=== PATIENT | female | born 1940 | race African-American/Black ===

== ENCOUNTER → 2017-04-04 | Emergency (ER) | payer OTHER ==
[~2017-04-04] MED LIST: AMPICILLIN NA/SULBACTAM NA 1.5 GM in SODIUM CHLORIDE 100 ML IVPB ONE; SODIUM CHLORIDE 0.9% 500 ML INFUS.BAG IV ONE; morphine CARPU-JECT 2 MG/1 ML DISP.SYRIN IVPUSH ONE; morphine CARPU-JECT 2 MG/1 ML DISP.SYRIN ONE
[2017-04-04 19:09] VITALS: BP 111/64; PULSE 68; TEMP 98.5; BMI 32.8
--- NOTE | 2017-04-04 19:51 | PDOC ---
History of Present Illness - General Chief Complaint: Pain Stated Complaint: FEVER, SIDE PAIN, PAIN WITH BREATHING Time Seen by Provider: 04/04/17 19:24 - History of Present Illness Initial Comments: 04/04/17 19:46 Patient is a 76 year old female with a history of HLD, DM, COPD who presents with chest pain and lower abdominal pain. Patient reports pinpoint left sided chest pain beginning two days ago that is worse with movement from some positions. She then developed lower left abdominal pain earlier today prompting her visit to the ED. She reports that she doesn't know what makes the pain in her abdomen worse, but states that it is intermittent. She has a history of a hysterectomy at 30, but no other abdominal surgeries. She gets regular colonoscopies with no abnormalities noted. She had a recent broncitis treated with augmentin over the past 10 days and has a continued dry cough. She reports some subjective fevers at home, but denies any chills, SOB, recent long travel, blood in her stools, changes with urination, or abnormal vaginal discharge or bleeding. Past History - Past Medical History Allergies/Adverse Reactions: Allergies Allergy/AdvReac Type Severity Reaction Status Date / Time No Known Allergies Allergy Verified 04/04/17 19:06 Home Medications: Ambulatory Orders Aspirin [ASA -] 81 mg PO DAILY 09/13/16 Azithromycin [Zithromax -] 250 mg PO DAILY 09/13/16 Ca/D3/Mag#11/Zinc/It Administrator/[place]/Bor [Caltrate 600+D Plus Tablet] 1 each PO DAILY Memantine HCl [Namenda -] 10 mg PO BID 09/13/16 Metformin HCl [Glucophage -] 500 mg PO BID 09/13/16 Ondansetron HCl [Zofran] 4 mg PO Q6H 09/13/16 Rosuvastatin [Crestor -] 10 mg PO DAILY 09/13/16 Amoxicillin/Potassium Clav [Augmentin 875-125 Tablet] 1 each PO BID #14 tablet 04/05/17 Diabetes: Yes - Immunization History Immunization Up to Date: Yes - Psycho/Social/Smoking Cessation Hx Anxiety: No Suicidal Ideation: No Smoking History: Never smoked Information on smoking cessation initiated: No Hx Alcohol Use: No Drug/Substance Use Hx: No Substance Use Type: None Review of Systems - Review of Systems Constitutional: Yes: Fever. No: Chills, Unintentional Wgt. Loss HEENTM: No: Recent change in vision, Nose Congestion, Throat Pain Respiratory: Yes: Cough. No: Shortness of Breath, Productive cough Cardiac (ROS): Yes: Chest Pain. No: Lightheadedness, Palpitations, Chest Tightness ABD/GI: No: Blood Streaked Bowels, Constipated, Diarrhea, Nausea, Rectal Bleeding, Vomiting : No: Burning, Dysuria, Frequency, Hematuria Neurological: No: Headache, Numbness, Tingling, Weakness *Physical Exam - Vital Signs Last Vital Signs Temp Pulse Resp BP Pulse Ox 98.5 F 68 19 111/64 97 04/04/17 19:07 04/04/17 19:07 04/04/17 19:07 04/04/17 19:07 04/04/17 19:07 - Physical Exam Comments: 04/04/17 20:33 General Appearance: Nourished. No Apparent Distress HEENT: No Pharyngeal Erythema, Tonsillar Exudate, Tonsillar Erythema Neck: No Lymphadenopathy Respiratory/Chest: Lungs Clear, Normal Breath Sounds. No Crackles, Rales, Rhonchi, Wheezing Cardiovascular: Regular Rhythm, Regular Rate. negative: Murmur, Gallop/S3, Gallop/S4 Gastrointestinal/Abdominal: Normal Bowel Sounds, Soft, Lower right quadrant and suprapubic tenderness to palpation. No Guarding, Rebound Rectal Exam: normal exam Extremity: Normal Capillary Refill. negative: Pedal Edema, Swelling Integumentary: Normal Color, Dry, Warm Neurologic: Fully Oriented, Alert, Normal Mood/Affect, Normal Response ED Treatment Course - LABORATORY CBC & Chemistry Diagram: 04/04/17 20:13 04/04/17 20:13 Medical Decision Making - Medical Decision Making 04/04/17 22:15 Patient is a 76 year old female who presents with lower abdominal pain and chest pain. Given the patient's physical exam, her chest pain is reproducible on palpation and is pinpoint tender suggesting that the cause of her pain is musculaskeletal in nature. However it is reasonable to rule out ACS and pneumonia given her history and risk factors. We will obtain a cbc, cmp, troponin and chest xray to evaluate. Given the patient's abdominal physical exam, we will obtain a abdominal CT with oral contrast to evaluate as well as a stool occult blood. We will also get a UA to evaluate for UTI. 04/05/17 18:53 Patient's labs only notable for an elevated WBC. Abdominal CT read by learning operations specialist radiologist demonstrates sigmoid diverticulitis. We discussed the results with the patient and feel comfortable discharging home with a week of augmentin and follow up with her primary care provider. Patient is agreeable to the plan. *DC/Admit/Observation/Transfer Diagnosis at time of Disposition: Diverticulitis Qualifiers: Diverticulitis site: large intestine Diverticulitis bleeding: without bleeding Diverticulitis complication: without perforation or abscess Qualified Code(s): K57.32 - Diverticulitis of large intestine without perforation or abscess without bleeding - Discharge Dispostion Disposition: HOME Condition at time of disposition: Improved - Prescriptions Prescriptions: Amoxicillin/Potassium Clav [Augmentin 875-125 Tablet] 1 each PO BID #14 tablet - Patient Instructions Printed Discharge Instructions: DI for Diverticulitis Additional Instructions: Please return to the ER if you experience concerning or worsening symptoms. Please call to schedule a follow up appointment with your primary care provider to discuss your ER visit. - Attestations Physician Attestion: 04/05/17 05:48 I, Dr. Meek Blount, attest that this document has been prepared under my direction and personally reviewed by me in its entirety. I further attest, that it accurately reflects all work, treatment, procedures and medical decision -making performed by me.
[2017-04-04 20:20] LABS: STOOL FOR OCCULT BLOOD NEGATIVE (NEGATIVE)
[2017-04-04 20:22] LABS: BASOPHIL 0.2 % (0-2.0); EOSINOPHIL 1.2 % (0-4.5); MCH 29.3 pg (25.7-33.7); MCHC 32.7 g/dl (32.0-36.0); MEAN CELL VOLUME 89.6 fl (80-96); MEAN PLT VOLUME 7.6 fl (7.5-11.1); NEUTROPHILS 72.9 % (42.8-82.8); PLATELET COUNT 263 K/MM3 (134-434); RDW 14.2 % (11.6-15.6); WHITE BLOOD COUNT 12.5 K/mm3 (4.0-10.0)
[2017-04-04 20:49] LABS: URINE APPEARANCE CLEAR; URINE BILIRUBIN NEGATIVE (NEGATIVE); URINE BLOOD NEGATIVE (NEGATIVE); URINE COLOR LTYELLOW; URINE GLUCOSE (UA) NEGATIVE (NEGATIVE); URINE KETONE NEGATIVE (NEGATIVE); URINE NITRITE NEGATIVE (NEGATIVE); URINE PROTEIN NEGATIVE (NEGATIVE); URINE UROBILINOGEN NEGATIVE mg/dL (0.2-1.0)
[2017-04-04 20:51] LABS: INR 0.97 (0.82-1.09); PROTHROMBIN TIME (PATIENT) 10.7 SEC (9.98-11.88)
[2017-04-04 21:03] LABS: URINE LEUK ESTERASE 1+ (NEGATIVE)
[2017-04-04 21:07] LABS: URINE MUCUS RARE; URINE RBC 10 /hpf (0-3); URINE WBC 5 /hpf (3-5)
[2017-04-04 21:22] LABS: ALBUMIN 3.3 g/dl (3.4-5.0); ANION GAP 6 (8-16); BILIRUBIN,TOTAL 0.2 mg/dL (0.2-1.0); CALCIUM 8.6 mg/dL (8.5-10.1); CO2 30 mmol/L (21-32); GLUCOSE,RANDOM 115 mg/dL (74-106); SGOT/AST 16 U/L (15-37); SGPT/ALT 18 U/L (12-78); TOT PROT 7.1 g/dl (6.4-8.2)
[2017-04-04 21:25] LABS: ALK PHOS 70 U/L (45-117); TROPONIN I < 0.02 ng/ml (0.00-0.05)
--- NOTE | 2017-04-04 23:30 | PDOC ---
Attending Attestation - Resident Resident Name: Meek Blount - HPI HPI: 04/04/17 23:27 Pt comes with feling feverish at home. 2 days of lower abdominal pain, although she told her daughter of the pain only today because she didn't want to worry her daughter. She also had a sticking sensation of the chest that was fleeting; states that that has been on and off for 2 days. Afebrile in the ER. - Physicial Exam PE: 04/04/17 23:29 Lower abd pain; left side >> right. No flank pain; Pt has no urinary complaints. Neurologically intact. Heart and lungs normal. Pt is warm to the touch, but afebrile on vitals. - Medical Decision Making 04/04/17 23:[address] scan of her abd and pelvis to r/o diverticulitis. 04/05/17 06:24 Pt has diverticulitis; she will be treated with Unasyn dose in the ER and she will be discharged home with 7 days augmentin BID.
--- NOTE | 2017-04-07 09:40 | EKG ---
Test Reason : Blood Pressure : / mmHG Vent. Rate : 067 BPM Atrial Rate : 067 BPM P-R Int : 120 ms QRS Dur : 082 ms QT Int : 450 ms P-R-T Axes : 049 039 060 degrees QTc Int : 475 ms NORMAL SINUS RHYTHM WITH SINUS ARRHYTHMIA NORMAL ECG WHEN COMPARED WITH ECG OF 13-SEP-2016 21:58, PREMATURE SUPRAVENTRICULAR COMPLEXES ARE NO LONGER PRESENT Confirmed by JINA CARMEN, MANUEL ([id number]) on 04/07/2017 9:40:12 AM Referred By: Confirmed By:MANUEL MURO MD
== END | disposition home or self-care (01) ==
LOC: JER 18:54
PROC: 3E03329 Introduction of Other Anti-infective into Peripheral Vein, Percutaneous Approach (ICD-10-PCS; principal; 2017-04-04)
PROC: 3E033NZ Introduction of Analgesics, Hypnotics, Sedatives into Peripheral Vein, Percutaneous Approach (ICD-10-PCS; 2017-04-04)
DX: K57.32 Diverticulitis of large intestine without perforation or abscess without bleeding (principal); E11.9 Type 2 diabetes mellitus without complications; Z79.4 Long term (current) use of insulin; E78.00 Pure hypercholesterolemia, unspecified; J44.9 Chronic obstructive pulmonary disease, unspecified
CPT/HCPCS: 36415; 71020-TC; 74020-TC; 74176-TC; 80053; 81003; 81015; 82272; 82550; 82553; 84484; 85025; 85610; 93005; 93010; 96365; 96375; 99281-25

== ENCOUNTER 2018-02-20 17:06 | Observation (INO) | payer OTHER ==
--- NOTE | 2018-02-20 17:11 | PDOC ---
Rapid Medical Evaluation Chief Complaint: Chest Pain Time Seen by Provider: 02/20/18 17:08 Medical Evaluation: Allergies Allergy/AdvReac Type Severity Reaction Status Date / Time No Known Allergies Allergy Verified 02/20/18 17:06 02/20/18 17:09 I have performed a brief in-person evaluation of this patient. The patient presents with a chief complaint of: CP this afternoon. H/o HLD, DM, COPD, still smokes Pertinent physical exam findings:stable w/ unremarkable exam I have ordered the following:ekg/cxr/labs The patient will proceed to the ED for further evaluation. Discharge Disposition - Diagnosis Chest pain Qualifiers: Chest pain type: unspecified Qualified Code(s): R07.9 - Chest pain, unspecified - Referrals - Patient Instructions - Post Discharge Activity
[2018-02-20 17:12] VITALS: BMI 31.8
--- NOTE | 2018-02-20 17:24 | PDOC ---
History of Present Illness - General Chief Complaint: Chest Pain Stated Complaint: CHEST PAIN Time Seen by Provider: 02/20/18 17:08 - History of Present Illness Initial Comments: 02/20/18 17:24 Ms. Parker is a 77 yo female w/ pmh of COPD, HLD, DM who presents for evaluation of one day history of dyspnea on exertion with left sided chest pain. Patient had recent episode of bronchitis in January and was recently cleared ( friday), however reports she has had intermittent low grade chest pain that became more severe today. She further reports she has had dizziness for the last day as well. The patient denies headache. Denies fever, chills, nausea, vomit, diarrhea and constipation. Denies dysuria, frequency, urgency and hematuria. Allergies: NKDA Past History - Past Medical History Allergies/Adverse Reactions: Allergies Allergy/AdvReac Type Severity Reaction Status Date / Time No Known Allergies Allergy Verified 02/20/18 17:06 Home Medications: Ambulatory Orders Aspirin [ASA -] 81 mg PO DAILY 09/13/16 Azithromycin [Zithromax -] 250 mg PO DAILY 09/13/16 Henry/D3/Mag11/Zinc/Funeral Attendant/[place]/Bor [Caltrate 600+D Plus Tablet] 1 each PO DAILY Memantine HCl [Namenda -] 10 mg PO BID 09/13/16 Ondansetron HCl [Zofran] 4 mg PO Q6H 09/13/16 Rosuvastatin [Crestor -] 10 mg PO DAILY 09/13/16 metFORMIN HCL [Glucophage -] 500 mg PO BID 09/13/16 Amoxicillin/Potassium Clav [Augmentin 875-125 Tablet] 1 each PO BID #14 tablet 04/05/17 COPD: Yes Diabetes: Yes GI Disorders: Yes (diverticulitis) Hypercholesterolemia: Yes Other medical history: bronchitis - Immunization History Immunization Up to Date: Yes - Suicide/Smoking/Psychosocial Hx Smoking History: Never smoked Number of Cigarettes Smoked Daily: 20 Information on smoking cessation initiated: No Hx Alcohol Use: No Drug/Substance Use Hx: No Substance Use Type: None Review of Systems - Review of Systems Comments:: 02/20/18 17:24 GENERAL/CONSTITUTIONAL: No fever or chills. No weakness. HEAD, EYES, EARS, NOSE AND THROAT: No change in vision. No ear pain or discharge. No sore throat. CARDIOVASCULAR: +Left sided chest pain for 1 day with associated dyspnea on exertion. RESPIRATORY: No cough, wheezing, or hemoptysis. GASTROINTESTINAL: No nausea, vomiting, diarrhea or constipation. GENITOURINARY: No dysuria, frequency, or change in urination. MUSCULOSKELETAL: No joint or muscle swelling or pain. No neck or back pain. SKIN: No rash NEUROLOGIC: +Intermittent dizziness for 1 day. No headache, vertigo, loss of consciousness, or change in strength/sensation. ENDOCRINE: No increased thirst. No abnormal weight change HEMATOLOGIC/LYMPHATIC: No anemia, easy bleeding, or history of blood clots. ALLERGIC/IMMUNOLOGIC: No hives or skin allergy. *Physical Exam - Vital Signs Last Vital Signs Temp Pulse Resp BP Pulse Ox 98.1 F 80 18 143/70 98 02/20/18 17:07 02/20/18 17:07 02/20/18 17:07 02/20/18 17:07 02/20/18 17:07 - Physical Exam Comments: 02/20/18 17:24 GENERAL: Awake, alert, and fully oriented, in no acute distress HEAD: No signs of trauma, normocephalic, atraumatic EYES: PERRLA, EOMI, sclera anicteric, conjunctiva clear ENT: Auricles normal inspection, hearing grossly normal, nares patent, oropharynx clear without exudates. Moist mucosa NECK: Normal ROM, supple, no lymphadenopathy, JVD, or masses LUNGS: No distress, speaks full sentences, clear to auscultation bilaterally HEART: Regular rate and rhythm, normal S1 and S2, no murmurs, rubs or gallops, peripheral pulses normal and equal bilaterally. ABDOMEN: Soft, nontender, normoactive bowel sounds. No guarding, no rebound. No masses EXTREMITIES: Normal inspection, Normal range of motion, no edema. No clubbing or cyanosis. NEUROLOGICAL: Cranial nerves II through XII grossly intact. Normal speech, normal gait, no focal sensorimotor deficits SKIN: Warm, Dry, normal turgor, no rashes or lesions noted. Heart Score/ECG Review - History History: Moderately suspicious - Electrocardiogram EKG: Normal - Age Age: >/= 65 - Risk Factors Risk Factors Heart Score: Yes Hx Hypercholesterolemia, Yes Hx Diabetes, Yes Smoking History Based on the list above the patient has:: >/=3 risk factors or Hx atherosclerotic disease - Troponin Troponin: </= normal limit - Score Heart Score - Total: 5 ED Treatment Course - LABORATORY CBC & Chemistry Diagram: 02/20/18 17:25 02/20/18 17:25 Medical Decision Making - Medical Decision Making 02/20/18 18:42 Ms. Parker is a 77 yo female w/ pmh as described who presents for evaluation of chest pain. Cardiac workup started. EKG unconcerning, CXR negative for acute process. Labs as below grossly unconcerning. Patient noted to have HEART score of 5. Inpatient team contacted for obs-tele admission for further evaluation. Laboratory Results - last 24 hr 02/20/18 02/20/18 02/20/18 17:25 17:25 18:00 WBC 11.8 H RBC 4.28 Hgb 12.9 Hct 38.7 MCV 90.4 MCH 30.1 MCHC 33.3 RDW 13.8 Plt Count 299 MPV 8.2 Absolute Neuts (auto) 8.2 Neutrophils % 68.9 Lymphocytes % 24.1 D Monocytes % 5.6 Eosinophils % 0.8 Basophils % 0.6 Nucleated RBC % 0 D-Dimer 466 Sodium 137 Potassium 4.6 Chloride 103 Carbon Dioxide 26 Anion Gap 8 BUN 10 Creatinine 1.2 H Creat Clearance w eGFR 43.80 Random Glucose 167 H Calcium 9.6 Total Bilirubin 0.4 D AST 19 ALT 27 Alkaline Phosphatase 64 Creatine Kinase 206 H Creatine Kinase Index 0.3 CK-MB (CK-2) 0.82 Troponin I < 0.02 Total Protein 7.5 Albumin 3.7 *DC/Admit/Observation/Transfer Diagnosis at time of Disposition: Chest pain Qualifiers: Chest pain type: unspecified Qualified Code(s): R07.9 - Chest pain, unspecified - Discharge Dispostion Decision to Admit order: Yes - Referrals - Patient Instructions - Post Discharge Activity
[2018-02-20 17:45] LABS: BASO % 0.6 % (0-2.0); EOS % 0.8 % (0-4.5); HEMATOCRIT 38.7 % (32.4-45.2); HEMOGLOBIN 12.9 GM/dL (10.7-15.3); LYMPH % 24.1 % (8-40); MCH 30.1 pg (25.7-33.7); MCHC 33.3 g/dl (32.0-36.0); MEAN CELL VOLUME 90.4 fl (80-96); MEAN PLT VOLUME 8.2 fl (7.5-11.1); MONO % 5.6 % (3.8-10.2); NEUT % 68.9 % (42.8-82.8); PLATELET COUNT 299 K/MM3 (134-434); RBC 4.28 M/mm3 (3.60-5.2); RDW 13.8 % (11.6-15.6); WHITE BLOOD COUNT 11.8 K/mm3 (4.0-10.0)
[2018-02-20 18:05] LABS: ALBUMIN 3.7 g/dl (3.4-5.0); ANION GAP 8 (8-16); BILIRUBIN,TOTAL 0.4 mg/dL (0.2-1.0); BLOOD UREA NITROGEN 10 mg/dL (7-18); CALCIUM 9.6 mg/dL (8.5-10.1); CHLORIDE 103 mmol/L (98-107); CO2 26 mmol/L (21-32); CREATININE 1.2 mg/dL (0.55-1.02); GLUCOSE,RANDOM 167 mg/dL (74-106); POTASSIUM 4.6 mmol/L (3.5-5.1); SGOT/AST 19 U/L (15-37); SGPT/ALT 27 U/L (12-78); SODIUM 137 mmol/L (136-145); TOT PROT 7.5 g/dl (6.4-8.2)
[2018-02-20 18:07] LABS: ALK PHOS 64 U/L (45-117)
[2018-02-20] MEDS ORDERED: ASPIRIN 81 MG CHEWABLE TABLETS PO ONE (18:08)
[2018-02-20] MEDS ORDERED: ASPIRIN 81 MG CHEWABLE TABLETS ONE (18:24)
[2018-02-20 18:48] LABS: URINE APPEARANCE CLEAR; URINE BILIRUBIN NEGATIVE (<2.0 mg/dL); URINE BLOOD NEGATIVE (NEGATIVE); URINE COLOR YELLOW; URINE GLUCOSE (UA) NEGATIVE (NEGATIVE); URINE KETONE NEGATIVE (NEGATIVE); URINE LEUK ESTERASE TRACE (NEGATIVE); URINE NITRITE NEGATIVE (NEGATIVE); URINE PROTEIN NEGATIVE (NEGATIVE); URINE UROBILINOGEN NEGATIVE mg/dL (0.2-1.0)
[2018-02-20 18:53] LABS: EPI CELLS RARE /HPF (FEW)
--- NOTE | 2018-02-20 18:53 | PDOC ---
Attending Attestation - Resident Resident Name: Saturnino Campos - ED Attending Attestation I have performed the following: I have examined & evaluated the patient, The case was reviewed & discussed with the resident, I agree w/resident's findings & plan, Exceptions are as noted - HPI HPI: 02/20/18 18:43 "The patient is a 77 year old female with past medical history of HLD, DM, COPD , pneumonia, bronchitis, diverticulitis presents to the emergency department with chest pain and dyspnea on exertion. The patient report a history of mild chest pain for the past several days that became worse today. The patient reports the chest pain is localized to the left anterior chest wall. The patient also reports concomitant dizziness accompanied with dyspnea on exertion. The patient reports a recent dx of bronchitis (in January). Denies fever, chills, cough or headache. Denies nausea or vomiting. Denies diarrhea or constipation. Denies dysuria, hematuria, frequency or urgency to urinate. Denies numbness, tingling or loss of sensations. Denies vertigo. Allergies: NKDA Social history: Patient reports daily use of cigarettes. Denies the use of alcohol or recreational drugs. Surgical history: hysterectomy (age 30). PCP: Antonietta Serrano Block Paver: Dr. Marlow " - Physicial Exam PE: 02/20/18 18:53 "GENERAL: Awake, alert, and fully oriented, in no acute distress. HEAD: No signs of trauma EYES: PERRLA, EOMI, sclera anicteric, conjunctiva clear ENT: Auricles normal inspection, hearing grossly normal, nares patent, oropharynx clear without exudates. Moist mucosa NECK: Nontender, no stepoffs, Normal ROM, supple, no lymphadenopathy, JVD, or masses LUNGS: Breath sounds equal, clear to auscultation bilaterally. No wheezes, and no crackles HEART: Regular rate and rhythm, normal S1 and S2, no murmurs, rubs or gallops ABDOMEN: Soft, nontender, normoactive bowel sounds. No guarding, no rebound. No masses EXTREMITIES: Normal range of motion, no edema. No clubbing or cyanosis. No cords, erythema, or tenderness NEUROLOGICAL: Cranial nerves II through XII intact. 5/5 strength and sensation in all extremities, Normal speech, normal gait, normal cerebellar function SKIN: Warm, Dry, normal turgor, no rashes or lesions noted. " - Medical Decision Making 02/20/18 18:53 77 F with chest pain and CAMP. Concerning for ACS vs CHF, though clinically no signs of volume overload. Also consider PE, though no signs of DVT. - Labs, trop, Ddimer, BNP - CXR - Admit tele
--- NOTE | 2018-02-20 20:51 | PN ---
Teaching Attending Note Name of Resident: Nathaniel Shin ATTENDING PHYSICIAN STATEMENT I saw and evaluated the patient. I reviewed the resident's note and discussed the case with the resident. I agree with the resident's findings and plan as documented. SUBJECTIVE: Patient is a 77 year old woman with past medical history of HLD, DM, COPD, pneumonia, bronchitis, diverticulitis presents to the emergency department with chest pain and dyspnea on exertion. The patient report a history of mild chest pain for the past several days that became worse today. The patient reports the chest pain is localized to the left anterior chest wall. The patient also reports concomitant dizziness accompanied with dyspnea on exertion. OBJECTIVE: Alert. In no acute distress Vital Signs Period Temp Pulse Resp BP Sys/Solis Pulse Ox Last 24 Hr 98.1 F 69-80 18-20 143-164/69-70 98-100 HEENT: No Jaundice, eye redness or discharge, PERRLA, EOMI. Normocephalic, atraumatic. External ears are normal and hearing is grossly intact. No nasal discharge. Neck: Supple, nontender. No palpable adenopathy or thyromegaly. No JVD Chest: Good effort. Clear to auscultation and percussion. Heart: Regular. No S3, rub or murmur Abdomen: Not distended, soft, nontender and no HSM. No rebound or guarding. Normoactive bowel sounds. Ext: Peripheral pulses intact. No leg edema. Skin: Warm and dry. No petechiae, rash or ecchymosis. Neuro: Alert. Oriented x3. CN 2-12 grossly intact. Sensation grossly intact in all four extremities and DTR are symmetric. Current Medications Generic Name Dose Route Start Last Admin Trade Name Freq PRN Reason Stop Dose Admin Amlodipine Besylate 5 mg 02/21/18 10:00 Norvasc - PO DAILY MÓNICA Aspirin 81 mg 02/21/18 10:00 Asa - PO DAILY MÓNICA Atorvastatin Calcium 80 mg 02/20/18 22:00 02/20/18 21:06 Lipitor - PO Not Given HS MÓNICA Lisinopril 10 mg 02/20/18 22:00 Prinivil PO BID MÓNICA Metformin HCl 500 mg 02/20/18 22:00 02/20/18 21:06 Glucophage - PO 500 mg HS MÓNICA Administration Metformin HCl 1,000 mg 02/21/18 07:00 Glucophage - PO DAILY@0700 [facility] Home Medications Medication Instructions Recorded Aspirin [ASA -] 81 mg PO DAILY 09/13/16 Henry/D3/Mag11/Zinc/Sand Screener Operator/[place]/Bor 1 each PO HS 09/13/16 [Caltrate 600+D Plus Tablet] Memantine HCl [Namenda -] 10 mg PO BID 09/13/16 Rosuvastatin [Crestor -] 10 mg PO DAILY 09/13/16 metFORMIN HCL [Glucophage -] 500 mg PO HS 09/13/16 Metformin HCl [Glucophage] 1,000 mg PO DAILY 02/20/18 Abnormal Lab Results 02/20/18 02/20/18 17:25 17:25 WBC 11.8 H Creatinine 1.2 H Random Glucose 167 H Creatine Kinase 206 H ASSESSMENT AND PLAN: 1. Atypical Chest pain - Thus far no evidence of acute NE. Will admit as an observation case to telemetry to rule out ACS with serial EKG and troponin. ECHO and cardiology consult in AM. Mild leukocytosis raises the possibility of an infection such as viral pericarditis or myocarditis. Check Lyme antibody. Will give Asprin, lipitor and then tylenol PRN. 2. DM - Contnue current regimen with sliding scale insulin coverage. Daughter reminded to ensure Eye care and Foot care. 3. Hpertension - Needs improved control. Will add lisinopril 10 mg po bid and amlodipine 5 mg po qd and stress low salt diet. 4. DVT prophylaxis - Heparin 5000u sq tid 5. Advance directives - Full code
[2018-02-20] MEDS: metFORMIN HCL 500 MG TABLET (FP) PO SCH (21:06)
[2018-02-20] MEDS ORDERED: LISINOPRIL 5 MG TABLET (FP) ONE (21:07)
[2018-02-20] MEDS: LISINOPRIL 10 MG TABLET (FP) PO SCH (21:42)
--- NOTE | 2018-02-20 21:47 | HP ---
CHIEF COMPLAINT: chest pain since 1 day PCP: dr gill HISTORY OF PRESENT ILLNESS: 77 y/o f with pmh of hld,, dm smoking came to hospital with a complaint of Left side chest pain since one day. Patient states that [place] and after that she has pin in her left side of chest, sharp, constant, non radiating, increase with cough and deep breath, not relieved with any thing. Never had this kind of pain before ( daughter reported she had chest pain 1 year ago and work up was done by Dr marlow which was normal). Denies sob, palpitations, lightheadidness, nausea, vomiting, diaphoresis. Denies recent travel, trauma to chest, cough, fever and chills. Denies orthopnea, swelling in legs. lives by her self on second floor, walks without cane her daughter lives on 5th floor ER course was notable for: (1)cbc, cmp, trop (2)ekg (3)aspirin Recent Travel: no PAST MEDICAL HISTORY: DM, HLD, dementia, copd PAST SURGICAL HISTORY: cs Social History: Smoking: smoke 23 cig eevery day since she was 19 year old Alcohol: no Drugs: no Family History: no family h/o heart ds Allergies No Known Allergies Allergy (Verified 02/20/18 17:06) HOME MEDICATIONS: Home Medications Medication Instructions Recorded Aspirin [ASA -] 81 mg PO DAILY 09/13/16 Henry/D3/Mag11/Zinc/Supervisor Train Operations/[place]/Bor 1 each PO HS 09/13/16 [Caltrate 600+D Plus Tablet] Memantine HCl [Namenda -] 10 mg PO BID 09/13/16 Rosuvastatin [Crestor -] 10 mg PO DAILY 09/13/16 metFORMIN HCL [Glucophage -] 500 mg PO HS 09/13/16 Metformin HCl [Glucophage] 1,000 mg PO DAILY 02/20/18 REVIEW OF SYSTEMS CONSTITUTIONAL: Absent: fever, chills, diaphoresis, generalized weakness, malaise, loss of appetite, weight change HEENT: Absent: rhinorrhea, nasal congestion, throat pain, throat swelling, difficulty swallowing, mouth swelling, ear pain, eye pain, visual changes CARDIOVASCULAR: Absent: syncope, palpitations, irregular heart rate, lightheadedness, peripheral edema RESPIRATORY: Absent: cough, shortness of breath, dyspnea with exertion, orthopnea, wheezing, stridor, hemoptysis GASTROINTESTINAL: Absent: abdominal pain, abdominal distension, nausea, vomiting, diarrhea, constipation, melena, hematochezia GENITOURINARY: Absent: dysuria, frequency, urgency, hesitancy, hematuria, flank pain, genital pain MUSCULOSKELETAL: Absent: myalgia, arthralgia, joint swelling, back pain, neck pain SKIN: Absent: rash, itching, pallor HEMATOLOGIC/IMMUNOLOGIC: Absent: easy bleeding, easy bruising, ENDOCRINE: Absent: unexplained weight gain, unexplained weight loss, NEUROLOGIC: Absent: headache, focal weakness or paresthesias, dizziness, unsteady gait, seizure, mental status changes, PSYCHIATRIC: Absent: anxiety, depression, suicidal or homicidal ideation, hallucinations. PHYSICAL EXAMINATION Vital Signs - 24 hr 02/20/18 02/20/18 02/20/18 17:07 18:37 21:43 Temperature 98.1 F 98.1 F Pulse Rate 80 Pulse Rate [ 69 65 Apical] Respiratory 18 20 18 Rate Blood Pressure 143/70 Blood Pressure 164/69 104/54 [Left Arm] O2 Sat by Pulse 98 100 100 Oximetry (%) GENERAL: Awake, alert, and fully oriented, in no acute distress. HEAD: Normal with no signs of trauma. EARS, NOSE, THROAT: Moist mucous membranes. NECK: Normal range of motion, supple without lymphadenopathy, JVD, or masses. LUNGS: Breath sounds equal, clear to auscultation bilaterally. No wheezes, and no crackles. No accessory muscle use. HEART: Regular rate and rhythm, normal S1 and S2 without murmur, rub or gallop. ABDOMEN: Soft, nontender, not distended, normoactive bowel sounds, no guarding, no rebound, no masses. MUSCULOSKELETAL: Normal range of motion at all joints. No bony deformities or tenderness. UPPER EXTREMITIES: 2+ pulses, warm, well-perfused. No cyanosis. No clubbing. LOWER EXTREMITIES: 2+ pulses, warm, well-perfused. No calf tenderness. No peripheral edema. NEUROLOGICAL: Cranial nerves II-XII intact. Normal speech PSYCHIATRIC: Cooperative. Good eye contact. SKIN: Warm, dry, Laboratory Results - last 24 hr 02/20/18 02/20/18 02/20/18 17:25 17:25 18:00 WBC 11.8 H RBC 4.28 Hgb 12.9 Hct 38.7 MCV 90.4 MCH 30.1 MCHC 33.3 RDW 13.8 Plt Count 299 MPV 8.2 Absolute Neuts (auto) 8.2 Neutrophils % 68.9 Lymphocytes % 24.1 D Monocytes % 5.6 Eosinophils % 0.8 Basophils % 0.6 Nucleated RBC % 0 D-Dimer 466 Sodium 137 Potassium 4.6 Chloride 103 Carbon Dioxide 26 Anion Gap 8 BUN 10 Creatinine 1.2 H Creat Clearance w eGFR 43.80 Random Glucose 167 H Calcium 9.6 Magnesium Total Bilirubin 0.4 D AST 19 ALT 27 Alkaline Phosphatase 64 Creatine Kinase 206 H Creatine Kinase Index 0.3 CK-MB (CK-2) 0.82 Troponin I < 0.02 Total Protein 7.5 Albumin 3.7 Urine Color Urine Appearance Urine pH Ur Specific [place] Urine Protein Urine Glucose (UA) Urine Ketones Urine Blood Urine Nitrite Urine Bilirubin Urine Urobilinogen Ur Leukocyte Esterase Urine WBC (Auto) Urine RBC (Auto) Ur Epithelial Cells 02/20/18 02/20/18 18:30 20:30 WBC RBC Hgb Hct MCV MCH MCHC RDW Plt Count MPV Absolute Neuts (auto) Neutrophils % Lymphocytes % Monocytes % Eosinophils % Basophils % Nucleated RBC % D-Dimer Sodium Potassium Chloride Carbon Dioxide Anion Gap BUN Creatinine Creat Clearance w eGFR Random Glucose Calcium Magnesium 2.1 Total Bilirubin AST ALT Alkaline Phosphatase Creatine Kinase Creatine Kinase Index CK-MB (CK-2) Troponin I Total Protein Albumin Urine Color Yellow Urine Appearance Clear Urine pH 6.0 D Ur Specific [place] 1.013 Urine Protein Negative Urine Glucose (UA) Negative Urine Ketones Negative Urine Blood Negative Urine Nitrite Negative Urine Bilirubin Negative Urine Urobilinogen Negative Ur Leukocyte Esterase Trace Urine WBC (Auto) 3 Urine RBC (Auto) 1 Ur Epithelial Cells Rare ASSESSMENT/PLAN: 77 y/o f with pmh of hld,, dm smoking came to hospital with a complaint of Left side chest pain since one day. atypical chest pain r/o acs repeat trop i, initial negative repeat ekg in am, initial no st changes. ECHO morning vitals. cardiac monitoring cardiology consult. Dr Marlow start on atorvastatin 80 aspirin 81 daily. control BP HLD as above lipid profile HTN patient reports she was never on medication. will start her on amlodipine and lisinopril. low salt diet. counselled for diet and exercise to lose lexus DM hba1c diabetic diet. continue home meds. metformin 1000 in am and 500 in night. bgm monitoring Dementia continue namenda follows dr chua COPD stable not on meds follows Dr Hayes Fluid; orally allowed electrolyte: normal nutrition: low salt and diabetic diet. dispo: tele obs Visit type - Emergency Visit Emergency Visit: Yes ED Registration Date: 02/20/18 Care time: The patient presented to the Emergency Department on the above date and was hospitalized for further evaluation of their emergent condition. - New Patient This patient is new to me today: Yes Date on this admission: 02/21/18 - Critical Care Critical Care patient: No
[2018-02-20] MEDS ORDERED: ATORVASTATIN CA 80 MG TABLET (FP) PO SCH (22:00)
[2018-02-20] MEDS ORDERED: metFORMIN HCL 500 MG TABLET (FP) PO SCH (22:00)
[2018-02-20] MEDS: MEMANTINE HCL 10 MG TABLET (FP) PO SCH (22:05)
[2018-02-21] MEDS: metFORMIN HCL 500 MG TABLET (FP) PO SCH ×2 (06:44→22:24)
[2018-02-21 08:04] LABS: CHOLESTEROL 128 mg/dL (50-200); TRIGLYCERIDES 280 mg/dL (35-160)
[2018-02-21 08:06] LABS: HDL CHOLESTEROL 38 mg/dL (40-60)
--- NOTE | 2018-02-21 09:37 | PN ---
Physical Exam: SUBJECTIVE: Patient seen and examined Patient is chest pain free at this time. No fever or chills, no shortness of breath OBJECTIVE: Vital Signs Temperature 98.1 F 02/21/18 06:00 Pulse Rate 52 L 02/21/18 06:00 Respiratory Rate 18 02/21/18 06:00 Blood Pressure 132/52 02/21/18 06:00 O2 Sat by Pulse Oximetry (%) 97 02/20/18 23:00 GENERAL: The patient is awake, alert, and fully oriented, in no acute distress. HEAD: Normal with no signs of trauma. EYES: PERRL, extraocular movements intact, sclera anicteric, conjunctiva clear. No ptosis. ENT: Ears normal, nares patent, oropharynx clear without exudates, moist mucous membranes. NECK: Trachea midline, full range of motion, supple. LUNGS: Breath sounds equal, clear to auscultation bilaterally, no wheezes, no crackles, no accessory muscle use. HEART: Regular rate and rhythm, S1, S2 without murmur, rub or gallop. ABDOMEN: Soft, nontender, nondistended, normoactive bowel sounds, no guarding, no rebound, no hepatosplenomegaly, no masses. EXTREMITIES: 2+ pulses, warm, well-perfused, no edema. NEUROLOGICAL: Cranial nerves II through XII grossly intact. Normal speech, gait not observed. PSYCH: Normal mood, normal affect. SKIN: Warm, dry, normal turgor, no rashes or lesions noted CBCD WBC 11.8 K/mm3 (4.0-10.0) H 02/20/18 17:25 RBC 4.28 M/mm3 (3.60-5.2) 02/20/18 17:25 Hgb 12.9 GM/dL (10.7-15.3) 02/20/18 17:25 Hct 38.7 % (32.4-45.2) 02/20/18 17:25 MCV 90.4 fl (80-96) 02/20/18 17:25 MCHC 33.3 g/dl (32.0-36.0) 02/20/18 17:25 RDW 13.8 % (11.6-15.6) 02/20/18 17:25 Plt Count 299 K/MM3 (134-434) 02/20/18 17:25 MPV 8.2 fl (7.5-11.1) 02/20/18 17:25 CMP Sodium 137 mmol/L (136-145) 02/20/18 17:25 Potassium 4.6 mmol/L (3.5-5.1) 02/20/18 17:25 Chloride 103 mmol/L (98-107) 02/20/18 17:25 Carbon Dioxide 26 mmol/L (21-32) 02/20/18 17:25 Anion Gap 8 (8-16) 02/20/18 17:25 BUN 10 mg/dL (7-18) 02/20/18 17:25 Creatinine 1.2 mg/dL (0.55-1.02) H 02/20/18 17:25 Creat Clearance w eGFR 43.80 (>60) 02/20/18 17:25 Random Glucose 167 mg/dL (74-106) H 02/20/18 17:25 Calcium 9.6 mg/dL (8.5-10.1) 02/20/18 17:25 Total Bilirubin 0.4 mg/dL (0.2-1.0) D 02/20/18 17:25 AST 19 U/L (15-37) 02/20/18 17:25 ALT 27 U/L (12-78) 02/20/18 17:25 Alkaline Phosphatase 64 U/L (45-117) 02/20/18 17:25 Total Protein 7.5 g/dl (6.4-8.2) 02/20/18 17:25 Albumin 3.7 g/dl (3.4-5.0) 02/20/18 17:25 CARDIAC ENZYMES Creatine Kinase 154 IU/L (26-192) 02/21/18 05:30 Troponin I < 0.02 ng/ml (0.00-0.05) 02/21/18 05:30 Active Medications Generic Name Dose Route Start Last Admin Trade Name Freq PRN Reason Stop Dose Admin Amlodipine Besylate 5 mg 02/21/18 10:00 Norvasc - PO DAILY [facility] Aspirin 81 mg 02/21/18 10:00 Asa - PO DAILY [facility] Atorvastatin Calcium 80 mg 02/20/18 22:00 02/20/18 21:06 Lipitor - PO Not Given HS [facility] Lisinopril 10 mg 02/20/18 22:00 02/20/18 21:42 Prinivil PO Not Given BID MÓNICA Memantine 10 mg 02/20/18 22:00 02/20/18 22:05 Namenda - PO 10 mg BID MÓNICA Administration Metformin HCl 500 mg 02/20/18 22:00 02/20/18 21:06 Glucophage - PO 500 mg HS MÓNICA Administration Metformin HCl 1,000 mg 02/21/18 07:00 02/21/18 06:44 Glucophage - PO 1,000 mg DAILY@0700 MÓNICA Administration Home Medications Medication Instructions Recorded Aspirin [ASA -] 81 mg PO DAILY 09/13/16 Henry/D3/Mag11/Zinc/Cell Changer/[place]/Bor 1 each PO HS 09/13/16 [Caltrate 600+D Plus Tablet] Memantine HCl [Namenda -] 10 mg PO BID 09/13/16 Rosuvastatin [Crestor -] 10 mg PO DAILY 09/13/16 metFORMIN HCL [Glucophage -] 500 mg PO HS 09/13/16 Metformin HCl [Glucophage] 1,000 mg PO DAILY 02/20/18 Laboratory Tests 02/21/18 02/21/18 05:30 05:30 Hemoglobin A1c % 8.3 H Triglycerides 280 H Cholesterol 128 Total LDL Cholesterol 64 HDL Cholesterol 38 L ASSESSMENT/PLAN: 77 y/o f with pmh of hld,, dm smoking came to hospital with a complaint of Left side chest pain since one day. # atypical chest pain r/o acs, 1st troponin is negative , follow troponin level , EKG, ECHO , cardio consult switch crestor to Lipitor since is non formulary atrovastin 40, aspirin 81 daily. # HLD continue with Lipitor ,lipid profile as above #HTN As per family member patient was never given amlodipine and her BP is WNL, will discontinue the meds. # DM, check hgba1c is 8.3 and she runs in 027=343's at home , diabetic diet. continue home meds, metformin 1000 in am and 500 in night. BGMs ordered #Dementia continue namenda, follows dr chua # COPD stable , not on meds, follows Dr Hayes nutrition: low salt and diabetic diet. dispo: tele obs Visit type - Emergency Visit Emergency Visit: Yes ED Registration Date: 02/20/18 Care time: The patient presented to the Emergency Department on the above date and was hospitalized for further evaluation of their emergent condition. - New Patient This patient is new to me today: Yes Date on this admission: 02/22/18 - Critical Care Critical Care patient: No - Discharge Referral Referred to [facility] No
[2018-02-21] MEDS ORDERED: ATORVASTATIN CA 80 MG TABLET (FP) PO SCH (09:57)
[2018-02-21] MEDS: ASPIRIN 81 MG CHEWABLE TABLETS PO SCH (09:57)
[2018-02-21] MEDS ORDERED: amLODIPine BESYLATE 5 MG TABLET (FP) PO SCH (10:00)
[2018-02-21] MEDS ORDERED: metFORMIN HCL 500 MG TABLET (FP) PO SCH (10:00)
[2018-02-21] MEDS: LISINOPRIL 10 MG TABLET (FP) PO SCH (10:05)
[2018-02-21] MEDS: MEMANTINE HCL 10 MG TABLET (FP) PO SCH ×2 (10:48→22:24)
[2018-02-21] MEDS ORDERED: amLODIPine BESYLATE 2.5 MG TABLET (FP) PO SCH (11:03)
--- NOTE | 2018-02-21 14:38 | EKG ---
Test Reason : Blood Pressure : / mmHG Vent. Rate : 080 BPM Atrial Rate : 080 BPM P-R Int : 114 ms QRS Dur : 082 ms QT Int : 404 ms P-R-T Axes : 047 032 044 degrees QTc Int : 465 ms SINUS RHYTHM WITH PREMATURE SUPRAVENTRICULAR COMPLEXES POSSIBLE LEFT ATRIAL ENLARGEMENT BORDERLINE ECG WHEN COMPARED WITH ECG OF 04-APR-2017 19:15, PREMATURE SUPRAVENTRICULAR COMPLEXES ARE NOW PRESENT Confirmed by MD Abhishek, Meek ([id number]) on 02/21/2018 2:38:03 PM Referred By: Confirmed By:Meek Weiss MD
--- NOTE | 2018-02-21 19:12 | CON.CARD ---
Consult Consult Specialty:: Cardiology Referred by:: Hospitalist Medicine Reason for Consultation:: Sharp chest pain - History of Present Illness Chief Complaint: Sharp chest pain History of Present Illness: Patient is a 77 year old woman with past medical history of HLD, DM, COPD, pneumonia, bronchitis, diverticulitis presented to the emergency department with sharp chest pain left anterior chest wall reproducible in nature, she denies exertional component and denies dyspnea on exertion, near or true syncope , palpitations, orthopnea, PND or LE edema. - History Source History Provided By: Patient Limitations to Obtaining History: No Limitations - Past Medical History Cardio/Vascular: Yes: HTN, Hyperlipdemia Endocrine: Yes: Diabetes Mellitus - Alcohol/Substance Use Hx Alcohol Use: No - Smoking History Smoking history: Never smoked Aproximately how many cigarettes per day: 20 Home Medications - Allergies Allergies/Adverse Reactions: Allergies Allergy/AdvReac Type Severity Reaction Status Date / Time No Known Allergies Allergy Verified 02/20/18 17:06 - Home Medications Home Medications: Ambulatory Orders Aspirin [ASA -] 81 mg PO DAILY 09/13/16 Henry/D3/Mag11/Zinc/Food Processing Plant Manager/[place]/Bor [Caltrate 600+D Plus Tablet] 1 each PO HS Memantine HCl [Namenda -] 10 mg PO BID 09/13/16 Rosuvastatin [Crestor -] 10 mg PO DAILY 09/13/16 metFORMIN HCL [Glucophage -] 500 mg PO HS 09/13/16 Metformin HCl [Glucophage] 1,000 mg PO DAILY 02/20/18 Review of Systems - Review of Systems Cardiovascular: reports: Chest Pain Vital Signs: Vital Signs Temperature 98.4 F 02/21/18 14:24 Pulse Rate 61 02/21/18 14:24 Respiratory Rate 18 02/21/18 14:24 Blood Pressure 114/41 02/21/18 14:24 O2 Sat by Pulse Oximetry (%) 97 02/21/18 13:00 Constitutional: Yes: No Distress, Calm Neck: Yes: Supple Respiratory: Yes: Regular, CTA Bilaterally Gastrointestinal: Yes: Normal Bowel Sounds, Soft Cardiovascular: Yes: Regular Rate and Rhythm JVD: No Carotid Bruit: No Heart Sounds: Yes: S1, S2 Edema: No - Other Data Labs, Other Data: CBC, BMP 02/20/18 17:25 02/20/18 17:25 Troponin, BNP 02/20/18 02/21/18 23:30 05:30 Troponin I < 0.02 < 0.02 Troponin, BNP 02/20/18 02/21/18 23:30 05:30 Troponin I < 0.02 < 0.02 SR PAC Imaging - Results Chest X-ray: Report Reviewed (NAD) Problem List - Problems (1) Atypical chest pain Code(s): R07.89 - OTHER CHEST PAIN (2) Hypertension Code(s): I10 - ESSENTIAL (PRIMARY) HYPERTENSION Qualifiers: Hypertension type: essential hypertension Qualified Code(s): I10 - Essential (primary) hypertension (3) Hyperlipidemia associated with type 2 diabetes mellitus Code(s): E11.69 - TYPE 2 DIABETES MELLITUS WITH OTHER SPECIFIED COMPLICATION; E78.5 - HYPERLIPIDEMIA, UNSPECIFIED (4) Type 2 diabetes mellitus Code(s): E11.9 - TYPE 2 DIABETES MELLITUS WITHOUT COMPLICATIONS Qualifiers: Diabetes mellitus custodial insulin use: without custodial use Assessment/Plan 1. Atypical Chest pain with reproducibility c/w costochondritis 2. Type 2 DM not at goal control 3. HTN/HCVD 4. Hyperlipidemia 5. COPD stable P:1. Ruled out for OR, check TSH, analgesia as needed 2. Continue ASA 81 qd, Lipitor 40 qd, lisinopril 10 qd for renovascular protection 3. May d/c from CV-standpoint with f/u in office for additional evaluation 4. Thank you for consultative opportunity
[2018-02-21] MEDS ORDERED: METHYL SALICYLATE/MENTHOL OINT 30 GM TUBE TP SCH (22:00)
[2018-02-21] MEDS ORDERED: PT OWN MED DRAWER 7, Y5N ONE (22:06)
[2018-02-22] MEDS: metFORMIN HCL 500 MG TABLET (FP) PO SCH (06:29)
[2018-02-22] MEDS: ASPIRIN 81 MG CHEWABLE TABLETS PO SCH (10:28)
[2018-02-22] MEDS: MEMANTINE HCL 10 MG TABLET (FP) PO SCH (10:28)
[2018-02-22 11:10] VITALS: BP 117/60; PULSE 56; TEMP 97.6
--- NOTE | 2018-02-22 12:10 | PN ---
Progress Note, Physician History of Present Illness: Patient is a 77 year old woman with past medical history of HLD, DM, COPD, pneumonia, bronchitis, diverticulitis presented to the emergency department with sharp chest pain left anterior chest wall reproducible in nature, she denies exertional component and denies dyspnea on exertion, near or true syncope , palpitations, orthopnea, PND or LE edema. - Objective Vital Signs: Vital Signs Temperature 97.6 F 02/22/18 10:00 Pulse Rate 56 L 02/22/18 10:00 Respiratory Rate 20 02/22/18 10:00 Blood Pressure 117/60 02/22/18 10:00 O2 Sat by Pulse Oximetry (%) 100 02/22/18 09:00 Labs: CBC, BMP 02/20/18 17:25 02/20/18 17:25 Problem List - Problems (1) Atypical chest pain Code(s): R07.89 - OTHER CHEST PAIN (2) Hypertension Code(s): I10 - ESSENTIAL (PRIMARY) HYPERTENSION Qualifiers: Hypertension type: essential hypertension Qualified Code(s): I10 - Essential (primary) hypertension (3) Hyperlipidemia associated with type 2 diabetes mellitus Code(s): E11.69 - TYPE 2 DIABETES MELLITUS WITH OTHER SPECIFIED COMPLICATION; E78.5 - HYPERLIPIDEMIA, UNSPECIFIED (4) Type 2 diabetes mellitus Code(s): E11.9 - TYPE 2 DIABETES MELLITUS WITHOUT COMPLICATIONS Qualifiers: Diabetes mellitus assisted insulin use: without assisted use Assessment/Plan 1. Atypical Chest pain with reproducibility c/w costochondritis 2. Type 2 DM not at goal control 3. HTN/HCVD 4. Hyperlipidemia 5. COPD stable P:1. Ruled out for ND, check TSH, analgesia as needed 2. Continue ASA 81 qd, Lipitor 40 qd, lisinopril 10 qd for renovascular protection 3. May d/c from CV-standpoint with f/u in office for additional evaluation 4. Thank you for consultative opportunity
--- NOTE | 2018-02-22 12:11 | DS ---
Physical Exam: ADDENDUM: Received notice about undeliverable script re: lisinopril to [facility]. Attempted to call in the order, however pharmacy did not answer. Will attempt again today and if no response will call early tomorrow morning. Medication is non-emergent and can wait until tomorrow if need be SUBJECTIVE: Patient seen and examined OBJECTIVE: Vital Signs Period Temp Pulse Resp BP Sys/[place] Pulse Ox Last 24 Hr 97.6 F-98.4 F 54-68 18-20 108-122/41-60 97-100 PHYSICAL EXAM GENERAL: The patient is awake, alert, and fully oriented, in no acute distress. HEAD: Normal with no signs of trauma. EYES: PERRL, extraocular movements intact, sclera anicteric, conjunctiva clear. ENT: Ears normal, nares patent, oropharynx clear without exudates, moist mucous membranes. NECK: Trachea midline, full range of motion, supple. LUNGS: Breath sounds equal, clear to auscultation bilaterally, no wheezes, no crackles, no accessory muscle use. HEART: Regular rate and rhythm, S1, S2 without murmur, rub or gallop. ABDOMEN: Soft, nontender, nondistended, normoactive bowel sounds, no guarding, no rebound, no hepatosplenomegaly, no masses. EXTREMITIES: 2+ pulses, warm, well-perfused, no edema. NEUROLOGICAL: Cranial nerves II through XII grossly intact. Normal speech, gait not observed. PSYCH: Normal mood, normal affect. SKIN: Warm, dry, normal turgor, no rashes or lesions noted. LABS Laboratory Results - last 24 hr 02/21/18 02/21/18 02/21/18 12:37 16:53 22:22 POC Glucometer 146 137 121 TSH 02/22/18 02/22/18 06:00 06:20 POC Glucometer 151 TSH 2.00 HOSPITAL COURSE: Date of Admission:02/20/18 Date of Discharge: 02/22/18 <Kieran Llamas - Last Filed: 02/22/18 12:48> Physical Exam: 77 y/o f with pmh of hld,, dm smoking came to hospital with a complaint of Left side chest pain since one day. # atypical chest pain , acs was ruled out , troponins were negative , cardio consult , switched crestor to Lipitor since is non formulary atrovastin 40, aspirin 81 daily. # HLD continue with Lipitor ,lipid profile as above #HTN As per family member patient was never given amlodipine and her BP is WNL, will discontinue the BP meds. # DM, check hgba1c is 8.3 and she runs in 533=130's at home , diabetic diet. continue home meds, metformin 1000 in am and 500 in night. BGMs ordered #Dementia continue namenda, follows dr chua # COPD stable , not on meds, follows Dr Hayes nutrition: low salt and diabetic diet. will discontinue all the BP meds since patient has normal BP and refusing BP meds. <Marialuisa Gomez - Last Filed: 02/23/18 16:25> Discharge Summary Reason For Visit: CHEST PAIN - Home Medications Comprehensive Discharge Medication List: Ambulatory Orders Aspirin [ASA -] 81 mg PO DAILY 09/13/16 Henry/D3/Mag11/Zinc/Wheel Worker/[place] [Caltrate 600+D Plus Tablet] 1 each PO HS Memantine HCl [Namenda -] 10 mg PO BID 09/13/16 Rosuvastatin [Crestor -] 10 mg PO DAILY 09/13/16 metFORMIN HCL [Glucophage -] 500 mg PO HS 09/13/16 Metformin HCl [Glucophage] 1,000 mg PO DAILY 02/20/18 Lisinopril [Prinivil] 10 mg PO BID #30 tablet 02/22/18 <Kieran Llamas - Last Filed: 02/22/18 12:48> - Home Medications Comprehensive Discharge Medication List: Ambulatory Orders Aspirin [ASA -] 81 mg PO DAILY 09/13/16 Henry/D3/Mag11/Zinc/Wheel Worker/[place]/Bor [Caltrate 600+D Plus Tablet] 1 each PO HS Memantine HCl [Namenda -] 10 mg PO BID 09/13/16 Rosuvastatin [Crestor -] 10 mg PO DAILY 09/13/16 metFORMIN HCL [Glucophage -] 500 mg PO HS 09/13/16 Metformin HCl [Glucophage] 1,000 mg PO DAILY 02/20/18 Lisinopril [Prinivil] 10 mg PO BID #30 tablet 02/22/18 <JasonMarialuisa - Last Filed: 02/23/18 16:25> Condition: Stable - Instructions Diet, Activity, Other Instructions: You were seen here for your chest pain most likely caused by inflammation of the muscles in-between your ribs. You were evaluated by cardiology and they did not think this was heart related. MEDICATION: You will be given Lisinopril 10mg to take ONCE DAILY to protect your kidneys as well --This medication have been sent to your pharmacy Please take your medications as you have been at home including your baby aspirin, metformin doses, and your Crestor FOLLOW-UP Please follow-up with your primary care physician, Dr. Luo --You A1C was 8.3% and you should be evaluated by your primary physician as this might cause a changed in your diabetes medications --You will also need a repeat "Basic Metabolic Panel" to check your potassium with this new medication Please follow-up with Dr. Martinez or Dr. Marlow for your chest pain. They may want to do an echocardiogram at some point. Referrals: Antonietta Luo MD [Provisional Medical Staff] - Colten Martinez MD [Staff Physician] - Disposition: HOME
== END 2018-02-22 11:53 | disposition home or self-care (01) ==
LOC: JER 17:06 → JERBED 19:05 → J4W 22:54
PROVIDERS: ADMIT Internal Medicine; ATTEND Internal Medicine
DX: R07.89 Other chest pain (principal); E11.69 Type 2 diabetes mellitus with other specified complication; E78.5 Hyperlipidemia, unspecified; J44.9 Chronic obstructive pulmonary disease, unspecified; F03.90 Unspecified dementia, unspecified severity, without behavioral disturbance, psychotic disturbance, mood disturbance, and anxiety; Z79.82 Long term (current) use of aspirin; Z79.84 Long term (current) use of oral hypoglycemic drugs; I10 Essential (primary) hypertension
CPT/HCPCS: 36415; 71045-TC-FY; 80053; 80061; 81003; 81015; 82550; 82553; 82962; 83036; 83721; 83735; 84443; 84484; 85025; 85379; 87086; 93005; 93010; 99283-25; G0378

== ENCOUNTER 2018-03-15 17:27 | Observation (INO) | payer OTHER ==
[2018-03-15 17:46] VITALS: BMI 32.0
--- NOTE | 2018-03-15 18:06 | PDOC ---
History of Present Illness - General Chief Complaint: SIRS, Suspected/Possible Stated Complaint: WEAKNESS Time Seen by Provider: 03/15/18 17:51 - History of Present Illness Initial Comments: 03/15/18 18:05 The patient is a 77 year old female with past medical history of HLD, DM, COPD, pneumonia, bronchitis, diverticulitis presents to the emergency department with fever, multiple episodes of vomiting and LUQ and LLQ abdominal pain since yesterday as well as lethargy as per daughter. Claims to have taken double the dose of medication yesterday. (once morning and once more at night) Sugar this morning was 150. Denies diarrhea or bilious vomiting, denies dysuria. Past History - Past Medical History Allergies/Adverse Reactions: Allergies Allergy/AdvReac Type Severity Reaction Status Date / Time No Known Allergies Allergy Verified 02/20/18 17:06 Home Medications: Ambulatory Orders Aspirin [ASA -] 81 mg PO DAILY 09/13/16 Henry/D3/Mag11/Zinc/Pasting Machine Offbearer/[place]/Bor [Caltrate 600+D Plus Tablet] 1 each PO HS Memantine HCl [Namenda -] 10 mg PO BID 09/13/16 Rosuvastatin [Crestor -] 10 mg PO DAILY 09/13/16 metFORMIN HCL [Glucophage -] 500 mg PO HS 09/13/16 Metformin HCl [Glucophage] 1,000 mg PO DAILY 02/20/18 COPD: Yes DVT: No Diabetes: Yes GI Disorders: Yes (diverticulitis) Hypercholesterolemia: Yes - Immunization History Immunization Up to Date: Yes - Suicide/Smoking/Psychosocial Hx Smoking History: Never smoked Number of Cigarettes Smoked Daily: 20 Information on smoking cessation initiated: No Hx Alcohol Use: No Drug/Substance Use Hx: No Substance Use Type: None, Alcohol Review of Systems - Review of Systems Able to Perform ROS?: Yes Is the patient limited Kyrgyz proficient: No Constitutional: Yes: Diaphoresis, Fever HEENTM: No: Symptoms Reported Respiratory: No: Symptoms reported Cardiac (ROS): No: Symptoms Reported ABD/GI: Yes: See HPI : No: Symptoms Reported Musculoskeletal: No: Symptoms Reported Integumentary: No: Symptoms Reported Neurological: No: Symptoms reported *Physical Exam - Vital Signs Last Vital Signs Temp Pulse Resp BP Pulse Ox 101.9 F H 88 20 103/54 98 03/15/18 17:43 03/15/18 17:43 03/15/18 17:43 03/15/18 17:43 03/15/18 17:43 - Physical Exam Comments: 03/15/18 19:3 03/15/18 19:36 General Appearance: Yes: Nourished, Mild Distress HEENT: positive: EOMI, SERGIO, Normal ENT Inspection Respiratory/Chest: positive: Lungs Clear, Normal Breath Sounds Cardiovascular: positive: Regular Rhythm, Regular Rate, S1, S2 Gastrointestinal/Abdominal: positive: Tender (left quadrants) Musculoskeletal: positive: Normal Inspection. negative: CVA Tenderness Integumentary: positive: Diaphoresis Neurologic: positive: Other (somnolent) ED Treatment Course - LABORATORY CBC & Chemistry Diagram: 03/15/18 18:27 03/15/18 18:27 Medical Decision Making - Medical Decision Making 03/15/18 19:[address] abdomen with iv contrast pending 03/15/18 21:59 Imaging modified *DC/Admit/Observation/Transfer Diagnosis at time of Disposition: Colitis, Fever, Diarrhea, Abdominal pain - Discharge Dispostion Condition at time of disposition: Guarded Decision to Admit order: Yes - Referrals Referrals: Antonietta Luo MD [Primary Care Provider] - - Patient Instructions - Post Discharge Activity
[2018-03-15] MEDS ORDERED: SODIUM CHLORIDE 1,000 ML IV STA (18:12)
--- NOTE | 2018-03-15 18:31 | PDOC ---
Attending Attestation - Resident Resident Name: AddisonFran - ED Attending Attestation I have performed the following: I have examined & evaluated the patient, The case was reviewed & discussed with the resident, I agree w/resident's findings & plan, Exceptions are as noted - HPI HPI: 03/15/18 18:29 77y F hx of hld, dm, copd, diverticultis presents with feeling malaise since yesterday, today was associated with fever, vomiting and lower abdominal pain. pt denies any cough, dysuria, frequency, diarrhea. pt denies any cp, headache, dizziness. on exam: general: somonlent but easily arousable to verbal stimulus pulm: cta b/l cardiac: rrr, no m/r/g abd: mild left lower abd tenderness ext: no edema ddx - uti, diverticulitis sepsis orderset ct abdomen to r/o divertulibiis ua ro uti - Physicial Exam PE: 03/17/18 09:04 see above - Medical Decision Making pt signed ou tto evening team to reassess and dispo the patient
[2018-03-15 18:44] LABS: BASO % 0.3 % (0-2.0); EOS % 0.5 % (0-4.5); HEMATOCRIT 36.6 % (32.4-45.2); HEMOGLOBIN 12.1 GM/dL (10.7-15.3); LYMPH % 3.5 % (8-40); MCH 30.2 pg (25.7-33.7); MCHC 33.1 g/dl (32.0-36.0); MEAN CELL VOLUME 91.3 fl (80-96); MONO % 2.4 % (3.8-10.2); NEUT % 93.3 % (42.8-82.8); PLATELET COUNT 276 K/MM3 (134-434); RBC 4.01 M/mm3 (3.60-5.2); RDW 14.2 % (11.6-15.6); WHITE BLOOD COUNT 10.4 K/mm3 (4.0-10.0)
[2018-03-15 18:46] LABS: VENOUS PC02 40.1 mmHg (38-52); VENOUS PH 7.4 (7.32-7.42); VENOUS PO2 34.8 mmHg (28-48)
[2018-03-15 18:54] LABS: INR 0.97 (0.82-1.09)
[2018-03-15 18:57] LABS: ACTIVATED PTT 26.3 SECONDS (25.2-36.5)
[2018-03-15] MEDS ORDERED: ACETAMINOPHEN 1000 MG/100 ML VIAL (NON FORMULARY) IVPB ONE (18:59)
[2018-03-15] MEDS ORDERED: ACETAMINOPHEN INJECTION 100 ML IVPB ONE (19:04)
[2018-03-15 19:05] LABS: ALBUMIN 3.4 g/dl (3.4-5.0); ANION GAP 7 (8-16); BILIRUBIN,TOTAL 0.7 mg/dL (0.2-1.0); BLOOD UREA NITROGEN 9 mg/dL (7-18); CALCIUM 8.9 mg/dL (8.5-10.1); CHLORIDE 104 mmol/L (98-107); CO2 27 mmol/L (21-32); CREATININE 1.1 mg/dL (0.55-1.02); GLUCOSE,RANDOM 121 mg/dL (74-106); POTASSIUM 4.5 mmol/L (3.5-5.1); SGOT/AST 21 U/L (15-37); SGPT/ALT 20 U/L (12-78); SODIUM 138 mmol/L (136-145)
[2018-03-15 19:06] LABS: ALK PHOS 61 U/L (45-117)
[2018-03-15 19:49] LABS: ANISOCYTOSIS 1+; MACROCYTOSIS 1+
[2018-03-15 19:50] LABS: PLATELET ESTIMATE ADEQUATE
--- NOTE | 2018-03-15 20:04 | PDOC ---
*Physical Exam - Vital Signs Last Vital Signs Temp Pulse Resp BP Pulse Ox 101.9 F H 88 20 103/54 98 03/15/18 17:43 03/15/18 17:43 03/15/18 17:43 03/15/18 17:43 03/15/18 17:43 <Cathleen Nick - Last Filed: 03/15/18 20:15> - Vital Signs Last Vital Signs Temp Pulse Resp BP Pulse Ox 101.9 F H 88 20 103/54 98 03/15/18 17:43 03/15/18 17:43 03/15/18 17:43 03/15/18 17:43 03/15/18 17:43 <Matilda Mcmahon - Last Filed: 03/15/18 23:29> Heart Score/ECG Review - Age Age: >/= 65 - ECG Impressions Comment:: 03/15/18 20:05 EKG reviewed and interpreted by Dr. Mcmahon at 1949 on 03/15/2018. Normal sinus rhythm with a vent. Rate of 81 bpm. ID interval of 112 ms. QRS duration of 84 ms. QT/QTc of 404/469 ms. and P-R-T axes of (55)(48)(56). <Cathleen Nick - Last Filed: 03/15/18 20:15> ED Treatment Course - LABORATORY CBC & Chemistry Diagram: 03/15/18 18:27 03/15/18 18:27 - ADDITIONAL ORDERS Additional order review: Laboratory Results 03/15/18 03/15/18 03/15/18 18:27 18:27 18:27 PT with INR INR PTT (Actin FS) VBG pH 7.40 POC VBG pCO2 40.1 POC VBG pO2 34.8 Mixed VBG HCO3 24.6 Sodium 138 Potassium 4.5 Chloride 104 Carbon Dioxide 27 Anion Gap 7 L BUN 9 Creatinine 1.1 H Creat Clearance w eGFR 48.42 Random Glucose 121 H Lactic Acid 1.6 Calcium 8.9 Total Bilirubin 0.7 AST 21 ALT 20 Alkaline Phosphatase 61 Total Protein 7.0 Albumin 3.4 03/15/18 18:27 PT with INR 11.00 INR 0.97 PTT (Actin FS) 26.3 VBG pH POC VBG pCO2 POC VBG pO2 Mixed VBG HCO3 Sodium Potassium Chloride Carbon Dioxide Anion Gap BUN Creatinine Creat Clearance w eGFR Random Glucose Lactic Acid Calcium Total Bilirubin AST ALT Alkaline Phosphatase Total Protein Albumin 03/15/18 18:27 RBC 4.01 MCV 91.3 MCHC 33.1 RDW 14.2 MPV 8.0 Neutrophils % 93.3 H D Lymphocytes % 3.5 L D Monocytes % 2.4 L Eosinophils % 0.5 Basophils % 0.3 - Medications Given in the ED: ED Medications Discontinued Medications Generic Name Dose Route Start Last Admin Trade Name Timothy PRN Reason Stop Dose Admin Acetaminophen 1,000 mg 03/15/18 18:59 03/15/18 19:07 Ofirmev Injection - IVPB 03/15/18 19:00 1,000 mg ONCE ONE Administration Sodium Chloride 1,000 mls @ 1,000 mls/hr 03/15/18 18:12 03/15/18 18:45 Normal Saline - IV 03/15/18 19:11 1,000 mls/hr ASDIR STA Administration <Cathleen Nick - Last Filed: 03/15/18 20:15> - LABORATORY CBC & Chemistry Diagram: 03/15/18 18:27 03/15/18 18:27 - ADDITIONAL ORDERS Additional order review: Laboratory Results 03/15/18 03/15/18 03/15/18 18:27 18:27 18:27 PT with INR INR PTT (Actin FS) VBG pH 7.40 POC VBG pCO2 40.1 POC VBG pO2 34.8 Mixed VBG HCO3 24.6 Sodium 138 Potassium 4.5 Chloride 104 Carbon Dioxide 27 Anion Gap 7 L BUN 9 Creatinine 1.1 H Creat Clearance w eGFR 48.42 Random Glucose 121 H Lactic Acid 1.6 Calcium 8.9 Total Bilirubin 0.7 AST 21 ALT 20 Alkaline Phosphatase 61 Total Protein 7.0 Albumin 3.4 03/15/18 18:27 PT with INR 11.00 INR 0.97 PTT (Actin FS) 26.3 VBG pH POC VBG pCO2 POC VBG pO2 Mixed VBG HCO3 Sodium Potassium Chloride Carbon Dioxide Anion Gap BUN Creatinine Creat Clearance w eGFR Random Glucose Lactic Acid Calcium Total Bilirubin AST ALT Alkaline Phosphatase Total Protein Albumin 03/15/18 18:27 RBC 4.01 MCV 91.3 MCHC 33.1 RDW 14.2 MPV 8.0 Neutrophils % 93.3 H D Lymphocytes % 3.5 L D Monocytes % 2.4 L Eosinophils % 0.5 Basophils % 0.3 - Medications Given in the ED: ED Medications Discontinued Medications Generic Name Dose Route Start Last Admin Trade Name Timothy PRN Reason Stop Dose Admin Acetaminophen 1,000 mg 03/15/18 18:59 03/15/18 19:07 Ofirmev Injection - IVPB 03/15/18 19:00 1,000 mg ONCE ONE Administration Sodium Chloride 1,000 mls @ 1,000 mls/hr 03/15/18 18:12 03/15/18 18:45 Normal Saline - IV 03/15/18 19:11 1,000 mls/hr ASDIR STA Administration <Matilda Mcmahon - Last Filed: 03/15/18 23:29> Medical Decision Making - Medical Decision Making 03/15/18 23:25 Pt comes with diarrhea and fever. She now has intractable vomiting in addition to diarrhea, as well as a fever that is not remitting. Pt has had colitis and diverticulitis in the past. Yesterday she was in in NH, and the family ate out. Pt may have been food poisoned, as her son in law has similar symptoms. Pt will be admitted, as she has intractable vomiting and she is unable to keep food down. <Matilda Mcmahon - Last Filed: 03/15/18 23:29> *DC/Admit/Observation/Transfer <Cathleen Nick - Last Filed: 03/15/18 20:15> <Matilda Mcmahon - Last Filed: 03/15/18 23:29> Diagnosis at time of Disposition: Colitis, Fever, Diarrhea, Abdominal pain - Discharge Dispostion Condition at time of disposition: Guarded - Referrals Referrals: Antonietta Luo MD [Primary Care Provider] - - Patient Instructions - Post Discharge Activity
[2018-03-15 20:52] LABS: PH,URINE 7.5 (5.0-8.0); URINE APPEARANCE CLEAR; URINE BILIRUBIN NEGATIVE (<2.0 mg/dL); URINE COLOR YELLOW; URINE GLUCOSE (UA) NEGATIVE (NEGATIVE); URINE KETONE NEGATIVE (NEGATIVE); URINE NITRITE NEGATIVE (NEGATIVE); URINE PROTEIN NEGATIVE (NEGATIVE); URINE UROBILINOGEN 0.2 mg/dL (0.2-1.0)
[2018-03-15 20:53] LABS: URINE LEUK ESTERASE NEGATIVE (NEGATIVE)
[2018-03-15] MEDS ORDERED: IBUPROFEN 600 MG TABLET (FP) PO ONE ×2 (21:53→22:33)
[2018-03-16] MEDS ORDERED: ACETAMINOPHEN 325 MG TABLET (FP) PO PRN (02:05)
[2018-03-16] MEDS ORDERED: ONDANSETRON 4 MG/2 ML VIAL IVPUSH PRN (02:11)
[2018-03-16] MEDS: INSULIN SLIDING SCALE (NOVOLOG) 1 VIAL SQ SCH ×6 (02:54→21:53)
[2018-03-16] MEDS: SODIUM CHLORIDE 1,000 ML IV SCH ×2 (02:54→18:24)
--- NOTE | 2018-03-16 03:57 | HP ---
CHIEF COMPLAINT: fever and vomiting History obtained mostly from pt's daughter as pt was very lethargic during interview. PCP: HISTORY OF PRESENT ILLNESS: 77 y/o F w/ PMH of HLD, DM, COPD, bronchitis, and diverticulitis, p/w fever, vomiting, and LUQ/LLQ abd pain for 1 day. Per pt's daughter, pt was in her usual state of health until 2 days ago when they went to the [facility] to clean up their summer home, she reports there being a lot of dust and rodent feces and that her mom began to feel more tired than usual after cleaning up. Of note , daughter reports mom accidentally taking a double dose of her metformin, caltrate, and memantine that same night after they had finished eating at a local restaurant. Today, pt continued to feel unwell and had one episode of non bloody diarrhea along w/ fevers at home of 99.[address] to the ED pt had several episodes of emesis w/ fevers of 101F. Denies any hematemesis,blood in stool, dysuria, hematuria, CP, SOB. Daughter notes both her mom and are not feeling well w/ vomiting and fevers after having ate at the restaurant although they ate different foods ( had gyro and mom had meat and potatoes) ER course was notable for: (1)Tylenol, Motrin, Levofloxacin 500mg, metronidazole 500mg (2) (3) Recent Travel: [facility] PAST MEDICAL HISTORY: -2 wks ago in ED for CP but was determined to be non cardiac in nature. -Dr. Hurtado following for COPD. Pt was tx for bronchitis a month ago w/ abx -HLD,DM, COPD, Diverticulitis PAST SURGICAL HISTORY: -hysterectomy Social History: Smokin/4 pack for 30 yrs, then 15 yrs quit, now has been smoking for past 2 yrs Alcohol:denies Drugs: denies Family History: mom had esrd and [place] dad had colon cancer in his 70s Allergies No Known Allergies Allergy (Verified 03/15/18 23:17) HOME MEDICATIONS: Home Medications Medication Instructions Recorded Aspirin [ASA -] 81 mg PO DAILY 09/13/16 Henry/D3/Mag11/Zinc/Eligibility Technician/[place]/Bor 1 each PO HS 09/13/16 [Caltrate 600+D Plus Tablet] Memantine HCl [Namenda -] 10 mg PO BID 09/13/16 Rosuvastatin [Crestor -] 10 mg PO DAILY 09/13/16 metFORMIN HCL [Glucophage -] 500 mg PO HS 09/13/16 Metformin HCl [Glucophage] 1,000 mg PO DAILY 02/20/18 REVIEW OF SYSTEMS CONSTITUTIONAL: +fevers, malaise, loss of apetite Absent: chills, diaphoresis, generalized weakness, weight change HEENT: Absent: rhinorrhea, nasal congestion, throat pain, throat swelling, difficulty swallowing, mouth swelling, ear pain, eye pain, visual changes CARDIOVASCULAR: Absent: chest pain, syncope, palpitations, irregular heart rate, lightheadedness , peripheral edema RESPIRATORY: Absent: cough, shortness of breath, dyspnea with exertion, orthopnea, wheezing, stridor, hemoptysis GASTROINTESTINAL: + abdominal pain, n/v/d Absent:abdominal distension, constipation, melena, hematochezia GENITOURINARY: Absent: dysuria, frequency, urgency, hesitancy, hematuria, flank pain, genital pain MUSCULOSKELETAL: Absent: myalgia, arthralgia, joint swelling, back pain, neck pain SKIN: Absent: rash, itching, pallor HEMATOLOGIC/IMMUNOLOGIC: Absent: easy bleeding, easy bruising, lymphadenopathy, frequent infections ENDOCRINE: Absent: unexplained weight gain, unexplained weight loss, heat intolerance, cold intolerance NEUROLOGIC: Absent: headache, focal weakness or paresthesias, dizziness, unsteady gait, seizure, mental status changes, bladder or bowel incontinence PSYCHIATRIC: Absent: anxiety, depression, suicidal or homicidal ideation, hallucinations. PHYSICAL EXAMINATION Vital Signs - 24 hr 03/15/18 03/15/18 03/15/18 17:43 22:07 22:25 Temperature 101.9 F H 101.4 F H Pulse Rate 88 Pulse Rate [ 74 Right Brachial] Respiratory 20 16 Rate Blood Pressure 103/54 Blood Pressure 100/39 [Right Arm] O2 Sat by Pulse 98 95 98 Oximetry (%) 03/15/18 03/16/18 23:22 01:14 Temperature 99.9 F H Pulse Rate 74 Pulse Rate [ Right Brachial] Respiratory 20 Rate Blood Pressure 123/67 Blood Pressure [Right Arm] O2 Sat by Pulse 96 Oximetry (%) GENERAL: lying in bed asleep. responsive to stimuli. Oriented x3 HEAD: Normal with no signs of trauma. EYES: Pupils equal, round and reactive to light, extraocular movements intact, sclera anicteric, conjunctiva clear. No lid lag. EARS, NOSE, THROAT: dry mucous membranes. NECK: Normal range of motion, supple without lymphadenopathy, JVD, or masses. LUNGS: Breath sounds equal, clear to auscultation bilaterally. No wheezes, and no crackles. No accessory muscle use. HEART: Regular rate and rhythm, normal S1 and S2 without murmur, rub or gallop. ABDOMEN: Soft, nontender, not distended, normoactive bowel sounds, no guarding, no rebound, no masses. No hepatomegaly or splenomegaly. MUSCULOSKELETAL: Normal range of motion at all joints. No bony deformities or tenderness. No CVA tenderness. UPPER EXTREMITIES: 2+ pulses, warm, well-perfused. No cyanosis. No clubbing. No peripheral edema. LOWER EXTREMITIES: 2+ pulses, warm, well-perfused. No calf tenderness. No peripheral edema. NEUROLOGICAL: Cranial nerves II-XII intact. Normal speech. PSYCHIATRIC: Cooperative. Good eye contact. Appropriate mood and affect. SKIN: Warm, dry, normal turgor, no rashes or lesions noted, normal capillary refill. Laboratory Results - last 24 hr 03/15/18 03/15/18 03/15/18 18:27 18:27 18:27 WBC 10.4 H RBC 4.01 Hgb 12.1 Hct 36.6 MCV 91.3 MCH 30.2 MCHC 33.1 RDW 14.2 Plt Count 276 MPV 8.0 Absolute Neuts (auto) 9.7 Total Counted 100 Neutrophils % 93.3 H D Neutrophils % (Manual) 90.0 H Band Neutrophils % 2.0 Lymphocytes % 3.5 L D Lymphocytes % (Manual) 2.0 L Monocytes % 2.4 L Monocytes % (Manual) 5 Eosinophils % 0.5 Eosinophils % (Manual) 1.0 Basophils % 0.3 Nucleated RBC % 0 Hypochromia 1+ Platelet Estimate Adequate Platelet Comment few large platelets Anisocytosis 1+ Macrocytosis 1+ PT with INR 11.00 INR 0.97 PTT (Actin FS) 26.3 VBG pH 7.40 POC VBG pCO2 40.1 POC VBG pO2 34.8 Mixed VBG HCO3 24.6 Sodium Potassium Chloride Carbon Dioxide Anion Gap BUN Creatinine Creat Clearance w eGFR POC Glucometer Random Glucose Lactic Acid Calcium Total Bilirubin AST ALT Alkaline Phosphatase Troponin I Total Protein Albumin Urine Color Urine Appearance Urine pH Ur Specific Aneta Urine Protein Urine Glucose (UA) Urine Ketones Urine Blood Urine Nitrite Urine Bilirubin Urine Urobilinogen Ur Leukocyte Esterase 03/15/18 03/15/18 03/15/18 18:27 18:27 20:13 WBC RBC Hgb Hct MCV MCH MCHC RDW Plt Count MPV Absolute Neuts (auto) Total Counted Neutrophils % Neutrophils % (Manual) Band Neutrophils % Lymphocytes % Lymphocytes % (Manual) Monocytes % Monocytes % (Manual) Eosinophils % Eosinophils % (Manual) Basophils % Nucleated RBC % Hypochromia Platelet Estimate Platelet Comment Anisocytosis Macrocytosis PT with INR INR PTT (Actin FS) VBG pH POC VBG pCO2 POC VBG pO2 Mixed VBG HCO3 Sodium 138 Potassium 4.5 Chloride 104 Carbon Dioxide 27 Anion Gap 7 L BUN 9 Creatinine 1.1 H Creat Clearance w eGFR 48.42 POC Glucometer Random Glucose 121 H Lactic Acid 1.6 Calcium 8.9 Total Bilirubin 0.7 AST 21 ALT 20 Alkaline Phosphatase 61 Troponin I Total Protein 7.0 Albumin 3.4 Urine Color Yellow Urine Appearance Clear Urine pH 7.5 D Ur Specific Aneta 1.020 Urine Protein Negative Urine Glucose (UA) Negative Urine Ketones Negative Urine Blood Negative Urine Nitrite Negative Urine Bilirubin Negative Urine Urobilinogen 0.2 Ur Leukocyte Esterase Negative 03/15/18 03/15/18 03/16/18 22:10 22:45 02:52 WBC RBC Hgb Hct MCV MCH MCHC RDW Plt Count MPV Absolute Neuts (auto) Total Counted Neutrophils % Neutrophils % (Manual) Band Neutrophils % Lymphocytes % Lymphocytes % (Manual) Monocytes % Monocytes % (Manual) Eosinophils % Eosinophils % (Manual) Basophils % Nucleated RBC % Hypochromia Platelet Estimate Platelet Comment Anisocytosis Macrocytosis PT with INR INR PTT (Actin FS) VBG pH POC VBG pCO2 POC VBG pO2 Mixed VBG HCO3 Sodium Potassium Chloride Carbon Dioxide Anion Gap BUN Creatinine Creat Clearance w eGFR POC Glucometer 132 Random Glucose Lactic Acid 1.6 Calcium Total Bilirubin AST ALT Alkaline Phosphatase Troponin I < 0.02 Total Protein Albumin Urine Color Urine Appearance Urine pH Ur Specific Aneta Urine Protein Urine Glucose (UA) Urine Ketones Urine Blood Urine Nitrite Urine Bilirubin Urine Urobilinogen Ur Leukocyte Esterase UA- neg UCX- Pending Bcx- pending EKG - wnl, normal Sinus rhythm CXR - wnl A/P CT - b/l renal cortical scarring, underdistended colon, hysterectomy ASSESSMENT/PLAN: 77 y/o F w/ PMH of HLD, DM, COPD, bronchitis, and diverticulitis, p/w fever, vomiting, and LUQ/LLQ abd pain for 1 day. 1)Fever, vomiting, and abd pain likely 2/2 gastroenteritis vs extra dose of metformin - gastroenteritis c/w hx of possible food poisoning given both pt and son-in-law similar presenting hx -f/u bcx and ucx -IV NS 75cc/hr -tylenol 650mg PO q6h -Metronidazole 500mg -Levofloxacin 750mg -Zofran 4mg IVP q6h 2)DM -sliding scale -hold metformin 3)HCM -c/w ASA 81mg, crestor 10mg 4)Dispo -admit to [facility] Visit type - Emergency Visit Emergency Visit: Yes ED Registration Date: 03/15/18 Care time: The patient presented to the Emergency Department on the above date and was hospitalized for further evaluation of their emergent condition. - New Patient This patient is new to me today: Yes Date on this admission: 03/16/18 - Critical Care Critical Care patient: No Hospitalist Screening - Colonoscopy Questionnaire Colonoscopy Questionnaire: Colonoscopy Questionnaire - Patient: 50 - 75 years old and never had a screening colonoscopy: Unknown History of colon or rectal polyps, or CA: Unknown History of IBD, Crohn's disease or UC: Unknown History of abdominal radiation therapy as a child: Unknown - Relative: 1 with colon or rectal CA, or polyps at age 60 or younger: Unknown Colon or rectal CA diagnosed at age 45 or younger: Unknown Multiple relatives with colon or rectal CA: Unknown - Outcome: Screening Result: Negative Screen
[2018-03-16] MEDS: HEPARIN NA (PORCINE) 5,000 UNITS/ML 1ML VIAL SQ SCH ×3 (05:08→21:52)
--- NOTE | 2018-03-16 06:27 | PN ---
Teaching Attending Note Name of Resident: Isai Glass ATTENDING PHYSICIAN STATEMENT I saw and evaluated the patient. I reviewed the resident's note and discussed the case with the resident. I agree with the resident's findings and plan as documented. SUBJECTIVE: 77F with HLD DM2 COPD Diverticulitis presents with Fever 101.9, tachycardia, lower abdominal pain suggestive of recurrent diverticulitis. CTAP was not conclusive for this however it was done without contrast so unlikely to be diagnostic. start antibiotics levaquin flagyl, IV hydration, Zofran for nausea
[2018-03-16 07:17] LABS: BASO % 0.2 % (0-2.0); EOS % 0.7 % (0-4.5); HEMATOCRIT 33.8 % (32.4-45.2); HEMOGLOBIN 11.4 GM/dL (10.7-15.3); LYMPH % 10.2 % (8-40); MCH 30.8 pg (25.7-33.7); MCHC 33.8 g/dl (32.0-36.0); MEAN CELL VOLUME 91.1 fl (80-96); MONO % 5.3 % (3.8-10.2); NEUT % 83.6 % (42.8-82.8); PLATELET COUNT 229 K/MM3 (134-434); RBC 3.71 M/mm3 (3.60-5.2); RDW 13.9 % (11.6-15.6); WHITE BLOOD COUNT 6.7 K/mm3 (4.0-10.0)
[2018-03-16 07:33] LABS: CHLORIDE 108 mmol/L (98-107); POTASSIUM 4.1 mmol/L (3.5-5.1); SODIUM 141 mmol/L (136-145)
[2018-03-16 07:34] LABS: BLOOD UREA NITROGEN 11 mg/dL (7-18); GLUCOSE,RANDOM 109 mg/dL (74-106)
[2018-03-16 08:29] LABS: ANION GAP 9 (8-16); CALCIUM 8.5 mg/dL (8.5-10.1); CO2 24 mmol/L (21-32); PHOSPHOROUS 3.7 mg/dL (2.5-4.9)
[2018-03-16] MEDS: MEMANTINE HCL 10 MG TABLET (FP) PO SCH ×2 (09:36→21:52)
[2018-03-16] MEDS: ASPIRIN 81 MG CHEWABLE TABLETS PO SCH (09:36)
--- NOTE | 2018-03-16 10:38 | EKG ---
Test Reason : Blood Pressure : / mmHG Vent. Rate : 081 BPM Atrial Rate : 081 BPM P-R Int : 112 ms QRS Dur : 084 ms QT Int : 404 ms P-R-T Axes : 055 048 056 degrees QTc Int : 469 ms NORMAL SINUS RHYTHM NONSPECIFIC T WAVE ABNORMALITY ABNORMAL ECG WHEN COMPARED WITH ECG OF 20-FEB-2018 17:13, PREMATURE SUPRAVENTRICULAR COMPLEXES ARE NO LONGER PRESENT T WAVE VARIATION Confirmed by TRUPTI CARMEN, LUNA ([id number]) on 03/16/2018 10:37:44 AM Referred By: Confirmed By:LUNA LYLES MD
--- NOTE | 2018-03-16 15:08 | PN ---
Teaching Attending Note Name of Resident: Negrita Butt ATTENDING PHYSICIAN STATEMENT I saw and evaluated the patient. I reviewed the resident's note and discussed the case with the resident. I agree with the resident's findings and plan as documented. SUBJECTIVE:states symptoms have improved. no longer having abdominal pain and had a normal BM this AM. no longer soft or watery. denies Cp, SOB, fever, chills , N/V/C/D OBJECTIVE: Last Vital Signs Temp Pulse Resp BP Pulse Ox 99 F 72 20 130/65 96 03/16/18 10:00 03/16/18 10:00 03/16/18 11:00 03/16/18 10:00 03/16/18 11:00 General NAD CV S1 S2 RRR no murmur/rub/gallop Lungs CTA B/L no wheezing/rales/rhonchi Abdomen soft diffuse tenderness worse in suprapubic region. no rebound/ guarding. hypoactive BS ASSESSMENT AND PLAN: 77yo F wtih PMH HTN, DM, COPD and diverticulitis presented to the ER wtih abdominal pain and diarrhea and found ot have a fever 1. Abdominal pain- likely due to diarrhea which could be from food poisoning as other family members currently sick with similar symptoms. Tm 101.9 but has been afebrile with very mild leukocytosis which has resolved. prelim reading on CT scan only showing underdistended colon. UA negative. empirically started on levaquin and Flagyl. will advance to liquid diet and evaluate if she can tolerate. cont abx until official CT reading if no signs of infection will d/c. f/u cx 2. CATHERINE- due to dehydration. now resolved. d/c IVF once tolerating diet 3. DM- hold oral agents. iss and BGM 4. COPD- no signs of acute exacerbation. no inhalers at home> 5. dementia- on namenda 6. DVT ppx- hep sq
--- NOTE | 2018-03-16 21:25 | PN ---
Physical Exam: SUBJECTIVE: Patient seen and examined at bedside this morning. She mentions her sx's have improved since she arrived to the ED. Her abdominal pain has subsided. She had a bowel movement she says was normal for her in terms of volume, texture and consistency. Her previous bowel movements were runny and soft. Denies any more pain, fevers, chills, chest pain, SOB, nausea, vomiting. OBJECTIVE: Vital Signs Period Temp Pulse Resp BP Sys/Solis Pulse Ox Last 24 Hr 98.8 F-101.4 F 58-74 16-20 100-149/39-77 95-98 Vital Signs Temp 98.8 F 03/16/18 20:51 Pulse 58 L 03/16/18 20:51 Resp 20 03/16/18 20:51 BP 149/53 03/16/18 20:51 Pulse Ox 96 03/16/18 19:00 Intake & Output 03/15/18 03/16/18 03/16/18 23:59 11:59 23:59 Intake Total 250 1500 Balance 250 1500 Weight 79.379 kg Intake: IV 150 750 Normal Saline - 1,000 ml 150 750 @ 75 mls/hr IV ASDIR MÓNICA Rx#:[id number] IVPB 100 200 Oral 550 Other: Voiding Method Toilet Toilet Toilet # Unmeasured Voids Void 3 5 Bowel Movement No No Height 1.57 m Body Mass Index (BMI) 32.0 Weight Measurement Method Estimated by Staff GENERAL: The patient is awake, alert, and fully oriented, in no acute distress. EYES: PERRL, extraocular movements intact THROAT: Oropharynx clear without exudates, moist mucous membranes. LUNGS: Breath sounds equal, clear to auscultation bilaterally, no wheezes, no crackles, no rales HEART: Regular rate and rhythm, S1, S2 without murmur, rub or gallop. ABDOMEN: Soft, Obese, Tender to palpation in the Suprapubic region, + bowel sounds, no guarding, no rebound, No dullness to percussion, No shifting dullness Laboratory Results - last 24 hr 03/15/18 03/15/18 03/16/18 22:10 22:45 02:52 WBC RBC Hgb Hct MCV MCH MCHC RDW Plt Count MPV Absolute Neuts (auto) Neutrophils % Lymphocytes % Monocytes % Eosinophils % Basophils % Nucleated RBC % Sodium Potassium Chloride Carbon Dioxide Anion Gap BUN Creatinine Creat Clearance w eGFR POC Glucometer 132 Random Glucose Lactic Acid 1.6 Calcium Phosphorus Magnesium Troponin I < 0.02 03/16/18 03/16/18 03/16/18 05:31 06:10 06:10 WBC 6.7 RBC 3.71 Hgb 11.4 Hct 33.8 MCV 91.1 MCH 30.8 MCHC 33.8 RDW 13.9 Plt Count 229 MPV 8.0 Absolute Neuts (auto) 5.6 Neutrophils % 83.6 H Lymphocytes % 10.2 D Monocytes % 5.3 D Eosinophils % 0.7 Basophils % 0.2 Nucleated RBC % 0 Sodium 141 Potassium 4.1 Chloride 108 H Carbon Dioxide 24 Anion Gap 9 BUN 11 Creatinine 1.0 Creat Clearance w eGFR 54.05 POC Glucometer 128 Random Glucose 109 H Lactic Acid Calcium 8.5 Phosphorus 3.7 Magnesium 2.0 Troponin I 03/16/18 03/16/18 03/16/18 10:47 15:24 18:21 WBC RBC Hgb Hct MCV MCH MCHC RDW Plt Count MPV Absolute Neuts (auto) Neutrophils % Lymphocytes % Monocytes % Eosinophils % Basophils % Nucleated RBC % Sodium Potassium Chloride Carbon Dioxide Anion Gap BUN Creatinine Creat Clearance w eGFR POC Glucometer 147 113 168 Random Glucose Lactic Acid Calcium Phosphorus Magnesium Troponin I Active Medications Acetaminophen (Tylenol -) 650 mg PO Q4H PRN PRN Reason: FEVER Aspirin (Asa -) 81 mg PO DAILY [facility] Last Admin: 03/16/18 09:36 Dose: 81 mg Heparin Sodium (Porcine) (Heparin -) 5,000 unit SQ TID [facility] Last Admin: 03/16/18 15:17 Dose: 5,000 unit Sodium Chloride (Normal Saline -) 1,000 mls @ 75 mls/hr IV ASDIR [facility] Last Admin: 03/16/18 18:24 Dose: 75 mls/hr Insulin Aspart (Novolog Vial Sliding Scale -) 1 vial SQ Q4HPO [facility]; Protocol Last Admin: 03/16/18 18:21 Dose: 2 units Levofloxacin (Levaquin -) 500 mg PO DAILY@0600 [facility] Memantine (Namenda -) 10 mg PO BID [facility] Last Admin: 03/16/18 09:36 Dose: 10 mg Metronidazole (Flagyl -) 500 mg PO TID MÓNICA Ondansetron HCl (Zofran Injection) 4 mg IVPUSH Q6H PRN PRN Reason: NAUSEA Rosuvastatin Calcium (Crestor -) 10 mg PO HS MÓNICA ASSESSMENT/PLAN: 77 y/o F with a PMHx of Dementia, HTN, DM, COPD and Diverticulitis who presented to the ER with abdominal pain and diarrhea x1 Day was found to have a fever of 101.9F. 1. Abdominal pain - Unclear if this is a result of dining on a recent trip to the [employer] that resulted in diarrhea and possible food poisoning since her daughters is also experiencing similar sx's. - Daughter mentions patient has, on occasion, taken double doses of Metformin, Unlikely the cause of her Abdominal pain, will reevaluate if pain continues - Tmax on admission of 101.9, currently afebrile - Leukocytosis 10.4 on admission, has resolved - CT Scan prelim reading: Much of the colon is underdistended. No evidence for diverticulitis, appendicitis, small bowel obstruction, free fluid or free air. - UA negative. - Started on Levaquin 500 mg and Flagyl 500 mg in ED, Will reconsider after official CT Read - Will advance to liquid diet - Blood culture pending - Urine culture pending 2. CATHERINE - BUN 9, Cr 1.1 - Likely due to dehydration, resolved - Can discontinue IVF once she tolerates PO 3. DM - hold oral agents - Start Insulin Aspart SQ Q4HPO - Blood glucose monitoring 4. Dementia - Continue on home dose Namenda 10 mg PO BID MÓNICA 5. DVT ppx - hep sq Dispo: Possible D/C Tmre Visit type - Emergency Visit Emergency Visit: Yes ED Registration Date: 03/15/18 Care time: The patient presented to the Emergency Department on the above date and was hospitalized for further evaluation of their emergent condition. - New Patient This patient is new to me today: Yes Date on this admission: 03/16/18 - Critical Care Critical Care patient: No
[2018-03-16] MEDS: metroNIDAZOLE 250 MG TABLET PO SCH (21:52)
[2018-03-16] MEDS ORDERED: ROSUVASTATIN CA 10 MG TABLET (FP) PO SCH (22:00)
[2018-03-17] MEDS: SODIUM CHLORIDE 1,000 ML IV SCH (02:29)
[2018-03-17] MEDS: INSULIN SLIDING SCALE (NOVOLOG) 1 VIAL SQ SCH ×4 (02:29→15:48)
[2018-03-17] MEDS: HEPARIN NA (PORCINE) 5,000 UNITS/ML 1ML VIAL SQ SCH (05:42)
[2018-03-17] MEDS: metroNIDAZOLE 250 MG TABLET PO SCH (05:43)
[2018-03-17] MEDS ORDERED: INSULIN (NOVOLOG) ASPART 100 UNITS/ML 10ML VIAL ONE (10:05)
[2018-03-17] MEDS: ASPIRIN 81 MG CHEWABLE TABLETS PO SCH (10:06)
[2018-03-17] MEDS: MEMANTINE HCL 10 MG TABLET (FP) PO SCH (10:06)
[2018-03-17 10:19] LABS: BASO % 0.5 % (0-2.0); EOS % 1.3 % (0-4.5); HEMOGLOBIN 11.3 GM/dL (10.7-15.3); LYMPH % 28.3 % (8-40); MCH 30.5 pg (25.7-33.7); MCHC 33.3 g/dl (32.0-36.0); MEAN CELL VOLUME 91.4 fl (80-96); MEAN PLT VOLUME 7.8 fl (7.5-11.1); MONO % 7.8 % (3.8-10.2); NEUT % 62.1 % (42.8-82.8); PLATELET COUNT 202 K/MM3 (134-434); RBC 3.72 M/mm3 (3.60-5.2); RDW 13.9 % (11.6-15.6); WHITE BLOOD COUNT 4.6 K/mm3 (4.0-10.0)
[2018-03-17 12:10] LABS: ALBUMIN 3.1 g/dl (3.4-5.0); ALK PHOS 51 U/L (45-117); ANION GAP 12 (8-16); BILIRUBIN,TOTAL 0.2 mg/dL (0.2-1.0); BLOOD UREA NITROGEN 10 mg/dL (7-18); CALCIUM 8.2 mg/dL (8.5-10.1); CHLORIDE 109 mmol/L (98-107); CO2 21 mmol/L (21-32); CREATININE 1.1 mg/dL (0.55-1.02); GLUCOSE,RANDOM 178 mg/dL (74-106); SGOT/AST 25 U/L (15-37); SGPT/ALT 19 U/L (12-78); SODIUM 142 mmol/L (136-145); TOT PROT 6.6 g/dl (6.4-8.2)
--- NOTE | 2018-03-17 18:06 | DS ---
Physical Exam: SUBJECTIVE: Patient seen and examined while her daughter was in the room. Patient slept well over night and was tolerating her diet well. Denies fevers, chills, chest pain, SOB, Nausea, vomiting, abdominal pain. OBJECTIVE: Vital Signs Period Temp Pulse Resp BP Sys/Solis Pulse Ox Last 24 Hr 98.0 F-99.2 F 53-58 18-20 143-153/53-76 95-96 Vital Signs Temp 98.0 F 03/17/18 18:00 Pulse 50 L 03/17/18 18:00 Resp 20 03/17/18 18:00 BP 143/75 03/17/18 18:00 Pulse Ox 96 03/17/18 16:36 Intake & Output 03/16/18 03/17/18 03/17/18 23:59 11:59 23:59 Intake Total 1999 845 650 Balance 1999 845 650 Intake: IV 1050 600 Normal Saline - 1,000 ml 1050 600 @ 75 mls/hr IV ASDIR MÓNICA Rx#:[id number] IVPB 200 Oral 750 245 650 Other: Voiding Method Toilet Toilet Toilet # Unmeasured Voids Void 2 Bowel Movement No Yes # Bowel Movements 1 PHYSICAL EXAM GENERAL: The patient is awake, alert, and fully oriented, in no acute distress. THROAT: Oropharynx clear without exudates, moist mucous membranes. LUNGS: Breath sounds equal, clear to auscultation bilaterally HEART: Regular rate and rhythm, S1, S2 without murmur, rub or gallop. ABDOMEN: Soft, Obese, + bowel sounds, no guarding, no rebound, No dullness to percussion, No shifting dullness LABS Laboratory Results - last 24 hr 03/16/18 03/16/18 03/17/18 18:21 21:51 02:28 WBC RBC Hgb Hct MCV MCH MCHC RDW Plt Count MPV Absolute Neuts (auto) Neutrophils % Lymphocytes % Monocytes % Eosinophils % Basophils % Nucleated RBC % Sodium Potassium Chloride Carbon Dioxide Anion Gap BUN Creatinine Creat Clearance w eGFR POC Glucometer 168 93 103 Random Glucose Calcium Total Bilirubin AST ALT Alkaline Phosphatase Total Protein Albumin 03/17/18 03/17/18 03/17/18 05:47 09:58 09:58 WBC 4.6 RBC 3.72 Hgb 11.3 Hct 34.0 MCV 91.4 MCH 30.5 MCHC 33.3 RDW 13.9 Plt Count 202 MPV 7.8 Absolute Neuts (auto) 2.9 Neutrophils % 62.1 D Lymphocytes % 28.3 D Monocytes % 7.8 Eosinophils % 1.3 D Basophils % 0.5 Nucleated RBC % 0 Sodium 142 Potassium 4.0 Chloride 109 H Carbon Dioxide 21 Anion Gap 12 BUN 10 Creatinine 1.1 H Creat Clearance w eGFR 48.42 POC Glucometer 120 Random Glucose 178 H Calcium 8.2 L Total Bilirubin 0.2 AST 25 ALT 19 Alkaline Phosphatase 51 D Total Protein 6.6 Albumin 3.1 L 03/17/18 10:03 WBC RBC Hgb Hct MCV MCH MCHC RDW Plt Count MPV Absolute Neuts (auto) Neutrophils % Lymphocytes % Monocytes % Eosinophils % Basophils % Nucleated RBC % Sodium Potassium Chloride Carbon Dioxide Anion Gap BUN Creatinine Creat Clearance w eGFR POC Glucometer 181 Random Glucose Calcium Total Bilirubin AST ALT Alkaline Phosphatase Total Protein Albumin Ambulatory Orders Aspirin [ASA -] 81 mg PO DAILY 09/13/16 Herny/D3/Mag11/Zinc/Door Opener/Cortez/Bor [Caltrate 600+D Plus Tablet] 1 each PO HS Memantine HCl [Namenda -] 10 mg PO BID 09/13/16 Rosuvastatin [Crestor -] 10 mg PO DAILY 09/13/16 metFORMIN HCL [Glucophage -] 500 mg PO HS 09/13/16 Metformin HCl [Glucophage] 1,000 mg PO DAILY 02/20/18 HOSPITAL COURSE: Date of Admission:03/15/18 Date of Discharge: 03/17/18 Prehospital course as per Dr. Isai Glass 77 y/o F w/ PMH of HLD, DM, COPD, bronchitis, and diverticulitis, p/w fever, vomiting, and LUQ/LLQ abd pain for 1 day. Per pt's daughter, pt was in her usual state of health until 2 days ago when they went to the [facility] to clean up their summer home, she reports there being a lot of dust and rodent feces and that her mom began to feel more tired than usual after cleaning up. Of note , daughter reports mom accidentally taking a double dose of her metformin, caltrate, and memantine that same night after they had finished eating at a local restaurant. Today, pt continued to feel unwell and had one episode of non bloody diarrhea along w/ fevers at home of 99.[address] to the ED pt had several episodes of emesis w/ fevers of 101F. Denies any hematemesis,blood in stool, dysuria, hematuria, CP, SOB. Daughter notes both her mom and are not feeling well w/ vomiting and fevers after having ate at the restaurant although they ate different foods ( had gyro and mom had meat and potatoes) Hospital course Patient was admitted on 03/15 for Fever, diarrhea and abdominal pain likely secondary to gastroenteritis vs food poisoning. Patient had a negative UA and her CT abdomen showed an underdistended Colon and was started on Levaquin and Flagyl. She advanced to a liquid diet initially and eventually a diabetic diet. Her Abdominal pain resolved and her diarrhea subsided. She tolerated the diabetic diet and her antibiotics were stopped on 03/17. Her mild leukocytosis and CATHERINE on admission resolved. Patient was advised to continue all her home meds except for Metformin which was to resume on 03/18. Patient will need to follow up as an outpatient for colonoscopy. Minutes to complete discharge: 40 Discharge Summary Reason For Visit: COLITIS FEVER DIARRHEA Current Active Problems Abdominal pain (Acute) Colitis (Acute) Diarrhea (Acute) Fever (Acute) Condition: Good - Instructions Diet, Activity, Other Instructions: Continue your home medications Start your metformin tomorrow and you can monitor your blood sugars 2-3 times a day before meals and notify your doctor if < 75 or persistently > 200 noted Please return to the emergency room for any emergency symptoms such as fever, chills, belly pain or any new concerns. Follow up with your primary in one week for outpatient colonoscopy. Referrals: Antonietta Luo MD [Primary Care Provider] - Disposition: HOME - Home Medications Comprehensive Discharge Medication List: Ambulatory Orders Aspirin [ASA -] 81 mg PO DAILY 09/13/16 Henry/D3/Mag11/Zinc/Door Opener/Cortez/Bor [Caltrate 600+D Plus Tablet] 1 each PO HS Memantine HCl [Namenda -] 10 mg PO BID 09/13/16 Rosuvastatin [Crestor -] 10 mg PO DAILY 09/13/16 metFORMIN HCL [Glucophage -] 500 mg PO HS 09/13/16 Metformin HCl [Glucophage] 1,000 mg PO DAILY 02/20/18 This patient is new to me today: No Emergency Visit: No Critical Care patient: No - Discharge Referral Referred to [facility] No
[2018-03-17 18:27] VITALS: BP 143/75; PULSE 50; TEMP 98
--- NOTE | 2018-03-17 18:42 | PN ---
Teaching Attending Note Name of Resident: Negrita Butt ATTENDING PHYSICIAN STATEMENT I saw and evaluated the patient. I reviewed the resident's note and discussed the case with the resident. I agree with the resident's findings and plan as documented with exceptions below. SUBJECTIVE: Patient seen and examined, no nausea, vomiting, abdominal pain, fevers or chills. Tolerating diet well. OBJECTIVE: Vital Signs Period Temp Pulse Resp BP Sys/Solis Pulse Ox Last 24 Hr 98.0 F-99.2 F 50-58 18-20 143-153/53-76 95-96 Intake & Output 03/14/18 03/15/18 03/16/18 03/17/18 23:59 23:59 23:59 23:59 Intake Total 2250 1495 Balance 2250 1495 Weight 175 lb General: sitting in bed in no acute distress Abdomen:soft, obese, NT throughout, No voluntary or involuntary guarding or rigidity, positive bowel sounds Home Medications Medication Instructions Recorded Aspirin [ASA -] 81 mg PO DAILY 09/13/16 Henry/D3/Mag11/Zinc/Proced Tech/Cortez/Bor 1 each PO HS 09/13/16 [Caltrate 600+D Plus Tablet] Memantine HCl [Namenda -] 10 mg PO BID 09/13/16 Rosuvastatin [Crestor -] 10 mg PO DAILY 09/13/16 metFORMIN HCL [Glucophage -] 500 mg PO HS 09/13/16 Metformin HCl [Glucophage] 1,000 mg PO DAILY 02/20/18 Active Medications Acetaminophen (Tylenol -) 650 mg PO Q4H PRN PRN Reason: FEVER Aspirin (Asa -) 81 mg PO DAILY [facility] Last Admin: 03/17/18 10:06 Dose: 81 mg Heparin Sodium (Porcine) (Heparin -) 5,000 unit SQ TID [facility] Last Admin: 03/17/18 05:42 Dose: 5,000 unit Sodium Chloride (Normal Saline -) 1,000 mls @ 75 mls/hr IV ASDIR [facility] Last Admin: 03/17/18 02:29 Dose: Not Given Insulin Aspart (Novolog Vial Sliding Scale -) 1 vial SQ Q4HPO [facility]; Protocol Last Admin: 03/17/18 15:48 Dose: Not Given Memantine (Namenda -) 10 mg PO BID [facility] Last Admin: 03/17/18 10:06 Dose: 10 mg Ondansetron HCl (Zofran Injection) 4 mg IVPUSH Q6H PRN PRN Reason: NAUSEA Rosuvastatin Calcium (Crestor -) 10 mg PO HS MÓNICA Last Admin: 03/16/18 21:52 Dose: 10 mg Laboratory Results - last 24 hr 03/16/18 03/16/18 03/17/18 18:21 21:51 02:28 WBC RBC Hgb Hct MCV MCH MCHC RDW Plt Count MPV Absolute Neuts (auto) Neutrophils % Lymphocytes % Monocytes % Eosinophils % Basophils % Nucleated RBC % Sodium Potassium Chloride Carbon Dioxide Anion Gap BUN Creatinine Creat Clearance w eGFR POC Glucometer 168 93 103 Random Glucose Calcium Total Bilirubin AST ALT Alkaline Phosphatase Total Protein Albumin 03/17/18 03/17/18 03/17/18 05:47 09:58 09:58 WBC 4.6 RBC 3.72 Hgb 11.3 Hct 34.0 MCV 91.4 MCH 30.5 MCHC 33.3 RDW 13.9 Plt Count 202 MPV 7.8 Absolute Neuts (auto) 2.9 Neutrophils % 62.1 D Lymphocytes % 28.3 D Monocytes % 7.8 Eosinophils % 1.3 D Basophils % 0.5 Nucleated RBC % 0 Sodium 142 Potassium 4.0 Chloride 109 H Carbon Dioxide 21 Anion Gap 12 BUN 10 Creatinine 1.1 H Creat Clearance w eGFR 48.42 POC Glucometer 120 Random Glucose 178 H Calcium 8.2 L Total Bilirubin 0.2 AST 25 ALT 19 Alkaline Phosphatase 51 D Total Protein 6.6 Albumin 3.1 L 03/17/18 10:03 WBC RBC Hgb Hct MCV MCH MCHC RDW Plt Count MPV Absolute Neuts (auto) Neutrophils % Lymphocytes % Monocytes % Eosinophils % Basophils % Nucleated RBC % Sodium Potassium Chloride Carbon Dioxide Anion Gap BUN Creatinine Creat Clearance w eGFR POC Glucometer 181 Random Glucose Calcium Total Bilirubin AST ALT Alkaline Phosphatase Total Protein Albumin Microbiology 03/15/18 20:13 Urine - Urine - Catheterized Urine Culture - Final NO GROWTH OBTAINED 03/15/18 18:27 Blood - Peripheral Venous Blood Culture - Preliminary NO GROWTH OBTAINED AFTER 24 HOURS, INCUBATION TO CONTINUE FOR 4 DAYS. 03/15/18 18:27 Blood - Peripheral Venous Blood Culture - Preliminary NO GROWTH OBTAINED AFTER 24 HOURS, INCUBATION TO CONTINUE FOR [address] A/P results reviewed ASSESSMENT AND PLAN: 77yo F wtih PMH HTN, DM, COPD and diverticulitis presented to the ER wtih abdominal pain and diarrhea and found ot have a fever -ABdominal pain/fevers, likely food poisoning vs viral gastroenteritis given self limiting course and sick contacts -CATHERINE liekly from dehydration, resolved -DM -COPD -Dementia Plan: Symptoms resolved. Afebrile, tolerating diet well. CT A/p results reviewed. D/c antibiotics. Dc home with outpatient follow up and discuss routine colonoscopy REsume home meds, metformin tomorrow. Plan discussed with patient in detail, all questions answered.
== END 2018-03-17 18:42 | disposition home or self-care (01) ==
LOC: JER 17:27 → JERBED 22:25 → J5S 03-16 00:55
PROVIDERS: ADMIT Internal Medicine; ATTEND Hospitalist
PROC: 3E0337Z Introduction of Electrolytic and Water Balance Substance into Peripheral Vein, Percutaneous Approach (ICD-10-PCS; principal; 2018-03-15)
PROC: 3E03329 Introduction of Other Anti-infective into Peripheral Vein, Percutaneous Approach (ICD-10-PCS; 2018-03-15)
PROC: 3E03329 Introduction of Other Anti-infective into Peripheral Vein, Percutaneous Approach (ICD-10-PCS; 2018-03-15)
PROC: 3E013GC Introduction of Other Therapeutic Substance into Subcutaneous Tissue, Percutaneous Approach (ICD-10-PCS; 2018-03-15)
DX: K52.9 Noninfective gastroenteritis and colitis, unspecified (principal); E11.9 Type 2 diabetes mellitus without complications; Z79.84 Long term (current) use of oral hypoglycemic drugs; F03.90 Unspecified dementia, unspecified severity, without behavioral disturbance, psychotic disturbance, mood disturbance, and anxiety; J44.9 Chronic obstructive pulmonary disease, unspecified; Z79.82 Long term (current) use of aspirin; Z79.01 Long term (current) use of anticoagulants; Z87.19 Personal history of other diseases of the digestive system; F17.210 Nicotine dependence, cigarettes, uncomplicated
CPT/HCPCS: 36415; 71045-TC-FY; 74176-TC; 80048; 80053; 81003; 82803; 82962; 83605; 83735; 84100; 84484; 85025; 85610; 85730; 87040; 87086; 93005; 93010; 96361; 96365; 96367; 96372; 97116-GP; 97161-GP; 99283-25; G0378; J0131; J1644; J7030

== ENCOUNTER 2018-04-13 10:28 | Day surgery (SDC) | payer OTHER ==
[2018-04-13 12:12] VITALS: BMI 32.9
[2018-04-13] MEDS ORDERED: PROPOFOL 20 ML ONE ×2 (12:52)
[2018-04-13] MEDS ORDERED: LIDOCAINE HCL/PF 2% SDV 5ML VIAL ONE (12:52)
[2018-04-13 13:56] VITALS: TEMP 98.2
--- NOTE | 2018-04-13 13:57 | PROC ---
Endoscopy Procedure Endoscopy procedure completed. Please see scanned procedure report.
[2018-04-13 14:47] VITALS: BP 159/65; PULSE 56
--- NOTE | 2018-04-15 12:22 | PATH ---
Surgical Pathology Report Patient Name: SAGAR BIGGS [facility]. Rec. #: [id number] /Age/Gender: 1940 (Age: 78) / F Account: [id number] Location: U-ENDOSCOPY Taken: 04/13/2018 Received: 04/14/2018 Reported: 04/15/2018 Physicians: Frederick Whaley M.D. Specimen(s) Received A: BX 2ND PORTION DUODENUM B: BX ANTRUM AND BODY C: BX CECAL POLYP D: ASCENDING COLON E: BX DESCENDING COLON Clinical History Colitis Postoperative diagnosis: Gastritis, diverticulosis, cecal polyp Final Diagnosis A. DUODENUM, SECOND PORTION, BIOPSY: DUODENAL MUCOSA WITHOUT SIGNIFICANT PATHOLOGIC FINDINGS. B. STOMACH, ANTRUM AND BODY, BIOPSY: GASTRIC ANTRAL AND BODY MUCOSA WITH MILD CHRONIC GASTRITIS. IMMUNOHISTOCHEMICAL STAIN FOR H. PYLORI IS NEGATIVE. C. CECUM, POLYP, BIOPSY: TUBULAR ADENOMA. D. ASCENDING COLON, BIOPSY: COLONIC MUCOSA WITHOUT SIGNIFICANT PATHOLOGIC FINDINGS. E. DESCENDING COLON, BIOPSY: COLONIC MUCOSA WITHOUT SIGNIFICANT PATHOLOGIC FINDINGS. Electronically Signed Sandy Chairez M.D. Gross Description A. Received in formalin, labeled "second portion duodenum" are 2 tobar, irregular portions of soft tissue measuring 0.3 cm. in greatest dimension. The specimens are submitted in toto in one cassette. B. Received in formalin, labeled "antrum and body" are 4 tobar, irregular portions of soft tissue measuring 0.1 and 0.2 cm. in greatest dimension. The specimens are submitted in toto in one cassette. C. Received in formalin, labeled "cecal polyp" are 2 tobar, irregular portions of soft tissue measuring 0.2 and 0.3 cm. in greatest dimension. The specimens are submitted in toto in one cassette. D. Received in formalin, labeled "BX ascending colon" are 2 tobar, irregular portions of soft tissue measuring 0.1 and 0.3 cm. in greatest dimension. The specimens are submitted in toto in one cassette. E. Received in formalin, labeled "BX descending colon" is a tobar, irregular portion of soft tissue measuring 0.4 cm. in greatest dimension. The specimen is submitted in toto in one cassette. MLSZ/04/14/2018 sanml/04/14/2018
== END 2018-04-13 14:57 | disposition home or self-care (01) ==
LOC: JASU-ENDO 10:28
PROVIDERS: ATTEND Internal Medicine Gastroenterology
PROC: 0DB98ZX Excision of Duodenum, Via Natural or Artificial Opening Endoscopic, Diagnostic (ICD-10-PCS; 2018-04-13)
PROC: 0DB68ZX Excision of Stomach, Via Natural or Artificial Opening Endoscopic, Diagnostic (ICD-10-PCS; 2018-04-13)
PROC: 0DBH8ZX Excision of Cecum, Via Natural or Artificial Opening Endoscopic, Diagnostic (ICD-10-PCS; principal; 2018-04-13 11:30)
DX: K52.9 Noninfective gastroenteritis and colitis, unspecified (principal); D12.0 Benign neoplasm of cecum; K57.30 Diverticulosis of large intestine without perforation or abscess without bleeding; K64.8 Other hemorrhoids
CPT/HCPCS: 88305-TC; 88342-TC

== ENCOUNTER 2018-07-20 22:38 | Emergency (ER) | payer OTHER ==
[2018-07-20 22:47] VITALS: BMI 30.9
--- NOTE | 2018-07-20 23:12 | PDOC ---
History of Present Illness - General Chief Complaint: SIRS, Suspected/Possible Stated Complaint: SEPSIS Time Seen by Provider: 07/20/18 23:05 History Source: Patient - History of Present Illness Initial Comments: 07/20/18 23:14 The patient is a 78 year old female with a PMH of COPD (not on home O2), -- presents to our ED with a 6 day h/o cough that recently became productive over the last 2-3 days. Patient's daughter brought her to the ED tonight because when patient's daughter came home around 9:30 p.m. she noticed her mother was drowsy and felt cold to touch. Daughter took an oral temp and it was 93 degrees Farenheit. She repeated the temperaure two more times with similar readings. ROS is positive for intermittent chest pain that is sharp, intermittent, localized to the medial side of her R breast and improved by laying down. H/o evaluation by cardiology (Dr. Martinez) for this chest pain as well as evaluations in our ED which daughter states were negative for NH. Patient was evaluated in urgent care last week and was told she had a viral URI and discharged home with supportive care. Patient denies abdominal pain, nausea/vomiting, diarrhea/constipation, dysuria/ hematuria. NKDA Surgical: hysterectomy, elbow surgery Social: 2 cigarettes daily for 20+ years, denies other toxic habits PMD: Dr. Antonietta Luo Pulmonology: Dr. Pereira Cardiology: Dr. Martinez As per EMR, patient was last evaluated in our ED in 03/2018 for abdominal pain likely 2/2 to gastroenteritis 2/2 to food poisoning. Past History - Past Medical History Allergies/Adverse Reactions: Allergies Allergy/AdvReac Type Severity Reaction Status Date / Time No Known Allergies Allergy Verified 07/20/18 22:47 Home Medications: Ambulatory Orders Aspirin [ASA -] 81 mg PO DAILY 09/13/16 Henry/D3/Mag11/Zinc/Bowling Alley Mechanic/Cortez/Bor [Caltrate 600+D Plus Tablet] 1 each PO HS Memantine HCl [Namenda -] 10 mg PO BID 09/13/16 Rosuvastatin [Crestor -] 10 mg PO DAILY 09/13/16 metFORMIN HCL [Glucophage -] 500 mg PO HS 09/13/16 Metformin HCl [Glucophage] 1,000 mg PO DAILY 02/20/18 Centrum Silver Tablet 04/13/18 Ibandronate Sodium [Boniva] 3 mg IV MO 04/13/18 Thiamine Mononitrate [Vitamin B-1] 100 mg PO DAILY 04/13/18 Levofloxacin [Levaquin] 750 mg PO DAILY #7 tablet 07/21/18 COPD: Yes DVT: No Diabetes: Yes GI Disorders: Yes (diverticulitis HIATAL HERNIA) HTN: Yes Hypercholesterolemia: Yes - Immunization History Immunization Up to Date: Yes - Suicide/Smoking/Psychosocial Hx Smoking History: Current every day smoker Number of Cigarettes Smoked Daily: 20 Information on smoking cessation initiated: Yes 'Breaking Loose' booklet given: 07/20/18 Hx Alcohol Use: No Drug/Substance Use Hx: No Substance Use Type: None, Alcohol Review of Systems - Review of Systems Constitutional: No: Chills, Fever HEENTM: No: Blurred Vision, Double Vision Respiratory: Yes: Productive cough. No: Shortness of Breath, Wheezing, Hemoptysis Cardiac (ROS): No: Chest Pain, Lightheadedness, Palpitations, Syncope ABD/GI: No: Constipated, Diarrhea, Nausea, Vomiting *Physical Exam - Vital Signs Last Vital Signs Temp Pulse Resp BP Pulse Ox 99.0 F 76 18 124/59 L 98 07/20/18 22:44 07/20/18 22:44 07/20/18 22:44 07/20/18 22:44 07/20/18 22:44 - Physical Exam General Appearance: Yes: Nourished, Appropriately Dressed HEENT: positive: Normal Voice, Hearing Grossly Normal Neck: positive: Trachea midline, Supple Respiratory/Chest: positive: Lungs Clear, Normal Breath Sounds Cardiovascular: positive: S1, S2. negative: JVD Vascular Pulses: Dorsalis-Pedis (R): 2+, Doralis-Pedis (L): 2+ Gastrointestinal/Abdominal: positive: Normal Bowel Sounds, Soft. negative: Distended, Guarding, Tenderness, Hernia Extremity: positive: Normal Inspection Integumentary: positive: Normal Color, Dry Neurologic: positive: Fully Oriented, Alert Heart Score/ECG Review - ECG Impressions Comment:: 07/21/18 01:50 HR 60, normal intervals, LA enlargement, no SIXTO/STD/TWI. Non-ischemic ED Treatment Course - LABORATORY CBC & Chemistry Diagram: 07/21/18 01:19 07/21/18 01:19 Medical Decision Making - Medical Decision Making 07/20/18 23:37 78 year old female with productive cough and intermittent chest pain. H/o COPD and Viral URI for 1 week. VS unremarkable. Frontal diagnosis: COPD exacerbation, PNA, viral URI as well as r/o ACS. Will obtain rectal temp, BS, basic labs, Troponin, CXR, EKG. VS monitoring. Reassess. 07/21/18 00:46 Rectal Temp 98.6 Patient reassed @ bedside. Resting comfortably. 07/21/18 01:35 CBC: WBC 12.3 - likely reactive leukocytosis Hb 13 07/21/18 01:36 07/21/18 01:49 ECG non ischemic as documented in ECG section of EMR 07/21/18 02:11 Troponin (-) x1 BNP 99.6 07/21/18 02:20 UA pending 07/21/18 02:45 UA shows 2+ Leukocyte Esterase 07/21/18 02:59 7 WBC in UA As patient has h/o viral URI, will treat UTI with Levaquin. *DC/Admit/Observation/Transfer Diagnosis at time of Disposition: UTI (urinary tract infection) - Discharge Dispostion Disposition: HOME Condition at time of disposition: Good Decision to Admit order: No - Prescriptions Prescriptions: Levofloxacin [Levaquin] 750 mg PO DAILY #7 tablet - Referrals Referrals: Antonietta Luo MD [Primary Care Provider] - - Patient Instructions Printed Discharge Instructions: DI for Urinary Tract Infection (UTI) Additional Instructions: All of your labs and your chest x-ray showed no concerning findings. Your urine was positive for a urinary tract infection. We have sent an antibiotic to your pharmacy. Please take the entire prescribed course. Follow up with your primary care doctor in the next 3 days. Return to the Emergency Department for any new/worsening/concerning symptoms. - Post Discharge Activity
[2018-07-20] MEDS ORDERED: HEMOQUE TEST 1 EACH EACH ONE (23:47)
[2018-07-21] MEDS ORDERED: ACETAMINOPHEN 500 MG TABLET (FP) PO ONE (00:45)
--- NOTE | 2018-07-21 00:51 | PDOC ---
Attending Attestation - Resident Resident Name: Harika Gomez - ED Attending Attestation I have performed the following: I have examined & evaluated the patient, The case was reviewed & discussed with the resident, I agree w/resident's findings & plan, Exceptions are as noted - HPI HPI: 07/21/18 02:11 78 F with h/o COPD presents to ED with cough and low temperature. Pt's daughter states that pt has been coughing for about 6 days. She went to urgent care and was told it was likely a viral URI. The cough has persisted and today pt began to have greenish sputum. Daughter also notes that pt had a "low temperature" at home when she checked with an oral thermometer, which prompted her to come to the ER. Pt otherwise states she feels well. no CP/SOB. No N/V/D/abdominal pain. No dysuria. - Physicial Exam PE: 07/21/18 02:15 "GENERAL: Awake, alert, and fully oriented, in no acute distress. HEAD: No signs of trauma EYES: PERRLA, EOMI, sclera anicteric, conjunctiva clear ENT: Auricles normal inspection, hearing grossly normal, nares patent, oropharynx clear without exudates. Moist mucosa NECK: Nontender, no stepoffs, Normal ROM, supple, no lymphadenopathy, JVD, or masses LUNGS: Breath sounds equal, clear to auscultation bilaterally. No wheezes, and no crackles HEART: Regular rate and rhythm, normal S1 and S2, no murmurs, rubs or gallops ABDOMEN: Soft, nontender, normoactive bowel sounds. No guarding, no rebound. No masses EXTREMITIES: Normal range of motion, no edema. No clubbing or cyanosis. No cords, erythema, or tenderness NEUROLOGICAL: Cranial nerves II through XII intact. 5/5 strength and sensation in all extremities, Normal speech, normal gait, normal cerebellar function SKIN: Warm, Dry, normal turgor, no rashes or lesions noted. - Medical Decision Making 07/21/18 02:15 78 F with cough and low temperature measured at home. Pt with normal temperature in ED. Suspect low temp at home due to error with oral thermometer. Pt without any signs of sepsis in ED. No focal signs of infectious process. Cough likely 2/2 viral URI or post-viral bronchitis. No wheezing on lung exam to suggest COPD. - Labs - CXR, UA 07/21/18 02:59 UA consistent with UTI. CXR clear on my read Will tx with levaquin for UTI as well as potential coverage for pulmonary source given cough with green sputum Pt is well appearing, with normal vitals. Clinically stable for DC at this time. I discussed the physical exam findings, ancillary test results and final diagnoses with the patient. I answered all of the patient's questions. The patient was satisfied with the care received and felt comfortable with the discharge plan and treatment plan. The patient agrees to follow up with the primary care physician within 24-72 hours.
[2018-07-21 01:31] LABS: BASO % 0.2 % (0-2.0); EOS % 1.5 % (0-4.5); HEMATOCRIT 37.7 % (32.4-45.2); HEMOGLOBIN 13.2 GM/dL (10.7-15.3); LYMPH % 30.6 % (8-40); MCH 30.9 pg (25.7-33.7); MCHC 34.9 g/dl (32.0-36.0); MEAN CELL VOLUME 88.6 fl (80-96); MEAN PLT VOLUME 7.7 fl (7.5-11.1); MONO % 4.1 % (3.8-10.2); NEUT % 63.6 % (42.8-82.8); PLATELET COUNT 327 K/MM3 (134-434); RBC 4.25 M/mm3 (3.60-5.2); RDW 13.9 % (11.6-15.6); WHITE BLOOD COUNT 12.3 K/mm3 (4.0-10.0)
[2018-07-21 01:50] VITALS: TEMP 98.6
[2018-07-21 02:05] LABS: ALBUMIN 3.6 g/dl (3.4-5.0); ALK PHOS 77 U/L (45-117); ANION GAP 5 MMOL/L (8-16); BILIRUBIN,TOTAL 0.3 mg/dL (0.2-1); BLOOD UREA NITROGEN 8 mg/dL (7-18); CHLORIDE 106 mmol/L (98-107); CO2 28 mmol/L (21-32); CREATININE 1.2 mg/dL (0.55-1.3); GLUCOSE,RANDOM 171 mg/dL (74-106); MAGNESIUM 2.1 mg/dL (1.8-2.4); POTASSIUM 4.3 mmol/L (3.5-5.1); SGOT/AST 28 U/L (15-37); SGPT/ALT 26 U/L (13-61); SODIUM 139 mmol/L (136-145); TOT PROT 7.7 g/dl (6.4-8.2)
[2018-07-21 02:34] LABS: URINE APPEARANCE CLEAR; URINE BILIRUBIN NEGATIVE (<2.0 mg/dL); URINE COLOR STRAW; URINE GLUCOSE (UA) NEGATIVE (NEGATIVE); URINE KETONE NEGATIVE (NEGATIVE); URINE LEUK ESTERASE 2+ (NEGATIVE); URINE NITRITE NEGATIVE (NEGATIVE); URINE PROTEIN NEGATIVE (NEGATIVE); URINE UROBILINOGEN NEGATIVE mg/dL (0.2-1.0)
[2018-07-21 02:41] LABS: EPI CELLS RARE /HPF (FEW); URINE BACTERIA FEW /hpf (NONE SEEN)
[2018-07-21 03:40] VITALS: BP 127/78; PULSE 80
--- NOTE | 2018-07-21 15:59 | EKG ---
Test Reason : Blood Pressure : / mmHG Vent. Rate : 060 BPM Atrial Rate : 060 BPM P-R Int : 114 ms QRS Dur : 084 ms QT Int : 472 ms P-R-T Axes : 052 051 056 degrees QTc Int : 472 ms SINUS RHYTHM WITH PREMATURE SUPRAVENTRICULAR COMPLEXES POSSIBLE LEFT ATRIAL ENLARGEMENT BORDERLINE ECG WHEN COMPARED WITH ECG OF 15-MAR-2018 19:49, PREMATURE SUPRAVENTRICULAR COMPLEXES ARE NOW PRESENT NONSPECIFIC T WAVE ABNORMALITY NO LONGER EVIDENT IN LATERAL LEADS Confirmed by Gómez Godoy ([id number]) on 07/21/2018 3:58:47 PM Referred By: Confirmed By:Gómez Godoy
== END 2018-07-21 03:59 | disposition home or self-care (01) ==
LOC: JER 22:38
DX: N39.0 Urinary tract infection, site not specified (principal); I10 Essential (primary) hypertension; E78.00 Pure hypercholesterolemia, unspecified; E11.9 Type 2 diabetes mellitus without complications; J44.9 Chronic obstructive pulmonary disease, unspecified; F17.210 Nicotine dependence, cigarettes, uncomplicated
CPT/HCPCS: 36415; 71045-TC-FY; 80053; 81003; 81015; 82550; 82553; 83735; 83880; 84484; 85025; 87086; 93005; 93010; 99284-25

== ENCOUNTER 2018-08-02 19:47 | Observation (INO) | payer OTHER ==
--- NOTE | 2018-08-02 19:59 | PDOC ---
History of Present Illness - General Chief Complaint: Chest Pain Stated Complaint: CHEST PAIN Time Seen by Provider: 08/02/18 19:57 - History of Present Illness Initial Comments: 08/02/18 20:29 The patient is a 78 year old female with a history of HTN, HLD, DM who presents for evaluation of chest pain. The patient reports onset of intermittent sharp left sided chest pain this morning. She notes that she has not been feeling herself throughout the day prompting her presentation to the ED for further evaluation. She notes that the patient worsens with palpation of a specific area, but otherwise denies fevers, chills, SOB, nausea, vomiting, abdominal pain , or changes with urination or bowel movements. Past History - Past Medical History Allergies/Adverse Reactions: Allergies Allergy/AdvReac Type Severity Reaction Status Date / Time No Known Allergies Allergy Verified 08/02/18 22:12 Home Medications: Ambulatory Orders Aspirin [ASA -] 81 mg PO DAILY 09/13/16 Henry/D3/Mag11/Zinc/Ct Scan Tech/[place]/Bor [Caltrate 600+D Plus Tablet] 1 each PO HS Memantine HCl [Namenda -] 10 mg PO BID 09/13/16 Rosuvastatin [Crestor -] 10 mg PO DAILY 09/13/16 Metformin HCl [Glucophage] 1,000 mg PO DAILY 02/20/18 Centrum Silver Tablet 04/13/18 Ibandronate Sodium [Boniva] 3 mg IV MO 04/13/18 Thiamine Mononitrate [Vitamin B-1] 100 mg PO DAILY 04/13/18 COPD: Yes DVT: No Diabetes: Yes GI Disorders: Yes (diverticulitis HIATAL HERNIA) HTN: Yes Hypercholesterolemia: Yes - Immunization History Immunization Up to Date: Yes - Suicide/Smoking/Psychosocial Hx Smoking History: Current every day smoker Number of Cigarettes Smoked Daily: 20 'Breaking Loose' booklet given: 07/20/18 Hx Alcohol Use: No Drug/Substance Use Hx: No Substance Use Type: None, Alcohol Review of Systems - Review of Systems Comments:: 08/02/18 20:31 Constitutional: No fevers, chills, fatigue, malaise HEENT: No Rhinorrhea, nasal congestion, visual changes Cardiovascular: Chest pain. No syncope, palpitations, lightheadedness Respiratory: No Cough, SOB, Hemoptysis, Gastrointestinal: No Abdominal pain, Nausea, Vomiting, Constipation, Diarrhea, Melena Genitourinary: No Dysuria, Frequency, Urgency, Hesitancy, Hematuria, Flank pain Musculoskeletal: No Myalgia, arthralgia Skin: No rashes, itching, bruising, pallor Neurologic: No Headache, Dizziness, Numbness, Weakness, or Tingling Psychiatric: No Hallucinations. No SI or HI *Physical Exam - Physical Exam Comments: 08/02/18 20:31 General Appearance: Nourished. No Apparent Distress HEENT: No Pharyngeal Erythema, Tonsillar Exudate, Tonsillar Erythema Neck: No Cervical Lymphadenopathy Respiratory/Chest: Lungs Clear, Normal Breath Sounds. Reproducible tenderness to palpation on exam. No Crackles, Rales, Rhonchi, Wheezing Cardiovascular: Regular Rhythm, Regular Rate. No Murmur, Gallops, Rubs Gastrointestinal/Abdominal: Normal Bowel Sounds, Soft. No Guarding, Rebound, Tenderness Musculoskeletal: No CVA Tenderness Extremity: Normal Capillary Refill Integumentary: Normal Color, Dry, Warm Neurologic: Fully Oriented, Alert, Normal Mood/Affect, Normal Response, Heart Score/ECG Review - History History: Slightly suspicious - Electrocardiogram EKG: Non specific repolarization disturbance - Age Age: >/= 65 - Risk Factors Risk Factors Heart Score: Yes Hx Hypercholesterolemia, Yes Hx Hypertension, Yes Hx Diabetes Based on the list above the patient has:: >/=3 risk factors or Hx atherosclerotic disease - Troponin Troponin: </= normal limit - Score Heart Score - Total: 5 #1 ECG reviewed & interpreted by me at: 22:01 General ECG Interpretation: Sinus Rhythm, Normal Rate, Normal Intervals, No acute ischemic changes ED Treatment Course - LABORATORY CBC & Chemistry Diagram: 08/02/18 20:54 08/02/18 20:54 Medical Decision Making - Medical Decision Making 08/02/18 20:32 The patient is a 78 year old female with a history of HTN, HLD, DM who presents for evaluation of chest pain. Differential includes but is not limited to: ACS , Arrhythmia, Musculoskeletal, Infectious, Metabolic Derangement. Given the patient's history and physical exam, we will obtain a cbc, cmp, troponin, ekg, chest plain film to evaluate further. We will continue to monitor and reassess while here in the ED. 08/02/18 23:56 CBC, cmp, troponin are unremarkable. Chest plain film is unremarkable. Given the patient's cardiac risk factors, we believe she requires observation admission for further monitoring. We discussed the case with the admitting team who accepted the patient for admission. *DC/Admit/Observation/Transfer Diagnosis at time of Disposition: Chest pain Qualifiers: Chest pain type: unspecified Qualified Code(s): R07.9 - Chest pain, unspecified - Discharge Dispostion Condition at time of disposition: Stable Decision to Admit order: Yes - Referrals Referrals: Antonietta Luo MD [Primary Care Provider] - - Patient Instructions - Post Discharge Activity
[2018-08-02 20:01] VITALS: BMI 31.3
[2018-08-02 21:18] LABS: BASO % 0.6 % (0-2.0); HEMATOCRIT 39.4 % (32.4-45.2); HEMOGLOBIN 13.3 GM/dL (10.7-15.3); MCH 30.1 pg (25.7-33.7); MCHC 33.7 g/dl (32.0-36.0); MEAN CELL VOLUME 89.5 fl (80-96); MEAN PLT VOLUME 7.9 fl (7.5-11.1); MONO % 6.7 % (3.8-10.2); NEUT % 56.7 % (42.8-82.8); PLATELET COUNT 296 K/MM3 (134-434); RDW 14.1 % (11.6-15.6); WHITE BLOOD COUNT 6.5 K/mm3 (4.0-10.0)
[2018-08-02 21:49] LABS: ALBUMIN 3.6 g/dl (3.4-5.0); ALK PHOS 71 U/L (45-117); ANION GAP 9 MMOL/L (8-16); BILIRUBIN,TOTAL 0.4 mg/dL (0.2-1); BLOOD UREA NITROGEN 12 mg/dL (7-18); CALCIUM 8.9 mg/dL (8.5-10.1); CHLORIDE 100 mmol/L (98-107); CO2 26 mmol/L (21-32); CREATININE 1.2 mg/dL (0.55-1.3); GLUCOSE,RANDOM 295 mg/dL (74-106); N-TERMINAL BNP 35.6 pg/ml (5-450); POTASSIUM 4.1 mmol/L (3.5-5.1); SGOT/AST 17 U/L (15-37); SGPT/ALT 21 U/L (13-61); SODIUM 135 mmol/L (136-145); TOT PROT 7.5 g/dl (6.4-8.2)
--- NOTE | 2018-08-02 22:33 | PDOC ---
Attending Attestation - [facility] HPI: 08/02/18 22:53 The patient is a 78 year old female, with a significant PMH of HLD, DM, COPD, pneumonia, bronchitis, and diverticulitis, who presents to the emergency department complaining of chest pain that began this morning. The patient states the intermittent and non radiating pain is located to the left anterior chest wall. She reports she was not feeling well and felt very fatigue throughout the day. She had similar episode in February and followed up with Dr. 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 The patient denies shortness of breath, headache and dizziness. Denies fever, chills, nausea, vomit, diarrhea and constipation. Denies dysuria, frequency, urgency and hematuria. Allergies: NKDA Past surgical history: None reported Social history: Current everyday smoker. Smokes 20 cigarettes a day. Denies alcohol or recreational drug use. PCP: None reported Documentation prepared by Angelina Padilla, acting as medical billing manager for Poonam Mak MD. - Physicial Exam PE: 08/02/18 22:54 GENERAL: Well developed, well nourished. Awake and alert but poor historian. No acute distress. HEENT: Normocephalic, atraumatic. PERRLA, EOMI. No conjunctival pallor. Sclera are non- icteric. Moist mucous membranes. Oropharynx is clear. NECK: Supple. Full ROM. No JVD. Carotid pulses 2+ and symmetric, without bruits. No thyromegaly. No lymphadenopathy. CARDIOVASCULAR: Regular rate and rhythm. No murmurs, rubs, or gallops. Distal pulses are 2+ and symmetric. PULMONARY: No evidence of respiratory distress. Lungs clear to auscultation bilaterally. No wheezing, rales or rhonchi. ABDOMINAL: Soft. Non-tender. Non-distended. No rebound or guarding. No organomegaly. Normoactive bowel sounds. MUSCULOSKELETAL Normal range of motion at all joints. No bony deformities or tenderness. No CVA tenderness. EXTREMITIES: No cyanosis. No clubbing. No edema. No calf tenderness. SKIN: Warm and dry. Normal capillary refill. No rashes. No jaundice. NEUROLOGICAL: Alert, awake, appropriate. Cranial nerves 2-12 intact. PSYCHIATRIC: Cooperative. Good eye contact. Appropriate mood and affect. Documentation prepared by Angelina Padilla, acting as medical billing manager for Poonam Mak MD. <Angelina Padilla - Last Filed: 08/02/18 22:53> - Resident Resident Name: Meek Blount - ED Attending Attestation I have performed the following: I have examined & evaluated the patient, The case was reviewed & discussed with the resident, I agree w/resident's findings & plan, Exceptions are as noted - Medical Decision Making ekg NSR @ 68 bpm trop negative 08/02/18 22:52 pt will admitted to obs telemetry 08/02/18 23:09 <Poonam Mak - Last Filed: 08/02/18 23:10>
--- NOTE | 2018-08-03 00:50 | PN ---
Teaching Attending Note Name of Resident: Zohra Dasilva ATTENDING PHYSICIAN STATEMENT I saw and evaluated the patient. I reviewed the resident's note and discussed the case with the resident. I agree with the resident's findings and plan as documented. SUBJECTIVE: Seen and examined; presenting with atypical chest thorpe from outside. She is a 78 y/o AAF with a PMH significant for HTN, HLD, Obesity, DM2, COPD, current smoker. She has multiple risks for CAD and would be high risk by history. No prior caths, no recent stress tests. Was here for the same sx in February and saw Dr. Martinez who believed the pain was noncardiac. She presents today with reproducible chest pain with coughing; not made better with anything. She had a URI earlier this month and had an incomplete course of levaquin that she self DC'd (seen here and by PCP). The cough never went away, and the pain associated with it became so severe that she chose to come to ER. No syncope, desatting, etc. She is active. Wells score is zero. Admit to medicine and monitor on tele to r/o ACS. 10 sys ROS done and negative aside from HPI PMH and PSH reviewed Socially denies EtOH and drugs, current tobacco abuse with no plans to quit FH asked and noncontributory OBJECTIVE: VS, labs, imaging reviewed NAD, AAO, resting in bed RRR s1/2 no mgr; reproducible pain to palpation in upper chest on left and b/l lowed lateral chest. NT ND +BS No LE edema, palpable pedal pulse b/l Lungs CTAB with sym exp CN2-12 wnl, no fnd Normal mood, euthymic affect, appropriate behavior Labs show negative CE'sx1 in the ER; CBC unremarkable. LFTs wnl, BMP unremarkable aside from glucose of 295 BNP wnl. EKG: Unchanged; no ST-T changes suggestive of acute ischemia, etc. NSR. Imaging: CXR unremarkable ASSESSMENT AND PLAN: Mrs. Parker is a 78 y/o female presenting with atypical chest pain; negative cardiac workup so far. Similar to 03/02 in terms of presentation which was noncardiac. 1) Atypical Chest Pain in Adult -Likely musculoskeletal but is high risk; seen for similar sx in February of this year by CV and felt to be noncardiac. Negative workup so far. Monitor tele and trend trops. ASA for primary prevention. PRN APAP for muscle pain. Control cough. Will check echo to r/o wma's. Consult CV if needed. No s/s pericarditis 2) URI (resolving) -No SOB, no desatting. Lingering cough, incomplete course of levaquin. No sputum. Doesn't rule in for COPD exacerbation. -Can do PRN guaifenisin and PRN albuterol for reactive airways 3) DM2 -Hold PO meds; do SSI. A1c 8-range from February 4) HLD -Continue crestor; just had lipids done as outpatient per pt. with no changes made to meds. 5) HTN -150s; monitor and start GDMT if needed 6) COPD -PRN tx; FU with PCP and OP PFTs. 7) Current Smoker -Counseled; precontemplative. 8) H/o diverticulitis -Nonacute Full Code
--- NOTE | 2018-08-03 01:02 | HP ---
CHIEF COMPLAINT: chest pain PCP: Dr. Luo HISTORY OF PRESENT ILLNESS: Patient is a 78 year old female with history of DM, HLD, COPD, diverticulosis, diverticulitis, presents with complaint of chest pain. States this pain began this past Friday (07/29/2018) while she was lying in bed. Describes pain as sharp, localized to left sided chest, non radiating. Denies inciting factor. States the pain was initially pleuritic, however no longer exacerbated by deep breaths. She has attempted palliation by applying rubbing alcohol to her chest, which has been palliative. She endorses that she had recent URI diagnosis at urgent care center which was accompanied by increased coughing. States that she still has cough, and that exacerbates the chest pain. Further, endorses prior history of similar complaint 02/[address] [facility], and diagnosed with costochondritis. Currently states chest pain has improved since initial presentation. Denies fevers, chills, shortness of breath, palpitations, abdominal pain, nausea, vomiting, diarrhea. ER course was notable for: (1) Troponin 0.02 (2) EKG shows sinus rhythm with premature atrial complexes at 68 beats per minute (3) Recent Travel: denies PAST MEDICAL HISTORY: DM, HLD, COPD, diverticulosis, diverticulitis PAST SURGICAL HISTORY: Hysterectomy 45 years ago, right elbow repair approx. 27 years ago. Social History: Smoking: endorses one pack per day, on and off since 19 years old. Quit in 1998 - 2012, starting again since her became sick. Alcohol: denies Drugs: denies Family History: Father: [place], HTN, CKD at 87 y/o Mother: DM, colon CA, approx. 70 y/o Allergies No Known Allergies Allergy (Verified 08/02/18 22:12) HOME MEDICATIONS: Home Medications Medication Instructions Recorded Aspirin [ASA -] 81 mg PO DAILY 09/13/16 Henry/D3/Mag11/Zinc/Assistant News Director/[place]/Bor 1 each PO HS 09/13/16 [Caltrate 600+D Plus Tablet] Memantine HCl [Namenda -] 10 mg PO BID 09/13/16 Rosuvastatin [Crestor -] 10 mg PO DAILY 09/13/16 Metformin HCl [Glucophage] 1,000 mg PO DAILY 02/20/18 Centrum Silver Tablet 04/13/18 Ibandronate Sodium [Boniva] 3 mg IV MO 04/13/18 Thiamine Mononitrate [Vitamin B-1] 100 mg PO DAILY 04/13/18 REVIEW OF SYSTEMS CONSTITUTIONAL: Absent: fever, chills, diaphoresis, generalized weakness, malaise, loss of appetite, weight change HEENT: Absent: rhinorrhea, nasal congestion, throat pain, throat swelling, difficulty swallowing, mouth swelling, ear pain, eye pain, visual changes CARDIOVASCULAR: Admits: chest pain. Absent: syncope, palpitations, irregular heart rate, lightheadedness, peripheral edema RESPIRATORY: Absent: cough, shortness of breath, dyspnea with exertion, orthopnea, wheezing, stridor, hemoptysis GASTROINTESTINAL: Absent: abdominal pain, abdominal distension, nausea, vomiting, diarrhea, constipation, melena, hematochezia GENITOURINARY: Absent: dysuria, frequency, urgency, hesitancy, hematuria, flank pain, genital pain MUSCULOSKELETAL: Absent: myalgia, arthralgia, joint swelling, back pain, neck pain SKIN: Absent: rash, itching, pallor HEMATOLOGIC/IMMUNOLOGIC: Absent: easy bleeding, easy bruising, lymphadenopathy, frequent infections ENDOCRINE: Absent: unexplained weight gain, unexplained weight loss, heat intolerance, cold intolerance NEUROLOGIC: Absent: headache, focal weakness or paresthesias, dizziness, unsteady gait, seizure, mental status changes, bladder or bowel incontinence PSYCHIATRIC: Absent: anxiety, depression, suicidal or homicidal ideation, hallucinations. PHYSICAL EXAMINATION Vital Signs - 24 hr 08/02/18 08/02/18 19:48 21:00 Temperature 97.8 F 98.6 F Pulse Rate 62 Pulse Rate [ 70 Left] Respiratory 16 20 Rate Blood Pressure 129/60 Blood Pressure 151/63 [Right] O2 Sat by Pulse 98 100 Oximetry (%) GENERAL: Awake, alert, and fully oriented, in no acute distress. HEAD: Normal with no signs of trauma. EYES: Pupils equal, round and reactive to light, extraocular movements intact, sclera anicteric, conjunctiva clear. No lid lag. EARS, NOSE, THROAT: Ears normal, nares patent, oropharynx clear without exudates. Moist mucous membranes. NECK: Normal range of motion, supple without lymphadenopathy, JVD, or masses. LUNGS: Breath sounds equal, clear to auscultation bilaterally. No wheezes, and no crackles. No accessory muscle use. HEART: Regular rate and rhythm, normal S1 and S2 without murmur, rub or gallop. CHEST: Pain reproducible upon palpation at left upper chest. ABDOMEN: Obese. Soft, nontender, not distended. Normoactive bowel sounds X4 quadrants. No guarding, no rebound tenderness. No hepatomegaly or splenomegaly. MUSCULOSKELETAL: Normal range of motion at all joints. No bony deformities or tenderness. No CVA tenderness. UPPER EXTREMITIES: 2+ radial pulses b/l, warm, well-perfused. LOWER EXTREMITIES: 2+ dorsalis pedis pulses b/l, warm, well-perfused. No calf tenderness. No peripheral edema. NEUROLOGICAL: Cranial nerves II-XII intact. Normal speech. PSYCHIATRIC: Cooperative. Good eye contact. Appropriate mood and affect. SKIN: Warm, dry. Laboratory Results - last 24 hr 08/02/18 08/02/18 20:54 20:54 WBC 6.5 RBC 4.40 Hgb 13.3 Hct 39.4 MCV 89.5 MCH 30.1 MCHC 33.7 RDW 14.1 Plt Count 296 MPV 7.9 Absolute Neuts (auto) 3.7 Neutrophils % 56.7 Lymphocytes % 35.0 Monocytes % 6.7 Eosinophils % 1.0 Basophils % 0.6 Nucleated RBC % 0 Sodium 135 L Potassium 4.1 Chloride 100 Carbon Dioxide 26 Anion Gap 9 BUN 12 Creatinine 1.2 Creat Clearance w eGFR 43.68 Random Glucose 295 H Calcium 8.9 Total Bilirubin 0.4 AST 17 ALT 21 Alkaline Phosphatase 71 Creatine Kinase 170 Creatine Kinase Index 0.8 CK-MB (CK-2) 1.4 Troponin I < 0.02 B-Natriuretic Peptide 35.6 Total Protein 7.5 Albumin 3.6 ASSESSMENT/PLAN: Patient is a 78 year old female with history of DM, HLD, COPD, diverticulosis, diverticulitis, presents with complaint of chest pain. Chest pain, atypical -Reproducible upon palpation, likely secondary to costochondritis. This may be due to increased coughing from URI. -First troponin 0.02, Ck-MB 1.4. Will follow. -EKG shows sinus rhythm with premature atrial complexes at 68 beats per minute -Continue Aspirin 81mg PO daily -F/U cardiac echo -F/U rapid Influenza swab -Cardiac consult (Dr. Martinez) -Cardiac monitoring DM -ISS ACHS -BGM ACHS -HbA1c (02/2018) 8.3 HLD -Continue Crestor 10mg PO daily Nicotine dependence -Discussed benefits of smoking cessation with patient. Counselled, however she does not want to quit at this time. Endorses she is "cutting down". FEN -No IV fluids -Follow CMP -Diabetic/ sodium controlled diet Prophylaxis -Lovenox 40mg subq daily Disposition -Telemetery observation. Visit type - Emergency Visit Emergency Visit: Yes ED Registration Date: 08/02/18 Care time: The patient presented to the Emergency Department on the above date and was hospitalized for further evaluation of their emergent condition. - New Patient This patient is new to me today: Yes Date on this admission: 08/03/18 - Critical Care Critical Care patient: No
[2018-08-03] MEDS ORDERED: INSULIN (NOVOLOG) ASPART 100 UNITS/ML 10ML VIAL ONE ×3 (06:52→12:17)
[2018-08-03] MEDS: INSULIN SLIDING SCALE (NOVOLOG) 1 VIAL SQ SCH ×4 (07:02→21:06)
[2018-08-03] MEDS: ASPIRIN 81 MG CHEWABLE TABLETS PO SCH (10:48)
[2018-08-03] MEDS: ENOXAPARIN NA (PORCINE) 40 MG/0.4 ML DISP.SYRIN SQ SCH (10:48)
[2018-08-03] MEDS: MEMANTINE HCL 10 MG TABLET (FP) PO SCH ×2 (10:48→21:06)
[2018-08-03] MEDS: THIAMINE HCL 100 MG TABLET (FP) PO SCH (10:48)
--- NOTE | 2018-08-03 12:20 | PN ---
Physical Exam: SUBJECTIVE: Patient seen and examined at bedside. Continues to have chest pain with cough. Denies MATTHEWS, SOB, abdominal pain, nausea or vomiting. OBJECTIVE: Vital Signs Period Temp Pulse Resp BP Sys/Solis Pulse Ox Last 24 Hr 97.8 F-98.6 F 50-70 16-20 104-151/53-75 97-100 GENERAL: awake and alert, NAD LUNGS: CTAB, no wheezing or rales.accessory muscle use. HEART: RRR, S1, S2 without murmur, rub or gallop. ABDOMEN: Soft, nontender, nondistended, normoactive bowel sounds, no guarding, no rebound, no hepatosplenomegaly, no masses. EXTREMITIES: 2+ pulses, warm, well-perfused, no edema. NEUROLOGICAL: Cranial nerves II through XII grossly intact. Normal speech, gait not observed. PSYCH: Normal mood, normal affect. SKIN: Warm, dry, normal turgor, no rashes or lesions noted Laboratory Results - last 24 hr 08/02/18 08/02/18 08/03/18 20:54 20:54 00:41 WBC 6.5 RBC 4.40 Hgb 13.3 Hct 39.4 MCV 89.5 MCH 30.1 MCHC 33.7 RDW 14.1 Plt Count 296 MPV 7.9 Absolute Neuts (auto) 3.7 Neutrophils % 56.7 Lymphocytes % 35.0 Monocytes % 6.7 Eosinophils % 1.0 Basophils % 0.6 Nucleated RBC % 0 Sodium 135 L Potassium 4.1 Chloride 100 Carbon Dioxide 26 Anion Gap 9 BUN 12 Creatinine 1.2 Creat Clearance w eGFR 43.68 POC Glucometer [phone] Random Glucose 295 H Calcium 8.9 Total Bilirubin 0.4 AST 17 ALT 21 Alkaline Phosphatase 71 Creatine Kinase 170 Creatine Kinase Index 0.8 CK-MB (CK-2) 1.4 Troponin I < 0.02 B-Natriuretic Peptide 35.6 Total Protein 7.5 Albumin 3.6 Influenza A (Rapid) Influenza B (Rapid) 08/03/18 08/03/18 08/03/18 03:30 06:19 Unknown WBC RBC Hgb Hct MCV MCH MCHC RDW Plt Count MPV Absolute Neuts (auto) Neutrophils % Lymphocytes % Monocytes % Eosinophils % Basophils % Nucleated RBC % Sodium Potassium Chloride Carbon Dioxide Anion Gap BUN Creatinine Creat Clearance w eGFR POC Glucometer [phone] Random Glucose Calcium Total Bilirubin AST ALT Alkaline Phosphatase Creatine Kinase Creatine Kinase Index CK-MB (CK-2) Troponin I < 0.02 B-Natriuretic Peptide Total Protein Albumin Influenza A (Rapid) Negative Influenza B (Rapid) Negative Active Medications Generic Name Dose Route Start Last Admin Trade Name Timothy PRN Reason Stop Dose Admin Aspirin 81 mg 08/03/18 10:00 08/03/18 10:48 Asa - PO 81 mg DAILY MÓNICA Administration Enoxaparin Sodium 40 mg 08/03/18 10:00 08/03/18 10:48 Lovenox - SQ 40 mg DAILY MÓNICA Administration Insulin Aspart 1 vial 08/03/18 07:00 08/03/18 12:14 Novolog Vial Sliding Scale - SQ 4 units ACHS MÓNICA Administration Protocol Memantine 10 mg 08/03/18 10:00 08/03/18 10:48 Namenda - PO 10 mg BID MÓNICA Administration Non-Formulary Medication 1 each 08/03/18 22:00 Henry/D3/Mag11/Zinc/Instrument And Control Service Person/[place]rez/Bor [Caltrate 600+D Plus Tablet] PO HS MÓNICA Rosuvastatin Calcium 10 mg 08/03/18 22:00 Crestor - PO HS MÓNICA Thiamine HCl 100 mg 08/03/18 10:00 08/03/18 10:48 Vitamin B1 - PO 100 mg DAILY MÓNICA Administration ASSESSMENT/PLAN: Problem List - Problems (1) Atypical chest pain Assessment/Plan: Most likely MS in nature * place on observation to telemetry * trops negative x3 * Echo pending * cardiology consult * ASA * repeat EKG in AM Code(s): R07.89 - OTHER CHEST PAIN (2) Type 2 diabetes mellitus Assessment/Plan: * ADA diet * BGM ACHS * ISS ACHS (3) Failure to thrive Assessment/Plan: This may be just progression of Dementia * R/O metabolic causes * TSH and B12 * UA pending. * repeat BMP in AM (4) Cough Assessment/Plan: subacute cough * No current YVETTE or ARB use * possible GERD * Speech and swallow eval for possible silent aspiration given h/o dementia (5) Dementia Assessment/Plan: continue home regimen * Memantine (Namenda -) 10 mg PO BID * Thiamine HCl (Vitamin B1 -) 100 mg PO DAILY Visit type - Emergency Visit Emergency Visit: Yes ED Registration Date: 08/02/18 Care time: The patient presented to the Emergency Department on the above date and was hospitalized for further evaluation of their emergent condition. - New Patient This patient is new to me today: Yes Date on this admission: 08/03/18 - Critical Care Critical Care patient: No
--- NOTE | 2018-08-03 13:10 | PN ---
Progress Note, Physician Chief Complaint: Ms Parker complains of chest pain with coughing. Daughter complains that Ms Parker is having uncontrolled cough, fatigue, and weakness that is not improving. - Current Medication List Current Medications: Active Medications Aspirin (Asa -) 81 mg PO DAILY [facility] Last Admin: 08/03/18 10:48 Dose: 81 mg Enoxaparin Sodium (Lovenox -) 40 mg SQ DAILY [facility] Last Admin: 08/03/18 10:48 Dose: 40 mg Insulin Aspart (Novolog Vial Sliding Scale -) 1 vial SQ ACHS [facility]; Protocol Last Admin: 08/03/18 12:14 Dose: 4 units Memantine (Namenda -) 10 mg PO BID [facility] Last Admin: 08/03/18 10:48 Dose: 10 mg Non-Formulary Medication (Henry/D3/Mag11/Zinc/Precinct Commanding Officer/[place]/Bor [Caltrate 600+D Plus Tablet]) 1 each PO HS [facility] Rosuvastatin Calcium (Crestor -) 10 mg PO HS [facility] Thiamine HCl (Vitamin B1 -) 100 mg PO DAILY [facility] Last Admin: 08/03/18 10:48 Dose: 100 mg - Objective Vital Signs: Vital Signs Temperature 37.0 C 08/03/18 09:41 Pulse Rate 70 08/03/18 09:41 Respiratory Rate 16 08/03/18 09:41 Blood Pressure 104/53 L 08/03/18 09:41 O2 Sat by Pulse Oximetry (%) 99 08/03/18 09:41 Constitutional: Yes: Well Nourished, No Distress, Calm Cardiovascular: Yes: Regular Rate and Rhythm. No: Gallop, Murmur, Rub Respiratory: Yes: Regular, CTA Bilaterally. No: Rales, Rhonchi, Wheezes Gastrointestinal: Yes: Normal Bowel Sounds, Soft. No: Distention, Tenderness Extremities: Yes: WNL Edema: No Labs: CBC, BMP 08/02/18 20:54 08/02/18 20:54 Problem List - Problems (1) Atypical chest pain Assessment/Plan: -cardiac enzymes x3 negative -echo normal -atypical chest pain Code(s): R07.89 - OTHER CHEST PAIN (2) Cough Assessment/Plan: -subacute cough -possible reflux -not on ACEI/ARB -no wheezing, lung exam clear, but possible bronchitis -with dementia, request speech therapy to evaluate for silent aspiration Code(s): R05 - COUGH (3) Failure to thrive Assessment/Plan: -daughter describes FTT symptoms -will check TFTs -check urinalysis -may be progression of dementia Code(s): HHZ8628 - (4) Dementia Assessment/Plan: -continue home regimen Code(s): F03.90 - UNSPECIFIED DEMENTIA WITHOUT BEHAVIORAL DISTURBANCE (5) Hyperlipidemia associated with type 2 diabetes mellitus Assessment/Plan: -continue crestor Code(s): E11.69 - TYPE 2 DIABETES MELLITUS WITH OTHER SPECIFIED COMPLICATION; E78.5 - HYPERLIPIDEMIA, UNSPECIFIED (6) Hypertension Assessment/Plan: -controlled -continue current management Code(s): I10 - ESSENTIAL (PRIMARY) HYPERTENSION Qualifiers: Hypertension type: essential hypertension Qualified Code(s): I10 - Essential (primary) hypertension (7) Type 2 diabetes mellitus Assessment/Plan: -diabetic diet and SSI while here Code(s): E11.9 - TYPE 2 DIABETES MELLITUS WITHOUT COMPLICATIONS Qualifiers: Diabetes mellitus shelter insulin use: without shelter use Assessment/Plan Discharge plan for tomorrow if work up negative Case d/w Dr Reaves PGY-3 and plan formulated
--- NOTE | 2018-08-03 17:28 | ECHO ---
Name: SAGAR BIGGS Exam:Adult Echocardiogram Study Date: 08/03/2018 10:57 AM Age: 78 yrs Reason For Study: Chest pain Height: 63 in Weight: 177 lb BSA: 1.8 m2 MMode/2D Measurements & Calculations IVSd: 0.85 cm Ao root diam: 2.9 cm LVIDd: 5.3 cm LA dimension: 4.2 cm LVIDs: 3.7 cm ACS: 1.7 cm LVPWd: 0.78 cm IVSs: 1.0 cm LVPWs: 1.2 cm EDV(Teich): 136.1 ml ESV(Teich): 56.6 ml Doppler Measurements & Calculations MV E max juan jose: 58.2 cm/sec Ao V2 max: 128.0 cm/sec MV A max juan jose: 74.8 cm/sec Ao max P.6 mmHg MV E/A: 0.78 Ao V2 mean: 89.8 cm/sec Ao mean P.6 mmHg Ao V2 VTI: 28.5 cm MR max juan jose: 540.5 cm/sec TR max juan jose: 227.7 cm/sec MR max P.1 mmHg TR max P.9 mmHg PI end-d juan jose: 90.9 cm/sec Med Peak E' Juan Jose: 4.4 cm/sec Med E/e': 13.3 Lat Peak E' Juan Jose: 6.9 cm/sec Lat E/e': 8.4 Procedure A complete two-dimensional transthoracic echocardiogram was performed (2D, M-mode, Doppler and color flow Doppler). Left Ventricle The left ventricle is normal in size. Left ventricular systolic function is normal. Ejection Fraction = 60- 65%. E/A reversal and TDI reveals mildly impaired relaxation with elevated filling pressure (E/E' 15) . No regional wall motion abnormalities noted. Right Ventricle The right ventricle is normal size. The right ventricular systolic function is normal. Atria The left atrium is mildly dilated. Right atrial size is normal. Mitral Valve There is mild mitral valve thickening. There is mild mitral annular calcification. There is moderate mitral regurgitation. Tricuspid Valve The tricuspid valve is normal in structure and function. There is moderate tricuspid regurgitation. P ulmonary artery systolic pressure is at least 28 mmHg assuming RA pressure is 3 mmHg. Aortic Valve There is mild aortic sclerosis.;. No aortic regurgitation is present. Pulmonic Valve The pulmonic valve is not well visualized. Trace pulmonic valvular regurgitation. Great Vessels The aortic root is normal size. Pericardium/Pleura There is no pericardial effusion. Interpretation Summary The left ventricle is normal in size. Left ventricular systolic function is normal. No regional wall motion abnormalities noted. Ejection Fraction = 60-65%. E/A reversal and TDI reveals mildly impaired relaxation with elevated filling pressure (E/E' 15) The right ventricular systolic function is normal. The left atrium is mildly dilated. Right atrial size is normal. There is mild mitral valve thickening. There is mild mitral annular calcification. There is moderate mitral regurgitation. There is moderate tricuspid regurgitation. Pulmonary artery systolic pressure is at least 28 mmHg assuming RA pressure is 3 mmHg There is mild aortic sclerosis.; Trace pulmonic valvular regurgitation. There is no pericardial effusion. Previous study is not available for comparison Kai Marlow MD 08/03/2018 05:27 PM
--- NOTE | 2018-08-03 18:29 | EKG ---
Test Reason : Blood Pressure : / mmHG Vent. Rate : 068 BPM Atrial Rate : 068 BPM P-R Int : 114 ms QRS Dur : 084 ms QT Int : 432 ms P-R-T Axes : 059 046 053 degrees QTc Int : 459 ms SINUS RHYTHM WITH PREMATURE ATRIAL COMPLEXES NONSPECIFIC T WAVE ABNORMALITY ABNORMAL ECG WHEN COMPARED WITH ECG OF 21-JUL-2018 00:22, NO SIGNIFICANT CHANGE WAS FOUND Confirmed by LUNA LYLES MD ([id number]) on 08/03/2018 6:28:41 PM Referred By: Confirmed By:LUNA LYLES MD
[2018-08-03] MEDS ORDERED: ROSUVASTATIN CA 10 MG TABLET (FP) PO SCH (22:00)
[2018-08-03] MEDS ORDERED: PATIENT'S OWN MEDICATION (NON-FORMULARY) (Cal/D3/Mag11/Zinc/Cop/Mang/Bor [Caltrate 600+D P PO SCH (22:00)
[2018-08-04 02:01] LABS: URINE APPEARANCE SLCLOUDY; URINE BILIRUBIN NEGATIVE (<2.0 mg/dL); URINE COLOR LTYELLOW; URINE GLUCOSE (UA) NEGATIVE (NEGATIVE); URINE KETONE NEGATIVE (NEGATIVE); URINE LEUK ESTERASE 1+ (NEGATIVE); URINE NITRITE NEGATIVE (NEGATIVE); URINE PROTEIN NEGATIVE (NEGATIVE); URINE UROBILINOGEN NEGATIVE mg/dL (0.2-1.0)
[2018-08-04 02:11] LABS: URINE HYALINE CAST 1 /lpf
[2018-08-04] MEDS: INSULIN SLIDING SCALE (NOVOLOG) 1 VIAL SQ SCH ×2 (06:09→11:54)
[2018-08-04 06:36] LABS: HEMATOCRIT 37.3 % (32.4-45.2); HEMOGLOBIN 12.1 GM/dL (10.7-15.3); MCH 29.1 pg (25.7-33.7); MCHC 32.3 g/dl (32.0-36.0); MEAN CELL VOLUME 90.1 fl (80-96); MEAN PLT VOLUME 7.8 fl (7.5-11.1); PLATELET COUNT 259 K/MM3 (134-434); RBC 4.14 M/mm3 (3.60-5.2); RDW 13.8 % (11.6-15.6); WHITE BLOOD COUNT 7.6 K/mm3 (4.0-10.0)
[2018-08-04 07:23] LABS: ALBUMIN 3.3 g/dl (3.4-5.0); ALK PHOS 61 U/L (45-117); ANION GAP 11 MMOL/L (8-16); BILIRUBIN,TOTAL 0.5 mg/dL (0.2-1); BLOOD UREA NITROGEN 14 mg/dL (7-18); CALCIUM 8.4 mg/dL (8.5-10.1); CHLORIDE 106 mmol/L (98-107); CO2 24 mmol/L (21-32); CREATININE 1.1 mg/dL (0.55-1.3); GLUCOSE,RANDOM 199 mg/dL (74-106); MAGNESIUM 2.4 mg/dL (1.8-2.4); PHOSPHOROUS 3.8 mg/dL (2.5-4.9); SGOT/AST 16 U/L (15-37); SGPT/ALT 20 U/L (13-61); SODIUM 140 mmol/L (136-145); TOT PROT 6.7 g/dl (6.4-8.2)
[2018-08-04] MEDS: ENOXAPARIN NA (PORCINE) 40 MG/0.4 ML DISP.SYRIN SQ SCH (09:43)
[2018-08-04] MEDS: ASPIRIN 81 MG CHEWABLE TABLETS PO SCH (09:44)
[2018-08-04] MEDS: MEMANTINE HCL 10 MG TABLET (FP) PO SCH (09:44)
[2018-08-04] MEDS: THIAMINE HCL 100 MG TABLET (FP) PO SCH (09:44)
--- NOTE | 2018-08-04 10:50 | CONSULT ---
Admitting History and Physical - Primary Care Physician PCP: Irving Hopkins - Admission History of Present Illness: Patient is a 78 year old female with history of DM, HLD, COPD, diverticulosis, diverticulitis, presents with complaint of chest pain. Selected Entries 08/03/18 08/03/18 08/03/18 00:30 06:41 09:41 Temperature 98.5 F 98.6 F 98.6 F 08/03/18 08/03/18 08/04/18 17:53 20:00 02:00 Temperature 99.0 F 99.1 F 97.8 F 08/04/18 08/04/18 05:53 09:00 Temperature 97.4 F L 98 F Laboratory Tests 08/04/18 06:00 WBC 7.6 This is my first consult with this pt. History Source: Patient, Family Member Limitations to Obtaining History: No Limitations, Clinical Condition - Past Medical History Cardiovascular: Yes: HTN, Hyperlipdemia Endocrine: Yes: Diabetes Mellitus - Smoking History Smoking history: Current every day smoker Have you smoked in the past 12 months: Yes Aproximately how many cigarettes per day: 20 - Alcohol/Substance Use Hx Alcohol Use: No History - Admission Reason For Visit: CHEST PAIN - Diagnostics X-ray: Report Reviewed CT Scan: Report Reviewed - General Mental Status: Alert and Oriented, Awake and Alert, Able to Follow Commands, Forgetful Attention: Intact Ability to Follow Directions: Excellent Head/Neck Control: WFL - Hearing Hearing: Normal Hearing Aide: No With Patient: No Speech Evaluation - Communication Primary Language: TAJIK Communication: Yes: Within Normal Limits Oral Expression Ability: Yes: No Impairment - Speech Production Able to Make Needs Known: Yes: WNL Intelligibility: Yes: WNL - Speech Characteristics Voice Loudness: Normal Voice Pitch: Yes: Normal Voice Phonatory-based Quality: Yes: Normal Speech Pattern: Normal Speech Clarity: < 100% Nasal Resonance: Normal Articulation: Yes: Precise - Language/Auditory Comprehension Follows: Yes: 1 Stage Simple Commands Observation: Able to respond to yes/no queries: Yes, Yes/No Confusion: No, Comprehends Conversational Speech: Yes - Language/Verbal Expression Able to Respond to Simple Queries: Yes: WNL Able to Communicate Wants and Needs: Yes: WNL Functional Communication Status: Yes: WNL - Swallow Evaluation/Bedside Assessment Current Nutritional Intake: Regular Oral Secretions: Yes: WFL Dentition: Yes: Edentulous (dentures at home) Facial Symmetry at Rest: Symmetrical Facial Symmetry on Retraction: Symmetrical Facial Movement: Controlled Sensation: Normal Against Resistance Opening: Normal Against Resistance Closing: Normal Pucker Lips: Normal Smile: Normal Lingual Movement: Normal, Symmetric Lingual Speed of Movement: Normal Lingual Movement Strgth Against Opposition: Normal Lingual Movement Characteristics: Normal Velopharyngeal Movement: Normal Laryngeal Elevation: WFL Laryngeal Movement: Able to Palpate Rate of Intake: WFL Bolus Size: WFL Chewing: WFL Oral Prep Time: WFL A-P Transit: WFL Pocketing: None Timing of Swallow: WFL Coughing/Throat Clear: No Change in Voice: No Recommendations - Speech Evaluation, Impression/Plan Impression: Pt with cough, without overt symptoms of aspiration. Uon review of swallowing behaviors, pt has caffiene daily (coffee, soda), carbonation,some spicy foods, frequenctly eats mints, smokes, and reported to have a h/o a Hiatal Hernia. She does not recline after eating or have citrus foods/drinks. r /o Laryngopharyngeal reflux/GERD. - Dysphagia Impressions/Plan Swallowing Skills: [facility] Dysphagia Impressions: No Impairment *Silent aspiration: cannot be R/O at bedside Dysphagia Treatment Plan: Other (Consider trial of PPI, if not medically contraindicated. Consider ENT/GI to r/o visual signs of reflux.) Recommendations: Other (Pt educated on GERD precautions and handout given.Reduce /eliminate caffiene, carbonation,spicy foods, mints, smoking.)
--- NOTE | 2018-08-04 12:05 | PN ---
Physical Exam: SUBJECTIVE: Patient seen and examined at bedside. No overnight events. No new complaints. Denies CP,MATTHEWS,SOB, palpitations, abdominal pain, nausea or vomiting. OBJECTIVE: Vital Signs Period Temp Pulse Resp BP Sys/Solis Pulse Ox Last 24 Hr 97.4 F-99.1 F 54-74 16-20 116-142/52-66 96-100 GENERAL:AAOx3,NAD ENT: moist mucous membranes. LUNGS: Breath sounds equal, clear to auscultation bilaterally, no wheezes, no crackles HEART: Regular rate and rhythm, S1, S2 without murmur, rub or gallop. ABDOMEN: Soft, nontender, nondistended, normoactive bowel sounds, no guarding, no rebound, no hepatosplenomegaly, no masses. EXTREMITIES: 2+ pulses, warm, well-perfused, no edema. NEUROLOGICAL: Cranial nerves II through XII grossly intact. Normal speech, gait not observed. PSYCH: Normal mood, normal affect. SKIN: Warm, dry, normal turgor, no rashes or lesions noted Laboratory Results - last 24 hr 08/03/18 08/03/18 08/03/18 12:12 16:10 17:45 WBC RBC Hgb Hct MCV MCH MCHC RDW Plt Count MPV Sodium Potassium Chloride Carbon Dioxide Anion Gap BUN Creatinine Creat Clearance w eGFR POC Glucometer [phone] Random Glucose Calcium Phosphorus Magnesium Total Bilirubin AST ALT Alkaline Phosphatase Troponin I < 0.02 Total Protein Albumin Vitamin B12 TSH Free T4 Urine Color Urine Appearance Urine pH Ur Specific Sachse Urine Protein Urine Glucose (UA) Urine Ketones Urine Blood Urine Nitrite Urine Bilirubin Urine Urobilinogen Ur Leukocyte Esterase Urine WBC (Auto) Urine RBC (Auto) Hyaline Casts 08/03/18 08/04/18 08/04/18 20:44 01:00 05:32 WBC RBC Hgb Hct MCV MCH MCHC RDW Plt Count MPV Sodium Potassium Chloride Carbon Dioxide Anion Gap BUN Creatinine Creat Clearance w eGFR POC Glucometer 190 208 Random Glucose Calcium Phosphorus Magnesium Total Bilirubin AST ALT Alkaline Phosphatase Troponin I Total Protein Albumin Vitamin B12 TSH Free T4 Urine Color Ltyellow Urine Appearance Slcloudy Urine pH 7.0 D Ur Specific Sachse 1.010 Urine Protein Negative Urine Glucose (UA) Negative Urine Ketones Negative Urine Blood Negative Urine Nitrite Negative Urine Bilirubin Negative Urine Urobilinogen Negative Ur Leukocyte Esterase 1+ H Urine WBC (Auto) 1 Urine RBC (Auto) None Hyaline Casts 1 08/04/18 08/04/18 08/04/18 06:00 06:00 06:00 WBC 7.6 RBC 4.14 Hgb 12.1 Hct 37.3 MCV 90.1 MCH 29.1 MCHC 32.3 RDW 13.8 Plt Count 259 MPV 7.8 Sodium 140 Potassium 4.0 Chloride 106 Carbon Dioxide 24 Anion Gap 11 BUN 14 Creatinine 1.1 Creat Clearance w eGFR 48.29 POC Glucometer Random Glucose 199 H Calcium 8.4 L Phosphorus 3.8 Magnesium 2.4 Total Bilirubin 0.5 AST 16 ALT 20 Alkaline Phosphatase 61 Troponin I Total Protein 6.7 Albumin 3.3 L Vitamin B12 385 TSH 1.69 Free T4 0.89 Urine Color Urine Appearance Urine pH Ur Specific [place] Urine Protein Urine Glucose (UA) Urine Ketones Urine Blood Urine Nitrite Urine Bilirubin Urine Urobilinogen Ur Leukocyte Esterase Urine WBC (Auto) Urine RBC (Auto) Hyaline Casts 08/04/18 11:19 WBC RBC Hgb Hct MCV MCH MCHC RDW Plt Count MPV Sodium Potassium Chloride Carbon Dioxide Anion Gap BUN Creatinine Creat Clearance w eGFR POC Glucometer 211 Random Glucose Calcium Phosphorus Magnesium Total Bilirubin AST ALT Alkaline Phosphatase Troponin I Total Protein Albumin Vitamin B12 TSH Free T4 Urine Color Urine Appearance Urine pH Ur Specific [place] Urine Protein Urine Glucose (UA) Urine Ketones Urine Blood Urine Nitrite Urine Bilirubin Urine Urobilinogen Ur Leukocyte Esterase Urine WBC (Auto) Urine RBC (Auto) Hyaline Casts Active Medications Generic Name Dose Route Start Last Admin Trade Name Timothy PRN Reason Stop Dose Admin Aspirin 81 mg 08/03/18 10:00 08/04/18 09:44 Asa - PO 81 mg DAILY MÓNICA Administration Enoxaparin Sodium 40 mg 08/03/18 10:00 08/04/18 09:43 Lovenox - SQ 40 mg DAILY MÓNICA Administration Insulin Aspart 1 vial 08/03/18 07:00 08/04/18 11:54 Novolog Vial Sliding Scale - SQ 4 units ACHS MÓNICA Administration Protocol Memantine 10 mg 08/03/18 10:00 08/04/18 09:44 Namenda - PO 10 mg BID MÓNICA Administration Non-Formulary Medication 1 each 08/03/18 22:00 Henry/D3/Mag11/Zinc/Full Stack Web Developer/[place]/Bor [Caltrate 600+D Plus Tablet] PO HS MÓNICA Rosuvastatin Calcium 10 mg 08/03/18 22:00 08/03/18 21:06 Crestor - PO 10 mg HS MÓNICA Administration Thiamine HCl 100 mg 08/03/18 10:00 08/04/18 09:44 Vitamin B1 - PO 100 mg DAILY MÓNICA Administration ASSESSMENT/PLAN: Problem List - Problems (1) Atypical chest pain Assessment/Plan: Most likely MS in nature * place on observation to telemetry * trops negative x3 * Echo pending * cardiology consult * ASA * repeat EKG in AM Code(s): R07.89 - OTHER CHEST PAIN (2) Type 2 diabetes mellitus Assessment/Plan: * ADA diet * BGM ACHS * ISS ACHS (3) Failure to thrive Assessment/Plan: This may be just progression of Dementia * R/O metabolic causes * TSH and B12 * UA pending. * repeat BMP in AM (4) Cough Assessment/Plan: subacute cough * No current YVETTE or ARB use * possible GERD * Speech and swallow eval for possible silent aspiration given h/o dementia (5) Dementia Assessment/Plan: continue home regimen * Memantine (Namenda -) 10 mg PO BID * Thiamine HCl (Vitamin B1 -) 100 mg PO DAILY Visit type - Emergency Visit Emergency Visit: Yes ED Registration Date: 08/02/18 Care time: The patient presented to the Emergency Department on the above date and was hospitalized for further evaluation of their emergent condition. - New Patient This patient is new to me today: No - Critical Care Critical Care patient: No
--- NOTE | 2018-08-04 12:05 | PN ---
Progress Note (short form) - Note Progress Note: Chief Complaint: Events noted, notes reviewed, reports persistent chest wall discomfort/tenderness, denies any dyspnea History of Present Illness: Seen and examined on telemetry. Full consult dictated CT scan of the chest dated 01/2018 revealed coronary artery calcification - Current Medication List Current Medications Aspirin (Asa -) 81 mg PO DAILY [facility] Last Admin: 08/04/18 09:44 Dose: 81 mg Enoxaparin Sodium (Lovenox -) 40 mg SQ DAILY [facility] Last Admin: 08/04/18 09:43 Dose: 40 mg Insulin Aspart (Novolog Vial Sliding Scale -) 1 vial SQ [facility]; Protocol Last Admin: 08/04/18 11:54 Dose: 4 units Memantine (Namenda -) 10 mg PO BID [facility] Last Admin: 08/04/18 09:44 Dose: 10 mg Non-Formulary Medication (Henry/D3/Mag11/Zinc/Software Quality Manager/[place]/Bor [Caltrate 600+D Plus Tablet]) 1 each PO [facility] Rosuvastatin Calcium (Crestor -) 10 mg PO [facility] Last Admin: 08/03/18 21:06 Dose: 10 mg Thiamine HCl (Vitamin B1 -) 100 mg PO DAILY [facility] Last Admin: 08/04/18 09:44 Dose: 100 mg Review of Systems - Review of Systems Constitutional: denies: Chills or Fever Cardiovascular: as noted above Gastrointestinal: denies: Nausea, Vomiting, Diarrhea, Constipation or Abdominal Pain Genitourinary: No symptoms reported Neurological: No symptoms reported Vital Signs: Last Vital Signs Temp Pulse Resp BP Pulse Ox 98 F 58 L 18 123/62 96 08/04/18 09:00 08/04/18 09:00 08/04/18 09:00 08/04/18 09:00 08/03/18 21:55 Intake & Output 08/01/18 08/02/18 08/03/18 08/04/18 23:59 23:59 23:59 23:59 Intake Total 100 250 Balance 100 250 Weight 177 lb 177 lb Constitutional: No Distress, Calm Neck: Supple Negative JVD Respiratory: Diminished Breath Sounds Bilaterally Cardiovascular: S1 S2 Regular rate and Rhythm Gastrointestinal: Soft Benign Normal Bowel Sounds Ext: No Edema Labs: CBC, BMP 08/04/18 06:00 08/04/18 06:00 Troponin, BNP 08/03/18 16:10 Troponin I < 0.02 Hepatic Panel Total Bilirubin 0.5 mg/dL (0.2-1) 08/04/18 06:00 AST 16 U/L (15-37) 08/04/18 06:00 ALT 20 U/L (13-61) 08/04/18 06:00 Alkaline Phosphatase 61 U/L (45-117) 08/04/18 06:00 Albumin 3.3 g/dl (3.4-5.0) L 08/04/18 06:00 Assessment/Plan ASSESSMENT: 1. Chest pain syndrome, clinical presentation consistent with costochondritis 2. CAD with evidence of coronary artery calcification with no clinical angina pectoris 3. Diastolic LV dysfunction with clinical class 0 NYHA classification LV failure 4. HTN/HCVD 5. DM 6. Hyperlipidemia 7. Organic brain syndrome/dementia 8. COPD 9. CKD PLAN: 1. [place] with NSAID's as needed with caution 2. Continue ASA 3. Continue Lipitor 4. Recommend the addition of ACEI or ARBS unless contraindicated 5. Recommend the addition of B-Blockers unless contraindicated 6. Counselled smoking cessation and abstinence 7. Recommend outpatient MPI study, discussed in detail with the patient and her daughter who was at [facility] Iona Khan M.D.
--- NOTE | 2018-08-04 13:31 | CONS ---
DATE OF CONSULTATION: 08/04/2018 REQUESTING PHYSICIAN: Hospitalist service. CHIEF COMPLAINT: Chest discomfort, cardiovascular evaluation. 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 The patient had a similar presentation in February 2018. The patient denied any exacerbation with physical exertion. The patient denied any associated symptomatology, i.e. diaphoresis. The patient reports dyspnea with minimal physical exertion, which has been attributed to the above-noted chronic obstructive pulmonary disease. The patient recently was treated for an upper respiratory infection/bronchitis. The patient denies any orthopnea, paroxysmal or nocturnal dyspnea, or peripheral edema. The patient denies any palpitations, dizziness, lightheadedness, or syncope. 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 SOCIAL HISTORY: Smoker. FAMILY HISTORY: Positive coronary artery disease. ALLERGIES: None reported. MEDICAL THERAPY: Currently includes aspirin 81 mg once a day, Lovenox 40 mg once a day, insulin coverage, Namenda 10 mg twice a day, Crestor 10 mg once a day, vitamin B 12 takes 100 mg once a day. REVIEW OF SYSTEMS: Head and Neck: Denies headache, photophobia, blurring of vision. Respiratory: No cough or sputum production. Cardiovascular: As noted above. Gastrointestinal: Denies nausea, vomiting, diarrhea, abdominal discomfort. Genitourinary: No symptoms reported. PHYSICAL EXAMINATION: Vital Signs: Blood pressure 123/62 mmHg, pulse rate 58 beats per minute. Head and Neck: Pupils equal and reactive to light and accommodation. Extraocular muscles are intact. Anicteric sclerae. Negative JVD. No bruits appreciated. Chest: Diminished breath sounds at the bases bilaterally. Cardiovascular: S1, S2 regular. No murmurs appreciated. Abdomen: Soft, benign. Normoactive bowel sounds. Extremities: Negative edema. Has +1 distal pulses. No calf tenderness. Chest x-ray report was noted. CBC revealed white cell count 7.6, hemoglobin 12.1, platelet count 251. Basic metabolic profile revealed a sodium 140, potassium 4, BUN 14, creatinine 1.1, creatinine clearance 48.29, glucose 199. CPK and troponin values were noted. EKG revealed sinus rhythm with premature supraventricular contractions and nonspecific T-wave abnormality. ASSESSMENT: 1. Chest pain syndrome. Clinical presentation is consistent with costochondritis. 2. Coronary artery disease with evidence of coronary artery calcification with no clinical angina pectoris. 3. Diastolic left ventricular dysfunction with clinical class 0 Price Heart Association classification left ventricular failure. 4. Hypertensive cardiovascular disease. 5. Diabetes mellitus. 6. Hypercholesterolemia. 7. Chronic organic brain syndrome. 8. Chronic obstructive pulmonary disease. 9. Chronic kidney disease. RECOMMENDATION: 1. Try nonsteroidal anti-inflammatory as needed with caution. 2. Continuation of aspirin therapy. 3. Continuation of Lipitor therapy. 4. Recommend the addition of YVETTE inhibitor angiotensin receptor blockers unless contraindicated. 5. Recommend the addition of beta-blockers unless contraindicated. 6. The patient was strongly counseled smoking cessation abstinence. 7. Additional evaluation to be performed on an outpatient basis including myocardial perfusion imaging study. Thank you for the kind referral. GRACE DUNLAP M.D. [id number]
[2018-08-04 14:01] VITALS: BP 110/53; PULSE 62; TEMP 98.7
--- NOTE | 2018-08-05 16:26 | DS ---
Physical Exam: SUBJECTIVE: Patient seen and examined at bedside. No overnight events. No new complaints. Denies CP,MATTHEWS,SOB, palpitations, abdominal pain, nausea or vomiting. OBJECTIVE: Vital Signs Period Temp Pulse Resp BP Sys/Solis Pulse Ox Last 24 Hr 97.4 F-99.1 F 54-74 16-20 116-142/52-66 96-100 GENERAL:AAOx3,NAD ENT: moist mucous membranes. LUNGS: Breath sounds equal, clear to auscultation bilaterally, no wheezes, no crackles HEART: Regular rate and rhythm, S1, S2 without murmur, rub or gallop. ABDOMEN: Soft, nontender, nondistended, normoactive bowel sounds, no guarding, no rebound, no hepatosplenomegaly, no masses. EXTREMITIES: 2+ pulses, warm, well-perfused, no edema. NEUROLOGICAL: Cranial nerves II through XII grossly intact. Normal speech, gait not observed. PSYCH: Normal mood, normal affect. SKIN: Warm, dry, normal turgor, no rashes or lesions noted LABS Laboratory Results - last 24 hr 08/03/18 08/03/18 08/03/18 12:12 16:10 17:45 WBC RBC Hgb Hct MCV MCH MCHC RDW Plt Count MPV Sodium Potassium Chloride Carbon Dioxide Anion Gap BUN Creatinine Creat Clearance w eGFR POC Glucometer [phone] Random Glucose Calcium Phosphorus Magnesium Total Bilirubin AST ALT Alkaline Phosphatase Troponin I < 0.02 Total Protein Albumin Vitamin B12 TSH Free T4 Urine Color Urine Appearance Urine pH Ur Specific Evart Urine Protein Urine Glucose (UA) Urine Ketones Urine Blood Urine Nitrite Urine Bilirubin Urine Urobilinogen Ur Leukocyte Esterase Urine WBC (Auto) Urine RBC (Auto) Hyaline Casts 08/03/18 08/04/18 08/04/18 20:44 01:00 05:32 WBC RBC Hgb Hct MCV MCH MCHC RDW Plt Count MPV Sodium Potassium Chloride Carbon Dioxide Anion Gap BUN Creatinine Creat Clearance w eGFR POC Glucometer 190 208 Random Glucose Calcium Phosphorus Magnesium Total Bilirubin AST ALT Alkaline Phosphatase Troponin I Total Protein Albumin Vitamin B12 TSH Free T4 Urine Color Ltyellow Urine Appearance Slcloudy Urine pH 7.0 D Ur Specific Evart 1.010 Urine Protein Negative Urine Glucose (UA) Negative Urine Ketones Negative Urine Blood Negative Urine Nitrite Negative Urine Bilirubin Negative Urine Urobilinogen Negative Ur Leukocyte Esterase 1+ H Urine WBC (Auto) 1 Urine RBC (Auto) None Hyaline Casts 1 08/04/18 08/04/18 08/04/18 06:00 06:00 06:00 WBC 7.6 RBC 4.14 Hgb 12.1 Hct 37.3 MCV 90.1 MCH 29.1 MCHC 32.3 RDW 13.8 Plt Count 259 MPV 7.8 Sodium 140 Potassium 4.0 Chloride 106 Carbon Dioxide 24 Anion Gap 11 BUN 14 Creatinine 1.1 Creat Clearance w eGFR 48.29 POC Glucometer Random Glucose 199 H Calcium 8.4 L Phosphorus 3.8 Magnesium 2.4 Total Bilirubin 0.5 AST 16 ALT 20 Alkaline Phosphatase 61 Troponin I Total Protein 6.7 Albumin 3.3 L Vitamin B12 385 TSH 1.69 Free T4 0.89 Urine Color Urine Appearance Urine pH Ur Specific Evart Urine Protein Urine Glucose (UA) Urine Ketones Urine Blood Urine Nitrite Urine Bilirubin Urine Urobilinogen Ur Leukocyte Esterase Urine WBC (Auto) Urine RBC (Auto) Hyaline Casts 08/04/18 11:19 WBC RBC Hgb Hct MCV MCH MCHC RDW Plt Count MPV Sodium Potassium Chloride Carbon Dioxide Anion Gap BUN Creatinine Creat Clearance w eGFR POC Glucometer 211 Random Glucose Calcium Phosphorus Magnesium Total Bilirubin AST ALT Alkaline Phosphatase Troponin I Total Protein Albumin Vitamin B12 TSH Free T4 Urine Color Urine Appearance Urine pH Ur Specific Evart Urine Protein Urine Glucose (UA) Urine Ketones Urine Blood Urine Nitrite Urine Bilirubin Urine Urobilinogen Ur Leukocyte Esterase Urine WBC (Auto) Urine RBC (Auto) Hyaline Casts HOSPITAL COURSE: 78 year old female with history of DM, HLD, COPD, diverticulosis, diverticulitis , presents with complaint of chest pain placed on observation to telemetry for atypical chest pain. Pain was reproducible on palpation. Serial troponin I were negative x3. Echo was normal. Initial and repeat EKG WNL. Evaluated by cardiology not suspected cardiac nature of chest pain. She presented with subacute cough most likely from GERD. Speech evaluation for suspected silent aspiration and will start a trial of PPI. She was managed for her diabetes with ADA diet and insulin sliding scale. She can resume home meds as previously prescribed. Dementia meds were continued. Patient is stable for discharge home with short term follow up with with PCP. Date of Admission:08/02/18 Date of Discharge: 08/05/18 Minutes to complete discharge: 41 Discharge Summary Reason For Visit: CHEST PAIN Condition: Good - Instructions Diet, Activity, Other Instructions: resume previous diet and activity Referrals: Antonietta Luo MD [Primary Care Provider] - Disposition: HOME - Home Medications Comprehensive Discharge Medication List: Ambulatory Orders Aspirin [ASA -] 81 mg PO DAILY 09/13/16 Henry/D3/Mag11/Zinc/Parent Partner/Cortez/Bor [Caltrate 600+D Plus Tablet] 1 each PO HS Memantine HCl [Namenda -] 10 mg PO BID 09/13/16 Rosuvastatin [Crestor -] 10 mg PO DAILY 09/13/16 Metformin HCl [Glucophage] 1,000 mg PO DAILY 02/20/18 Ibandronate Sodium [Boniva] 3 mg IV MO 04/13/18 Thiamine Mononitrate [Vitamin B-1] 100 mg PO DAILY 04/13/18 Pantoprazole Sodium [Protonix -] 20 mg PO DAILY #30 tablet.ec 08/04/18 Problem List - Problems (1) Atypical chest pain Code(s): R07.89 - OTHER CHEST PAIN (2) Type 2 diabetes mellitus (3) Failure to thrive (4) Cough (5) Dementia This patient is new to me today: No Emergency Visit: Yes ED Registration Date: 08/02/18 Care time: The patient presented to the Emergency Department on the above date and was hospitalized for further evaluation of their emergent condition. Critical Care patient: No - Discharge Referral Referred to [facility] Med P.C.: No
== END 2018-08-04 15:55 | disposition home or self-care (01) ==
LOC: JER 19:47 → JERBED 23:55 → J4S 08-03 17:28
PROVIDERS: ADMIT Internal Medicine; ATTEND Internal Medicine
PROC: 3E013VG Introduction of Insulin into Subcutaneous Tissue, Percutaneous Approach (ICD-10-PCS; principal; 2018-08-02)
PROC: 3E013GC Introduction of Other Therapeutic Substance into Subcutaneous Tissue, Percutaneous Approach (ICD-10-PCS; 2018-08-02)
DX: R07.89 Other chest pain (principal); E11.22 Type 2 diabetes mellitus with diabetic chronic kidney disease; I12.9 Hypertensive chronic kidney disease with stage 1 through stage 4 chronic kidney disease, or unspecified chronic kidney disease; N18.9 Chronic kidney disease, unspecified; Z79.84 Long term (current) use of oral hypoglycemic drugs; I25.10 Atherosclerotic heart disease of native coronary artery without angina pectoris; I51.9 Heart disease, unspecified; I11.9 Hypertensive heart disease without heart failure; E78.5 Hyperlipidemia, unspecified; J44.9 Chronic obstructive pulmonary disease, unspecified; F17.210 Nicotine dependence, cigarettes, uncomplicated; F09 Unspecified mental disorder due to known physiological condition; J06.9 Acute upper respiratory infection, unspecified; R62.7 Adult failure to thrive; F03.90 Unspecified dementia, unspecified severity, without behavioral disturbance, psychotic disturbance, mood disturbance, and anxiety
CPT/HCPCS: 36415; 71045-TC-FY; 80053; 81003; 81015; 82550; 82553; 82607; 82962; 83735; 83880; 84100; 84439; 84443; 84484; 85025; 85027; 87804; 93005; 93010; 93306-TC; 96372; 99285-25; G0378

== ENCOUNTER 2018-10-01 11:23 | Emergency (ER) | payer OTHER ==
[2018-10-01] MEDS ORDERED: SODIUM CHLORIDE 1,000 ML IV SCH (11:30)
--- NOTE | 2018-10-01 11:33 | PDOC ---
History of Present Illness - General Chief Complaint: Blood Sugar Problem Stated Complaint: ELEVATED BLOOD SUGAR History Source: Patient, Family Exam Limitations: No Limitations - History of Present Illness Initial Comments: 10/01/18 11:34 78 year old female with a history of HTN, HLD, COPD, DM who presents with elevated blood sugar and feeling nauseous onset this morning. Patient woke up this morning and began feeling nauseous called daughter to house who checked blood sugar and found to be 437, gave metformin medication, called PCP who told her to bring the patient to the ED. Past History - Past Medical History Allergies/Adverse Reactions: Allergies Allergy/AdvReac Type Severity Reaction Status Date / Time No Known Allergies Allergy Verified 10/02/18 09:55 Home Medications: Ambulatory Orders Aspirin [ASA -] 81 mg PO DAILY 09/13/16 Henry/D3/Mag11/Zinc/Warble Saw Operator/C[place]/Bor [Caltrate 600+D Plus Tablet] 1 each PO BID Memantine HCl [Namenda -] 10 mg PO BID 09/13/16 Rosuvastatin [Crestor -] 10 mg PO DAILY 09/13/16 Metformin HCl [Glucophage] 1,000 mg PO DAILY 02/20/18 Ibandronate Sodium [Boniva] 3 mg IV MO 04/13/18 Thiamine Mononitrate [Vitamin B-1] 100 mg PO DAILY 04/13/18 Pantoprazole Sodium [Protonix -] 20 mg PO DAILY #30 tablet.ec 08/04/18 Ondansetron [Zofran Odt -] 4 mg SL BID #14 od.tablet 10/01/18 Multivit-Min/FA/Lycopen/Lutein [Centrum Silver Tablet] 1 each PO DAILY 10/02/18 COPD: Yes DVT: No Diabetes: Yes GI Disorders: Yes (diverticulitis HIATAL HERNIA) HTN: Yes Hypercholesterolemia: Yes - Surgical History Orthopedic Surgery: Yes (rt elbow repair 27 years ago) - Immunization History Immunization Up to Date: Yes - Suicide/Smoking/Psychosocial Hx Smoking History: Current every day smoker Have you smoked in the past 12 months: Yes Number of Cigarettes Smoked Daily: 20 'Breaking Loose' booklet given: 08/03/18 Hx Alcohol Use: No Drug/Substance Use Hx: No Substance Use Type: None, Alcohol Hx Substance Use Treatment: No Review of Systems - Review of Systems Able to Perform ROS?: Yes Is the patient limited Eritrean proficient: No Constitutional: No: Chills, Diaphoresis HEENTM: No: Blurred Vision, Recent change in vision, Double Vision, Tinnitus Respiratory: No: Cough, Orthopnea, Shortness of Breath Cardiac (ROS): No: Chest Pain, Lightheadedness, Palpitations, Syncope ABD/GI: Yes: Nausea. No: Constipated, Diarrhea, Vomiting : No: Burning, Dysuria, Flank Pain Musculoskeletal: No: Back Pain, Muscle Pain Neurological: No: Headache, Numbness, Seizure *Physical Exam - Physical Exam Comments: GENERAL: Awake, alert, and fully oriented, in no acute distress HEAD: No signs of trauma, normocephalic, atraumatic EYES: PERRLA, EOMI, sclera anicteric, conjunctiva clear ENT: oropharynx clear without exudates. Moist mucosa NECK: Normal ROM, supple LUNGS: No distress, speaks full sentences, clear to auscultation bilaterally HEART: Regular rate and rhythm, normal S1 and S2, no murmurs, rubs or gallops, peripheral pulses normal and equal bilaterally. ABDOMEN: Soft, nontender, normoactive bowel sounds. No guarding, no rebound. No masses EXTREMITIES : Normal inspection, Normal range of motion, no edema. No clubbing or cyanosis. NEUROLOGICAL: Cranial nerves II through XII grossly intact. Normal speech, no focal sensorimotor deficits SKIN: Warm, Dry, normal turgor, no rashes or lesions noted ED Treatment Course - LABORATORY CBC & Chemistry Diagram: 10/01/18 12:15 10/01/18 14:49 Medical Decision Making - Medical Decision Making 10/01/18 12:57 78 year old female with a history of HTN, HLD, COPD, DM who presents with elevated blood sugar and feeling nauseous onset this morning. Patient woke up this morning and began feeling nauseous called daughter to house who checked blood sugar and found to be 437, gave metformin medication, called PCP who told her to bring the patient to the ED. ED Course: CXR: without significant findings. 10/01/18 14:17 labwork unremarkable. will check bs, if < 300 will discharge home 10/01/18 15:53 repeat bs 298 patient stable for discharge Given follow up instructions and strict return precautions. Patient expressed understanding and agree to plan. *DC/Admit/Observation/Transfer Diagnosis at time of Disposition: Hyperglycemia - Discharge Dispostion Disposition: HOME Condition at time of disposition: Stable Decision to Admit order: No - Prescriptions Prescriptions: Ondansetron [Zofran Odt -] 4 mg SL BID #14 od.tablet - Referrals - Patient Instructions Printed Discharge Instructions: DI for Hyperglycemia -- Adult Additional Instructions: You were seen in the ED for complaints of high blood sugar and some nausea. In the ED you were evaluated with labwork and imaging. Your results did not show significant findings aside from an elevated blood sugar. There does not appear to be an acute need for immediate hospitalization. You are advised to follow up with your Primary Care Physician within 1 week. You were given a prescription for Zofran, anti-nausea medication to be used as needed. It is important that you maintain appropriate blood sugar control, as this can lead to supervisor clam bed complications. Return to the ED immediately if you experience worsening nausea, vomiting, chest pain, shortness of breath, fever, uncontrollable blood sugar > 300 or changes in mentation or confusion. - Post Discharge Activity Forms/Work/School Notes: Back to Work
[2018-10-01 11:45] VITALS: BMI 31.5
[2018-10-01] MEDS ORDERED: HEMOQUE TEST 1 EACH EACH ONE (11:50)
--- NOTE | 2018-10-01 12:03 | PDOC ---
Attending Attestation - Resident Resident Name: Lo Chapman - ED Attending Attestation I have performed the following: I have examined & evaluated the patient, The case was reviewed & discussed with the resident, I agree w/resident's findings & plan, Exceptions are as noted - HPI HPI: 10/01/18 12:01 78y F hx of htn, hl, dm, presents for evaluation of hyperglyccemia. Pt has been feeling mildly nauseus the past few days, had outpatient bloodw ork showing her HG A1C was 11, today, she was feeling naseus and had her BGM checked and noted it to be elevated at 437. Family gave he rsome metformin, and she called her PMD who directed her to the ED. Pt nots she vomited yesterday but not today. she has had intermittent epigastric abd pain the past few weeks, but has been eating well (including candy and hambergers yesterday per family member). pt denies any fever, chills, cough, cp, sob, beck[place], dysuria, hematuria, diarrhea. had a BM today that was nromal. - Physicial Exam PE: 10/01/18 13:40 GENERAL: The patient is awake, alert, and fully oriented, Nontoxic - in no acute distress. HEAD: Normocephalic, atraumatic. EYES: extraocular movements intact, sclera anicteric, conjunctiva clear. ENT: Normal voice, Moist mucous membranes. NECK: Normal range of motion, supple LUNGS: Breath sounds equal, clear to auscultation bilaterally. No wheezes, no rhonchi, no rales. HEART: Regular rate and rhythm, normal S1 and S2 without murmur, rub or gallop. ABDOMEN: Soft, mild epigastric tenderness, normoactive bowel sounds. No guarding, no rebound. No CVA tenderness EXTREMITIES: Normal range of motion, NEUROLOGICAL: No facial assymetry, Normal speech, PSYCH: Normal mood, normal affect. SKIN: Warm, Dry, normal turgor, - Medical Decision Making 10/01/18 13:40 will ck labs to r/o dka, metabolic derangement ua to r/o occult uti fluids for hydration zofran for nausea, pepcid/maalox for possible gastritis 10/01/18 15:40 no signs of dka bgm inproved with hydration abd pain / nausea resovled will dc to fu wit pMD retur nprecautiosn were discussed I discussed the physical exam findings, ancillary test results and final diagnoses with the patient. I answered all of the patient's questions. The patient was satisfied with the care received and felt comfortable with the discharge plan and treatment plan. The patient will call their primary care physician within 24 hours to arrange follow-up and will return to the Emergency Department with any new, persistent or worsening symptoms. Heart Score/ECG Review - ECG Impressions Comment:: 10/01/18 15:39 Twelve-lead EKG was performed and reviewed by me. There is normal sinus rhythm Rate of 49 The axis is normal. The intervals are normal. There is normal R wave progression There are no ST or T wave abnormalities. Impression: Sinus bradycardia
[2018-10-01 13:00] LABS: BASO % 0.4 % (0-2.0); EOS % 0.9 % (0-4.5); HEMATOCRIT 39.9 % (32.4-45.2); LYMPH % 28.3 % (8-40); MCH 29.8 pg (25.7-33.7); MCHC 32.6 g/dl (32.0-36.0); MEAN CELL VOLUME 91.3 fl (80-96); MEAN PLT VOLUME 8.2 fl (7.5-11.1); MONO % 4.4 % (3.8-10.2); PLATELET COUNT 336 K/MM3 (134-434); RBC 4.37 M/mm3 (3.60-5.2); RDW 12.7 % (11.6-15.6); WHITE BLOOD COUNT 7.4 K/mm3 (4.0-10.8)
[2018-10-01 13:12] LABS: ALBUMIN 3.6 g/dl (3.5-5.0); ALK PHOS 77 U/L (32-92); ANION GAP 6 MMOL/L (8-16); BILIRUBIN,TOTAL 0.5 mg/dl (0.2-1.0); BLOOD UREA NITROGEN 13 mg/dl (7-18); CALCIUM 9.2 mg/dl (8.4-10.2); CHLORIDE 98 mmol/L (98-107); CO2 27 mmol/L (22-28); CREATININE 1.1 mg/dl (0.6-1.3); SGOT/AST 22 U/L (10-42); SGPT/ALT 18 U/L (10-40); SODIUM 131 mmol/L (136-145); TOT PROT 7.2 g/dl (6.4-8.3)
[2018-10-01 13:17] LABS: PH,URINE 5.5 (4.5-8); URINE APPEARANCE Clear; URINE BILIRUBIN Negative (NEGATIVE); URINE COLOR Amber; URINE GLUCOSE (UA) 3+ (NEGATIVE); URINE KETONE Negative (NEGATIVE); URINE LEUK ESTERASE Negative (NEGATIVE); URINE NITRITE Negative (NEGATIVE); URINE PROTEIN Trace (NEGATIVE); URINE UROBILINOGEN 0.2 (0.2-1.0)
[2018-10-01 13:25] LABS: GLUCOSE,RANDOM 415 mg/dl (74-106)
[2018-10-01] MEDS ORDERED: MAG HYDROX/AL HYDROX/SIMETH -MYLANTA- ORAL SUSPENSION PO ONE (13:29)
[2018-10-01] MEDS ORDERED: FAMOTIDINE 20 MG/50 ML IVPB 20 MG in PREMIX 50 IVPB ONE (13:29)
[2018-10-01] MEDS ORDERED: MAG HYDROX/AL HYDROX/SIMETH 30 ML UNIT-DOSE CUP ONE (13:45)
[2018-10-01] MEDS ORDERED: FAMOTIDINE 20 MG/50 ML IVPB 20 MG/50 ML MG IVPB ONE (13:45)
[2018-10-01] MEDS ORDERED: ACETAMINOPHEN 500 MG TABLET (FP) PO ONE (13:46)
[2018-10-01] MEDS ORDERED: ACETAMINOPHEN 500 MG TABLET (FP) ONE (13:49)
[2018-10-01 13:56] LABS: VENOUS PC02 49.1 mmHg (38-52); VENOUS PH 7.38 (7.32-7.42); VENOUS PO2 28.8 mmHg (28-48)
[2018-10-01 15:35] LABS: ALBUMIN 3.2 g/dl (3.5-5.0); ALK PHOS 74 U/L (32-92); ANION GAP 4 MMOL/L (8-16); BILIRUBIN,TOTAL 0.4 mg/dl (0.2-1.0); BLOOD UREA NITROGEN 12 mg/dl (7-18); CALCIUM 8.7 mg/dl (8.4-10.2); CHLORIDE 104 mmol/L (98-107); CO2 24 mmol/L (22-28); CREATININE 0.9 mg/dl (0.6-1.3); GLUCOSE,RANDOM 298 mg/dl (74-106); POTASSIUM 4.3 mmol/L (3.5-5.1); SGOT/AST 20 U/L (10-42); SGPT/ALT 16 U/L (10-40); SODIUM 132 mmol/L (136-145); TOT PROT 6.4 g/dl (6.4-8.3)
[2018-10-01 15:53] VITALS: BP 151/69; PULSE 53; TEMP 97.9
--- NOTE | 2018-10-02 11:36 | EKG ---
Test Reason : Blood Pressure : / mmHG Vent. Rate : 049 BPM Atrial Rate : 049 BPM P-R Int : 116 ms QRS Dur : 094 ms QT Int : 490 ms P-R-T Axes : 054 043 062 degrees QTc Int : 442 ms SINUS BRADYCARDIA OTHERWISE NORMAL ECG WHEN COMPARED WITH ECG OF 02-AUG-2018 19:58, PREMATURE ATRIAL COMPLEXES ARE NO LONGER PRESENT Confirmed by GERMANIA CARMEN, KVNG ([id number]) on 10/02/2018 11:36:26 AM Referred By: MITCHELL CHAMBERS Confirmed By:KVNG SOLO MD
== END 2018-10-01 15:59 | disposition home or self-care (01) ==
LOC: FER 11:23
PROC: 3E033GC Introduction of Other Therapeutic Substance into Peripheral Vein, Percutaneous Approach (ICD-10-PCS; principal; 2018-10-01)
PROC: 3E0337Z Introduction of Electrolytic and Water Balance Substance into Peripheral Vein, Percutaneous Approach (ICD-10-PCS; 2018-10-01)
DX: E11.65 Type 2 diabetes mellitus with hyperglycemia (principal); J44.9 Chronic obstructive pulmonary disease, unspecified; I10 Essential (primary) hypertension; E78.00 Pure hypercholesterolemia, unspecified; F17.210 Nicotine dependence, cigarettes, uncomplicated
CPT/HCPCS: 36415; 71045-TC-FY; 80053; 81003; 82009; 82803; 85025; 93005; 99283-25; J7030

== ENCOUNTER 2018-10-02 09:53 | Emergency (ER) | payer OTHER ==
[2018-10-02] MEDS ORDERED: HEMOQUE TEST 1 EACH EACH ONE ×3 (10:07→13:25)
[2018-10-02] MEDS ORDERED: SODIUM CHLORIDE 1,000 ML IV ONE (10:12)
--- NOTE | 2018-10-02 10:34 | PDOC ---
History of Present Illness - General Chief Complaint: Blood Sugar Problem Stated Complaint: elevated blood sugar Time Seen by Provider: 10/02/18 09:58 History Source: Patient Exam Limitations: No Limitations - History of Present Illness Initial Comments: 10/02/18 10:35 78y F hx of htn, hl, dm, presents with elevated BGM. The patient was seen in the ED yesterday by myself, and was feeling well yesterday. This morning she checked her BGM and it was out of range so pt presented to the ER. Pt ndorses mild nausea and vomited and epiastric pain that is a common occurance for her cw her gastritis.. denies any abd pain, cp, sob, dysura, urinary frequency, diarrhea, melean, bpr, fever/chills, cough. pmd: Dr. matute Past History - Past Medical History Allergies/Adverse Reactions: Allergies Allergy/AdvReac Type Severity Reaction Status Date / Time No Known Allergies Allergy Verified 10/02/18 09:55 Home Medications: Ambulatory Orders Aspirin [ASA -] 81 mg PO DAILY 09/13/16 Henry/D3/Mag11/Zinc/Chiropractic Neurologist/[place]/Bor [Caltrate 600+D Plus Tablet] 1 each PO BID Memantine HCl [Namenda -] 10 mg PO BID 09/13/16 Rosuvastatin [Crestor -] 10 mg PO DAILY 09/13/16 Metformin HCl [Glucophage] 1,000 mg PO DAILY 02/20/18 Ibandronate Sodium [Boniva] 3 mg IV MO 04/13/18 Thiamine Mononitrate [Vitamin B-1] 100 mg PO DAILY 04/13/18 Pantoprazole Sodium [Protonix -] 20 mg PO DAILY #30 tablet.ec 08/04/18 Ondansetron [Zofran Odt -] 4 mg SL BID #14 od.tablet 10/01/18 Multivit-Min/FA/Lycopen/Lutein [Centrum Silver Tablet] 1 each PO DAILY 10/02/18 COPD: Yes DVT: No Diabetes: Yes GI Disorders: Yes (diverticulitis HIATAL HERNIA) HTN: Yes Hypercholesterolemia: Yes - Surgical History Orthopedic Surgery: Yes (rt elbow repair 27 years ago) - Immunization History Immunization Up to Date: Yes - Suicide/Smoking/Psychosocial Hx Smoking History: Current every day smoker Have you smoked in the past 12 months: Yes Number of Cigarettes Smoked Daily: 20 'Breaking Loose' booklet given: 08/03/18 Hx Alcohol Use: No Drug/Substance Use Hx: No Substance Use Type: None, Alcohol Hx Substance Use Treatment: No Review of Systems - Review of Systems Able to Perform ROS?: Yes Comments:: 10/02/18 10:40 Constitutional - no reported Fever, Chills, HEENT: no reported vision changes, sore throat Respiratory: no reported cough, sob, hemoptysis Cardiac: no reported chest pain, palpitations, light headedness, leg swelling Abd/GI: +abd pain, nausea, vomiting, no reported blood per rectum, melena, diarrhea : no reported dysuria, frequency, discharge Musculskelatal - no reported back pain, joint swelling skin - no reported bruising, erythema, rash neurological: no reported headache, numbness, focal weakness, tingling, ataxia, hematologic: no reported easy bruising, easy bleeding *Physical Exam - Physical Exam Comments: 10/02/18 10:44 GENERAL: The patient is awake, alert, and fully oriented, Nontoxic - in no acute distress. HEAD: Normocephalic, atraumatic. EYES: extraocular movements intact, sclera anicteric, conjunctiva clear. ENT: Normal voice, Moist mucous membranes. NECK: Normal range of motion, supple LUNGS: Breath sounds equal, clear to auscultation bilaterally. No wheezes, no rhonchi, no rales. HEART: Regular rate and rhythm, normal S1 and S2 without murmur, rub or gallop. ABDOMEN: Soft, mild epigastric tenderness, normoactive bowel sounds. No guarding, no rebound. No CVA tenderness EXTREMITIES: Normal range of motion, trace edema, no calf tenderness, neg homans NEUROLOGICAL: No facial assymetry, Normal speech, PSYCH: Normal mood, normal affect. SKIN: Warm, Dry, normal turgor, ED Treatment Course - LABORATORY CBC & Chemistry Diagram: 10/02/18 10:30 10/02/18 10:30 Medical Decision Making - Medical Decision Making 10/02/18 10:45 will ck labs to r/o dka, metabolic derangement BGM unreadable here ua to r/o occult uti fluids for hydration zofran for nausea, pepcid/maalox for symptmoatic relief will roma matute regarding changing DM reigment (currently on 1000mg daily , had gone down from 1000mg in AM and 500mg PM a few months ago) 10/02/18 12:16 pts labs reviewed neg acetones hyponatremic but suspect due to her hyperglycemia dw dr. Matute - recommend restarting pt on 1000mg in AM and 500mg in PM 10/02/18 13:30 gbm improved to 310 will dc with pmd and endo fu will have pt control her diet better, no soda and apple turnovers and minimal carbs I discussed the physical exam findings, ancillary test results and final diagnoses with the patient. I answered all of the patient's questions. The patient was satisfied with the care received and felt comfortable with the discharge plan and treatment plan. The patient will call their primary care physician within 24 hours to arrange follow-up and will return to the Emergency Department with any new, persistent or worsening symptoms. *DC/Admit/Observation/Transfer Diagnosis at time of Disposition: Hyperglycemia Type 2 diabetes mellitus Qualifiers: Diabetes mellitus fci insulin use: without fci use Diabetes mellitus complication status: without complication Qualified Code(s): E11.9 - Type 2 diabetes mellitus without complications - Discharge Dispostion Disposition: HOME Condition at time of disposition: Improved Decision to Admit order: No - Referrals Referrals: Antonietta Matute MD [Provisional Medical Staff] - Juanjose Lee MD [Staff Physician] - Cassidy Breen MD [Staff Physician] - - Patient Instructions Printed Discharge Instructions: DI for Hyperglycemia -- Adult, Smoking Cessation Additional Instructions: Do not drink soda and try to limit your intake of carbohydrate rich foods (rice , potatoes, bread, pasta). Increase your metformin to 1000mg in the morning and 500mg in the evenings. Follow up with Dr. Matute and an clamp jig assembler (Dr. Burnette or Dr. Magaña) . Return with any concerns. Print Language: URDU - Post Discharge Activity
[2018-10-02 10:35] VITALS: BMI 29.7
[2018-10-02] MEDS ORDERED: MAG HYDROX/AL HYDROX/SIMETH -MYLANTA- ORAL SUSPENSION PO ONE (10:35)
[2018-10-02] MEDS ORDERED: ONDANSETRON 4 MG/2 ML VIAL IVPB ONE (10:35)
[2018-10-02] MEDS ORDERED: FAMOTIDINE 20 MG/50 ML IVPB 20 MG in PREMIX 50 IVPB ONE (10:35)
[2018-10-02 10:36] LABS: BASO % 0.4 % (0-2.0); EOS % 0.9 % (0-4.5); HEMATOCRIT 38.2 % (32.4-45.2); HEMOGLOBIN 12.7 GM/dl (10.7-15.3); LYMPH % 28.9 % (8-40); MCH 30.3 pg (25.7-33.7); MCHC 33.2 g/dl (32.0-36.0); MEAN CELL VOLUME 91.2 fl (80-96); MEAN PLT VOLUME 8.2 fl (7.5-11.1); MONO % 4.6 % (3.8-10.2); NEUT % 65.2 % (42.8-82.8); PLATELET COUNT 331 K/MM3 (134-434); RBC 4.19 M/mm3 (3.60-5.2); RDW 12.6 % (11.6-15.6)
[2018-10-02] MEDS ORDERED: FAMOTIDINE 20 MG/50 ML IVPB 20 MG/50 ML MG IVPB ONE (10:36)
[2018-10-02] MEDS ORDERED: ONDANSETRON 4 MG/2 ML VIAL ONE (10:37)
[2018-10-02] MEDS ORDERED: MAG HYDROX/AL HYDROX/SIMETH 30 ML UNIT-DOSE CUP ONE (10:37)
[2018-10-02 10:51] LABS: ALBUMIN 3.6 g/dl (3.5-5.0); ALK PHOS 85 U/L (32-92); ANION GAP 7 MMOL/L (8-16); BILIRUBIN,TOTAL 0.2 mg/dl (0.2-1.0); BLOOD UREA NITROGEN 10 mg/dl (7-18); CALCIUM 8.9 mg/dl (8.4-10.2); CHLORIDE 97 mmol/L (98-107); CO2 24 mmol/L (22-28); CREATININE 1.1 mg/dl (0.6-1.3); POTASSIUM 3.8 mmol/L (3.5-5.1); SGOT/AST 22 U/L (10-42); SGPT/ALT 18 U/L (10-40); SODIUM 128 mmol/L (136-145); TOT PROT 6.9 g/dl (6.4-8.3)
[2018-10-02 11:02] LABS: GLUCOSE,RANDOM 464 mg/dl (74-106)
[2018-10-02 11:16] LABS: ACETONE SERUM NEGATIVE (NEGATIVE)
[2018-10-02 11:23] LABS: VENOUS PC02 41.2 mmHg (38-52); VENOUS PH 7.39 (7.32-7.42); VENOUS PO2 55.1 mmHg (28-48)
[2018-10-02] MEDS ORDERED: INSULIN REGULAR HUMAN 100 UNITS/ML *VIAL SQ ONE (12:23)
[2018-10-02] MEDS ORDERED: INSULIN REGULAR HUMAN 100 UNITS/ML *VIAL ONE (12:28)
[2018-10-02 14:00] VITALS: BP 148/83; PULSE 69; TEMP 98.4
== END 2018-10-02 14:00 | disposition home or self-care (01) ==
LOC: FER 09:53
PROC: 3E033GC Introduction of Other Therapeutic Substance into Peripheral Vein, Percutaneous Approach (ICD-10-PCS; principal; 2018-10-02)
PROC: 3E013VG Introduction of Insulin into Subcutaneous Tissue, Percutaneous Approach (ICD-10-PCS; 2018-10-02)
PROC: 3E0337Z Introduction of Electrolytic and Water Balance Substance into Peripheral Vein, Percutaneous Approach (ICD-10-PCS; 2018-10-02)
DX: E11.65 Type 2 diabetes mellitus with hyperglycemia (principal); F17.210 Nicotine dependence, cigarettes, uncomplicated; E78.00 Pure hypercholesterolemia, unspecified
CPT/HCPCS: 36415; 80053; 82009; 82550; 82553; 82803; 82962; 84484; 85025; 96361; 96365; 96372; 96375; 99284-25; J7030

== ENCOUNTER 2018-10-13 11:29 | Observation (INO) | payer OTHER ==
--- NOTE | 2018-10-13 12:02 | PDOC ---
Attending Attestation - HPI HPI: 10/13/18 14:39 The patient is a 78 year old female with a significant past medical history of NIDDM (last A1c 11), HTN, HLD, diverticulosis/itis, memory impairment, chronic unexplained chest pain, chronic cough, and heavy tobacco who presents to the ED for complaint of left sided chest pain starting at about 1 am this morning which has since resolved. The daughter at bedside reports the patient has had a cough for a couple of months and an x-ray which showed inflammation of the lungs but no pneumonia. The patient reports being more short of breath with exertion but denies SOB at rest. She denies headache, dizziness, palpitations. She denies dysuria or hematuria. Documentation prepared by Rubia Wilkins, acting as medical office rep for Lulú Celeste MD <Rubia Wilkins - Last Filed: 10/13/18 14:39> - Resident Resident Name: BrianLeslye - ED Attending Attestation I have performed the following: I have examined & evaluated the patient, The case was reviewed & discussed with the resident, I agree w/resident's findings & plan, Exceptions are as noted - Physicial Exam PE: GENERAL: Awake, alert, and fully oriented, in no acute distress HEAD: No signs of trauma EYES: PERRLA, EOMI, sclera anicteric, conjunctiva clear ENT: Auricles normal inspection, hearing grossly normal, nares patent, oropharynx clear without exudates. Moist mucosa NECK: Normal ROM, supple, no lymphadenopathy, JVD, or masses LUNGS: Breath sounds equal, clear to auscultation bilaterally. No wheezes, and no crackles HEART: Bradycardic, regular rhythm, normal S1 and S2, no murmurs, rubs or gallops ABDOMEN: Soft, nontender, normoactive bowel sounds. No guarding, no rebound. No masses EXTREMITIES: Normal range of motion, no edema. No clubbing or cyanosis. No cords, erythema, or tenderness NEUROLOGICAL: Cranial nerves II through XII grossly intact. Normal speech. Motor and sensation intact SKIN: Warm, Dry, normal turgor, no rashes or lesions noted. - Medical Decision Making Pt presents with cp. Multiple recent ED visits for elevated blood glucose, both due to decrease dosage of metformin as well as increased sugar intake. Last A1C ~11, now metformin reinstated at nighttime. She has multiple cardiac risk factors. Last stress test "a long time ago". Will obtain cardiac workup, admit vs obs. <Lulú Celeste - Last Filed: 10/13/18 15:23>
--- NOTE | 2018-10-13 12:06 | PDOC ---
History of Present Illness - General Chief Complaint: Chest Pain Stated Complaint: CHEST PAIN Time Seen by Provider: 10/13/18 11:55 History Source: Patient Exam Limitations: No Limitations - History of Present Illness Initial Comments: 10/13/18 12:12 78YOF with h/o NIDDM (last A1c 11), HTN, HLD, diverticulosis/itis, memory impairment, chronic unexplained chest pain, chronic cough, and heavy tobacco use including currently who p/w left sided sharp, "terrible" chest pain last night at about 1 am which has since resolved. The daughter explains that she has had a cough for the past few months and had an x-ray for this which showed inflammation of the lungs but no pneumonia, per the daughter's recollection. She has additionally had more CAMP than normal, but no SOB at rest. She smoked 12 cigarettes between 9 pm last night and this morning. The patient denies in change in this pain from her many prior episodes, for which she has been seen and worked up in the ED. Past History - Past Medical History Allergies/Adverse Reactions: Allergies Allergy/AdvReac Type Severity Reaction Status Date / Time No Known Allergies Allergy Verified 10/02/18 09:55 Home Medications: Ambulatory Orders Aspirin [ASA -] 81 mg PO DAILY 09/13/16 Henry/D3/Mag11/Zinc/Patient Financial Representative/[place]/Bor [Caltrate 600+D Plus Tablet] 1 each PO BID Memantine HCl [Namenda -] 10 mg PO BID 09/13/16 Rosuvastatin [Crestor -] 10 mg PO DAILY 09/13/16 Metformin HCl [Glucophage] 1,000 mg PO DAILY 02/20/18 Ibandronate Sodium [Boniva] 3 mg IV MO 04/13/18 Thiamine Mononitrate [Vitamin B-1] 100 mg PO DAILY 04/13/18 Pantoprazole Sodium [Protonix -] 20 mg PO DAILY #30 tablet.ec 08/04/18 Ondansetron [Zofran Odt -] 4 mg SL BID #14 od.tablet 10/01/18 Multivit-Min/FA/Lycopen/Lutein [Centrum Silver Tablet] 1 each PO DAILY 10/02/18 metFORMIN HCL [Metformin HCl] 500 mg PO HS 10/13/18 COPD: Yes DVT: No Diabetes: Yes GI Disorders: Yes (diverticulitis HIATAL HERNIA) HTN: Yes Hypercholesterolemia: Yes - Surgical History Orthopedic Surgery: Yes (rt elbow repair 27 years ago) - Immunization History Immunization Up to Date: Yes - Suicide/Smoking/Psychosocial Hx Smoking History: Current every day smoker Have you smoked in the past 12 months: Yes Number of Cigarettes Smoked Daily: 12 Information on smoking cessation initiated: No 'Breaking Loose' booklet given: 08/03/18 Hx Alcohol Use: No Drug/Substance Use Hx: No Substance Use Type: None, Alcohol Hx Substance Use Treatment: No Review of Systems - Review of Systems Able to Perform ROS?: Yes Comments:: 10/13/18 12:27 GEN: no fever, chills, malaise, generalized weakness, or weight change HEENT: no ear pain, sore throat, vision change, or eye pain CV: chest pain, no palpitations, lightheadedness, syncope, or edema RESP: cough, CAMP, no wheezing GI: no abdominal pain, nausea, vomiting, diarrhea, constipation, or white/black/ bloody stool : no dysuria, hematuria, incontinence, retention, bleeding, or discharge MSK: no neck/back pain, muscle weakness/pain, or joint swelling/pain NEURO: no headache, seizure, vertigo, numbness, tingling, or focal weakness PSYCH: no substance use, no behavior change SKIN: no jaundice, no rash ROS otherwise negative except as noted in HPI *Physical Exam - Vital Signs Last Vital Signs Temp Pulse Resp BP Pulse Ox 98.3 F 50 L 15 118/55 L 96 10/13/18 11:42 10/13/18 14:41 10/13/18 14:41 10/13/18 14:41 10/13/18 14:41 - Physical Exam Comments: 10/13/18 12:29 GENERAL: well-appearing pleasantly forgetful elderly female, A/Ox4, no distress , answers questions appropriately but is vague with details HEENT: PERRLA, EOMI, moist mucous membranes NECK/BACK: no midline ttp, no spinal stepoff or deformity, no hematoma, full ROM , neck supple CHEST WALL: no rash, no tenderness to compression of chest wall, no costal stepoff/deformity CARDIOVASCULAR: regular rate/rhythm, normal S1S2, no MGR, strong peripheral pulses, capillary refill <2 seconds, extremities wwp, no edema LUNGS/RESPIRATORY: no respiratory distress, CTAB GI/ABDOMEN: symmetric [id number], normoactive BS, soft, no ttp, no midline pulsatile masses : no CVA tenderness EXTREMITIES: no muscle atrophy, no acute deformity SKIN: warm and dry, no pallor, no jaundice, no rash, no bruising, no skin breakdown, no cuts, no lesions NEUROLOGICAL: GCS 15, CN II-XII grossly intact, 5/5 strength proximally and distally, no facial droop Heart Score/ECG Review - History History: Slightly suspicious - Electrocardiogram EKG: Normal - Age Age: >/= 65 - Risk Factors Risk Factors Heart Score: Yes Hx Hypertension, Yes Hx Diabetes, Yes Smoking History, Yes Positive family hx of cardiac disease Based on the list above the patient has:: >/=3 risk factors or Hx atherosclerotic disease - Troponin Troponin: </= normal limit - Score Heart Score - Total: 4 #1 10/13/18 11:34 NSR, rate 54, normal axis and intervals, TW flattening in III and aVL, otherwise no ischemic ST-T changes Moderate Sedation - Procedure Monitoring Vital Signs: Procedure Monitoring Vital Signs Temperature 98.3 F 10/13/18 11:42 Pulse Rate 50 L 10/13/18 14:41 Respiratory Rate 15 10/13/18 14:41 Blood Pressure 118/55 L 10/13/18 14:41 O2 Sat by Pulse Oximetry (%) 96 10/13/18 14:41 ED Treatment Course - LABORATORY CBC & Chemistry Diagram: 10/13/18 12:45 10/13/18 12:45 - ADDITIONAL ORDERS Additional order review: Laboratory Results 10/13/18 10/13/18 10/13/18 13:50 12:45 12:45 PT with INR INR Sodium 136 Potassium 4.3 Chloride 103 Carbon Dioxide 28 Anion Gap 6 L BUN 15 Creatinine 1.1 Creat Clearance w eGFR 48.29 Random Glucose 268 H Calcium 8.8 Magnesium 2.0 Total Bilirubin 0.3 AST 15 ALT 21 Alkaline Phosphatase 75 Creatine Kinase 146 Troponin I < 0.02 B-Natriuretic Peptide 47.6 Total Protein 7.4 Albumin 3.5 Lipase 681 H Urine Color Yellow Urine Appearance Clear Urine pH 5.0 D Ur Specific [place] 1.018 Urine Protein 1+ H Urine Glucose (UA) 3+ H Urine Ketones Negative Urine Blood Negative Urine Nitrite Negative Urine Bilirubin Negative Urine Urobilinogen Negative Ur Leukocyte Esterase 1+ H Urine WBC (Auto) 6 Urine RBC (Auto) 2 Ur Epithelial Cells Rare Urine Mucus Rare 10/13/18 12:45 PT with INR 11.40 INR 0.97 Sodium Potassium Chloride Carbon Dioxide Anion Gap BUN Creatinine Creat Clearance w eGFR Random Glucose Calcium Magnesium Total Bilirubin AST ALT Alkaline Phosphatase Creatine Kinase Troponin I B-Natriuretic Peptide Total Protein Albumin Lipase Urine Color Urine Appearance Urine pH Ur Specific [place] Urine Protein Urine Glucose (UA) Urine Ketones Urine Blood Urine Nitrite Urine Bilirubin Urine Urobilinogen Ur Leukocyte Esterase Urine WBC (Auto) Urine RBC (Auto) Ur Epithelial Cells Urine Mucus 10/13/18 12:45 RBC 4.15 MCV 89.4 MCHC 34.5 RDW 13.1 MPV 8.2 Neutrophils % 54.2 Lymphocytes % 38.1 Monocytes % 4.7 Eosinophils % 2.1 D Basophils % 0.9 - RADIOLOGY Radiology Studies Ordered: Category Date Time Status CHEST PA & LAT [RAD] Stat Radiology 10/13/18 12:06 Completed Medical Decision Making - Medical Decision Making 10/13/18 12:09 Adult Pt p/w chest pain. Initial Vital Signs Temp Pulse Resp BP Pulse Ox 98.3 F 54 L 17 130/62 99 10/13/18 11:42 10/13/18 11:42 10/13/18 11:42 10/13/18 11:42 10/13/18 11:42 Exam: As noted in Physical Exam section. DDX IBNLT: ACS, pericarditis, tamponade, aortic dissection, AAA, PTX, PE, esophageal tear, esophagitis (e.g. pill, infectious), esophageal stricture, esophageal FB, gastritis, PUD, pancreatitis, cholecystitis, cholangitis, colitis , bowel perforation, PNA/bronchitis, pleurisy, pleuritis, MVP, pulmonary HTN, musculoskeletal, panic/anxiety, etc. W/U ordered: Labs as noted below, EKG CXR. TX ordered: monitor, O2 via NC if needed EKG: Reviewed; results as noted in ECG Review section. CXR: Labs: Reassessment: Repeat VS: 10/13/18 15:54 HEART score indicates Pt is higher risk and should be managed in hospital with cardiology consult. The Pt is unsafe for discharge at this time. They require further hospital observation, workup, and treatment. Patient's PCP is Dr. Luo. Microblog sent to [facility] for admission. Blank Decision to Admit order is placed per ED protocol. 10/13/18 17:10 I spoke with Lindsay Rosales; decision to Admit order corrected with Dr. Hopkins's name. *DC/Admit/Observation/Transfer Diagnosis at time of Disposition: Elevated lipase Chest pain Qualifiers: Chest pain type: unspecified Qualified Code(s): R07.9 - Chest pain, unspecified - Discharge Dispostion Condition at time of disposition: Guarded Decision to Admit order: Yes Decision to Admit order Date/Time: Decision to Admit Order Category Date Time Status Decision to Admit to Hospital Routine Admission 10/13/18 15:55 Active - Referrals - Patient Instructions - Post Discharge Activity
[2018-10-13 13:08] LABS: BASO % 0.9 % (0-2.0); EOS % 2.1 % (0-4.5); HEMATOCRIT 37.1 % (32.4-45.2); HEMOGLOBIN 12.8 GM/dL (10.7-15.3); LYMPH % 38.1 % (8-40); MCH 30.9 pg (25.7-33.7); MCHC 34.5 g/dl (32.0-36.0); MEAN CELL VOLUME 89.4 fl (80-96); MEAN PLT VOLUME 8.2 fl (7.5-11.1); MONO % 4.7 % (3.8-10.2); NEUT % 54.2 % (42.8-82.8); PLATELET COUNT 245 K/MM3 (134-434); RBC 4.15 M/mm3 (3.60-5.2); RDW 13.1 % (11.6-15.6); WHITE BLOOD COUNT 6.3 K/mm3 (4.0-10.0)
[2018-10-13 13:24] LABS: INR 0.97 (0.83-1.09); PROTHROMBIN TIME (PATIENT) 11.4 SEC (9.7-13.0)
[2018-10-13 13:38] LABS: ALBUMIN 3.5 g/dl (3.4-5.0); ALK PHOS 75 U/L (45-117); ANION GAP 6 MMOL/L (8-16); BILIRUBIN,TOTAL 0.3 mg/dL (0.2-1); BLOOD UREA NITROGEN 15 mg/dL (7-18); CALCIUM 8.8 mg/dL (8.5-10.1); CHLORIDE 103 mmol/L (98-107); CO2 28 mmol/L (21-32); CREATININE 1.1 mg/dL (0.55-1.3); GLUCOSE,RANDOM 268 mg/dL (74-106); LIPASE 681 U/L (73-393); POTASSIUM 4.3 mmol/L (3.5-5.1); SGOT/AST 15 U/L (15-37); SGPT/ALT 21 U/L (13-61); SODIUM 136 mmol/L (136-145); TOT PROT 7.4 g/dl (6.4-8.2)
[2018-10-13 14:09] LABS: URINE APPEARANCE CLEAR; URINE BILIRUBIN NEGATIVE (<2.0 mg/dL); URINE COLOR YELLOW; URINE GLUCOSE (UA) 3+ (NEGATIVE); URINE KETONE NEGATIVE (NEGATIVE); URINE LEUK ESTERASE 1+ (NEGATIVE); URINE NITRITE NEGATIVE (NEGATIVE); URINE PROTEIN 1+ (NEGATIVE); URINE UROBILINOGEN NEGATIVE mg/dL (0.2-1.0)
[2018-10-13 14:12] LABS: EPI CELLS RARE /HPF (FEW); URINE MUCUS RARE
--- NOTE | 2018-10-13 18:46 | HP ---
CHIEF COMPLAINT: Chest pain PCP: Dr. Luo HISTORY OF PRESENT ILLNESS: Patient is a 78 year old female with a PMHx of NIDDMII, HLD, Dementia, COPD, osteopenia, diverticulosis and diverticulitis who presents here for chest pain that started around 1000 this morning. Patient is poor historian but daughter at bedside who provided most of the information. According to the patient, she woke up this morning and experienced sharp, nonradiating, right sided chest pain that was constant all morning but resolved in the ED. Patient denies any alleviating or exacerbating factors. Patient otherwise denies any fever, chills, nausea, vomiting, abdominal pain, chest pain, palpitations, shortness of breath, diarrhea, constipation, dysuria, frequency, cough, URI symptoms. ER course was notable for: (1) Troponin 0.02 (2) EKG: NSR @54 BPM, normal axis and intervals, TW flattening in III and aVL, otherwise no ischemic ST-T changes (3) Recent Travel: Denies PAST MEDICAL HISTORY: NIDDMII, HLD, COPD, osteopenia, Dementia, diverticulosis , diverticulitis PAST SURGICAL HISTORY: Hysterectomy 45 years ago, right elbow repair approx. 27 years ago. Social History: Smoking: endorses one pack per day, on and off since 19 years old. Quit in 1998 - 2012, starting again with increased frequency Alcohol: denies Drugs: denies Family History: Father: [place], HTN, CKD at 87 y/o Mother: DM, colon CA, approx. 70 y/o Allergies: No Known Allergies Allergy (Verified 10/02/18 09:55) HOME MEDICATIONS: Home Medications Medication Instructions Recorded Aspirin [ASA -] 81 mg PO DAILY 09/13/16 Henry/D3/Mag11/Zinc/Ticket Puller/[place]/Bor 1 each PO BID 09/13/16 [Caltrate 600+D Plus Tablet] Memantine HCl [Namenda -] 10 mg PO BID 09/13/16 Rosuvastatin [Crestor -] 10 mg PO DAILY 09/13/16 Metformin HCl [Glucophage] 1,000 mg PO DAILY 02/20/18 Ibandronate Sodium [Boniva] 3 mg IV MO 04/13/18 Thiamine Mononitrate [Vitamin B-1] 100 mg PO DAILY 04/13/18 Pantoprazole Sodium [Protonix -] 20 mg PO DAILY #30 tablet.ec 08/04/18 Ondansetron [Zofran Odt -] 4 mg SL BID #14 od.tablet 10/01/18 Multivit-Min/FA/Lycopen/Lutein 1 each PO DAILY 10/02/18 [Centrum Silver Tablet] metFORMIN HCL [Metformin HCl] 500 mg PO HS 10/13/18 REVIEW OF SYSTEMS CONSTITUTIONAL: Absent: fever, chills, diaphoresis, generalized weakness, malaise, loss of appetite, weight change HEENT: Absent: rhinorrhea, nasal congestion, throat pain, throat swelling, difficulty swallowing, mouth swelling, ear pain, eye pain, visual changes CARDIOVASCULAR: Absent: chest pain, syncope, palpitations, irregular heart rate, lightheadedness , peripheral edema RESPIRATORY: shortness of breath Absent: cough, dyspnea with exertion, orthopnea, wheezing, stridor, hemoptysis GASTROINTESTINAL: Absent: abdominal pain, abdominal distension, nausea, vomiting, diarrhea, constipation, melena, hematochezia GENITOURINARY: Absent: dysuria, frequency, urgency, hesitancy, hematuria, flank pain, genital pain MUSCULOSKELETAL: Absent: myalgia, arthralgia, joint swelling, back pain, neck pain SKIN: Absent: rash, itching, pallor HEMATOLOGIC/IMMUNOLOGIC: Absent: easy bleeding, easy bruising, lymphadenopathy, frequent infections ENDOCRINE: Absent: unexplained weight gain, unexplained weight loss, heat intolerance, cold intolerance NEUROLOGIC: Absent: headache, focal weakness or paresthesias, dizziness, unsteady gait, seizure, mental status changes, bladder or bowel incontinence PSYCHIATRIC: Absent: anxiety, depression, suicidal or homicidal ideation, hallucinations. PHYSICAL EXAMINATION Vital Signs 10/13/18 10/13/18 10/13/18 11:42 11:52 14:41 Temperature 98.3 F Pulse Rate 54 L Pulse Rate [ 50 L Left Radial] Respiratory 17 15 Rate Blood Pressure 130/62 Blood Pressure 118/55 L [Right Arm] O2 Sat by Pulse 99 96 96 Oximetry (%) GENERAL: Awake, alert, and fully oriented, in no acute distress. HEAD: Normal with no signs of trauma. EYES: Pupils equal, round and reactive to light, extraocular movements intact, sclera anicteric, conjunctiva clear. ENT: Oropharynx clear without exudates. Moist mucous membranes. NECK: Normal range of motion, supple without lymphadenopathy, JVD, or masses. LUNGS: Breath sounds equal, clear to auscultation bilaterally. No wheezes, and no crackles. No accessory muscle use. HEART: Regular rate and rhythm, normal S1 and S2 without murmur, rub or gallop. ABDOMEN: Soft, nontender, not distended, normoactive bowel sounds, no guarding, no rebound, no masses. MUSCULOSKELETAL: No CVA tenderness. LOWER EXTREMITIES: No peripheral edema. NEUROLOGICAL: Cranial nerves II-XII intact. Normal speech. Normal gait. PSYCHIATRIC: Cooperative. Good eye contact. Appropriate mood and affect. SKIN: Warm, dry, normal turgor, no rashes or lesions noted, normal capillary refill. Laboratory Results 10/13/18 10/13/18 10/13/18 12:45 12:45 12:45 WBC 6.3 RBC 4.15 Hgb 12.8 Hct 37.1 MCV 89.4 MCH 30.9 MCHC 34.5 RDW 13.1 Plt Count 245 MPV 8.2 Absolute Neuts (auto) 3.4 Neutrophils % 54.2 Lymphocytes % 38.1 Monocytes % 4.7 Eosinophils % 2.1 D Basophils % 0.9 Nucleated RBC % 0 PT with INR 11.40 INR 0.97 Sodium 136 Potassium 4.3 Chloride 103 Carbon Dioxide 28 Anion Gap 6 L BUN 15 Creatinine 1.1 Creat Clearance w eGFR 48.29 Random Glucose 268 H Calcium 8.8 Magnesium 2.0 Total Bilirubin 0.3 AST 15 ALT 21 Alkaline Phosphatase 75 Creatine Kinase 146 Troponin I < 0.02 B-Natriuretic Peptide Total Protein 7.4 Albumin 3.5 Lipase 681 H Urine Color Urine Appearance Urine pH Ur Specific [place] Urine Protein Urine Glucose (UA) Urine Ketones Urine Blood Urine Nitrite Urine Bilirubin Urine Urobilinogen Ur Leukocyte Esterase Urine WBC (Auto) Urine RBC (Auto) Ur Epithelial Cells Urine Mucus Urine Color Yellow 10/13/18 13:50 Urine Appearance Clear 10/13/18 13:50 Urine pH 5.0 (5.0-8.0) D 10/13/18 13:50 Ur Specific [place] 1.018 (1.010-1.035) 10/13/18 13:50 Urine Protein 1+ (NEGATIVE) H 10/13/18 13:50 Urine Glucose (UA) 3+ (NEGATIVE) H 10/13/18 13:50 Urine Ketones Negative (NEGATIVE) 10/13/18 13:50 Urine Blood Negative (NEGATIVE) 10/13/18 13:50 Urine Nitrite Negative (NEGATIVE) 10/13/18 13:50 Urine Bilirubin Negative (<2.0 mg/dL) 10/13/18 13:50 Ur Leukocyte Esterase 1+ (NEGATIVE) H 10/13/18 13:50 Ur Epithelial Cells Rare /HPF (FEW) 10/13/18 13:50 Urine Mucus Rare 10/13/18 13:50 ASSESSMENT/PLAN: Patient is a 78 year old female who presented for chest pain and is admitted to telemetry to rule out ACS. Chest pain r/o ACS -EKG NSR @54 BPM, normal axis and intervals, TW flattening in III and aVL, otherwise no ischemic ST-T changes -First troponin 0.02. Will repeat another now -Continue Aspirin 81mg PO daily -F/U cardiac echo -Cardiac consult (Dr. Martinez). Will likely need stress test -Cardiac monitoring NIDDMII -ISS ACHS -BGM ACHS HLD -Continue Crestor 10mg PO daily Nicotine dependence -Discussed benefits of smoking cessation with patient. Counselled, however she does not want to quit at this time. COPD -Albuterol PRN Dementia -Continue Namenda 10mg BID Osteopenia -Takes Boniva 150mg monthly FEN -No IV fluids -Electrolytes wnl -Diabetic/ sodium controlled diet Prophylaxis -Heparin 5000 units sq TID -Protonix 20mg daily for GI Disposition -Full code with daughter as HCP -Telemetery observation. Lindsay Rosales MD-[id number] Visit type - Emergency Visit Emergency Visit: Yes ED Registration Date: 10/13/18 Care time: The patient presented to the Emergency Department on the above date and was hospitalized for further evaluation of their emergent condition. - New Patient This patient is new to me today: Yes Date on this admission: 10/13/18 - Critical Care Critical Care patient: No
--- NOTE | 2018-10-13 18:53 | PN ---
Teaching Attending Note Name of Resident: Lindsay Rosales ATTENDING PHYSICIAN STATEMENT I saw and evaluated the patient. I reviewed the resident's note and discussed the case with the resident. I agree with the resident's findings and plan as documented. SUBJECTIVE: Mrs Parker is a pleasant 78 year old female with dementia who comes in with right sided chest pain. Patient is a poor historian so she told me that she had chest pain this morning but it has now resolved. Currently she feels fine. Aside from this she cannot tell me anything else. When asking about her review of systems she defers to her daughter but is unable to answer how she feels. OBJECTIVE: Last Vital Signs Temp Pulse Resp BP Pulse Ox 36.8 C 50 L 15 118/55 L 96 10/13/18 11:42 10/13/18 14:41 10/13/18 14:41 10/13/18 14:41 10/13/18 14:41 Gen: nad Pulm: ctab w/o w/r/r CV: rrr w/o m/r/g Abd: +bs, s/nt/nd Ext: no c/c/e CBC, BMP 10/13/18 12:45 10/13/18 12:45 ASSESSMENT AND PLAN: -admit to telemetry observation -cardiac enzymes q8h x3 -cardiology consult -recent ECHO, do not need to repeat -because second presentation and with multiple risk factors will order stress test (patient also unable to do as outpatient) -continue home regimen -if all tests normal, plan for discharge tomorrow Problem List - Problems (1) Atypical chest pain Code(s): R07.89 - OTHER CHEST PAIN (2) Cough Code(s): R05 - COUGH (3) Dementia Code(s): F03.90 - UNSPECIFIED DEMENTIA WITHOUT BEHAVIORAL DISTURBANCE Qualifiers: Dementia type: unspecified type (4) Hyperlipidemia associated with type 2 diabetes mellitus Code(s): E11.69 - TYPE 2 DIABETES MELLITUS WITH OTHER SPECIFIED COMPLICATION; E78.5 - HYPERLIPIDEMIA, UNSPECIFIED (5) Hypertension Code(s): I10 - ESSENTIAL (PRIMARY) HYPERTENSION Qualifiers: Hypertension type: essential hypertension Qualified Code(s): I10 - Essential (primary) hypertension (6) Type 2 diabetes mellitus Code(s): E11.9 - TYPE 2 DIABETES MELLITUS WITHOUT COMPLICATIONS Qualifiers: Diabetes mellitus ferry terminal agent insulin use: without ferry terminal agent use Diabetes mellitus complication status: without complication Qualified Code(s): E11.9 - Type 2 diabetes mellitus without complications
[2018-10-13] MEDS ORDERED: INSULIN (NOVOLOG) ASPART 100 UNITS/ML 10ML VIAL ONE (20:08)
[2018-10-13] MEDS: ROSUVASTATIN CA 10 MG TABLET (FP) PO SCH ×2 (20:13→22:10)
[2018-10-13] MEDS: MEMANTINE HCL 10 MG TABLET (FP) PO SCH (21:41)
[2018-10-13] MEDS: INSULIN SLIDING SCALE (NOVOLOG) 1 VIAL SQ SCH (21:43)
[2018-10-14 01:23] VITALS: BMI 31.6
[2018-10-14] MEDS: HEPARIN NA (PORCINE) 5,000 UNITS/ML 1ML VIAL SQ SCH ×2 (07:03→14:00)
[2018-10-14] MEDS: INSULIN SLIDING SCALE (NOVOLOG) 1 VIAL SQ SCH ×2 (07:03→11:52)
[2018-10-14 07:42] LABS: ANION GAP 8 MMOL/L (8-16); BLOOD UREA NITROGEN 15 mg/dL (7-18); CALCIUM 8.3 mg/dL (8.5-10.1); CHLORIDE 104 mmol/L (98-107); CHOLESTEROL 116 mg/dL (50-200); CO2 25 mmol/L (21-32); CREATININE 1.1 mg/dL (0.55-1.3); GLUCOSE,RANDOM 201 mg/dL (74-106); HDL CHOLESTEROL 36 mg/dL (40-60); MAGNESIUM 2.1 mg/dL (1.8-2.4); POTASSIUM 4.2 mmol/L (3.5-5.1); SODIUM 137 mmol/L (136-145); TRIGLYCERIDES 140 mg/dL (0-150)
[2018-10-14] MEDS ORDERED: PANTOPRAZOLE 20 MG TABLET (FP) PO SCH (10:00)
[2018-10-14] MEDS ORDERED: ASPIRIN 81 MG CHEWABLE TABLETS PO SCH (10:00)
[2018-10-14] MEDS ORDERED: REGADENOSON 0.4 MG/5 ML PRE-FILLED SYRINGE IVPUSH ONE ×2 (10:15→12:20)
[2018-10-14] MEDS: MEMANTINE HCL 10 MG TABLET (FP) PO SCH (13:51)
--- NOTE | 2018-10-14 13:56 | PN ---
Teaching Attending Note Name of Resident: Lindsay Rosales ATTENDING PHYSICIAN STATEMENT I saw and evaluated the patient. I reviewed the resident's note and discussed the case with the resident. I agree with the resident's findings and plan as documented with exceptions below. SUBJECTIVE: Patient seen and examined, reports chest pain, some nausea this AM, resolved now. No dyspnea or new concerns. OBJECTIVE: Vital Signs Period Temp Pulse Resp BP Sys/[place] Pulse Ox Last 24 Hr 97.8 F-98.7 F 50-88 15-20 108-128/47-77 96-100 Intake & Output 10/11/18 10/12/18 10/13/18 10/14/18 23:59 23:59 23:59 23:59 Intake Total 100 Balance 100 Weight 180 lb 178 lb 6 oz General: lying in bed in no acute distress Chest: distant breath sounds with positive air entry consistent with COPD, left upper chest wall tenderness to palpation, pain with movements Abdomen:Soft, NT Extremities: no edema Home Medications Medication Instructions Recorded Aspirin [ASA -] 81 mg PO DAILY 09/13/16 Henry/D3/Mag11/Zinc/Portfolio Lead/[place]/Bor 1 each PO BID 09/13/16 [Caltrate 600+D Plus Tablet] Memantine HCl [Namenda -] 10 mg PO BID 09/13/16 Rosuvastatin [Crestor -] 10 mg PO DAILY 09/13/16 Metformin HCl [Glucophage] 1,000 mg PO DAILY 02/20/18 Ibandronate Sodium [Boniva] 3 mg IV MO 04/13/18 Thiamine Mononitrate [Vitamin B-1] 100 mg PO DAILY 04/13/18 Pantoprazole Sodium [Protonix -] 20 mg PO DAILY #30 tablet.ec 08/04/18 Multivit-Min/FA/Lycopen/Lutein 1 each PO DAILY 10/02/18 [Centrum Silver Tablet] Ondansetron [Zofran Odt -] 4 mg SL BID PRN 10/13/18 metFORMIN HCL [Metformin HCl] 500 mg PO HS 10/13/18 Miscellaneous Medical Supply 1 each .ROUTE ASDIR #1 kit 10/14/18 [Glucometer Device] Miscellaneous Medical Supply 1 each .ROUTE ASDIR #1 box 10/14/18 [Glucometer Test Strips #100] Laboratory Results - last 24 hr 10/13/18 10/13/18 10/13/18 13:50 19:30 20:20 Sodium Potassium Chloride Carbon Dioxide Anion Gap BUN Creatinine Creat Clearance w eGFR POC Glucometer 365.52184 Random Glucose Hemoglobin A1c % Calcium Phosphorus Magnesium Creatine Kinase 121 Troponin I < 0.02 Triglycerides Cholesterol Total LDL Cholesterol HDL Cholesterol Urine Color Yellow Urine Appearance Clear Urine pH 5.0 D Ur Specific [place] 1.018 Urine Protein 1+ H Urine Glucose (UA) 3+ H Urine Ketones Negative Urine Blood Negative Urine Nitrite Negative Urine Bilirubin Negative Urine Urobilinogen Negative Ur Leukocyte Esterase 1+ H Urine WBC (Auto) 6 Urine RBC (Auto) 2 Ur Epithelial Cells Rare Urine Mucus Rare 10/14/18 10/14/18 10/14/18 05:30 05:30 05:30 Sodium 137 Potassium 4.2 Chloride 104 Carbon Dioxide 25 Anion Gap 8 BUN 15 Creatinine 1.1 Creat Clearance w eGFR 48.29 POC Glucometer Random Glucose 201 H Hemoglobin A1c % 11.5 H Calcium 8.3 L Phosphorus 5.0 H Magnesium 2.1 Creatine Kinase 111 Troponin I < 0.02 Triglycerides 140 Cholesterol 116 Total LDL Cholesterol 61 HDL Cholesterol 36 L Urine Color Urine Appearance Urine pH Ur Specific [place] Urine Protein Urine Glucose (UA) Urine Ketones Urine Blood Urine Nitrite Urine Bilirubin Urine Urobilinogen Ur Leukocyte Esterase Urine WBC (Auto) Urine RBC (Auto) Ur Epithelial Cells Urine Mucus 10/14/18 07:01 Sodium Potassium Chloride Carbon Dioxide Anion Gap BUN Creatinine Creat Clearance w eGFR POC Glucometer 228 Random Glucose Hemoglobin A1c % Calcium Phosphorus Magnesium Creatine Kinase Troponin I Triglycerides Cholesterol Total LDL Cholesterol HDL Cholesterol Urine Color Urine Appearance Urine pH Ur Specific [place] Urine Protein Urine Glucose (UA) Urine Ketones Urine Blood Urine Nitrite Urine Bilirubin Urine Urobilinogen Ur Leukocyte Esterase Urine WBC (Auto) Urine RBC (Auto) Ur Epithelial Cells Urine Mucus ASSESSMENT AND PLAN: 78 yof with PMH xof NIDDMII, HLD, Dementia, COPD, osteopenia, diverticulosis and diverticulitis admitted with atypical chest pain -Atypical chest pain, suspect musculoskeletal given tenderness to palpation and with movements, -Poorly controlled NIDDM, A1c>11 -HTN -HLD -Sinus bradycardia -COPD -Tobacco dependence Plan: Telemetry with sinus bradycardia asymptomatic. ACS ruled out. Discussed with Dr. Martinez. Stress test neg for ischemia Daughter and patient counseled in detail about the poorly controlled diabetes, need for additional agents including insulin, blood glucose monitoring and outpatient endocrinology follow up Daughter and patient relay understanding of the same, agree to comply. Smoking cessation counseling provided. D/c home today with outpatient PCP, endocrinology follow up. Plan discussed with patient and daughter at bedside in detail, all questions answered.
--- NOTE | 2018-10-14 14:34 | DS ---
Physical Exam: SUBJECTIVE: Patient seen and examined by me at bedside No acute events overnight Reports some chest pain this morning but worse when palpate the chest Otherwise, patient denies any shortness of breath, headaches, vomiting, diaphoresis, dysuria, hematuria, acute vision changes OBJECTIVE: Vital Signs Period Temp Pulse Resp BP Sys/[place] Pulse Ox Last 24 Hr 97.8 F-98.7 F 50-88 15-20 108-128/47-77 96-100 PHYSICAL EXAM GENERAL: Awake, alert, and fully oriented, in no acute distress. EYES: Pupils equal, sclera anicteric, conjunctiva clear. ENT: Oropharynx clear without exudates. Moist mucous membranes. NECK: (-) Lymphadenopathy, JVD, or masses. LUNGS: Breath sounds equal, clear to auscultation bilaterally. No wheezes, and no crackles. No accessory muscle use. HEART: Regular rate and rhythm, normal S1 and S2 without murmur, rub or gallop. ABDOMEN: Soft, nontender, not distended, normoactive bowel sounds, no guarding, no rebound, no masses. MUSCULOSKELETAL: No CVA tenderness. LOWER EXTREMITIES: No peripheral edema. NEUROLOGICAL: Cranial nerves II-XII intact. Normal speech. Normal gait. PSYCHIATRIC: Cooperative. Good eye contact. Appropriate mood and affect. SKIN: Warm, dry, normal turgor, no rashes or lesions noted, normal capillary refill. Laboratory Results 10/13/18 12:45 10/14/18 05:30 10/14/18 10/14/18 05:30 05:30 Troponin I < 0.02 Triglycerides 140 Cholesterol 116 Total LDL Cholesterol 61 HDL Cholesterol 36 L PRE-HOSPITAL COURSE: Patient is a 78 year old female with a PMHx of NIDDMII, HLD, Dementia, COPD, osteopenia, diverticulosis and diverticulitis who presents here for sharp, nonradiating, right sided chest pain that was constant with no alleviating or exacerbating factors. Patient had EKG done which revealed SR @54 BPM, normal axis and intervals, TW flattening in III and aVL, otherwise no ischemic ST-T changes. Her first troponin was negative but patient has high cardiac risk factors and was admitted to telemetry to rule out ACS with possible Stress test to be done. HOSPITAL COURSE: Throughout hospitalization patient had two more troponins done and both were negative. She still had atypical chest pain but was hurting only when palpating. It was decided to order a stress test in house as patient lost follow up after last admission and being advised to follow up for outpatient stress test. Patient had stress test done and was negative for ACS. Patient was also found to have A1c level elevated at 11.5. Patient had recent changes to her Metformin and her daughter states she is being followed by her doctors for it. Patient advised to follow up with her PCP to further adjust her diabetic medications. Patient medically cleared for discharge and will be going home with daughter. Date of Admission:10/13/18 Date of Discharge: 10/14/18 Minutes to complete discharge: 45 Discharge Summary Reason For Visit: CHEST PAIN/INCREAED SERUM LIPASE LEVEL Current Active Problems Chest pain (Acute) Elevated lipase (Acute) Condition: Good - Instructions Diet, Activity, Other Instructions: You were admitted with chest pain, you were watched on monitor and heart attack was ruled out. You had stress test that was negative for concerns. However your diabetes is noted to be poorly controlled and will need close follow up and further medications including insulin discussion with your doctor. MEDICATIONS: Continue home medications as before. DIET: Strict cardiac/diabetic diet. ACTIVITY: as tolerated with assistance Strongly advise smoking cessation. FOLLOW UP: Primary care doctor in 3-5 days. You are strongly advised to check your blood sugars before meals and at bedtime , maintain a diary and notify your doctor if < 75 or persistently >200 or any reading > 350 noted. Blood test for diabetes control (HbA1c) is above 11 which suggests that you will need additional medications and likely insulin, referral to an stitch bonder machine operator helper and close blood glucose monitoring. Please follow up with your doctor this week to discuss further diabetes medications and referral to a automotive glass specialist. Prescription for glucometer and test strips has been sent to your pharmacy ( [facility]) If you notice any new or persistent pain, dizziness, blood sugars as above or any new concerns, please call 911 or come to ED. Referrals: Antonietta Luo MD [Provisional Medical Staff] - Disposition: HOME - Home Medications Comprehensive Discharge Medication List: Ambulatory Orders Aspirin [ASA -] 81 mg PO DAILY 09/13/16 Henry/D3/Mag11/Zinc/Report Developer/[place]/Bor [Caltrate 600+D Plus Tablet] 1 each PO BID Memantine HCl [Namenda -] 10 mg PO BID 09/13/16 Rosuvastatin [Crestor -] 10 mg PO DAILY 09/13/16 Metformin HCl [Glucophage] 1,000 mg PO DAILY 02/20/18 Ibandronate Sodium [Boniva] 3 mg IV MO 04/13/18 Thiamine Mononitrate [Vitamin B-1] 100 mg PO DAILY 04/13/18 Pantoprazole Sodium [Protonix -] 20 mg PO DAILY #30 tablet.ec 08/04/18 Multivit-Min/FA/Lycopen/Lutein [Centrum Silver Tablet] 1 each PO DAILY 10/02/18 Ondansetron [Zofran Odt -] 4 mg SL BID PRN 10/13/18 metFORMIN HCL [Metformin HCl] 500 mg PO HS 10/13/18 Miscellaneous Medical Supply [Glucometer Device] 1 each .ROUTE ASDIR #1 kit Miscellaneous Medical Supply [Glucometer Test Strips #100] 1 each .ROUTE ASDIR # 1 box 10/14/18 This patient is new to me today: No Emergency Visit: Yes ED Registration Date: 10/13/18 Care time: The patient presented to the Emergency Department on the above date and was hospitalized for further evaluation of their emergent condition. Critical Care patient: No - Discharge Referral Referred to [facility] Med [facility] No
[2018-10-14 15:00] VITALS: BP 132/76; PULSE 64; TEMP 97.8
--- NOTE | 2018-10-14 15:01 | EKG ---
Test Reason : Blood Pressure : / mmHG Vent. Rate : 054 BPM Atrial Rate : 054 BPM P-R Int : 108 ms QRS Dur : 082 ms QT Int : 472 ms P-R-T Axes : 037 033 053 degrees QTc Int : 447 ms SINUS BRADYCARDIA WITH SHORT IL OTHERWISE NORMAL ECG WHEN COMPARED WITH ECG OF 01-OCT-2018 12:45, NO SIGNIFICANT CHANGE WAS FOUND Confirmed by KVNG SOLO MD ([id number]) on 10/14/2018 3:01:04 PM Referred By: Confirmed By:KVNG SOLO MD
== END 2018-10-14 04:00 | disposition home or self-care (01) ==
LOC: JER 11:29 → JERBED 15:55 → J4W 22:57
PROVIDERS: ADMIT Internal Medicine; ATTEND Hospitalist
DX: R07.89 Other chest pain (principal); R05 Cough; F03.90 Unspecified dementia, unspecified severity, without behavioral disturbance, psychotic disturbance, mood disturbance, and anxiety; E11.69 Type 2 diabetes mellitus with other specified complication; I10 Essential (primary) hypertension
CPT/HCPCS: 36415; 71046-TC-FY; 78452-TC; 80048; 80053; 80061; 81003; 81015; 82550; 82962; 83036; 83690; 83721; 83735; 83880; 84100; 84484; 85025; 85610; 87086; 93005; 93010; 93017; 99285-25; A9502; G0378; J1644; J2785

== ENCOUNTER 2018-11-28 17:13 | Inpatient (IN) | payer OTHER ==
--- NOTE | 2018-11-28 17:34 | PDOC ---
Attending Attestation - HPI HPI: 11/28/18 20:34 The patient is a 78-year-old female with a past medical history significant for NIDDM, HLD, COPD, hx of Diverticulosis (treated with abx) and PNA treated in 2018 presents to the emergency department accompanied with her daughter with abdominal pain. The patient reports the pain started last night-earlier today, worse at the lower abdomen. Enroute to the ER, the patient reported the pain to be 10/10, denies any modifying factor that aggravates or alleviates the pain. The patient reports associated symptom of nausea, denies vomiting, diarrhea, constipation. Denies chest pain or shortness of breath. Allergies: NKA Surgical history: Hysterectomy 45 years ago, right elbow repair approx. 27 years ago. PCP: Dr. Luo - Physicial Exam PE: 11/28/18 19:45 GENERAL: The patient is in no acute distress. HEAD: Normal with no signs of trauma. EYES: PERRLA, EOMI, sclera anicteric, conjunctiva clear. ENT: Ears normal, nares patent, oropharynx clear without exudates. Moist mucous membranes. NECK: Normal range of motion, supple without lymphadenopathy, JVD, or masses. LUNGS: Breath sounds equal, clear to auscultation bilaterally. No wheezes, and no crackles. HEART:Regular rate and rhythm, normal S1 and S2 without murmur, rub or gallop. ABDOMEN: +soft, tenderness to palpation, more tender to the LLQ. no guarding or rebound, no masses palpable. EXTREMITIES: Normal range of motion, no edema. No clubbing or cyanosis. No erythema, or tenderness. NEUROLOGICAL: Awake and alert, answering all questions. Cranial nerves II through XII grossly intact. Normal speech. No focal neurological deficits. MUSCULOSKELETAL: Back non-tender to palpation, no CVA tenderness SKIN: Warm, Dry, normal turgor, no rashes or lesions noted. - Medical Decision Making 11/28/18 19:41 Documentation prepared by Cathleen Nick, acting as medical accounting clerk for Jaja Castano MD. <Cathleen Nick - Last Filed: 11/28/18 22:05> - Resident Resident Name: Obdulio Kemp - ED Attending Attestation I have performed the following: I have examined & evaluated the patient, The case was reviewed & discussed with the resident, I agree w/resident's findings & plan, Exceptions are as noted - Medical Decision Making 78 yo F presenting wiht a complaint of Left lower abdominal pain which began last night No fevers or chills at home (+) nausea, no vomiting No diarrhea Last episode of diverticulitis was 1 year ago DD includes but is not limited to : Diverticulitis, Colitis, UTI/pyelonephritis 11/28/18 20:03 EKG - NSR rate of 66 bpm, axis nml, intervals, nml, no st elevation or depression Laboratory Tests 11/28/18 11/28/18 18:25 18:25 WBC 14.6 H Hgb 12.7 Hct 36.7 Plt Count 282 BUN 8 Creatinine 1.3 11/28/18 22:09 CT - diverticulitis Levmelanie/yl Will admit due to persistent abd pain and low grade fever <Jaja Castano - Last Filed: 12/02/18 18:13>
[2018-11-28] MEDS ORDERED: ACETAMINOPHEN 1000 MG/100 ML VIAL (NON FORMULARY) IVPB ONE (17:42)
[2018-11-28] MEDS ORDERED: ONDANSETRON 4 MG/2 ML VIAL IVPUSH ONE (17:42)
--- NOTE | 2018-11-28 17:52 | PDOC ---
History of Present Illness - General Chief Complaint: Pain Stated Complaint: ABDOMINAL PAIN Time Seen by Provider: 11/28/18 17:29 History Source: Patient, Family Exam Limitations: Dementia - History of Present Illness Initial Comments: 11/28/18 17:47 Patient is a 78F with history of DM, HTN, diverticulitis, dementia here today complaining of abdominal pain. Patient and daughter, at bedside, report that the pain started last night, worse in the suprapubic and LLQ pain. Denies dysuria, had urine test done last week at PCP. Denies fevers, chills, vomiting, endorses nausea. Has surgical history of hysterectomy. Past History - Past Medical History Allergies/Adverse Reactions: Allergies Allergy/AdvReac Type Severity Reaction Status Date / Time No Known Allergies Allergy Verified 11/28/18 17:17 Home Medications: Ambulatory Orders Aspirin [ASA -] 81 mg PO DAILY 09/13/16 Henry/D3/Mag11/Zinc/Justice Court Judge/[place]/Bor [Caltrate 600+D Plus Tablet] 1 each PO BID Memantine HCl [Namenda -] 10 mg PO BID 09/13/16 Rosuvastatin [Crestor -] 10 mg PO DAILY 09/13/16 Metformin HCl [Glucophage] 1,000 mg PO DAILY 02/20/18 Ibandronate Sodium [Boniva] 3 mg IV MO 04/13/18 Thiamine Mononitrate [Vitamin B-1] 100 mg PO DAILY 04/13/18 Pantoprazole Sodium [Protonix -] 20 mg PO DAILY #30 tablet.ec 08/04/18 Multivit-Min/FA/Lycopen/Lutein [Centrum Silver Tablet] 1 each PO DAILY 10/02/18 Ondansetron [Zofran Odt -] 4 mg SL BID PRN 10/13/18 metFORMIN HCL [Metformin HCl] 500 mg PO HS 10/13/18 COPD: Yes DVT: No Diabetes: Yes GI Disorders: Yes (diverticulitis HIATAL HERNIA) HTN: Yes Hypercholesterolemia: Yes - Surgical History Orthopedic Surgery: Yes (rt elbow repair 27 years ago) - Immunization History Immunization Up to Date: Yes - Suicide/Smoking/Psychosocial Hx Smoking History: Current some day smoker Have you smoked in the past 12 months: Yes Number of Cigarettes Smoked Daily: 20 Information on smoking cessation initiated: No 'Breaking Loose' booklet given: 08/03/18 Hx Alcohol Use: No Drug/Substance Use Hx: No Substance Use Type: None, Alcohol Hx Substance Use Treatment: No Review of Systems - Review of Systems Comments:: 11/28/18 17:52 GENERAL/CONSTITUTIONAL: No fever or chills. No weakness. HEAD, EYES, EARS, NOSE AND THROAT: No change in vision. No sore throat. CARDIOVASCULAR: No chest pain or shortness of breath RESPIRATORY: No cough, wheezing, or hemoptysis. GASTROINTESTINAL: +nausea, no vomiting, diarrhea or constipation. GENITOURINARY: No dysuria, frequency, or change in urination. MUSCULOSKELETAL: No joint or muscle swelling or pain. No neck or back pain. SKIN: No rash NEUROLOGIC: No headache, vertigo, loss of consciousness, or change in strength/ sensation. HEMATOLOGIC/LYMPHATIC: No anemia, easy bleeding, or history of blood clots. ALLERGIC/IMMUNOLOGIC: No hives or skin allergy. *Physical Exam - Vital Signs Last Vital Signs Temp Pulse Resp BP Pulse Ox 99.1 F 57 L 18 140/64 99 11/28/18 17:18 11/28/18 17:18 11/28/18 17:18 11/28/18 17:18 11/28/18 17:18 - Physical Exam Comments: 11/28/18 17:53 GENERAL: Awake, alert, oriented to self/place, not year, in no acute distress HEAD: No signs of trauma, normocephalic, atraumatic EYES: PERRLA, EOMI, sclera anicteric, conjunctiva clear ENT: Auricles normal inspection, hearing grossly normal, nares patent, oropharynx clear without exudates. Moist mucosa NECK: Normal ROM, supple, no lymphadenopathy, JVD, or masses LUNGS: No distress, speaks full sentences, clear to auscultation bilaterally HEART: Regular rate and rhythm, normal S1 and S2, no murmurs, rubs or gallops, peripheral pulses normal and equal bilaterally. ABDOMEN: Soft,+suprapubic and LLQ tenderness, normoactive bowel sounds. No guarding, no rebound. No masses EXTREMITIES: Normal inspection, Normal range of motion, no edema. No clubbing or cyanosis. NEUROLOGICAL: Cranial nerves II through XII grossly intact. Normal speech, normal gait, no focal sensorimotor deficits SKIN: Warm, Dry, normal turgor, no rashes or lesions noted. Moderate Sedation - Procedure Monitoring Vital Signs: Procedure Monitoring Vital Signs Temperature 99.1 F 11/28/18 17:18 Pulse Rate 57 L 11/28/18 17:18 Respiratory Rate 18 11/28/18 17:18 Blood Pressure 140/64 11/28/18 17:18 O2 Sat by Pulse Oximetry (%) 99 11/28/18 17:18 ED Treatment Course - LABORATORY CBC & Chemistry Diagram: 11/28/18 18:25 11/28/18 18:25 - RADIOLOGY Radiology Studies Ordered: Category Date Time Status ABDOMEN & PELVIS CT WITH CONTR [CT] Stat CT Scan 11/28/18 17:43 Ordered Medical Decision Making - Medical Decision Making 11/28/18 17:54 Patient is 78F with history of DM, HTN, diverticulitis, dementia here today with suprapubic/llq abdominal pain. Vitals normal and stable. Patient resting comfortably, has been tolerating food. DDx includes, but is not limited to: UTI , diverticulitis, gastritis, constipation, obstruction. 11/28/18 19:02 Rectal temp 100.2, taken after tylenol administration. 11/28/18 22:08 CBC shows leukocytosis. CMP reassuring. UA clear. EKG shows NSR with rate of 66. No st elevations/depressions. Normal axis. Normal intervals. No significant t wave abnormalities. CT a/p shows acute uncomplicated diverticulitis. Given patient's age and fever, will admit for IV antibiotics. Levaquin and flagyl ordered. Medicine paged. 11/28/18 23:09 Case d/w Dr Barajas, accepted to m/s obs. *DC/Admit/Observation/Transfer Diagnosis at time of Disposition: Diverticulitis - Discharge Dispostion Condition at time of disposition: Stable Decision to Admit order: Yes - Referrals Referrals: Antonietta Luo MD [Primary Care Provider] - - Patient Instructions - Post Discharge Activity
[2018-11-28] MEDS ORDERED: ONDANSETRON 4 MG/2 ML VIAL ONE (18:03)
[2018-11-28] MEDS ORDERED: ACETAMINOPHEN INJECTION 100 ML IVPB ONE (18:03)
[2018-11-28] MEDS ORDERED: NITROGLYCERIN 2% OINTMENT - 1GM PACKET TD ONE (18:37)
[2018-11-28 18:51] LABS: BASO % 0.3 % (0-2.0); EOS % 0.3 % (0-4.5); HEMATOCRIT 36.7 % (32.4-45.2); HEMOGLOBIN 12.7 GM/dL (10.7-15.3); LYMPH % 16.8 % (8-40); MCH 31.3 pg (25.7-33.7); MCHC 34.7 g/dl (32.0-36.0); MEAN CELL VOLUME 90.2 fl (80-96); MEAN PLT VOLUME 7.6 fl (7.5-11.1); NEUT % 77.6 % (42.8-82.8); PLATELET COUNT 282 K/MM3 (134-434); RBC 4.07 M/mm3 (3.60-5.2); RDW 13.6 % (11.6-15.6); WHITE BLOOD COUNT 14.6 K/mm3 (4.0-10.0)
[2018-11-28 19:53] LABS: ALBUMIN 3.6 g/dl (3.4-5.0); ALK PHOS 80 U/L (45-117); ANION GAP 7 MMOL/L (8-16); BILIRUBIN,TOTAL 0.6 mg/dL (0.2-1); BLOOD UREA NITROGEN 8 mg/dL (7-18); CALCIUM 9.4 mg/dL (8.5-10.1); CHLORIDE 103 mmol/L (98-107); CO2 28 mmol/L (21-32); CREATININE 1.3 mg/dL (0.55-1.3); GLUCOSE,RANDOM 136 mg/dL (74-106); LIPASE 248 U/L (73-393); POTASSIUM 4.5 mmol/L (3.5-5.1); SGOT/AST 15 U/L (15-37); SGPT/ALT 16 U/L (13-61); SODIUM 138 mmol/L (136-145); TOT PROT 7.5 g/dl (6.4-8.2)
[2018-11-28 20:07] LABS: URINE APPEARANCE CLEAR; URINE BILIRUBIN NEGATIVE (<2.0 mg/dL); URINE COLOR YELLOW; URINE GLUCOSE (UA) NEGATIVE (NEGATIVE); URINE KETONE NEGATIVE (NEGATIVE); URINE LEUK ESTERASE TRACE (NEGATIVE); URINE NITRITE NEGATIVE (NEGATIVE); URINE PROTEIN NEGATIVE (NEGATIVE); URINE UROBILINOGEN NEGATIVE mg/dL (0.2-1.0)
[2018-11-28 20:10] LABS: EPI CELLS RARE /HPF (FEW); URINE MUCUS RARE
[2018-11-28] MEDS: SODIUM CHLORIDE 1,000 ML IV SCH (23:00)
--- NOTE | 2018-11-28 23:16 | HP ---
CHIEF COMPLAINT: abdominal pain PCP:Dr. Luo HISTORY OF PRESENT ILLNESS: 78-year-old female presents with abdominal pain x1day located in her left lower abdomen. Pain was initially 10/10, denied any factors that aggravates or alleviates the pain. The patient reports associated symptom of nausea, denies vomiting, diarrhea, constipation. Patient was accompanied by her daughter who helps her with her needs/ ER course was notable for: (1) abdomen/pelvis CT (2) levaquin (3) metronidazole Recent Travel:no PAST MEDICAL HISTORY: NIDDM, HLD, COPD, hx of Diverticulosis PAST SURGICAL HISTORY: hysterectomy 45 years ago, right elbow repair approx. 27 years ago Social History: Smoking: no Alcohol: no Drugs: no Family History: none Allergies No Known Allergies Allergy (Verified 11/28/18 17:17) HOME MEDICATIONS: Home Medications Medication Instructions Recorded Aspirin [ASA -] 81 mg PO DAILY 09/13/16 Henry/D3/Mag11/Zinc/Furniture Inspector/[place]/Bor 1 each PO BID 09/13/16 [Caltrate 600+D Plus Tablet] Memantine HCl [Namenda -] 10 mg PO BID 09/13/16 Rosuvastatin [Crestor -] 10 mg PO DAILY 09/13/16 Metformin HCl [Glucophage] 1,000 mg PO DAILY 02/20/18 Ibandronate Sodium [Boniva] 3 mg IV MO 04/13/18 Thiamine Mononitrate [Vitamin B-1] 100 mg PO DAILY 04/13/18 Pantoprazole Sodium [Protonix -] 20 mg PO DAILY #30 tablet.ec 08/04/18 Multivit-Min/FA/Lycopen/Lutein 1 each PO DAILY 10/02/18 [Centrum Silver Tablet] Ondansetron [Zofran Odt -] 4 mg SL BID PRN 10/13/18 metFORMIN HCL [Metformin HCl] 500 mg PO HS 10/13/18 REVIEW OF SYSTEMS CONSTITUTIONAL: Absent: fever, chills, diaphoresis, generalized weakness, malaise, loss of appetite, weight change HEENT: Absent: rhinorrhea, nasal congestion, throat pain, throat swelling, difficulty swallowing, mouth swelling, ear pain, eye pain, visual changes CARDIOVASCULAR: Absent: chest pain, syncope, palpitations, irregular heart rate, lightheadedness , peripheral edema RESPIRATORY: Absent: cough, shortness of breath, dyspnea with exertion, orthopnea, wheezing, stridor, hemoptysis GASTROINTESTINAL: Absent: abdominal distension, vomiting, diarrhea, constipation, melena, hematochezia present- abdominal pain, nausea, GENITOURINARY: Absent: dysuria, frequency, urgency, hesitancy, hematuria, flank pain, genital pain MUSCULOSKELETAL: Absent: myalgia, arthralgia, joint swelling, back pain, neck pain SKIN: Absent: rash, itching, pallor HEMATOLOGIC/IMMUNOLOGIC: Absent: easy bleeding, easy bruising, lymphadenopathy, frequent infections ENDOCRINE: Absent: unexplained weight gain, unexplained weight loss, heat intolerance, cold intolerance NEUROLOGIC: Absent: headache, focal weakness or paresthesias, dizziness, unsteady gait, seizure, mental status changes, bladder or bowel incontinence PSYCHIATRIC: Absent: anxiety, depression, suicidal or homicidal ideation, hallucinations. PHYSICAL EXAMINATION Vital Signs - 24 hr 11/28/18 11/28/18 11/28/18 17:18 19:05 21:12 Temperature 99.1 F 100.2 F H Pulse Rate 57 L Pulse Rate [ 68 Right Radial] Respiratory 18 18 Rate Blood Pressure 140/64 Blood Pressure 136/78 [Left Arm] O2 Sat by Pulse 99 100 Oximetry (%) GENERAL: Awake, alert, and fully oriented, in no acute distress. HEAD: Normal with no signs of trauma. EYES: Pupils equal, round and reactive to light, extraocular movements intact, sclera anicteric, conjunctiva clear. No lid lag. EARS, NOSE, THROAT: Ears normal, nares patent, oropharynx clear without exudates. Moist mucous membranes. NECK: Normal range of motion, supple without lymphadenopathy, JVD, or masses. LUNGS: Breath sounds equal, clear to auscultation bilaterally. No wheezes, and no crackles. No accessory muscle use. HEART: Regular rate and rhythm, normal S1 and S2 without murmur, rub or gallop. ABDOMEN: Soft, some LLQ tenderness on palpation , not distended, normoactive bowel sounds, no guarding, no rebound, no masses. MUSCULOSKELETAL: Normal range of motion at all joints. No bony deformities or tenderness. No CVA tenderness. UPPER EXTREMITIES: 2+ pulses, warm, well-perfused. No cyanosis. No clubbing. No peripheral edema. LOWER EXTREMITIES: 2+ pulses, warm, well-perfused. No calf tenderness. No peripheral edema. NEUROLOGICAL: Cranial nerves II-XII intact. Normal speech. Normal gait. PSYCHIATRIC: Cooperative. Good eye contact. Appropriate mood and affect. SKIN: Warm, dry, normal turgor, no rashes or lesions noted, normal capillary refill. Laboratory Results - last 24 hr 11/28/18 11/28/18 11/28/18 18:25 18:25 19:50 WBC 14.6 H RBC 4.07 Hgb 12.7 Hct 36.7 MCV 90.2 MCH 31.3 MCHC 34.7 RDW 13.6 Plt Count 282 MPV 7.6 Absolute Neuts (auto) 11.3 H Neutrophils % 77.6 D Lymphocytes % 16.8 D Monocytes % 5.0 Eosinophils % 0.3 D Basophils % 0.3 Nucleated RBC % 0 Sodium 138 Potassium 4.5 Chloride 103 Carbon Dioxide 28 Anion Gap 7 L BUN 8 Creatinine 1.3 Creat Clearance w eGFR 39.82 Random Glucose 136 H Calcium 9.4 Total Bilirubin 0.6 AST 15 ALT 16 Alkaline Phosphatase 80 Creatine Kinase 162 Creatine Kinase Index 0.6 CK-MB (CK-2) < 1.0 Troponin I < 0.02 Total Protein 7.5 Albumin 3.6 Lipase 248 Urine Color Yellow Urine Appearance Clear Urine pH 6.0 Ur Specific [place] 1.016 Urine Protein Negative Urine Glucose (UA) Negative Urine Ketones Negative Urine Blood Negative Urine Nitrite Negative Urine Bilirubin Negative Urine Urobilinogen Negative Ur Leukocyte Esterase Trace Urine WBC (Auto) 7 Urine RBC (Auto) 2 Ur Epithelial Cells Rare Urine Mucus Rare Imaging studies reviewed ASSESSMENT/PLAN: #Acute diverticulitis, uncomplicated, with low grade fever -observation -send blood cultures x2 -c/w levofloxacin 750mg iv daily -c/w metronidazole 500mg IV q8hrs -zofran IV prn if nausea -IV fluid hydration -advance diet-clear liquids first #DM -novolog sliding scale -levemir 10 units qhs -asa -statin #dvt ppx -heparin sc Visit type - Emergency Visit Emergency Visit: Yes Care time: The patient presented to the Emergency Department on the above date and was hospitalized for further evaluation of their emergent condition. - New Patient This patient is new to me today: Yes Date on this admission: 11/29/18 - Critical Care Critical Care patient: No
[2018-11-28] MEDS ORDERED: ONDANSETRON 4 MG/2 ML VIAL IVPUSH PRN (23:20)
[2018-11-29] MEDS ORDERED: MORPHINE SULFATE 2 MG/ML VIAL ONE (01:54)
[2018-11-29] MEDS: MORPHINE SULFATE 2 MG/ML VIAL IVPUSH PRN ×3 (01:59→17:48)
[2018-11-29 04:57] VITALS: BMI 29.8
[2018-11-29] MEDS: INSULIN SLIDING SCALE (NOVOLOG) 1 VIAL SQ SCH ×4 (06:22→21:51)
[2018-11-29 08:23] LABS: HEMATOCRIT 33.8 % (32.4-45.2); HEMOGLOBIN 11.9 GM/dL (10.7-15.3); MCH 31.8 pg (25.7-33.7); MCHC 35.3 g/dl (32.0-36.0); MEAN CELL VOLUME 90.1 fl (80-96); MEAN PLT VOLUME 7.7 fl (7.5-11.1); PLATELET COUNT 258 K/MM3 (134-434); RBC 3.75 M/mm3 (3.60-5.2); RDW 13.6 % (11.6-15.6); WHITE BLOOD COUNT 10.1 K/mm3 (4.0-10.0)
[2018-11-29 08:52] LABS: ALBUMIN 3.1 g/dl (3.4-5.0); ALK PHOS 71 U/L (45-117); ANION GAP 9 MMOL/L (8-16); BILIRUBIN,TOTAL 0.9 mg/dL (0.2-1); BLOOD UREA NITROGEN 9 mg/dL (7-18); CALCIUM 8.8 mg/dL (8.5-10.1); CHLORIDE 100 mmol/L (98-107); CO2 26 mmol/L (21-32); CREATININE 1.3 mg/dL (0.55-1.3); GLUCOSE,RANDOM 133 mg/dL (74-106); POTASSIUM 4.1 mmol/L (3.5-5.1); SGOT/AST 10 U/L (15-37); SGPT/ALT 13 U/L (13-61); SODIUM 135 mmol/L (136-145); TOT PROT 6.9 g/dl (6.4-8.2)
[2018-11-29] MEDS: ASPIRIN 81 MG CHEWABLE TABLETS PO SCH (09:13)
[2018-11-29] MEDS: HEPARIN NA (PORCINE) 5,000 UNITS/ML 1ML VIAL SQ SCH ×2 (09:13→21:51)
[2018-11-29] MEDS: PANTOPRAZOLE 20 MG TABLET (FP) PO SCH (09:13)
[2018-11-29] MEDS: MEMANTINE HCL 10 MG TABLET (FP) PO SCH ×2 (09:13→21:51)
[2018-11-29] MEDS: THIAMINE HCL 100 MG TABLET (FP) PO SCH (09:13)
--- NOTE | 2018-11-29 09:41 | PN ---
Physical Exam: SUBJECTIVE: Patient seen and examined. She is complaining of abdominal pain. She is tolerating clear liquids. OBJECTIVE: Vital Signs Period Temp Pulse Resp BP Sys/[place] Pulse Ox Last 24 Hr 98.6 F-100.2 F 57-74 16-20 110-150/54-78 95-100 GENERAL: The patient is awake, alert, and fully oriented, in no acute distress. LUNGS: Breath sounds equal, clear to auscultation bilaterally, no wheezes, no crackles, no accessory muscle use. HEART: Regular rate and rhythm, S1, S2 without murmur, rub or gallop. ABDOMEN: Soft, (+) LLQ and suprapubic tenderness, nondistended, normoactive bowel sounds, no guarding, no rebound, no hepatosplenomegaly, no masses. EXTREMITIES: 2+ pulses, warm, well-perfused, no edema. Laboratory Results - last 24 hr 11/28/18 11/28/18 11/28/18 18:25 18:25 19:50 WBC 14.6 H RBC 4.07 Hgb 12.7 Hct 36.7 MCV 90.2 MCH 31.3 MCHC 34.7 RDW 13.6 Plt Count 282 MPV 7.6 Absolute Neuts (auto) 11.3 H Neutrophils % 77.6 D Lymphocytes % 16.8 D Monocytes % 5.0 Eosinophils % 0.3 D Basophils % 0.3 Nucleated RBC % 0 Sodium 138 Potassium 4.5 Chloride 103 Carbon Dioxide 28 Anion Gap 7 L BUN 8 Creatinine 1.3 Creat Clearance w eGFR 39.82 POC Glucometer Random Glucose 136 H Calcium 9.4 Total Bilirubin 0.6 AST 15 ALT 16 Alkaline Phosphatase 80 Creatine Kinase 162 Creatine Kinase Index 0.6 CK-MB (CK-2) < 1.0 Troponin I < 0.02 Total Protein 7.5 Albumin 3.6 Lipase 248 Urine Color Yellow Urine Appearance Clear Urine pH 6.0 Ur Specific [place] 1.016 Urine Protein Negative Urine Glucose (UA) Negative Urine Ketones Negative Urine Blood Negative Urine Nitrite Negative Urine Bilirubin Negative Urine Urobilinogen Negative Ur Leukocyte Esterase Trace Urine WBC (Auto) 7 Urine RBC (Auto) 2 Ur Epithelial Cells Rare Urine Mucus Rare 11/29/18 11/29/18 11/29/18 05:52 06:50 06:50 WBC 10.1 H RBC 3.75 Hgb 11.9 Hct 33.8 MCV 90.1 MCH 31.8 MCHC 35.3 RDW 13.6 Plt Count 258 MPV 7.7 Absolute Neuts (auto) Neutrophils % Lymphocytes % Monocytes % Eosinophils % Basophils % Nucleated RBC % Sodium 135 L Potassium 4.1 Chloride 100 Carbon Dioxide 26 Anion Gap 9 BUN 9 Creatinine 1.3 Creat Clearance w eGFR 39.82 POC Glucometer 143 Random Glucose 133 H Calcium 8.8 Total Bilirubin 0.9 AST 10 L ALT 13 Alkaline Phosphatase 71 Creatine Kinase Creatine Kinase Index CK-MB (CK-2) Troponin I Total Protein 6.9 Albumin 3.1 L Lipase Urine Color Urine Appearance Urine pH Ur Specific [place] Urine Protein Urine Glucose (UA) Urine Ketones Urine Blood Urine Nitrite Urine Bilirubin Urine Urobilinogen Ur Leukocyte Esterase Urine WBC (Auto) Urine RBC (Auto) Ur Epithelial Cells Urine Mucus Active Medications Generic Name Dose Route Start Last Admin Trade Name Freq PRN Reason Stop Dose Admin Aspirin 81 mg 11/29/18 10:00 11/29/18 09:13 Asa - PO 81 mg DAILY MÓNICA Administration Heparin Sodium (Porcine) 5,000 unit 11/29/18 10:00 11/29/18 09:13 Heparin - SQ 5,000 unit BID MÓNICA Administration Sodium Chloride 1,000 mls @ 75 mls/hr 11/28/18 23:30 11/28/18 23:00 Normal Saline - IV 75 mls/hr ASDIR MÓNICA Administration Insulin Aspart 1 vial 11/29/18 07:00 11/29/18 06:22 Novolog Vial Sliding Scale - SQ Not Given [facility] Protocol Memantine 10 mg 11/29/18 10:00 11/29/18 09:13 Namenda - PO 10 mg BID MÓNICA Administration Morphine Sulfate 2 mg 11/28/18 23:18 11/29/18 09:19 Morphine Sulfate IVPUSH 2 mg Q4H PRN Administration PAIN LEVEL 6-10 Ondansetron HCl 4 mg 11/28/18 23:20 Zofran Injection IVPUSH Q6H PRN NAUSEA Pantoprazole Sodium 20 mg 11/29/18 10:00 11/29/18 09:13 Protonix - PO 20 mg DAILY MÓNICA Administration Rosuvastatin Calcium 10 mg 11/29/18 22:00 Crestor - PO HS MÓNICA Thiamine HCl 100 mg 11/29/18 10:00 03/17/19 09:13 Vitamin B1 - PO 100 mg DAILY MÓNICA Administration ASSESSMENT/PLAN: This is a 78 year old woman with a history of type 2 DM, hyperlipidemia, COPD, depression, osteopenia, diverticulosis, dementia who presented to the ED with abdominal pain. 1. Acute diverticulitis, uncomplicated - Had temp 100.2 yesterday evening - WBC improved - Still having significant pain - Continue Levaquin, Flagyl IV - Continue IV fluid - Continue clear liquids - Had EGD, colonoscopy 03/2018 showing mild gastritis, mild sigmoid diverticulosis, small internal hemorrhoids, 4 mm sessile polyp in cecum - GI consult 2. Type 2 DM - Metformin held - Continue Novolog sliding scale 3. Hyperlipidemia - Continue Crestor 4. COPD - Stable 5. Depression 6. Dementia - Contine Namenda Visit type - Emergency Visit Emergency Visit: Yes ED Registration Date: 11/28/18 Care time: The patient presented to the Emergency Department on the above date and was hospitalized for further evaluation of their emergent condition. - New Patient This patient is new to me today: Yes Date on this admission: 11/29/18 - Critical Care Critical Care patient: No - Discharge Referral Referred to [facility] No
--- NOTE | 2018-11-29 10:19 | CON.GI ---
Consult Consult Specialty:: GI Referred by:: Hospitalist Service Reason for Consultation:: Acute sigmoid diverticulitis - History of Present Illness Chief Complaint: Abdominal pain History of Present Illness: 78F admitted for evaluation of progressive lower abdominal pain x 2 days. WBC on admission was 14.6. CT scan revealed changes consistent with acute sigmoid diverticulitis. This is the first episode of this kind. She had EGD and colonoscopy with Dr. Frederick Whaley 04/16/18. EGD revealed gastritis (biopsies negative for h. pylori). Colonoscopy led to the removal of a 4mm cecal tubular adenoma and revealed mild sigmoid diverticulosis. She denied any rectal bleeding or diarrhea. There is no family history of colorectal cancer. She states that pain is somewhat improved. - History Source History Provided By: Patient, Medical Record - Past Medical History Cardio/Vascular: Yes: HTN, Hyperlipdemia Gastrointestinal: Yes: Diverticulosis, Gastritis, Other (Tubular adenoma of the cecum 05/02. ) Endocrine: Yes: Diabetes Mellitus - Past Surgical History Past Surgical History: Yes: Appendectomy (At time of DONNA), Hysterectomy (DONNA/BSO ) - Alcohol/Substance Use Hx Alcohol Use: No - Smoking History Smoking history: Current every day smoker Have you smoked in the past 12 months: Yes Aproximately how many cigarettes per day: 20 - Social History Usual Living Arrangement: Alone () ADL: Independent Place of : [facility] History of Recent Travel: No Home Medications - Allergies Allergies/Adverse Reactions: Allergies Allergy/AdvReac Type Severity Reaction Status Date / Time No Known Allergies Allergy Verified 11/28/18 17:17 - Home Medications Home Medications: Ambulatory Orders Aspirin [ASA -] 81 mg PO DAILY 09/13/16 Henry/D3/Mag11/Zinc/[employer] Operations Dispatch Clerk/[place] [Caltrate 600+D Plus Tablet] 1 each PO BID Memantine HCl [Namenda -] 10 mg PO BID 09/13/16 Rosuvastatin [Crestor -] 10 mg PO DAILY 09/13/16 Metformin HCl [Glucophage] 1,000 mg PO DAILY 02/20/18 Ibandronate Sodium [Boniva] 3 mg IV MO 04/13/18 Thiamine Mononitrate [Vitamin B-1] 100 mg PO DAILY 04/13/18 Pantoprazole Sodium [Protonix -] 20 mg PO DAILY #30 tablet.ec 08/04/18 Multivit-Min/FA/Lycopen/Lutein [Centrum Silver Tablet] 1 each PO DAILY 10/02/18 Ondansetron [Zofran Odt -] 4 mg SL BID PRN 10/13/18 metFORMIN HCL [Metformin HCl] 500 mg PO HS 10/13/18 Family Disease History - Family Disease History Family Disease History: Other: Father (: 70's: unclear cause), Mother ( : 80's: CVA), Brother (2, 1 : possible prostate cancer), Sister (2, alive), Daughter (1 adopted daughter:L healthy) Other Family History: No family history of colorectal cancer Review of Systems - Review of Systems Constitutional: denies: Chills, Unintentional Wgt. Loss Respiratory: denies: SOB Gastrointestinal: reports: Abdominal Pain, Constipation (occasional). denies: Bloating, Diarrhea, Nausea, Rectal Bleeding, Vomiting, Vomiting Blood Physical Exam-GI Vital Signs: Vital Signs Temperature 98.6 F 11/29/18 07:44 Pulse Rate 70 11/29/18 07:44 Respiratory Rate 16 11/29/18 07:44 Blood Pressure 120/60 11/29/18 07:44 O2 Sat by Pulse Oximetry (%) 96 11/29/18 08:24 Constitutional: Yes: Calm Eyes: No: Sclera Icterus Cardiovascular: Yes: Regular Rate and Rhythm. No: Murmur Respiratory: Yes: CTA Bilaterally Gastrointestinal Inspection: Yes: Scars (horizontal pelvic surgical scar). No: Distention ...Auscultate: Yes: Normoactive Bowel Sounds ...Palpate: Yes: Tenderness (TTP LLQ) ...Percussion: No: Tympanitic ...Rectal Exam: No: Deferred Edema: No (No LE edema) Neurological: Yes: Alert Labs: CBC, BMP 11/29/18 06:50 11/29/18 06:50 Hepatic Panel Total Bilirubin 0.9 mg/dL (0.2-1) 11/29/18 06:50 AST 10 U/L (15-37) L 11/29/18 06:50 ALT 13 U/L (13-61) 11/29/18 06:50 Alkaline Phosphatase 71 U/L (45-117) 11/29/18 06:50 Albumin 3.1 g/dl (3.4-5.0) L 11/29/18 06:50 Imaging - Results Cat Scan: Report Reviewed, Image Reviewed Assessment/Plan Acute uncomplicated sigmoid diverticulitis: 1st episode Recent colonoscopy revealing sigmoid diverticulosis Still with significant abdominal pain Advise: NPO IV hydration per primary team IV Abx. Will need total 10 days of antibiotics including the days on IV Abx while hospitalized. Can switch to PO augmentin for oputpatient regimen to decrease time on quinolone therapy in this elderly patient Daily labs, CRP in AM
--- NOTE | 2018-11-29 11:10 | EKG ---
Test Reason : Blood Pressure : / mmHG Vent. Rate : 066 BPM Atrial Rate : 066 BPM P-R Int : 114 ms QRS Dur : 082 ms QT Int : 418 ms P-R-T Axes : 054 037 053 degrees QTc Int : 438 ms SINUS RHYTHM WITH PREMATURE ATRIAL COMPLEXES OTHERWISE NORMAL ECG WHEN COMPARED WITH ECG OF 13-OCT-2018 11:34, PREMATURE ATRIAL COMPLEXES ARE NOW PRESENT Confirmed by MD NATASHA, CONCHA ([id number]) on 11/29/2018 11:10:16 AM Referred By: Confirmed By:CONCHA KAUR MD
[2018-11-29] MEDS ORDERED: INSULIN (NOVOLOG) ASPART 100 UNITS/ML 10ML VIAL ONE (11:45)
[2018-11-29] MEDS: ROSUVASTATIN CA 10 MG TABLET (FP) PO SCH (21:50)
[2018-11-30 06:45] LABS: BASO % 0.4 % (0-2.0); EOS % 1.7 % (0-4.5); HEMATOCRIT 32.3 % (32.4-45.2); HEMOGLOBIN 11.3 GM/dL (10.7-15.3); LYMPH % 35.3 % (8-40); MCH 31.5 pg (25.7-33.7); MEAN CELL VOLUME 90.1 fl (80-96); MEAN PLT VOLUME 7.4 fl (7.5-11.1); NEUT % 56.6 % (42.8-82.8); PLATELET COUNT 231 K/MM3 (134-434); RBC 3.59 M/mm3 (3.60-5.2); RDW 13.4 % (11.6-15.6); WHITE BLOOD COUNT 6.4 K/mm3 (4.0-10.0)
[2018-11-30] MEDS: INSULIN SLIDING SCALE (NOVOLOG) 1 VIAL SQ SCH ×4 (06:50→21:35)
[2018-11-30 07:10] LABS: ANION GAP 7 MMOL/L (8-16); BLOOD UREA NITROGEN 9 mg/dL (7-18); CALCIUM 8.3 mg/dL (8.5-10.1); CHLORIDE 107 mmol/L (98-107); CO2 26 mmol/L (21-32); CREATININE 1.1 mg/dL (0.55-1.3); GLUCOSE,RANDOM 162 mg/dL (74-106); POTASSIUM 3.9 mmol/L (3.5-5.1); SODIUM 140 mmol/L (136-145)
[2018-11-30] MEDS: HEPARIN NA (PORCINE) 5,000 UNITS/ML 1ML VIAL SQ SCH ×2 (10:25→21:34)
[2018-11-30] MEDS: THIAMINE HCL 100 MG TABLET (FP) PO SCH (10:26)
[2018-11-30] MEDS: MEMANTINE HCL 10 MG TABLET (FP) PO SCH ×2 (10:27→21:34)
[2018-11-30] MEDS: ASPIRIN 81 MG CHEWABLE TABLETS PO SCH (10:27)
[2018-11-30] MEDS: PANTOPRAZOLE 20 MG TABLET (FP) PO SCH (10:27)
[2018-11-30] MEDS: SODIUM CHLORIDE 1,000 ML IV SCH (10:52)
[2018-11-30] MEDS: MORPHINE SULFATE 2 MG/ML VIAL IVPUSH PRN ×2 (10:55→21:33)
[2018-11-30] MEDS ORDERED: INSULIN (NOVOLOG) ASPART 100 UNITS/ML 10ML VIAL ONE ×2 (11:28→11:59)
--- NOTE | 2018-11-30 12:57 | PN ---
Progress Note, Physician Chief Complaint: Still c/o abd pain - Current Medication List Current Medications: Active Medications Aspirin (Asa -) 81 mg PO DAILY [facility] Last Admin: 11/30/18 10:27 Dose: 81 mg Heparin Sodium (Porcine) (Heparin -) 5,000 unit SQ BID [facility] Last Admin: 11/30/18 10:25 Dose: 5,000 unit Sodium Chloride (Normal Saline -) 1,000 mls @ 75 mls/hr IV ASDIR [facility] Last Admin: 11/30/18 10:52 Dose: 75 mls/hr Metronidazole (Flagyl 500mg Premixed Ivpb -) 500 mg in 100 mls @ 100 mls/hr IVPB Q8H-IV [facility] Last Admin: 11/30/18 10:28 Dose: 100 mls/hr Levofloxacin (Levaquin 500 Mg Premixed Ivpb -) 500 mg in 100 mls @ 100 mls/hr IVPB DAILY [facility]; Protocol Last Admin: 11/30/18 10:27 Dose: 100 mls/hr Insulin Aspart (Novolog Vial Sliding Scale -) 1 vial SQ ACHS [facility]; Protocol Last Admin: 11/30/18 12:00 Dose: 2 units Memantine (Namenda -) 10 mg PO BID [facility] Last Admin: 11/30/18 10:27 Dose: 10 mg Morphine Sulfate (Morphine Sulfate) 2 mg IVPUSH Q4H PRN PRN Reason: PAIN LEVEL 6-10 Last Admin: 11/30/18 10:55 Dose: 2 mg Ondansetron HCl (Zofran Injection) 4 mg IVPUSH Q6H PRN PRN Reason: NAUSEA Pantoprazole Sodium (Protonix -) 20 mg PO DAILY [facility] Last Admin: 11/30/18 10:27 Dose: 20 mg Rosuvastatin Calcium (Crestor -) 10 mg PO HS [facility] Last Admin: 11/29/18 21:50 Dose: 10 mg Thiamine HCl (Vitamin B1 -) 100 mg PO DAILY [facility] Last Admin: 11/30/18 10:26 Dose: 100 mg - Objective Vital Signs: Vital Signs Temperature 98.3 F 11/30/18 09:00 Pulse Rate 69 11/30/18 09:00 Respiratory Rate 19 11/29/18 20:00 Blood Pressure 112/85 11/30/18 09:00 O2 Sat by Pulse Oximetry (%) 95 11/30/18 09:00 GENERAL: The patient is awake, alert, and in no acute distress. HEENT: Mm moist, no anemia, PERRLA EOMI LUNGS: CTA B/L HEART: Regular rate and rhythm, S1, S2 without murmur, rub or gallop. ABDOMEN: Left LQ tenderness Soft normoactive bowel sounds, EXTREMITIES: 2+ pulses, warm, well-perfused, trace edema of legs. CIRCUS AGENT: AOX3 non focal Labs: CBC, BMP 11/30/18 06:10 11/30/18 06:10 Problem List - Problems (1) Diverticulitis Assessment/Plan: PresentLeft LQ pain with sigmoid Diverticullitis, TWBC trended normal, still c/ o abd pain , tolerating PO GI input appreciated will switch to augmentin once pain is resolved and patient is ready to DC, Tylenol PRN for the fever pain control. Code(s): K57.92 - DVTRCLI OF INTEST, PART UNSP, W/O PERF OR ABSCESS W/O BLEED (2) Abdominal pain Assessment/Plan: Due to Diverticullitis f/u zofran, PPI , Pian control Code(s): R10.9 - UNSPECIFIED ABDOMINAL PAIN (3) Dementia Assessment/Plan: chronic cont Home meds Code(s): F03.90 - UNSPECIFIED DEMENTIA WITHOUT BEHAVIORAL DISTURBANCE Qualifiers: Dementia type: unspecified type (4) Hyperlipidemia associated with type 2 diabetes mellitus Assessment/Plan: Cont Crestor Code(s): E11.69 - TYPE 2 DIABETES MELLITUS WITH OTHER SPECIFIED COMPLICATION; E78.5 - HYPERLIPIDEMIA, UNSPECIFIED (5) Hypertension Assessment/Plan: Well controlled on Home meds cont same Code(s): I10 - ESSENTIAL (PRIMARY) HYPERTENSION Qualifiers: Hypertension type: essential hypertension Qualified Code(s): I10 - Essential (primary) hypertension (6) Type 2 diabetes mellitus Assessment/Plan: Cont Correction dose inssulin will switch tpo Metformin on DC Code(s): E11.9 - TYPE 2 DIABETES MELLITUS WITHOUT COMPLICATIONS Qualifiers: Diabetes mellitus skilled nursing insulin use: without intermediate frame tender use Diabetes mellitus complication status: without complication Qualified Code(s): E11.9 - Type 2 diabetes mellitus without complications
--- NOTE | 2018-11-30 14:46 | PN ---
Progress Note (short form) - Note Progress Note: GI follow up No new events. Tolerating clears. Still with LLQ/suprapubic pain. No GI bleeding. Vital Signs - 24 hr 11/30/18 11/30/18 05:00 09:00 Temperature 98.2 F 98.3 F Pulse Rate 60 69 Respiratory Rate Blood Pressure 110/56 L 112/85 O2 Sat by Pulse 95 Oximetry (%) NAD soft, ttp in LLQ/suprapubic without guarding CBC, BMP 11/30/18 06:10 11/30/18 06:10 Acute uncomplicated sigmoid diverticulitis. Improving. Continue IV antibiotics. Can give clear liquids.
[2018-11-30] MEDS: ROSUVASTATIN CA 10 MG TABLET (FP) PO SCH (21:34)
[2018-12-01] MEDS: SODIUM CHLORIDE 1,000 ML IV SCH ×2 (01:31→23:30)
[2018-12-01] MEDS: INSULIN SLIDING SCALE (NOVOLOG) 1 VIAL SQ SCH ×4 (06:21→21:14)
[2018-12-01 08:14] LABS: ANION GAP 5 MMOL/L (8-16); BLOOD UREA NITROGEN 7 mg/dL (7-18); CALCIUM 8.4 mg/dL (8.5-10.1); CHLORIDE 110 mmol/L (98-107); CO2 24 mmol/L (21-32); CREATININE 1.1 mg/dL (0.55-1.3); GLUCOSE,RANDOM 151 mg/dL (74-106); POTASSIUM 4.1 mmol/L (3.5-5.1); SODIUM 139 mmol/L (136-145)
[2018-12-01] MEDS: ASPIRIN 81 MG CHEWABLE TABLETS PO SCH (09:23)
[2018-12-01] MEDS: HEPARIN NA (PORCINE) 5,000 UNITS/ML 1ML VIAL SQ SCH ×2 (09:23→21:15)
[2018-12-01] MEDS: THIAMINE HCL 100 MG TABLET (FP) PO SCH (09:24)
[2018-12-01] MEDS: PANTOPRAZOLE 20 MG TABLET (FP) PO SCH (09:24)
[2018-12-01] MEDS: MEMANTINE HCL 10 MG TABLET (FP) PO SCH ×2 (09:24→21:15)
[2018-12-01 09:40] LABS: BASO % 0.5 % (0-2.0); EOS % 2.1 % (0-4.5); HEMATOCRIT 32.9 % (32.4-45.2); HEMOGLOBIN 11.3 GM/dL (10.7-15.3); LYMPH % 37.9 % (8-40); MCH 30.7 pg (25.7-33.7); MCHC 34.3 g/dl (32.0-36.0); MEAN CELL VOLUME 89.5 fl (80-96); MEAN PLT VOLUME 7.6 fl (7.5-11.1); MONO % 5.6 % (3.8-10.2); NEUT % 53.9 % (42.8-82.8); PLATELET COUNT 245 K/MM3 (134-434); RBC 3.67 M/mm3 (3.60-5.2); RDW 13.5 % (11.6-15.6); WHITE BLOOD COUNT 5.8 K/mm3 (4.0-10.0)
[2018-12-01] MEDS: MORPHINE SULFATE 2 MG/ML VIAL IVPUSH PRN (10:36)
[2018-12-01] MEDS ORDERED: PT OWN MED DRAWER 7, Y5N ONE (11:29)
--- NOTE | 2018-12-01 13:22 | PN ---
GI Progress Note Subjective: Found walking around room States pain somewhat imrpoved - Objective Vital Signs: Vital Signs Temperature 98.1 F 12/01/18 11:00 Pulse Rate 93 H 12/01/18 11:00 Respiratory Rate 20 12/01/18 11:00 Blood Pressure 139/58 L 12/01/18 11:00 O2 Sat by Pulse Oximetry (%) 97 12/01/18 09:00 Constitutional: Calm Eyes: No: Sclera Icterus Cardiovascular: Yes: Regular Rate and Rhythm Gastrointestinal Inspection: No: Distention ...Auscultate: Yes: Normoactive Bowel Sounds ...Palpate: Yes: Tenderness (TTP LLQ/Pelvis. Improved somewhat from prior exam. no voluntary guarding.) Edema: No (No LE edema) Neurological: Yes: Alert Labs: CBC, BMP 12/01/18 06:10 12/01/18 06:10 Hepatic Panel Total Bilirubin 0.9 mg/dL (0.2-1) 11/29/18 06:50 AST 10 U/L (15-37) L 11/29/18 06:50 ALT 13 U/L (13-61) 11/29/18 06:50 Alkaline Phosphatase 71 U/L (45-117) 11/29/18 06:50 Albumin 3.1 g/dl (3.4-5.0) L 11/29/18 06:50 Problem List - Problems (1) Diverticulitis Assessment/Plan: Improving clinically, still with tenderness to palpation, however: Continue clears AM labs IV Abx If pain improves, advance to full liquids in AM Code(s): K57.92 - DVTRCLI OF INTEST, PART UNSP, W/O PERF OR ABSCESS W/O BLEED
--- NOTE | 2018-12-01 13:33 | PN ---
Physical Exam: SUBJECTIVE: Patient seen and examined at the bedside. awake and alert. grandson at the bedside. feels better but still having left upper and lower quadrant pain with deep palpation. intermittent nausea/no vomiting. OBJECTIVE: Vital Signs Period Temp Pulse Resp BP Sys/Solis Pulse Ox Last 24 Hr 97.9 F-98.7 F 60-99 20-21 117-143/53-58 95-97 GENERAL: The patient is awake, alert, in no acute distress. HEAD: Normal with no signs of trauma. EYES: PERRL, extraocular movements intact, sclera anicteric, conjunctiva clear. No ptosis. ENT: Ears normal, nares patent, oropharynx clear without exudates, moist mucous membranes. NECK: Trachea midline, full range of motion, supple. LUNGS: Breath sounds equal, clear to auscultation bilaterally HEART: Regular rate and rhythm ABDOMEN: tender on left upper and lower quadrants EXTREMITIES: no edema. NEUROLOGICAL: Normal speech, gait not observed. PSYCH: Normal mood, normal affect. SKIN: Warm, dry, normal turgor, no rashes or lesions noted Laboratory Results - last 24 hr 11/30/18 11/30/18 12/01/18 16:42 21:32 06:10 WBC 5.8 RBC 3.67 Hgb 11.3 Hct 32.9 MCV 89.5 MCH 30.7 MCHC 34.3 RDW 13.5 Plt Count 245 MPV 7.6 Absolute Neuts (auto) 3.1 Neutrophils % 53.9 Lymphocytes % 37.9 Monocytes % 5.6 Eosinophils % 2.1 Basophils % 0.5 Nucleated RBC % 0 Sodium Potassium Chloride Carbon Dioxide Anion Gap BUN Creatinine Creat Clearance w eGFR POC Glucometer 106 123 Random Glucose Calcium 12/01/18 12/01/18 12/01/18 06:10 06:20 11:14 WBC RBC Hgb Hct MCV MCH MCHC RDW Plt Count MPV Absolute Neuts (auto) Neutrophils % Lymphocytes % Monocytes % Eosinophils % Basophils % Nucleated RBC % Sodium 139 Potassium 4.1 Chloride 110 H Carbon Dioxide 24 Anion Gap 5 L BUN 7 Creatinine 1.1 Creat Clearance w eGFR 48.29 POC Glucometer 145 188 Random Glucose 151 H Calcium 8.4 L Active Medications Generic Name Dose Route Start Last Admin Trade Name Freq PRN Reason Stop Dose Admin Aspirin 81 mg 11/29/18 10:00 12/01/18 09:23 Asa - PO 81 mg DAILY MÓNICA Administration Heparin Sodium (Porcine) 5,000 unit 11/29/18 10:00 12/01/18 09:23 Heparin - SQ 5,000 unit BID MÓNICA Administration Sodium Chloride 1,000 mls @ 75 mls/hr 11/28/18 23:30 12/01/18 01:31 Normal Saline - IV 75 mls/hr ASDIR MÓNICA Administration Metronidazole 500 mg in 100 mls @ 100 mls/hr 11/29/18 10:00 12/01/18 10:17 Flagyl 500mg Premixed Ivpb - IVPB 100 mls/hr Q8H-IV MÓNICA Administration Levofloxacin 500 mg in 100 mls @ 100 mls/hr 11/29/18 10:00 12/01/18 09:23 Levaquin 500 Mg Premixed Ivpb - IVPB 100 mls/hr DAILY MÓNICA Administration Protocol Insulin Aspart 1 vial 11/29/18 07:00 12/01/18 11:34 Novolog Vial Sliding Scale - SQ 2 units ACHS MÓNICA Administration Protocol Memantine 10 mg 11/29/18 10:00 12/01/18 09:24 Namenda - PO 10 mg BID MÓNICA Administration Morphine Sulfate 2 mg 11/28/18 23:18 12/01/18 10:36 Morphine Sulfate IVPUSH 2 mg Q4H PRN Administration PAIN LEVEL 6-10 Ondansetron HCl 4 mg 11/28/18 23:20 12/01/18 11:31 Zofran Injection IVPUSH 4 mg Q6H PRN Administration NAUSEA Pantoprazole Sodium 20 mg 11/29/18 10:00 12/01/18 09:24 Protonix - PO 20 mg DAILY MÓNICA Administration Rosuvastatin Calcium 10 mg 11/29/18 22:00 11/30/18 21:34 Crestor - PO 10 mg HS MÓNICA Administration Thiamine HCl 100 mg 11/29/18 10:00 12/01/18 09:24 Vitamin B1 - PO 100 mg DAILY MÓNICA Administration ASSESSMENT/PLAN: Patient is a 78 year old female with a significiant past medical history of abdominal pain most prominent of her left lower abdomen. Pain was initially 10/ 10 on admission, now improving. She denies any factors that aggravate this pain. Her other medical history includes diabetes, demntia, hld and dementia. Imaging: Abdomen/Pelvis ct: findings consistent with acute diverticulitis of the sigmoid colon without abscess formation. GI: Abdominal pain, some improvement Diverticulitis still some pain with palpation on left upper and lower quadrants. No nausea or vomiting. tolerating diet so far. advance as tolerated. On protonix daily morphine prn for pain, monitor it can contribute to adverse effects. will order tylenol prn On Flagyl q8 and Levaquin IV daily Endocrine Diabetes on Novolg ac/hs. blood sugars controlled Neuro: Dementia On namenda Card: HLD. on crestor fen tolerating clears monitor electrolytes clears. advance per gi prophy SCDs heparin Visit type - Emergency Visit Emergency Visit: Yes ED Registration Date: 11/28/18 Care time: The patient presented to the Emergency Department on the above date and was hospitalized for further evaluation of their emergent condition. - New Patient This patient is new to me today: Yes Date on this admission: 12/01/18 - Critical Care Critical Care patient: No - Discharge Referral Referred to [facility] Med P.C.: No
[2018-12-01] MEDS ORDERED: ACETAMINOPHEN 325 MG TABLET (FP) PO PRN (17:23)
[2018-12-01] MEDS: ROSUVASTATIN CA 10 MG TABLET (FP) PO SCH (21:14)
[2018-12-02] MEDS: SODIUM CHLORIDE 1,000 ML IV SCH (02:10)
[2018-12-02 06:46] LABS: BASO % 0.6 % (0-2.0); EOS % 2.1 % (0-4.5); HEMATOCRIT 33.2 % (32.4-45.2); HEMOGLOBIN 11.5 GM/dL (10.7-15.3); LYMPH % 37.9 % (8-40); MCH 31.2 pg (25.7-33.7); MCHC 34.6 g/dl (32.0-36.0); MEAN CELL VOLUME 90.1 fl (80-96); MEAN PLT VOLUME 7.5 fl (7.5-11.1); MONO % 6.2 % (3.8-10.2); NEUT % 53.2 % (42.8-82.8); PLATELET COUNT 246 K/MM3 (134-434); RBC 3.68 M/mm3 (3.60-5.2); RDW 13.3 % (11.6-15.6); WHITE BLOOD COUNT 5.8 K/mm3 (4.0-10.0)
[2018-12-02] MEDS: INSULIN SLIDING SCALE (NOVOLOG) 1 VIAL SQ SCH ×4 (06:46→21:45)
[2018-12-02 07:22] LABS: ALK PHOS 56 U/L (45-117); ANION GAP 5 MMOL/L (8-16); BILIRUBIN,TOTAL 0.3 mg/dL (0.2-1); BLOOD UREA NITROGEN 6 mg/dL (7-18); CHLORIDE 114 mmol/L (98-107); CO2 23 mmol/L (21-32); CREATININE 1.1 mg/dL (0.55-1.3); GLUCOSE,RANDOM 142 mg/dL (74-106); MAGNESIUM 1.9 mg/dL (1.8-2.4); SGOT/AST 14 U/L (15-37); SGPT/ALT 12 U/L (13-61); SODIUM 142 mmol/L (136-145); TOT PROT 6.3 g/dl (6.4-8.2)
[2018-12-02] MEDS: ASPIRIN 81 MG CHEWABLE TABLETS PO SCH (09:59)
[2018-12-02] MEDS: HEPARIN NA (PORCINE) 5,000 UNITS/ML 1ML VIAL SQ SCH ×2 (10:00→21:45)
[2018-12-02] MEDS: PANTOPRAZOLE 20 MG TABLET (FP) PO SCH (10:02)
[2018-12-02] MEDS: THIAMINE HCL 100 MG TABLET (FP) PO SCH (10:03)
[2018-12-02] MEDS: MEMANTINE HCL 10 MG TABLET (FP) PO SCH ×2 (10:04→21:45)
--- NOTE | 2018-12-02 11:22 | PN ---
Physical Exam: SUBJECTIVE: Patient seen and examined at the bedside. having left sided chest discomfort/pain 5/10. non radiating. not short of breath called for chest thorpe OBJECTIVE: trop negative, will trend levaquin stopped for bigeminy and prologned QT - start on ceftriaxone 2gram. monitor. cardiology consult for bigeminny and chest pain Vital Signs Period Temp Pulse Resp BP Sys/Solis Pulse Ox Last 24 Hr 98.3 F-98.8 F 60-98 20-20 120-138/54-69 97 GENERAL: The patient is awake, alert, episodes of confusion HEAD: Normal with no signs of trauma. EYES: PERRL, extraocular movements intact, sclera anicteric, conjunctiva clear. No ptosis. ENT: Ears normal, nares patent, oropharynx clear without exudates, moist mucous membranes. NECK: Trachea midline, full range of motion, supple. LUNGS: Breath sounds equal, clear to auscultation bilaterally, no wheezing HEART: nsr with bigeminy. rate controlled ABDOMEN: right sided discomfort. left upper and lower quadrant, denies pain EXTREMITIES: no edema. NEUROLOGICAL: Normal speech, gait not observed. PSYCH: Normal mood, normal affect. SKIN: Warm, dry, normal turgor, no rashes or lesions noted Laboratory Results - last 24 hr 12/01/18 12/01/18 12/02/18 17:03 20:58 06:00 WBC RBC Hgb Hct MCV MCH MCHC RDW Plt Count MPV Absolute Neuts (auto) Neutrophils % Lymphocytes % Monocytes % Eosinophils % Basophils % Nucleated RBC % Sodium 142 Potassium 4.0 Chloride 114 H Carbon Dioxide 23 Anion Gap 5 L BUN 6 L Creatinine 1.1 Creat Clearance w eGFR 48.29 POC Glucometer 90 122 Random Glucose 142 H Hemoglobin A1c % Calcium 8.0 L Magnesium 1.9 Total Bilirubin 0.3 AST 14 L ALT 12 L Alkaline Phosphatase 56 Troponin I < 0.02 C-Reactive Protein 0.9 H Total Protein 6.3 L Albumin 3.0 L 12/02/18 12/02/18 12/02/18 06:00 06:00 06:15 WBC 5.8 RBC 3.68 Hgb 11.5 Hct 33.2 MCV 90.1 MCH 31.2 MCHC 34.6 RDW 13.3 Plt Count 246 MPV 7.5 Absolute Neuts (auto) 3.1 Neutrophils % 53.2 Lymphocytes % 37.9 Monocytes % 6.2 Eosinophils % 2.1 Basophils % 0.6 Nucleated RBC % 0 Sodium Potassium Chloride Carbon Dioxide Anion Gap BUN Creatinine Creat Clearance w eGFR POC Glucometer 146 Random Glucose Hemoglobin A1c % 8.5 H Calcium Magnesium Total Bilirubin AST ALT Alkaline Phosphatase Troponin I C-Reactive Protein Total Protein Albumin 12/02/18 11:15 WBC RBC Hgb Hct MCV MCH MCHC RDW Plt Count MPV Absolute Neuts (auto) Neutrophils % Lymphocytes % Monocytes % Eosinophils % Basophils % Nucleated RBC % Sodium Potassium Chloride Carbon Dioxide Anion Gap BUN Creatinine Creat Clearance w eGFR POC Glucometer 171 Random Glucose Hemoglobin A1c % Calcium Magnesium Total Bilirubin AST ALT Alkaline Phosphatase Troponin I C-Reactive Protein Total Protein Albumin Active Medications Generic Name Dose Route Start Last Admin Trade Name Freq PRN Reason Stop Dose Admin Acetaminophen 650 mg 12/01/18 17:23 Tylenol - PO Q6H PRN PAIN LEVEL 4 - 6 Aspirin 81 mg 11/29/18 10:00 12/02/18 09:59 Asa - PO 81 mg DAILY MÓNICA Administration Heparin Sodium (Porcine) 5,000 unit 11/29/18 10:00 12/02/18 10:00 Heparin - SQ 5,000 unit BID MÓNICA Administration Sodium Chloride 1,000 mls @ 75 mls/hr 11/28/18 23:30 12/02/18 02:10 Normal Saline - IV 75 mls/hr ASDIR MÓNICA Administration Metronidazole 500 mg in 100 mls @ 100 mls/hr 11/29/18 10:00 12/02/18 09:59 Flagyl 500mg Premixed Ivpb - IVPB 100 mls/hr Q8H-IV MÓNICA Administration Insulin Aspart 1 vial 11/29/18 07:00 12/02/18 06:46 Novolog Vial Sliding Scale - SQ Not Given ACHS [facility] Protocol Memantine 10 mg 11/29/18 10:00 12/02/18 10:04 Namenda - PO 10 mg BID MÓNICA Administration Morphine Sulfate 2 mg 11/28/18 23:18 12/01/18 10:36 Morphine Sulfate IVPUSH 2 mg Q4H PRN Administration PAIN LEVEL 6-10 Ondansetron HCl 4 mg 11/28/18 23:20 12/01/18 11:31 Zofran Injection IVPUSH 4 mg Q6H PRN Administration NAUSEA Pantoprazole Sodium 20 mg 11/29/18 10:00 12/02/18 10:02 Protonix - PO 20 mg DAILY MÓNICA Administration Rosuvastatin Calcium 10 mg 11/29/18 22:00 12/01/18 21:14 Crestor - PO 10 mg HS MÓNICA Administration Thiamine HCl 100 mg 11/29/18 10:00 12/02/18 10:03 Vitamin B1 - PO 100 mg DAILY MÓNICA Administration ASSESSMENT/PLAN: Patient is a 78 year old female with a significant past medical history of abdominal pain most prominent of her left lower abdomen. Pain was initially 10/ 10 on admission, now improving. She denies any factors that aggravate this pain. Her other medical history includes diabetes, demntia, hld and dementia. Imaging: Abdomen/Pelvis ct: findings consistent with acute diverticulitis of the sigmoid colon without abscess formation. GI: Abdominal pain, some improvement Diverticulitis still some tenderness with palpation on right upper and lower quadrants. No nausea or vomiting. denies left upper or lower quadrant paint. advance diet to full liquid this afternoon On protonix daily morphine prn for pain, monitor it can contribute to adverse effects. will order tylenol prn On Flagyl q8 and ceftriaxone. initially on levaquin 500mg daily, but now with prolonged qt, will substitute with ceftriaxone. Card: Chest pain. acute left sided, non radiating. not short of breath trop x 1 negative, will trend two more echocardigram Prolonged QT will monitor with daily ekg stop levaquin cardiology consulted Endocrine Diabetes on Novolg ac/hs. blood sugars controlled Neuro: Dementia On namenda Card: HLD. on crestor fen tolerating clears monitor electrolytes clears. advance per gi prophy SCDs heparin Visit type - Emergency Visit Emergency Visit: Yes ED Registration Date: 11/28/18 Care time: The patient presented to the Emergency Department on the above date and was hospitalized for further evaluation of their emergent condition. - New Patient This patient is new to me today: No - Critical Care Critical Care patient: No - Discharge Referral Referred to [facility] Med P.C.: No
[2018-12-02] MEDS ORDERED: CEFTRIAXONE 2 GM in DEXTROSE 5%-WATER 100 ML IVPB ONE (11:26)
[2018-12-02] MEDS ORDERED: INSULIN (NOVOLOG) ASPART 100 UNITS/ML 10ML VIAL ONE ×2 (11:27→21:17)
--- NOTE | 2018-12-02 11:31 | PN.GI ---
GI Progress Note Subjective: Pt seen/examined at bedside, abdominal pain improved, however reporting left sided substernal chest pain this am. Mildly nauseous, no vomiting, moving bowels , no blood. Denies sob or palpitatons. EKG and troponins pending. Tolerating clear liquid diet earlier this am. - Objective Vital Signs: Vital Signs Temperature 98.8 F 12/02/18 06:03 Pulse Rate 60 12/02/18 06:03 Respiratory Rate 20 12/02/18 06:03 Blood Pressure 138/69 12/02/18 06:03 O2 Sat by Pulse Oximetry (%) 97 12/01/18 21:00 Constitutional: Well Nourished, No Distress, Calm, Other (Appears comfortable) Cardiovascular: Yes: WNL, Regular Rate and Rhythm, Other (no reproducible chest wall tenderness) Respiratory: Yes: WNL, Regular, CTA Bilaterally Gastrointestinal Inspection: Yes: WNL ...Auscultate: Yes: Normoactive Bowel Sounds ...Palpate: Yes: Soft, Other (abd soft, nontender, nondistended) Labs: CBC, BMP 12/02/18 06:00 12/02/18 06:00 Problem List - Problems (1) Diverticulitis Assessment/Plan: 78yo female h/o DM, diverticulosis s/p recent colonoscopy in 04/2018 presents with lower abdominal pain x 2 days and leucocytosis with CT scan revealing changes consistent with acute sigmoid diverticulitis. Abdominal pain markedly improved however reporting left sided, nonreproducible, chest pain this am. Leucocytosis resolved. -Cardiac workup with EKG and troponins per primary team -Continue IV antibiotics -Advance diet as tolerated (pending cardiac eval) Code(s): K57.92 - DVTRCLI OF INTEST, PART UNSP, W/O PERF OR ABSCESS W/O BLEED
--- NOTE | 2018-12-02 12:06 | EKG ---
Test Reason : Blood Pressure : / mmHG Vent. Rate : 065 BPM Atrial Rate : 065 BPM P-R Int : 122 ms QRS Dur : 090 ms QT Int : 486 ms P-R-T Axes : 050 020 050 degrees QTc Int : 505 ms SINUS RHYTHM WITH PREMATURE ATRIAL COMPLEXES IN A PATTERN OF BIGEMINY PROLONGED QT ABNORMAL ECG WHEN COMPARED WITH ECG OF 28-NOV-2018 18:01, QT HAS LENGTHENED Confirmed by GERMANIA CARMEN, KVNG ([id number]) on 12/02/2018 12:05:43 PM Referred By: JOHN PALACIOS Confirmed By:KVNG SOLO MD
--- NOTE | 2018-12-02 12:07 | CON.CARD ---
Consult Consult Specialty:: Cardiology Referred by:: Hospitalist Medicine Reason for Consultation:: Chest pain - History of Present Illness Chief Complaint: Chest pain History of Present Illness: 78F admitted for evaluation of progressive lower abdominal pain x 2 days. WBC on admission was 14.6. CT scan revealed changes consistent with acute sigmoid diverticulitis w/o abscess improving with IV abx and bowel rest, she reports sharp, non-exertional left-sided substernal chest pain without associated sxs this am. Mildly nauseous, no vomiting, moving bowels, no blood. Denies sob or palpitatons. EKG and troponins unremarkable. Tolerating clear liquid diet earlier this am. - History Source History Provided By: Patient Limitations to Obtaining History: No Limitations - Past Medical History Cardio/Vascular: Yes: HTN, Hyperlipdemia Gastrointestinal: Yes: Diverticulosis, Gastritis, Other (Tubular adenoma of the cecum 05/02. ) Endocrine: Yes: Diabetes Mellitus - Past Surgical History Past Surgical History: Yes: Appendectomy (At time of DONNA), Hysterectomy (DONNA/BSO ) - Alcohol/Substance Use Hx Alcohol Use: No - Smoking History Smoking history: Current every day smoker Have you smoked in the past 12 months: Yes Aproximately how many cigarettes per day: 20 - Social History Usual Living Arrangement: Alone () ADL: Independent History of Recent Travel: No Home Medications - Allergies Allergies/Adverse Reactions: Allergies Allergy/AdvReac Type Severity Reaction Status Date / Time No Known Allergies Allergy Verified 11/28/18 17:17 - Home Medications Home Medications: Ambulatory Orders Aspirin [ASA -] 81 mg PO DAILY 09/13/16 Henry/D3/Mag11/Zinc/[employer] Associate/[place]/Bor [Caltrate 600+D Plus Tablet] 1 each PO BID Memantine HCl [Namenda -] 10 mg PO BID 09/13/16 Rosuvastatin [Crestor -] 10 mg PO DAILY 09/13/16 Metformin HCl [Glucophage] 1,000 mg PO DAILY 02/20/18 Ibandronate Sodium [Boniva] 3 mg IV MO 04/13/18 Thiamine Mononitrate [Vitamin B-1] 100 mg PO DAILY 04/13/18 Pantoprazole Sodium [Protonix -] 20 mg PO DAILY #30 tablet.ec 08/04/18 Multivit-Min/FA/Lycopen/Lutein [Centrum Silver Tablet] 1 each PO DAILY 10/02/18 Ondansetron [Zofran Odt -] 4 mg SL BID PRN 10/13/18 metFORMIN HCL [Metformin HCl] 500 mg PO HS 10/13/18 Amoxicillin/Potassium Clav [Augmentin 875-125 Tablet] 1 each PO BID #14 tablet 11/30/18 Family Disease History - Family Disease History Family Disease History: Other: Father (: 70's: unclear cause), Mother ( : 80's: CVA), Brother (2, 1 : possible prostate cancer), Sister (2, alive), Daughter (1 adopted daughter:L healthy) Other Family History: No family history of colorectal cancer Review of Systems - Review of Systems Cardiovascular: reports: Chest Pain Vital Signs: Vital Signs Temperature 98.8 F 12/02/18 06:03 Pulse Rate 60 12/02/18 06:03 Respiratory Rate 20 12/02/18 06:03 Blood Pressure 138/69 12/02/18 06:03 O2 Sat by Pulse Oximetry (%) 97 12/01/18 21:00 Constitutional: Yes: No Distress, Calm Neck: Yes: Supple Respiratory: Yes: Regular, CTA Bilaterally Gastrointestinal: Yes: Normal Bowel Sounds, Soft Cardiovascular: Yes: Regular Rate and Rhythm JVD: No Carotid Bruit: No Heart Sounds: Yes: S1, S2 Edema: No - Other Data Labs, Other Data: CBC, BMP 12/02/18 06:00 12/02/18 06:00 Troponin, BNP 12/02/18 06:00 Troponin I < 0.02 Troponin, BNP 12/02/18 06:00 Troponin I < 0.02 SR @ 65 PAC, prolonged QTc 505 msec Ejection Fraction %: LVEF > or = 40 % Imaging - Results Cat Scan: Report Reviewed (Acute diverticulitis of sigmoid colon w/o abscess) Problem List - Problems (1) Diverticulitis Code(s): K57.92 - DVTRCLI OF INTEST, PART UNSP, W/O PERF OR ABSCESS W/O BLEED (2) Chest pain Code(s): R07.9 - CHEST PAIN, UNSPECIFIED Qualifiers: Chest pain type: unspecified Qualified Code(s): R07.9 - Chest pain, unspecified (3) Dementia Code(s): F03.90 - UNSPECIFIED DEMENTIA WITHOUT BEHAVIORAL DISTURBANCE Qualifiers: Dementia type: unspecified type (4) Hyperlipidemia associated with type 2 diabetes mellitus Code(s): E11.69 - TYPE 2 DIABETES MELLITUS WITH OTHER SPECIFIED COMPLICATION; E78.5 - HYPERLIPIDEMIA, UNSPECIFIED (5) Hypertension Code(s): I10 - ESSENTIAL (PRIMARY) HYPERTENSION Qualifiers: Hypertension type: essential hypertension Qualified Code(s): I10 - Essential (primary) hypertension (6) Type 2 diabetes mellitus Code(s): E11.9 - TYPE 2 DIABETES MELLITUS WITHOUT COMPLICATIONS Qualifiers: Diabetes mellitus gas meter prover insulin use: without gas meter prover use Diabetes mellitus complication status: without complication Qualified Code(s): E11.9 - Type 2 diabetes mellitus without complications Assessment/Plan 08/03/2018 Echo: Normal LV and RV size and fxn, abnl LV compliance, mod MR, TR, mild NC 10/04/2018: Lexiscan Myoview: No ischemia, LVEF 57% CT scan of the chest dated 01/2018 revealed coronary artery calcification 1. Atypical chest pain syndrome 2. CAD with evidence of coronary artery calcification with negative MPI for ischemia 3. Diastolic LV dysfunction with clinical class 0 NYHA classification LV failure 4. HTN/HCVD 5. Type 2 DM not at goal control 6. Hyperlipidemia 7. Organic brain syndrome/dementia 8. COPD 9. CKD 10. Acute sigmoid diverticulitis with lower abdominal pain x 2 days and leucocytosis resolving 11. Prolonged QT PLAN: 1. Complete abx course agree with change Levaquin/Flagyl to Zosyn and f/u QTc, ruling out for NV 2. Continue ASA 81 qd, Crestor 10qd, recommend addition of Toprol XL 25 qd as hemodynamics tolerate 3. Recommend the addition of ACEI or ARBS as hemodynamics tolerate now that renal fxn stable 4. Counselled smoking cessation and abstinence 5. Thank you for consultative opportunity
[2018-12-02] MEDS ORDERED: DEXTROSE 5%-WATER 100 ML IVPB ONE (12:12)
--- NOTE | 2018-12-02 13:43 | CON.ID ---
Consult Consult Specialty:: infectious diseases Referred by:: Humaira Reason for Consultation:: Diverticulitis - History of Present Illness Chief Complaint: left lower quadrant pain History of Present Illness: 78-year-old female presents with abdominal pain in her left lower abdomen. Pain was initially 10/10, denied any factors that aggravates or alleviates the pain. The patient reports associated symptom of nausea, denies vomiting, diarrhea, constipation. Patient is accompanied by her daughter who helps her with her needs/ according to her patient has this attack second time. patient inspite of being on abx for 4 days now still continues to have pain. patient came in with leukocytosis and found to have acute diverticulitis and was started on levo and flagyl--initialy patient became better and wbc resolved but the pain has not improved patinets levaquin was stopped as her q-t interval was prolonged patient was then replaced with ceftriaxone patient still continues to have ongoing pain inspite of being on abx for 4 days now does not feel hungry at all - History Source History Provided By: Patient Limitations to Obtaining History: No Limitations - Past Medical History Cardio/Vascular: Yes: HTN, Hyperlipdemia Gastrointestinal: Yes: Diverticulosis, Gastritis, Other (Tubular adenoma of the cecum 05/02. ) Endocrine: Yes: Diabetes Mellitus - Past Surgical History Past Surgical History: Yes: Appendectomy (At time of DONNA), Hysterectomy (DONNA/BSO ) - Alcohol/Substance Use Hx Alcohol Use: No - Smoking History Smoking history: Current every day smoker Have you smoked in the past 12 months: Yes Aproximately how many cigarettes per day: 20 - Social History Usual Living Arrangement: Alone () ADL: Independent History of Recent Travel: No Home Medications - Allergies Allergies/Adverse Reactions: Allergies Allergy/AdvReac Type Severity Reaction Status Date / Time No Known Allergies Allergy Verified 11/28/18 17:17 - Home Medications Home Medications: Ambulatory Orders Aspirin [ASA -] 81 mg PO DAILY 09/13/16 Henry/D3/Mag11/Zinc/Rn Nursery/[place]/Bor [Caltrate 600+D Plus Tablet] 1 each PO BID Memantine HCl [Namenda -] 10 mg PO BID 09/13/16 Rosuvastatin [Crestor -] 10 mg PO DAILY 09/13/16 Metformin HCl [Glucophage] 1,000 mg PO DAILY 02/20/18 Ibandronate Sodium [Boniva] 3 mg IV MO 04/13/18 Thiamine Mononitrate [Vitamin B-1] 100 mg PO DAILY 04/13/18 Pantoprazole Sodium [Protonix -] 20 mg PO DAILY #30 tablet.ec 08/04/18 Multivit-Min/FA/Lycopen/Lutein [Centrum Silver Tablet] 1 each PO DAILY 10/02/18 Ondansetron [Zofran Odt -] 4 mg SL BID PRN 10/13/18 metFORMIN HCL [Metformin HCl] 500 mg PO HS 10/13/18 Amoxicillin/Potassium Clav [Augmentin 875-125 Tablet] 1 each PO BID #14 tablet 11/30/18 Family Disease History - Family Disease History Family Disease History: Other: Father (: 70's: unclear cause), Mother ( : 80's: CVA), Brother (2, 1 : possible prostate cancer), Sister (2, alive), Daughter (1 adopted daughter:L healthy) Other Family History: No family history of colorectal cancer Review of Systems - Review of Systems Constitutional: reports: No Symptoms Eyes: reports: No Symptoms HENT: reports: No Symptoms Neck: reports: No Symptoms Cardiovascular: reports: No Symptoms Respiratory: reports: No Symptoms Gastrointestinal: reports: Abdominal Pain, Nausea Musculoskeletal: reports: No Symptoms Integumentary: reports: No Symptoms Neurological: reports: No Symptoms Endocrine: reports: No Symptoms Hematology/Lymphatic: reports: No Symptoms Psychiatric: reports: No Symptoms Physical Exam Vital Signs: Vital Signs Temperature 98.8 F 12/02/18 06:03 Pulse Rate 60 12/02/18 06:03 Respiratory Rate 20 12/02/18 06:03 Blood Pressure 138/69 12/02/18 06:03 O2 Sat by Pulse Oximetry (%) 97 12/01/18 21:00 Constitutional: Yes: Well Nourished, Calm, Mild Distress Eyes: Yes: Conjunctiva Clear Cardiovascular: Yes: Regular Rate and Rhythm Respiratory: Yes: Regular, CTA Bilaterally Gastrointestinal: Yes: Hypoactive Bowel Sounds, Tenderness (left lower quadrant) Musculoskeletal: Yes: WNL Extremities: Yes: WNL Neurological: Yes: Alert, Oriented Psychiatric: Yes: Alert, Oriented Labs: CBC, BMP 12/02/18 06:00 12/02/18 06:00 Imaging - Results Cat Scan: Report Reviewed, Image Reviewed Assessment/Plan Problem List - Problems (1) Diverticulitis Code(s): K57.92 - DVTRCLI OF INTEST, PART UNSP, W/O PERF OR ABSCESS W/O BLEED (2) Chest pain Code(s): R07.9 - CHEST PAIN, UNSPECIFIED Qualifiers: Chest pain type: unspecified Qualified Code(s): R07.9 - Chest pain, unspecified (3) Dementia Code(s): F03.90 - UNSPECIFIED DEMENTIA WITHOUT BEHAVIORAL DISTURBANCE Qualifiers: Dementia type: unspecified type (4) Hyperlipidemia associated with type 2 diabetes mellitus Code(s): E11.69 - TYPE 2 DIABETES MELLITUS WITH OTHER SPECIFIED COMPLICATION; E78.5 - HYPERLIPIDEMIA, UNSPECIFIED (5) Hypertension Code(s): I10 - ESSENTIAL (PRIMARY) HYPERTENSION Qualifiers: Hypertension type: essential hypertension Qualified Code(s): I10 - Essential (primary) hypertension (6) Type 2 diabetes mellitus Code(s): E11.9 - TYPE 2 DIABETES MELLITUS WITHOUT COMPLICATIONS 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
[2018-12-02] MEDS ORDERED: PIPERACILLIN/TAZOBACTAM 3.375 GM VIAL IVPB ONE ×2 (14:34→18:29)
[2018-12-02] MEDS ORDERED: DEXTROSE 5%-WATER - 50 ML IVPB ONE ×2 (14:35→18:29)
[2018-12-02] MEDS: PIPERACILLIN/TAZOB 3.375 GM 3.375 GM in DEXTROSE 5%-WATER - 50 ML IVPB SCH ×2 (14:53→18:34)
[2018-12-02] MEDS: MORPHINE SULFATE 2 MG/ML VIAL IVPUSH PRN (21:44)
[2018-12-02] MEDS: ROSUVASTATIN CA 10 MG TABLET (FP) PO SCH (21:45)
[2018-12-03] MEDS ORDERED: PIPERACILLIN/TAZOBACTAM 3.375 GM VIAL IVPB ONE ×3 (02:31→18:06)
[2018-12-03] MEDS ORDERED: DEXTROSE 5%-WATER - 50 ML IVPB ONE ×3 (02:31→18:06)
[2018-12-03] MEDS: PIPERACILLIN/TAZOB 3.375 GM 3.375 GM in DEXTROSE 5%-WATER - 50 ML IVPB SCH ×3 (02:34→18:11)
[2018-12-03] MEDS: INSULIN SLIDING SCALE (NOVOLOG) 1 VIAL SQ SCH ×4 (06:40→22:23)
[2018-12-03] MEDS: HEPARIN NA (PORCINE) 5,000 UNITS/ML 1ML VIAL SQ SCH ×2 (10:05→22:21)
[2018-12-03] MEDS: ASPIRIN 81 MG CHEWABLE TABLETS PO SCH (10:06)
[2018-12-03] MEDS: PANTOPRAZOLE 20 MG TABLET (FP) PO SCH (10:07)
[2018-12-03] MEDS: MEMANTINE HCL 10 MG TABLET (FP) PO SCH ×2 (10:08→22:21)
[2018-12-03] MEDS: metoPROLOL SUCCINATE 25 MG TAB.SR.24H (FP) PO SCH (10:09)
[2018-12-03] MEDS: THIAMINE HCL 100 MG TABLET (FP) PO SCH (10:11)
--- NOTE | 2018-12-03 10:56 | EKG ---
Test Reason : Blood Pressure : / mmHG Vent. Rate : 067 BPM Atrial Rate : 067 BPM P-R Int : 118 ms QRS Dur : 086 ms QT Int : 474 ms P-R-T Axes : 059 038 071 degrees QTc Int : 500 ms SINUS RHYTHM WITH PREMATURE ATRIAL COMPLEXES WITH ABERRANT CONDUCTION PROLONGED QT ABNORMAL ECG WHEN COMPARED WITH ECG OF 02-DEC-2018 09:32, NO SIGNIFICANT CHANGE WAS FOUND Confirmed by MANUEL MURO MD ([id number]) on 12/03/2018 10:56:34 AM Referred By: TONY LOPEZ DR Confirmed By:MANUEL MURO MD
--- NOTE | 2018-12-03 11:54 | PN ---
Progress Note, Physician History of Present Illness: No further atypical chest pain, LLQ discomfort also resolving, tolerating full liquid diet. - Current Medication List Current Medications: Active Medications Acetaminophen (Tylenol -) 650 mg PO Q6H PRN PRN Reason: PAIN LEVEL 4 - 6 Aspirin (Asa -) 81 mg PO DAILY [facility] Last Admin: 12/03/18 10:06 Dose: 81 mg Heparin Sodium (Porcine) (Heparin -) 5,000 unit SQ BID MÓNICA Last Admin: 12/03/18 10:05 Dose: 5,000 unit Sodium Chloride (Normal Saline -) 1,000 mls @ 75 mls/hr IV ASDIR MÓNICA Last Admin: 12/02/18 02:10 Dose: 75 mls/hr Piperacillin Sod/Tazobactam (Sod 3.375 gm/ Dextrose) 50 mls @ 100 mls/hr IVPB Q8H-IV MÓNICA; Protocol Last Admin: 12/03/18 11:00 Dose: 100 mls/hr Insulin Aspart (Novolog Vial Sliding Scale -) 1 vial SQ ACHS [facility]; Protocol Last Admin: 12/03/18 06:40 Dose: Not Given Memantine (Namenda -) 10 mg PO BID [facility] Last Admin: 12/03/18 10:08 Dose: 10 mg Metoprolol Succinate (Toprol Xl -) 25 mg PO DAILY [facility] Last Admin: 12/03/18 10:09 Dose: 25 mg Morphine Sulfate (Morphine Sulfate) 2 mg IVPUSH Q4H PRN PRN Reason: PAIN LEVEL 6-10 Last Admin: 12/02/18 21:44 Dose: 2 mg Pantoprazole Sodium (Protonix -) 20 mg PO DAILY [facility] Last Admin: 12/03/18 10:07 Dose: 20 mg Rosuvastatin Calcium (Crestor -) 10 mg PO HS [facility] Last Admin: 12/02/18 21:45 Dose: 10 mg Thiamine HCl (Vitamin B1 -) 100 mg PO DAILY [facility] Last Admin: 12/03/18 10:11 Dose: 100 mg - Objective Vital Signs: Vital Signs Temperature 98.4 F 12/03/18 10:00 Pulse Rate 51 L 12/03/18 10:00 Respiratory Rate 18 12/03/18 10:00 Blood Pressure 150/60 12/03/18 10:00 O2 Sat by Pulse Oximetry (%) 96 12/02/18 21:00 Constitutional: Yes: No Distress, Calm Neck: Yes: Supple Cardiovascular: Yes: Regular Rate and Rhythm Respiratory: Yes: Regular, Diminished Gastrointestinal: Yes: Normal Bowel Sounds, Soft Edema: No Labs: CBC, BMP 12/02/18 06:00 12/02/18 06:00 - ....Imaging EKG: Report Reviewed (NSR @ 67 PAC QTc 500 msec) Problem List - Problems (1) Diverticulitis Code(s): K57.92 - DVTRCLI OF INTEST, PART UNSP, W/O PERF OR ABSCESS W/O BLEED (2) Chest pain Code(s): R07.9 - CHEST PAIN, UNSPECIFIED Qualifiers: Chest pain type: unspecified Qualified Code(s): R07.9 - Chest pain, unspecified (3) Dementia Code(s): F03.90 - UNSPECIFIED DEMENTIA WITHOUT BEHAVIORAL DISTURBANCE Qualifiers: Dementia type: unspecified type (4) Hyperlipidemia associated with type 2 diabetes mellitus Code(s): E11.69 - TYPE 2 DIABETES MELLITUS WITH OTHER SPECIFIED COMPLICATION; E78.5 - HYPERLIPIDEMIA, UNSPECIFIED (5) Hypertension Code(s): I10 - ESSENTIAL (PRIMARY) HYPERTENSION Qualifiers: Hypertension type: essential hypertension Qualified Code(s): I10 - Essential (primary) hypertension (6) Type 2 diabetes mellitus Code(s): E11.9 - TYPE 2 DIABETES MELLITUS WITHOUT COMPLICATIONS Qualifiers: Diabetes mellitus nursing home insulin use: without nursing home use Diabetes mellitus complication status: without complication Qualified Code(s): E11.9 - Type 2 diabetes mellitus without complications Assessment/Plan 08/03/2018 Echo: Normal LV and RV size and fxn, abnl LV compliance, mod MR, TR, mild [place] 10/04/2018: Lexiscan Myoview: No ischemia, LVEF 57% CT scan of the chest dated 01/2018 revealed coronary artery calcification 1. Atypical chest pain syndrome 2. CAD with evidence of coronary artery calcification with negative MPI for ischemia 3. Diastolic LV dysfunction with clinical class 0 NYHA classification LV failure 4. HTN/HCVD 5. Type 2 DM not at goal control 6. Hyperlipidemia 7. Organic brain syndrome/dementia 8. COPD 9. CKD 10. Acute sigmoid diverticulitis with lower abdominal pain x 2 days and leucocytosis resolving 11. Prolonged QT PLAN: 1. Complete abx course agree with change Levaquin/Flagyl to Zosyn and f/u QTc, ruling out for UT 2. Continue ASA 81 qd, Crestor 10qd, recommend addition of Toprol XL 25 qd as hemodynamics tolerate 3. Recommend the addition of ACEI or ARBS as hemodynamics tolerate now that renal fxn stable 4. Counselled smoking cessation and abstinence
--- NOTE | 2018-12-03 12:11 | ECHO ---
Name: SAGAR BIGGS Exam:Adult Echocardiogram Study Date: 12/03/2018 08:17 AM Age: 78 yrs Reason For Study: CHEST PAIN Height: 64 in Weight: 174 lb BSA: 1.8 m2 MMode/2D Measurements & Calculations IVSd: 0.82 cm Ao root diam: 2.3 cm LVIDd: 5.1 cm LA dimension: 3.7 cm LVIDs: 3.5 cm LVPWd: 0.78 cm EDV(Teich): 124.6 ml LVOT diam: 2.1 cm ESV(Teich): 51.3 ml LAV (MOD-bp): 81.0 ml TAPSE: 2.6 cm Doppler Measurements & Calculations MV E max juan jose: 80.5 cm/sec MVA(VTI): 2.5 cm2 MV A max juan jose: 26.7 cm/sec MV V2 max: 156.2 cm/sec MV E/A: 3.0 MV max P.8 mmHg MV dec time: 0.17 sec MV V2 mean: 90.1 cm/sec MV mean P.1 mmHg MV V2 VTI: 26.0 cm Ao V2 max: 144.6 cm/sec LV V1 max P.0 mmHg Ao max P.4 mmHg LV V1 mean P.97 mmHg Ao V2 mean: 107.9 cm/sec LV V1 max: 71.3 cm/sec Ao mean P.0 mmHg LV V1 mean: 45.2 cm/sec Ao V2 VTI: 44.1 cm LV V1 VTI: 19.6 cm AUGUSTINE(I,D): 1.5 cm2 AUGUSTINE(V,D): 1.7 cm2 MR max juan jose: 577.0 cm/sec SV(LVOT): 65.5 ml MR max P.4 mmHg TR max juan jose: 196.3 cm/sec Med Peak E' Juan Jose: 8.9 cm/sec TR max P.5 mmHg Med E/e': 9.0 Lat Peak E' Juan Jose: 9.0 cm/sec Lat E/e': 8.9 Procedure A complete two-dimensional transthoracic echocardiogram was performed (2D, M-mode, Doppler and color flow Doppler). Left Ventricle The left ventricular size, thickness and function are normal. The left ventricular ejection fraction is normal. Ejection Fraction = 55-60%. The left ventricular wall motion is normal. Right Ventricle The right ventricle is normal in size and function. Atria The left atrium is mildly dilated. Right atrial size is normal. Mitral Valve There is moderate mitral regurgitation. Tricuspid Valve There is mild tricuspid regurgitation. Right ventricular systolic pressure is normal. Aortic Valve The aortic valve is trileaflet. No hemodynamically significant valvular aortic stenosis. No aortic regurgitation is present. Pulmonic Valve There is no pulmonic valvular regurgitation. Great Vessels The aortic root is normal size. Pericardium/Pleura There is no pericardial effusion. Interpretation Summary The left ventricular size, thickness and function are normal The right ventricle is normal in size and function. The left atrium is mildly dilated. There is moderate mitral regurgitation. There is mild tricuspid regurgitation. MD Praveen Hernandez 12/03/2018 12:10 PM
--- NOTE | 2018-12-03 12:14 | PN ---
Progress Note, Physician History of Present Illness: improving left lower quadrant pain improving - Current Medication List Current Medications: Active Medications Acetaminophen (Tylenol -) 650 mg PO Q6H PRN PRN Reason: PAIN LEVEL 4 - 6 Aspirin (Asa -) 81 mg PO DAILY [facility] Last Admin: 12/03/18 10:06 Dose: 81 mg Heparin Sodium (Porcine) (Heparin -) 5,000 unit SQ BID [facility] Last Admin: 12/03/18 10:05 Dose: 5,000 unit Sodium Chloride (Normal Saline -) 1,000 mls @ 75 mls/hr IV ASDIR [facility] Last Admin: 12/02/18 02:10 Dose: 75 mls/hr Piperacillin Sod/Tazobactam (Sod 3.375 gm/ Dextrose) 50 mls @ 100 mls/hr IVPB Q8H-IV [facility]; Protocol Last Admin: 12/03/18 11:00 Dose: 100 mls/hr Insulin Aspart (Novolog Vial Sliding Scale -) 1 vial SQ ACHS [facility]; Protocol Last Admin: 12/03/18 06:40 Dose: Not Given Memantine (Namenda -) 10 mg PO BID [facility] Last Admin: 12/03/18 10:08 Dose: 10 mg Metoprolol Succinate (Toprol Xl -) 25 mg PO DAILY [facility] Last Admin: 12/03/18 10:09 Dose: 25 mg Morphine Sulfate (Morphine Sulfate) 2 mg IVPUSH Q4H PRN PRN Reason: PAIN LEVEL 6-10 Last Admin: 12/02/18 21:44 Dose: 2 mg Pantoprazole Sodium (Protonix -) 20 mg PO DAILY [facility] Last Admin: 12/03/18 10:07 Dose: 20 mg Rosuvastatin Calcium (Crestor -) 10 mg PO HS [facility] Last Admin: 12/02/18 21:45 Dose: 10 mg Thiamine HCl (Vitamin B1 -) 100 mg PO DAILY [facility] Last Admin: 12/03/18 10:11 Dose: 100 mg - Objective Vital Signs: Vital Signs Temperature 98.4 F 12/03/18 10:00 Pulse Rate 51 L 12/03/18 10:00 Respiratory Rate 18 12/03/18 10:00 Blood Pressure 150/60 12/03/18 10:00 O2 Sat by Pulse Oximetry (%) 96 12/02/18 21:00 Constitutional: Yes: No Distress, Calm Cardiovascular: Yes: Regular Rate and Rhythm Respiratory: Yes: Regular, CTA Bilaterally Gastrointestinal: Yes: Normal Bowel Sounds, Soft, Tenderness (left lower quadrant) Musculoskeletal: Yes: WNL Extremities: Yes: WNL Neurological: Yes: Alert, Oriented Psychiatric: Yes: Alert, Oriented Labs: CBC, BMP 12/02/18 06:00 12/02/18 06:00 Assessment/Plan Problem List - Problems (1) Diverticulitis Code(s): K57.92 - DVTRCLI OF INTEST, PART UNSP, W/O PERF OR ABSCESS W/O BLEED (2) Chest pain Code(s): R07.9 - CHEST PAIN, UNSPECIFIED Qualifiers: Chest pain type: unspecified Qualified Code(s): R07.9 - Chest pain, unspecified (3) Dementia Code(s): F03.90 - UNSPECIFIED DEMENTIA WITHOUT BEHAVIORAL DISTURBANCE Qualifiers: Dementia type: unspecified type (4) Hyperlipidemia associated with type 2 diabetes mellitus Code(s): E11.69 - TYPE 2 DIABETES MELLITUS WITH OTHER SPECIFIED COMPLICATION; E78.5 - HYPERLIPIDEMIA, UNSPECIFIED (5) Hypertension Code(s): I10 - ESSENTIAL (PRIMARY) HYPERTENSION Qualifiers: Hypertension type: essential hypertension Qualified Code(s): I10 - Essential (primary) hypertension (6) Type 2 diabetes mellitus Code(s): E11.9 - TYPE 2 DIABETES MELLITUS WITHOUT COMPLICATIONS 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
--- NOTE | 2018-12-03 13:46 | PN ---
Physical Exam: SUBJECTIVE: Patient seen and examined at the bedside. laying in bed. in no acute distress. denies abdominal pain today. tolerating her diet. no nausea or vomiting. OBJECTIVE: discharge planning Vital Signs Period Temp Pulse Resp BP Sys/Solis Pulse Ox Last 24 Hr 97.4 F-98.4 F 51-99 18-20 121-153/53-77 96 GENERAL: The patient is awake, alert, episodes of confusion - denies pain. HEAD: Normal with no signs of trauma. EYES: PERRL, extraocular movements intact, sclera anicteric, conjunctiva clear. No ptosis. ENT: Ears normal, nares patent, oropharynx clear without exudates, moist mucous membranes. NECK: Trachea midline, full range of motion, supple. LUNGS: Breath sounds equal, clear to auscultation bilaterally, no wheezing HEART: nsr with bigeminy. rate controlled - prolonged qt ABDOMEN: soft, non tender, + bowel sounds EXTREMITIES: no edema. NEUROLOGICAL: Normal speech, gait not observed. PSYCH: Normal mood, normal affect. SKIN: Warm, dry, normal turgor, no rashes or lesions noted Laboratory Results - last 24 hr 12/02/18 12/02/18 12/02/18 17:05 18:00 21:42 POC Glucometer 118 146 Troponin I < 0.02 12/03/18 12/03/18 06:39 11:20 POC Glucometer 129 175 Troponin I Active Medications Generic Name Dose Route Start Last Admin Trade Name Freq PRN Reason Stop Dose Admin Acetaminophen 650 mg 12/01/18 17:23 Tylenol - PO Q6H PRN PAIN LEVEL 4 - 6 Aspirin 81 mg 11/29/18 10:00 12/03/18 10:06 Asa - PO 81 mg DAILY MÓNICA Administration Heparin Sodium (Porcine) 5,000 unit 11/29/18 10:00 12/03/18 10:05 Heparin - SQ 5,000 unit BID MÓNICA Administration Piperacillin Sod/Tazobactam 50 mls @ 100 mls/hr 12/02/18 14:00 12/03/18 11:00 Sod 3.375 gm/ Dextrose IVPB 100 mls/hr Q8H-IV MÓNICA Administration Protocol Insulin Aspart 1 vial 11/29/18 07:00 12/03/18 12:11 Novolog Vial Sliding Scale - SQ 2 units ACHS MÓNICA Administration Protocol Memantine 10 mg 03/17/19 10:00 12/03/18 10:08 Namenda - PO 10 mg BID MÓNICA Administration Metoprolol Succinate 25 mg 12/03/18 10:00 12/03/18 10:09 Toprol Xl - PO 25 mg DAILY MÓNICA Administration Morphine Sulfate 2 mg 11/28/18 23:18 12/02/18 21:44 Morphine Sulfate IVPUSH 2 mg Q4H PRN Administration PAIN LEVEL 6-10 Pantoprazole Sodium 20 mg 11/29/18 10:00 12/03/18 10:07 Protonix - PO 20 mg DAILY MÓNICA Administration Rosuvastatin Calcium 10 mg 11/29/18 22:00 12/02/18 21:45 Crestor - PO 10 mg HS MÓNICA Administration Thiamine HCl 100 mg 11/29/18 10:00 12/03/18 10:11 Vitamin B1 - PO 100 mg DAILY MÓNICA Administration ASSESSMENT/PLAN: Patient is a 78 year old female with a significant past medical history of abdominal pain most prominent of her left lower abdomen and was found to have acute diverticulitis. Imaging: Abdomen/Pelvis ct: findings consistent with acute diverticulitis of the sigmoid colon without abscess formation. GI: Abdominal pain, denies abdominal pain today. Diverticulitis per ct scan Abdomen soft, non tender, non distended. tolerating full liquid diet. On protonix daily on zosyn. consider transitioning to PO antibiotics. Card: Chest pain. resolved. troponin negative. echo reviewed ekg unchanged from 12/02/18,prolonged qt levaquin discontinued. zofran stopped Prolonged QT monitor and avoid medications that further prolong qt cardiology consulted and following Endocrine Diabetes on Novolg ac/hs. blood sugars controlled Neuro: Dementia On namenda Card: HLD. on crestor fen tolerating full liquids monitor electrolytes clears. advance per gi prophy SCDs heparin Visit type - Emergency Visit Emergency Visit: Yes ED Registration Date: 11/28/18 Care time: The patient presented to the Emergency Department on the above date and was hospitalized for further evaluation of their emergent condition. - New Patient This patient is new to me today: No - Critical Care Critical Care patient: No - Discharge Referral Referred to [facility] Med [facility] No
[2018-12-03 14:08] LABS: BASO % 0.5 % (0-2.0); EOS % 1.7 % (0-4.5); HEMATOCRIT 34.7 % (32.4-45.2); HEMOGLOBIN 12.1 GM/dL (10.7-15.3); LYMPH % 30.2 % (8-40); MCH 31.7 pg (25.7-33.7); MCHC 34.9 g/dl (32.0-36.0); MEAN CELL VOLUME 91.1 fl (80-96); MEAN PLT VOLUME 7.8 fl (7.5-11.1); NEUT % 62.6 % (42.8-82.8); PLATELET COUNT 253 K/MM3 (134-434); RBC 3.81 M/mm3 (3.60-5.2); RDW 13.6 % (11.6-15.6); WHITE BLOOD COUNT 5.6 K/mm3 (4.0-10.0)
[2018-12-03 14:37] LABS: ALK PHOS 54 U/L (45-117); ANION GAP 5 MMOL/L (8-16); BILIRUBIN,TOTAL 0.4 mg/dL (0.2-1); BLOOD UREA NITROGEN 6 mg/dL (7-18); CALCIUM 8.5 mg/dL (8.5-10.1); CHLORIDE 109 mmol/L (98-107); CO2 25 mmol/L (21-32); CREATININE 1.1 mg/dL (0.55-1.3); GLUCOSE,RANDOM 168 mg/dL (74-106); MAGNESIUM 2.2 mg/dL (1.8-2.4); POTASSIUM 4.1 mmol/L (3.5-5.1); SGOT/AST 26 U/L (15-37); SGPT/ALT 17 U/L (13-61); SODIUM 140 mmol/L (136-145); TOT PROT 6.5 g/dl (6.4-8.2)
[2018-12-03] MEDS: ROSUVASTATIN CA 10 MG TABLET (FP) PO SCH (22:21)
[2018-12-04] MEDS ORDERED: DEXTROSE 5%-WATER - 50 ML IVPB ONE ×3 (02:06→16:41)
[2018-12-04] MEDS ORDERED: PIPERACILLIN/TAZOBACTAM 3.375 GM VIAL IVPB ONE ×3 (02:06→16:41)
[2018-12-04] MEDS: PIPERACILLIN/TAZOB 3.375 GM 3.375 GM in DEXTROSE 5%-WATER - 50 ML IVPB SCH ×3 (02:20→17:33)
[2018-12-04] MEDS: INSULIN SLIDING SCALE (NOVOLOG) 1 VIAL SQ SCH ×4 (06:17→21:55)
[2018-12-04 08:53] LABS: BASO % 0.6 % (0-2.0); EOS % 2.3 % (0-4.5); HEMATOCRIT 32.8 % (32.4-45.2); HEMOGLOBIN 11.4 GM/dL (10.7-15.3); LYMPH % 32.8 % (8-40); MCH 31.1 pg (25.7-33.7); MCHC 34.8 g/dl (32.0-36.0); MEAN CELL VOLUME 89.3 fl (80-96); MEAN PLT VOLUME 7.6 fl (7.5-11.1); MONO % 5.8 % (3.8-10.2); NEUT % 58.5 % (42.8-82.8); PLATELET COUNT 250 K/MM3 (134-434); RBC 3.67 M/mm3 (3.60-5.2); RDW 13.7 % (11.6-15.6); WHITE BLOOD COUNT 5.7 K/mm3 (4.0-10.0)
[2018-12-04 09:15] LABS: ALK PHOS 54 U/L (45-117); ANION GAP 8 MMOL/L (8-16); BILIRUBIN,TOTAL 0.4 mg/dL (0.2-1); BLOOD UREA NITROGEN 6 mg/dL (7-18); CALCIUM 7.9 mg/dL (8.5-10.1); CHLORIDE 110 mmol/L (98-107); CO2 23 mmol/L (21-32); CREATININE 1.1 mg/dL (0.55-1.3); GLUCOSE,RANDOM 119 mg/dL (74-106); SGOT/AST 26 U/L (15-37); SGPT/ALT 17 U/L (13-61); SODIUM 141 mmol/L (136-145); TOT PROT 6.3 g/dl (6.4-8.2)
[2018-12-04] MEDS ORDERED: PT OWN MED DRAWER 7, Y5N ONE (09:51)
[2018-12-04] MEDS: metoPROLOL SUCCINATE 25 MG TAB.SR.24H (FP) PO SCH (10:10)
[2018-12-04] MEDS: THIAMINE HCL 100 MG TABLET (FP) PO SCH (10:10)
[2018-12-04] MEDS: PANTOPRAZOLE 20 MG TABLET (FP) PO SCH (10:10)
[2018-12-04] MEDS: MEMANTINE HCL 10 MG TABLET (FP) PO SCH ×2 (10:10→22:04)
[2018-12-04] MEDS: ASPIRIN 81 MG CHEWABLE TABLETS PO SCH (10:10)
[2018-12-04] MEDS: HEPARIN NA (PORCINE) 5,000 UNITS/ML 1ML VIAL SQ SCH ×2 (10:11→22:04)
--- NOTE | 2018-12-04 10:24 | PN ---
Progress Note, Physician History of Present Illness: No further atypical chest pain, LLQ discomfort also resolving, tolerating full liquid diet. - Current Medication List Current Medications: Active Medications Acetaminophen (Tylenol -) 650 mg PO Q6H PRN PRN Reason: PAIN LEVEL 4 - 6 Aspirin (Asa -) 81 mg PO DAILY [facility] Last Admin: 12/04/18 10:10 Dose: 81 mg Heparin Sodium (Porcine) (Heparin -) 5,000 unit SQ BID [facility] Last Admin: 12/04/18 10:11 Dose: 5,000 unit Piperacillin Sod/Tazobactam (Sod 3.375 gm/ Dextrose) 50 mls @ 100 mls/hr IVPB Q8H-IV [facility]; Protocol Last Admin: 12/04/18 10:10 Dose: 100 mls/hr Insulin Aspart (Novolog Vial Sliding Scale -) 1 vial SQ ACHS [facility]; Protocol Last Admin: 12/04/18 06:17 Dose: Not Given Memantine (Namenda -) 10 mg PO BID [facility] Last Admin: 12/04/18 10:10 Dose: 10 mg Metoprolol Succinate (Toprol Xl -) 25 mg PO DAILY [facility] Last Admin: 12/04/18 10:10 Dose: 25 mg Morphine Sulfate (Morphine Sulfate) 2 mg IVPUSH Q4H PRN PRN Reason: PAIN LEVEL 6-10 Last Admin: 12/02/18 21:44 Dose: 2 mg Pantoprazole Sodium (Protonix -) 20 mg PO DAILY [facility] Last Admin: 12/04/18 10:10 Dose: 20 mg Rosuvastatin Calcium (Crestor -) 10 mg PO HS [facility] Last Admin: 12/03/18 22:21 Dose: 10 mg Thiamine HCl (Vitamin B1 -) 100 mg PO DAILY [facility] Last Admin: 12/04/18 10:10 Dose: 100 mg - Objective Vital Signs: Vital Signs Temperature 97.9 F 12/04/18 10:00 Pulse Rate 48 L 12/04/18 10:00 Respiratory Rate 20 12/04/18 10:00 Blood Pressure 142/64 12/04/18 10:00 O2 Sat by Pulse Oximetry (%) 97 12/03/18 21:00 Constitutional: Yes: No Distress, Calm Neck: Yes: Supple Cardiovascular: Yes: Regular Rate and Rhythm Respiratory: Yes: Regular, Diminished Gastrointestinal: Yes: Soft, Hypoactive Bowel Sounds Edema: No Labs: CBC, BMP 12/04/18 07:16 12/04/18 07:16 Problem List - Problems (1) Diverticulitis Code(s): K57.92 - DVTRCLI OF INTEST, PART UNSP, W/O PERF OR ABSCESS W/O BLEED (2) Chest pain Code(s): R07.9 - CHEST PAIN, UNSPECIFIED Qualifiers: Chest pain type: unspecified Qualified Code(s): R07.9 - Chest pain, unspecified (3) Dementia Code(s): F03.90 - UNSPECIFIED DEMENTIA WITHOUT BEHAVIORAL DISTURBANCE Qualifiers: Dementia type: unspecified type (4) Hyperlipidemia associated with type 2 diabetes mellitus Code(s): E11.69 - TYPE 2 DIABETES MELLITUS WITH OTHER SPECIFIED COMPLICATION; E78.5 - HYPERLIPIDEMIA, UNSPECIFIED (5) Hypertension Code(s): I10 - ESSENTIAL (PRIMARY) HYPERTENSION Qualifiers: Hypertension type: essential hypertension Qualified Code(s): I10 - Essential (primary) hypertension (6) Type 2 diabetes mellitus Code(s): E11.9 - TYPE 2 DIABETES MELLITUS WITHOUT COMPLICATIONS Qualifiers: Diabetes mellitus residential insulin use: without residential use Diabetes mellitus complication status: without complication Qualified Code(s): E11.9 - Type 2 diabetes mellitus without complications Assessment/Plan 08/03/2018 Echo: Normal LV and RV size and fxn, abnl LV compliance, mod MR, TR, mild MA 10/04/2018: Arian Myoview: No ischemia, LVEF 57% CT scan of the chest dated 01/2018 revealed coronary artery calcification 1. Atypical chest pain syndrome 2. CAD with evidence of coronary artery calcification with negative MPI for ischemia 3. Diastolic LV dysfunction with clinical class 0 NYHA classification LV failure 4. HTN/HCVD 5. Type 2 DM not at goal control 6. Hyperlipidemia 7. Organic brain syndrome/dementia 8. COPD 9. CKD 10. Acute sigmoid diverticulitis with lower abdominal pain x 2 days and leucocytosis resolving 11. Prolonged QT resolving PLAN: 1. Complete abx course agree with change Levaquin/Flagyl to Zosyn and f/u QTc, ruled out for OR 2. Continue ASA 81 qd, Crestor 10qd, Toprol XL 25 qd as hemodynamics tolerate 3. Recommend the addition of ACEI or ARBS as hemodynamics tolerate now that renal fxn stable 4. Counselled smoking cessation and abstinence
--- NOTE | 2018-12-04 10:58 | EKG ---
Test Reason : Blood Pressure : / mmHG Vent. Rate : 058 BPM Atrial Rate : 047 BPM P-R Int : 120 ms QRS Dur : 086 ms QT Int : 492 ms P-R-T Axes : 053 032 049 degrees QTc Int : 482 ms SINUS BRADYCARDIA WITH PREMATURE ATRIAL COMPLEXES WHEN COMPARED WITH ECG OF 03-DEC-2018 09:37, NO SIGNIFICANT CHANGE WAS FOUND Confirmed by MASON AVILA MD ([id number]) on 12/04/2018 10:57:49 AM Referred By: FABIÁN VALENTE Confirmed By:MASON AVILA MD
--- NOTE | 2018-12-04 11:32 | PN ---
Physical Exam: SUBJECTIVE: Patient seen and examined at the bedside. laying in bed in no acute distress. feels well. only feels her belly is sore, but not pain. had a BM this morning. denies chest pain or shortness of breath OBJECTIVE: will advance diet. Vital Signs Period Temp Pulse Resp BP Sys/Solis Pulse Ox Last 24 Hr 97.9 F-98.7 F 48-86 20-20 110-142/50-70 97 GENERAL: The patient is awake, alert, episodes of confusion - denies pain. HEAD: Normal with no signs of trauma. EYES: PERRL, extraocular movements intact, sclera anicteric, conjunctiva clear. No ptosis. ENT: Ears normal, nares patent, oropharynx clear without exudates, moist mucous membranes. NECK: Trachea midline, full range of motion, supple. LUNGS: Breath sounds equal, clear to auscultation bilaterally, no wheezing HEART: NSR ABDOMEN: soft, non tender, + bowel sounds EXTREMITIES: no edema. NEUROLOGICAL: Normal speech, gait not observed. PSYCH: Normal mood, normal affect. SKIN: Warm, dry, normal turgor, no rashes or lesions noted Laboratory Results - last 24 hr 12/03/18 12/03/18 12/03/18 13:22 13:22 16:38 WBC 5.6 RBC 3.81 Hgb 12.1 Hct 34.7 MCV 91.1 MCH 31.7 MCHC 34.9 RDW 13.6 Plt Count 253 MPV 7.8 Absolute Neuts (auto) 3.5 Neutrophils % 62.6 Lymphocytes % 30.2 D Monocytes % 5.0 Eosinophils % 1.7 Basophils % 0.5 Nucleated RBC % 0 Sodium 140 Potassium 4.1 Chloride 109 H Carbon Dioxide 25 Anion Gap 5 L BUN 6 L Creatinine 1.1 Creat Clearance w eGFR 48.29 POC Glucometer 84 Random Glucose 168 H Calcium 8.5 Magnesium 2.2 Total Bilirubin 0.4 AST 26 ALT 17 Alkaline Phosphatase 54 Total Protein 6.5 Albumin 3.0 L 12/03/18 12/04/18 12/04/18 22:17 05:43 07:16 WBC 5.7 RBC 3.67 Hgb 11.4 Hct 32.8 MCV 89.3 MCH 31.1 MCHC 34.8 RDW 13.7 Plt Count 250 MPV 7.6 Absolute Neuts (auto) 3.3 Neutrophils % 58.5 Lymphocytes % 32.8 Monocytes % 5.8 Eosinophils % 2.3 Basophils % 0.6 Nucleated RBC % 0 Sodium Potassium Chloride Carbon Dioxide Anion Gap BUN Creatinine Creat Clearance w eGFR POC Glucometer 209 120 Random Glucose Calcium Magnesium Total Bilirubin AST ALT Alkaline Phosphatase Total Protein Albumin 12/04/18 07:16 WBC RBC Hgb Hct MCV MCH MCHC RDW Plt Count MPV Absolute Neuts (auto) Neutrophils % Lymphocytes % Monocytes % Eosinophils % Basophils % Nucleated RBC % Sodium 141 Potassium 4.0 Chloride 110 H Carbon Dioxide 23 Anion Gap 8 BUN 6 L Creatinine 1.1 Creat Clearance w eGFR 48.29 POC Glucometer Random Glucose 119 H Calcium 7.9 L Magnesium Total Bilirubin 0.4 AST 26 ALT 17 Alkaline Phosphatase 54 Total Protein 6.3 L Albumin 3.0 L Active Medications Generic Name Dose Route Start Last Admin Trade Name Freq PRN Reason Stop Dose Admin Acetaminophen 650 mg 12/01/18 17:23 Tylenol - PO Q6H PRN PAIN LEVEL 4 - 6 Aspirin 81 mg 11/29/18 10:00 12/04/18 10:10 Asa - PO 81 mg DAILY MÓNICA Administration Heparin Sodium (Porcine) 5,000 unit 11/29/18 10:00 12/04/18 10:11 Heparin - SQ 5,000 unit BID MÓNICA Administration Piperacillin Sod/Tazobactam 50 mls @ 100 mls/hr 12/02/18 14:00 12/04/18 10:10 Sod 3.375 gm/ Dextrose IVPB 100 mls/hr Q8H-IV MÓNICA Administration Protocol Insulin Aspart 1 vial 11/29/18 07:00 12/04/18 06:17 Novolog Vial Sliding Scale - SQ Not Given ACHS [facility] Protocol Memantine 10 mg 11/29/18 10:00 12/04/18 10:10 Namenda - PO 10 mg BID MÓNICA Administration Metoprolol Succinate 25 mg 12/03/18 10:00 12/04/18 10:10 Toprol Xl - PO 25 mg DAILY MÓNICA Administration Morphine Sulfate 2 mg 11/28/18 23:18 12/02/18 21:44 Morphine Sulfate IVPUSH 2 mg Q4H PRN Administration PAIN LEVEL 6-10 Pantoprazole Sodium 20 mg 11/29/18 10:00 12/04/18 10:10 Protonix - PO 20 mg DAILY MÓNICA Administration Rosuvastatin Calcium 10 mg 11/29/18 22:00 12/03/18 22:21 Crestor - PO 10 mg HS MÓNICA Administration Thiamine HCl 100 mg 11/29/18 10:00 12/04/18 10:10 Vitamin B1 - PO 100 mg DAILY MÓNICA Administration ASSESSMENT/PLAN: Patient is a 78 year old female with a significant past medical history of NIDDM , HLD, COPD, diverticulosis who presented to the ED with abdominal thorpe and was found to have acute diverticulitis. Imaging: Abdomen/Pelvis ct: findings consistent with acute diverticulitis of the sigmoid colon without abscess formation. GI: Abdominal pain, resolved Diverticulitis per ct scan Abdomen soft, non tender, non distended. tolerating full liquid diet, will advance to low fiber On protonix daily on zosyn. consider transitioning to PO antibiotics GI following. Card: Chest pain. resolved. troponin negative. echo reviewed ekg unchanged from 12/02/18,prolonged qt levaquin discontinued. zofran stopped Prolonged QT monitor and avoid medications that further prolong qt cardiology consulted and following Endocrine Diabetes on Novolg ac/hs. blood sugars controlled Neuro: Dementia On namenda Card: HLD. on crestor fen tolerating full liquids monitor electrolytes prophy SCDs heparin Visit type - Emergency Visit Emergency Visit: Yes ED Registration Date: 11/28/18 Care time: The patient presented to the Emergency Department on the above date and was hospitalized for further evaluation of their emergent condition. - New Patient This patient is new to me today: No - Critical Care Critical Care patient: No - Discharge Referral Referred to [facility] Med P.C.: No
--- NOTE | 2018-12-04 13:12 | PN ---
Progress Note, Physician History of Present Illness: continues to be tender having some dirrhoea - Current Medication List Current Medications: Active Medications Acetaminophen (Tylenol -) 650 mg PO Q6H PRN PRN Reason: PAIN LEVEL 4 - 6 Aspirin (Asa -) 81 mg PO DAILY [facility] Last Admin: 12/04/18 10:10 Dose: 81 mg Heparin Sodium (Porcine) (Heparin -) 5,000 unit SQ BID [facility] Last Admin: 12/04/18 10:11 Dose: 5,000 unit Piperacillin Sod/Tazobactam (Sod 3.375 gm/ Dextrose) 50 mls @ 100 mls/hr IVPB Q8H-IV [facility]; Protocol Last Admin: 12/04/18 10:10 Dose: 100 mls/hr Insulin Aspart (Novolog Vial Sliding Scale -) 1 vial SQ ACHS [facility]; Protocol Last Admin: 12/04/18 11:47 Dose: Not Given Memantine (Namenda -) 10 mg PO BID [facility] Last Admin: 12/04/18 10:10 Dose: 10 mg Metoprolol Succinate (Toprol Xl -) 25 mg PO DAILY [facility] Last Admin: 12/04/18 10:10 Dose: 25 mg Morphine Sulfate (Morphine Sulfate) 2 mg IVPUSH Q4H PRN PRN Reason: PAIN LEVEL 6-10 Last Admin: 12/02/18 21:44 Dose: 2 mg Pantoprazole Sodium (Protonix -) 20 mg PO DAILY [facility] Last Admin: 12/04/18 10:10 Dose: 20 mg Rosuvastatin Calcium (Crestor -) 10 mg PO HS [facility] Last Admin: 12/03/18 22:21 Dose: 10 mg Thiamine HCl (Vitamin B1 -) 100 mg PO DAILY [facility] Last Admin: 12/04/18 10:10 Dose: 100 mg - Objective Vital Signs: Vital Signs Temperature 97.9 F 12/04/18 10:00 Pulse Rate 48 L 12/04/18 10:00 Respiratory Rate 20 12/04/18 10:00 Blood Pressure 142/64 12/04/18 10:00 O2 Sat by Pulse Oximetry (%) 97 12/03/18 21:00 Constitutional: Yes: No Distress, Calm Cardiovascular: Yes: Regular Rate and Rhythm Respiratory: Yes: Regular, CTA Bilaterally Gastrointestinal: Yes: Hypoactive Bowel Sounds, Tenderness (left lower quadrant) Musculoskeletal: Yes: WNL Extremities: Yes: WNL Neurological: Yes: Alert, Oriented Psychiatric: Yes: Alert, Oriented Labs: CBC, BMP 12/04/18 07:16 12/04/18 07:16 Assessment/Plan Problem List - Problems (1) Diverticulitis Code(s): K57.92 - DVTRCLI OF INTEST, PART UNSP, W/O PERF OR ABSCESS W/O BLEED (2) Chest pain Code(s): R07.9 - CHEST PAIN, UNSPECIFIED Qualifiers: Chest pain type: unspecified Qualified Code(s): R07.9 - Chest pain, unspecified (3) Dementia Code(s): F03.90 - UNSPECIFIED DEMENTIA WITHOUT BEHAVIORAL DISTURBANCE Qualifiers: Dementia type: unspecified type (4) Hyperlipidemia associated with type 2 diabetes mellitus Code(s): E11.69 - TYPE 2 DIABETES MELLITUS WITH OTHER SPECIFIED COMPLICATION; E78.5 - HYPERLIPIDEMIA, UNSPECIFIED (5) Hypertension Code(s): I10 - ESSENTIAL (PRIMARY) HYPERTENSION Qualifiers: Hypertension type: essential hypertension Qualified Code(s): I10 - Essential (primary) hypertension (6) Type 2 diabetes mellitus Code(s): E11.9 - TYPE 2 DIABETES MELLITUS WITHOUT COMPLICATIONS Qualifiers: Diabetes mellitus custodial insulin use: without terminal operations manager use Diabetes mellitus complication status: without complication Qualified Code(s): E11.9 - Type 2 diabetes mellitus without complications plan continue abx patient still wiht quite a bit of pain
[2018-12-04] MEDS: ROSUVASTATIN CA 10 MG TABLET (FP) PO SCH (22:04)
[2018-12-05] MEDS ORDERED: PIPERACILLIN/TAZOBACTAM 3.375 GM VIAL IVPB ONE ×3 (01:11→16:03)
[2018-12-05] MEDS ORDERED: DEXTROSE 5%-WATER - 50 ML IVPB ONE ×3 (01:11→16:03)
[2018-12-05] MEDS: PIPERACILLIN/TAZOB 3.375 GM 3.375 GM in DEXTROSE 5%-WATER - 50 ML IVPB SCH ×3 (03:00→17:31)
[2018-12-05] MEDS: INSULIN SLIDING SCALE (NOVOLOG) 1 VIAL SQ SCH ×4 (06:21→22:10)
[2018-12-05] MEDS: THIAMINE HCL 100 MG TABLET (FP) PO SCH (09:06)
[2018-12-05] MEDS: metoPROLOL SUCCINATE 25 MG TAB.SR.24H (FP) PO SCH (09:07)
[2018-12-05] MEDS: PANTOPRAZOLE 20 MG TABLET (FP) PO SCH (09:07)
[2018-12-05] MEDS: HEPARIN NA (PORCINE) 5,000 UNITS/ML 1ML VIAL SQ SCH ×2 (09:07→22:10)
[2018-12-05] MEDS: ASPIRIN 81 MG CHEWABLE TABLETS PO SCH (09:07)
[2018-12-05] MEDS: MEMANTINE HCL 10 MG TABLET (FP) PO SCH ×2 (09:07→22:10)
--- NOTE | 2018-12-05 10:45 | PN ---
Physical Exam: SUBJECTIVE: Patient seen and examined at the bedside. states no pain prior to eating, but having some tenderness or RUQ on palpation. will downgrade her diet to full liquid and ask surgery to evaluate awaiting todays labs OBJECTIVE: Vital Signs Period Temp Pulse Resp BP Sys/Solis Pulse Ox Last 24 Hr 98.5 F-98.8 F 55-103 15-20 107-155/48-70 98 GENERAL: The patient is awake, alert, episodes of confusion - tenderness to right upper quadrant after meals. HEAD: Normal with no signs of trauma. EYES: PERRL, extraocular movements intact, sclera anicteric, conjunctiva clear. No ptosis. ENT: Ears normal, nares patent, oropharynx clear without exudates, moist mucous membranes. NECK: Trachea midline, full range of motion, supple. LUNGS: Breath sounds equal, clear to auscultation bilaterally, no wheezing HEART: NSR ABDOMEN: soft, ruq tender, + bowel sounds EXTREMITIES: no edema. NEUROLOGICAL: Normal speech, gait not observed. PSYCH: Normal mood, normal affect. SKIN: Warm, dry, normal turgor, no rashes or lesions noted Laboratory Results - last 24 hr 12/04/18 12/04/18 12/05/18 16:13 21:53 05:54 POC Glucometer 200 140 118 Active Medications Generic Name Dose Route Start Last Admin Trade Name Timothy PRN Reason Stop Dose Admin Acetaminophen 650 mg 12/01/18 17:23 Tylenol - PO Q6H PRN PAIN LEVEL 4 - 6 Aspirin 81 mg 11/29/18 10:00 12/05/18 09:07 Asa - PO 81 mg DAILY MÓNICA Administration Heparin Sodium (Porcine) 5,000 unit 11/29/18 10:00 12/05/18 09:07 Heparin - SQ 5,000 unit BID MÓNICA Administration Piperacillin Sod/Tazobactam 50 mls @ 100 mls/hr 12/02/18 14:00 12/05/18 09:06 Sod 3.375 gm/ Dextrose IVPB 100 mls/hr Q8H-IV MÓNICA Administration Protocol Insulin Aspart 1 vial 11/29/18 07:00 12/05/18 06:21 Novolog Vial Sliding Scale - SQ Not Given ACHS MÓNICA Protocol Memantine 10 mg 11/29/18 10:00 12/05/18 09:07 Namenda - PO 10 mg BID MÓNICA Administration Metoprolol Succinate 25 mg 12/03/18 10:00 12/05/18 09:07 Toprol Xl - PO 25 mg DAILY MÓNICA Administration Morphine Sulfate 2 mg 11/28/18 23:18 12/02/18 21:44 Morphine Sulfate IVPUSH 2 mg Q4H PRN Administration PAIN LEVEL 6-10 Pantoprazole Sodium 20 mg 11/29/18 10:00 12/05/18 09:07 Protonix - PO 20 mg DAILY MÓNICA Administration Rosuvastatin Calcium 10 mg 11/29/18 22:00 12/04/18 22:04 Crestor - PO 10 mg HS MÓNICA Administration Thiamine HCl 100 mg 11/29/18 10:00 12/05/18 09:06 Vitamin B1 - PO 100 mg DAILY MÓNICA Administration ASSESSMENT/PLAN: Patient is a 78 year old female with a significant past medical history of NIDDM , HLD, COPD, diverticulosis who presented to the ED with abdominal thorpe and was found to have acute diverticulitis. Imaging: Abdomen/Pelvis ct: findings consistent with acute diverticulitis of the sigmoid colon without abscess formation. GI: Abdominal pain. having some tenderness on right upper and lower quadrants on light palpation Abdomen soft, tender, non distended. + bowel sounds. no nausea or vomiting. Now having pain and tenderness after meals of RUQ. Will downgrade diet and ask surgery to evaluate On IV Zosyn Card: Chest pain. resolved. troponin negative. echo reviewed levaquin discontinued. zofran stopped Prolonged QT ekg today reviewed, monitor daily monitor and avoid medications that further prolong qt cardiology consulted and following Endocrine Diabetes on Novolg ac/hs. blood sugars controlled Neuro: Dementia On namenda Card: HLD. on crestor fen tolerating full liquids monitor electrolytes prophy SCDs heparin Visit type - Emergency Visit Emergency Visit: Yes ED Registration Date: 11/28/18 Care time: The patient presented to the Emergency Department on the above date and was hospitalized for further evaluation of their emergent condition. - New Patient This patient is new to me today: No - Critical Care Critical Care patient: No - Discharge Referral Referred to [facility] Med P.C.: No
[2018-12-05 11:17] LABS: BASO % 0.5 % (0-2.0); HEMATOCRIT 36.2 % (32.4-45.2); HEMOGLOBIN 12.6 GM/dL (10.7-15.3); LYMPH % 28.4 % (8-40); MCH 31.6 pg (25.7-33.7); MCHC 34.7 g/dl (32.0-36.0); MEAN CELL VOLUME 91.1 fl (80-96); MEAN PLT VOLUME 7.6 fl (7.5-11.1); MONO % 6.8 % (3.8-10.2); NEUT % 62.3 % (42.8-82.8); PLATELET COUNT 248 K/MM3 (134-434); RBC 3.98 M/mm3 (3.60-5.2); RDW 13.8 % (11.6-15.6); WHITE BLOOD COUNT 6.8 K/mm3 (4.0-10.0)
--- NOTE | 2018-12-05 11:35 | CONSULT ---
- Consultation REQUESTING PROVIDER: SANAZ Marino CONSULT REQUEST: We have been asked to surgically evaluate this patient for management of acute sigmoid diverticulitis. 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 PMHx: NIDDM PSHx: hysterectomy/ortho elbow surgery Home Medications Medication Instructions Recorded Aspirin [ASA -] 81 mg PO DAILY 09/13/16 Henry/D3/Mag11/Zinc/Opinion Polls Survey Worker/[place]/Bor 1 each PO BID 09/13/16 [Caltrate 600+D Plus Tablet] Memantine HCl [Namenda -] 10 mg PO BID 09/13/16 Rosuvastatin [Crestor -] 10 mg PO DAILY 09/13/16 Metformin HCl [Glucophage] 1,000 mg PO DAILY 02/20/18 Ibandronate Sodium [Boniva] 3 mg IV MO 04/13/18 Thiamine Mononitrate [Vitamin B-1] 100 mg PO DAILY 04/13/18 Pantoprazole Sodium [Protonix -] 20 mg PO DAILY #30 tablet.ec 08/04/18 Multivit-Min/FA/Lycopen/Lutein 1 each PO DAILY 10/02/18 [Centrum Silver Tablet] Ondansetron [Zofran Odt -] 4 mg SL BID PRN 10/13/18 metFORMIN HCL [Metformin HCl] 500 mg PO HS 10/13/18 Amoxicillin/Potassium Clav 1 each PO BID #14 tablet 11/30/18 [Augmentin 875-125 Tablet] Allergies Allergy/AdvReac Type Severity Reaction Status Date / Time No Known Allergies Allergy Verified 11/28/18 17:17 PHYSICAL EXAM: GENERAL: Awake, alert, and fully oriented, in no acute distress. HEAD: Normal with no signs of trauma. EYES: PERRL, sclera anicteric, conjunctiva clear. NECK: Normal ROM, supple without lymphadenopathy, JVD, or masses. ABDOMEN: Soft, nontender, not distended, normoactive bowel sounds, no guarding, no rebound, no masses. No organomegaly. MUSCULOSKELETAL: Normal ROM at all joints. No bony deformities or tenderness. No CVA tenderness. UPPER EXTREMITIES: 2+ pulses, warm, well-perfused. No cyanosis. Cap refill <2 seconds. No peripheral edema. LOWER EXTREMITIES: 2+ pulses, warm, well-perfused. No calf tenderness. No peripheral edema. NEUROLOGICAL: Normal speech, gait not observed. PSYCH: Cooperative. Good eye contact. Appropriate mood and affect. SKIN: Warm, dry, normal turgor, no rashes or lesions noted. Vital Signs Temperature 98.8 F 12/05/18 07:53 Pulse Rate 64 12/05/18 07:53 Respiratory Rate 15 12/05/18 07:53 Blood Pressure 155/70 12/05/18 07:53 O2 Sat by Pulse Oximetry (%) 98 12/04/18 21:00 Lab Results WBC 5.7 K/mm3 (4.0-10.0) 12/04/18 07:16 RBC 3.67 M/mm3 (3.60-5.2) 12/04/18 07:16 Hgb 11.4 GM/dL (10.7-15.3) 12/04/18 07:16 Hct 32.8 % (32.4-45.2) 12/04/18 07:16 MCV 89.3 fl (80-96) 12/04/18 07:16 MCHC 34.8 g/dl (32.0-36.0) 12/04/18 07:16 RDW 13.7 % (11.6-15.6) 12/04/18 07:16 Plt Count 250 K/MM3 (134-434) 12/04/18 07:16 Sodium 141 mmol/L (136-145) 12/04/18 07:16 Potassium 4.0 mmol/L (3.5-5.1) 12/04/18 07:16 Chloride 110 mmol/L (98-107) H 12/04/18 07:16 Carbon Dioxide 23 mmol/L (21-32) 12/04/18 07:16 Anion Gap 8 MMOL/L (8-16) 12/04/18 07:16 BUN 6 mg/dL (7-18) L 12/04/18 07:16 Creatinine 1.1 mg/dL (0.55-1.3) 12/04/18 07:16 Random Glucose 119 mg/dL (74-106) H 12/04/18 07:16 Calcium 7.9 mg/dL (8.5-10.1) L 12/04/18 07:16 IMP: resolving acute uncomplicated diverticulitis; recurrent PLAN: Full liquid diet; continue present tx.; repeat CT scan a/p and will f/u. Anticipate she will have full resolution w/o operative intervention. Gordy Santa MD FACS
[2018-12-05 11:43] LABS: ALBUMIN 3.1 g/dl (3.4-5.0); ALK PHOS 55 U/L (45-117); ANION GAP 6 MMOL/L (8-16); BILIRUBIN,TOTAL 0.6 mg/dL (0.2-1); BLOOD UREA NITROGEN 7 mg/dL (7-18); CALCIUM 8.8 mg/dL (8.5-10.1); CHLORIDE 109 mmol/L (98-107); CO2 24 mmol/L (21-32); CREATININE 1.2 mg/dL (0.55-1.3); GLUCOSE,RANDOM 172 mg/dL (74-106); POTASSIUM 3.9 mmol/L (3.5-5.1); SGOT/AST 27 U/L (15-37); SGPT/ALT 19 U/L (13-61); SODIUM 139 mmol/L (136-145); TOT PROT 6.6 g/dl (6.4-8.2)
--- NOTE | 2018-12-05 15:33 | PN ---
Progress Note, Physician History of Present Illness: improving pain better had a bm but better - Current Medication List Current Medications: Active Medications Acetaminophen (Tylenol -) 650 mg PO Q6H PRN PRN Reason: PAIN LEVEL 4 - 6 Aspirin (Asa -) 81 mg PO DAILY [facility] Last Admin: 12/05/18 09:07 Dose: 81 mg Heparin Sodium (Porcine) (Heparin -) 5,000 unit SQ BID [facility] Last Admin: 12/05/18 09:07 Dose: 5,000 unit Piperacillin Sod/Tazobactam (Sod 3.375 gm/ Dextrose) 50 mls @ 100 mls/hr IVPB Q8H-IV [facility]; Protocol Last Admin: 12/05/18 09:06 Dose: 100 mls/hr Insulin Aspart (Novolog Vial Sliding Scale -) 1 vial SQ ACHS [facility]; Protocol Last Admin: 12/05/18 11:49 Dose: 2 units Memantine (Namenda -) 10 mg PO BID [facility] Last Admin: 12/05/18 09:07 Dose: 10 mg Metoprolol Succinate (Toprol Xl -) 25 mg PO DAILY [facility] Last Admin: 12/05/18 09:07 Dose: 25 mg Morphine Sulfate (Morphine Sulfate) 2 mg IVPUSH Q4H PRN PRN Reason: PAIN LEVEL 6-10 Last Admin: 12/02/18 21:44 Dose: 2 mg Pantoprazole Sodium (Protonix -) 20 mg PO DAILY [facility] Last Admin: 12/05/18 09:07 Dose: 20 mg Rosuvastatin Calcium (Crestor -) 10 mg PO HS [facility] Last Admin: 12/04/18 22:04 Dose: 10 mg Thiamine HCl (Vitamin B1 -) 100 mg PO DAILY [facility] Last Admin: 12/05/18 09:06 Dose: 100 mg - Objective Vital Signs: Vital Signs Temperature 98.3 F 12/05/18 14:57 Pulse Rate 90 12/05/18 14:57 Respiratory Rate 18 12/05/18 14:57 Blood Pressure 145/61 12/05/18 14:57 O2 Sat by Pulse Oximetry (%) 98 12/05/18 09:00 Constitutional: Yes: Calm, Mild Distress Cardiovascular: Yes: Regular Rate and Rhythm Respiratory: Yes: Regular, CTA Bilaterally Gastrointestinal: Yes: Normal Bowel Sounds, Soft, Tenderness Musculoskeletal: Yes: WNL Extremities: Yes: WNL Neurological: Yes: Alert, Oriented Psychiatric: Yes: Alert, Oriented Labs: CBC, BMP 12/05/18 10:50 12/05/18 10:50 Assessment/Plan Problem List - Problems (1) Diverticulitis Code(s): K57.92 - DVTRCLI OF INTEST, PART UNSP, W/O PERF OR ABSCESS W/O BLEED (2) Chest pain Code(s): R07.9 - CHEST PAIN, UNSPECIFIED Qualifiers: Chest pain type: unspecified Qualified Code(s): R07.9 - Chest pain, unspecified (3) Dementia Code(s): F03.90 - UNSPECIFIED DEMENTIA WITHOUT BEHAVIORAL DISTURBANCE Qualifiers: Dementia type: unspecified type (4) Hyperlipidemia associated with type 2 diabetes mellitus Code(s): E11.69 - TYPE 2 DIABETES MELLITUS WITH OTHER SPECIFIED COMPLICATION; E78.5 - HYPERLIPIDEMIA, UNSPECIFIED (5) Hypertension Code(s): I10 - ESSENTIAL (PRIMARY) HYPERTENSION Qualifiers: Hypertension type: essential hypertension Qualified Code(s): I10 - Essential (primary) hypertension (6) Type 2 diabetes mellitus Code(s): E11.9 - TYPE 2 DIABETES MELLITUS WITHOUT COMPLICATIONS Qualifiers: Diabetes mellitus termite control technician insulin use: without termite control technician use Diabetes mellitus complication status: without complication Qualified Code(s): E11.9 - Type 2 diabetes mellitus without complications plan continue abx patient still wiht quite a bit of pain continue abx diet as tolerated
--- NOTE | 2018-12-05 16:16 | PN ---
Progress Note (short form) - Note Progress Note: Chief Complaint: Events noted, notes reviewed, abdominal discomfort persists but improved, denies any chest pain or dyspnea History of Present Illness: Seen and examined. Events noted, notes reviewed, abdominal discomfort persists but improved, denies any chest pain or dyspnea 08/03/2018 Echo: Normal LV and RV size and fxn, abnl LV compliance, mod MR, TR, mild [place] 10/04/2018: Lexiscan Myoview: No ischemia, LVEF 57% CT scan of the chest dated 01/2018 revealed coronary artery calcification - Current Medication List Current Medications Acetaminophen (Tylenol -) 650 mg PO Q6H PRN PRN Reason: PAIN LEVEL 4 - 6 Aspirin (Asa -) 81 mg PO DAILY [facility] Last Admin: 12/05/18 09:07 Dose: 81 mg Heparin Sodium (Porcine) (Heparin -) 5,000 unit SQ BID [facility] Last Admin: 12/05/18 09:07 Dose: 5,000 unit Piperacillin Sod/Tazobactam (Sod 3.375 gm/ Dextrose) 50 mls @ 100 mls/hr IVPB Q8H-IV MÓNICA; Protocol Last Admin: 12/05/18 09:06 Dose: 100 mls/hr Insulin Aspart (Novolog Vial Sliding Scale -) 1 vial SQ ACHS [facility]; Protocol Last Admin: 12/05/18 11:49 Dose: 2 units Memantine (Namenda -) 10 mg PO BID [facility] Last Admin: 12/05/18 09:07 Dose: 10 mg Metoprolol Succinate (Toprol Xl -) 25 mg PO DAILY [facility] Last Admin: 12/05/18 09:07 Dose: 25 mg Morphine Sulfate (Morphine Sulfate) 2 mg IVPUSH Q4H PRN PRN Reason: PAIN LEVEL 6-10 Last Admin: 12/02/18 21:44 Dose: 2 mg Pantoprazole Sodium (Protonix -) 20 mg PO DAILY [facility] Last Admin: 12/05/18 09:07 Dose: 20 mg Rosuvastatin Calcium (Crestor -) 10 mg PO HS [facility] Last Admin: 12/04/18 22:04 Dose: 10 mg Thiamine HCl (Vitamin B1 -) 100 mg PO DAILY [facility] Last Admin: 12/05/18 09:06 Dose: 100 mg - Objective Vital Signs: Last Vital Signs Temp Pulse Resp BP Pulse Ox 98.3 F 90 18 145/61 98 12/05/18 14:57 12/05/18 14:57 12/05/18 14:57 12/05/18 14:57 12/05/18 09:00 Intake & Output 12/02/18 12/03/18 12/04/18 12/05/18 23:59 23:59 23:59 23:59 Intake Total 2320 1900 1125 475 Balance 2320 1900 1125 475 Neck: Supple Negative JVD No Bruit Cardiovascular: S1 S2 Regular Rate Rhythm Respiratory: Diminished Breath Sounds at the Bases Bilaterally Gastrointestinal: Soft Benign Normal Bowel Sounds Ext: Negative Edema Labs: CBC, BMP 12/05/18 10:50 12/05/18 10:50 Hepatic Panel Total Bilirubin 0.6 mg/dL (0.2-1) 12/05/18 10:50 AST 27 U/L (15-37) 12/05/18 10:50 ALT 19 U/L (13-61) 12/05/18 10:50 Alkaline Phosphatase 55 U/L (45-117) 12/05/18 10:50 Albumin 3.1 g/dl (3.4-5.0) L 12/05/18 10:50 Assessment/Plan ASSESSMENT: 1. Atypical chest pain syndrome 2. CAD with evidence of coronary artery calcification with negative MPI for ischemia angina pectoris 3. Diastolic LV dysfunction with clinical class 0 NYHA classification LV failure 4. HTN/HCVD 5. DM 6. Hyperlipidemia 7. Organic brain syndrome/dementia 8. COPD 9. CKD 10. Acute sigmoid diverticulitis, resolving 11. Prolonged QT, resolving PLAN: 1. Antibiotics as per the primary team 2. Continue Toprol XL 3. Continue restor 4. Continue ASA 5. Recommend the addition of ACEI or ARBS, hemodynamics permitting provided renal function at baseline 6. Counselled smoking cessation and abstinence Iona Khan MD
--- NOTE | 2018-12-05 17:03 | EKG ---
Test Reason : Blood Pressure : / mmHG Vent. Rate : 055 BPM Atrial Rate : 055 BPM P-R Int : 128 ms QRS Dur : 088 ms QT Int : 490 ms P-R-T Axes : 048 038 047 degrees QTc Int : 468 ms SINUS BRADYCARDIA WITH PREMATURE ATRIAL COMPLEXES NONSPECIFIC T WAVE ABNORMALITY ABNORMAL ECG WHEN COMPARED WITH ECG OF 04-DEC-2018 08:30, NO SIGNIFICANT CHANGE WAS FOUND Confirmed by VANDANA CARMEN, LEIGHA ([id number]) on 12/05/2018 5:03:09 PM Referred By: Seun LEONARDO Confirmed By:LEIGHA ROSS MD
[2018-12-05] MEDS: ROSUVASTATIN CA 10 MG TABLET (FP) PO SCH (22:10)
[2018-12-06] MEDS ORDERED: DEXTROSE 5%-WATER - 50 ML IVPB ONE ×3 (02:09→16:48)
[2018-12-06] MEDS ORDERED: PIPERACILLIN/TAZOBACTAM 3.375 GM VIAL IVPB ONE ×3 (02:09→16:47)
[2018-12-06] MEDS: PIPERACILLIN/TAZOB 3.375 GM 3.375 GM in DEXTROSE 5%-WATER - 50 ML IVPB SCH ×3 (02:12→17:16)
[2018-12-06] MEDS: INSULIN SLIDING SCALE (NOVOLOG) 1 VIAL SQ SCH ×4 (06:20→21:51)
[2018-12-06 08:41] LABS: BASO % 0.6 % (0-2.0); EOS % 2.5 % (0-4.5); HEMATOCRIT 33.5 % (32.4-45.2); HEMOGLOBIN 11.8 GM/dL (10.7-15.3); LYMPH % 37.6 % (8-40); MCH 31.1 pg (25.7-33.7); MCHC 35.1 g/dl (32.0-36.0); MEAN CELL VOLUME 88.8 fl (80-96); MEAN PLT VOLUME 7.7 fl (7.5-11.1); MONO % 5.9 % (3.8-10.2); NEUT % 53.4 % (42.8-82.8); PLATELET COUNT 249 K/MM3 (134-434); RBC 3.77 M/mm3 (3.60-5.2); RDW 14.1 % (11.6-15.6); WHITE BLOOD COUNT 5.9 K/mm3 (4.0-10.0)
[2018-12-06 08:51] LABS: ALBUMIN 3.1 g/dl (3.4-5.0); ALK PHOS 55 U/L (45-117); ANION GAP 6 MMOL/L (8-16); BILIRUBIN,TOTAL 0.4 mg/dL (0.2-1); BLOOD UREA NITROGEN 6 mg/dL (7-18); CALCIUM 8.9 mg/dL (8.5-10.1); CHLORIDE 111 mmol/L (98-107); CO2 24 mmol/L (21-32); GLUCOSE,RANDOM 133 mg/dL (74-106); POTASSIUM 3.9 mmol/L (3.5-5.1); SGOT/AST 20 U/L (15-37); SGPT/ALT 18 U/L (13-61); SODIUM 141 mmol/L (136-145); TOT PROT 6.5 g/dl (6.4-8.2)
--- NOTE | 2018-12-06 09:21 | PN ---
Progress Note (short form) - Note Progress Note: Attending Surgeon No c/o; tolerating diet VSS AF abdo-soft; non tender WBC-nl F/U Ct reviewed; limited; official report pending IMP: improved PLAN: Advance diet as tolerated; d/c planning and outpatient GI f/u. Gordy Santa MD FACS
[2018-12-06] MEDS: THIAMINE HCL 100 MG TABLET (FP) PO SCH (10:07)
[2018-12-06] MEDS: metoPROLOL SUCCINATE 25 MG TAB.SR.24H (FP) PO SCH (10:07)
[2018-12-06] MEDS: PANTOPRAZOLE 20 MG TABLET (FP) PO SCH (10:08)
[2018-12-06] MEDS: MEMANTINE HCL 10 MG TABLET (FP) PO SCH ×2 (10:08→21:52)
[2018-12-06] MEDS: HEPARIN NA (PORCINE) 5,000 UNITS/ML 1ML VIAL SQ SCH ×2 (10:08→21:51)
[2018-12-06] MEDS: ASPIRIN 81 MG CHEWABLE TABLETS PO SCH (10:08)
--- NOTE | 2018-12-06 13:29 | PN ---
Progress Note, Physician History of Present Illness: patient stable pain much better - Current Medication List Current Medications: Active Medications Acetaminophen (Tylenol -) 650 mg PO Q6H PRN PRN Reason: PAIN LEVEL 4 - 6 Aspirin (Asa -) 81 mg PO DAILY [facility] Last Admin: 12/06/18 10:08 Dose: 81 mg Heparin Sodium (Porcine) (Heparin -) 5,000 unit SQ BID [facility] Last Admin: 12/06/18 10:08 Dose: 5,000 unit Piperacillin Sod/Tazobactam (Sod 3.375 gm/ Dextrose) 50 mls @ 100 mls/hr IVPB Q8H-IV [facility]; Protocol Last Admin: 12/06/18 10:08 Dose: 100 mls/hr Insulin Aspart (Novolog Vial Sliding Scale -) 1 vial SQ ACHS [facility]; Protocol Last Admin: 12/06/18 11:32 Dose: Not Given Memantine (Namenda -) 10 mg PO BID [facility] Last Admin: 12/06/18 10:08 Dose: 10 mg Metoprolol Succinate (Toprol Xl -) 25 mg PO DAILY [facility] Last Admin: 12/06/18 10:07 Dose: 25 mg Morphine Sulfate (Morphine Sulfate) 2 mg IVPUSH Q4H PRN PRN Reason: PAIN LEVEL 6-10 Last Admin: 12/02/18 21:44 Dose: 2 mg Pantoprazole Sodium (Protonix -) 20 mg PO DAILY [facility] Last Admin: 12/06/18 10:08 Dose: 20 mg Rosuvastatin Calcium (Crestor -) 10 mg PO HS [facility] Last Admin: 12/05/18 22:10 Dose: 10 mg Thiamine HCl (Vitamin B1 -) 100 mg PO DAILY [facility] Last Admin: 12/06/18 10:07 Dose: 100 mg - Objective Vital Signs: Vital Signs Temperature 98.3 F 12/06/18 08:04 Pulse Rate 60 12/06/18 08:04 Respiratory Rate 15 12/06/18 08:04 Blood Pressure 136/70 12/06/18 08:04 O2 Sat by Pulse Oximetry (%) 98 12/06/18 09:00 Constitutional: Yes: No Distress, Calm Cardiovascular: Yes: Regular Rate and Rhythm Respiratory: Yes: Regular, CTA Bilaterally Gastrointestinal: Yes: Normal Bowel Sounds, Soft, Tenderness (rlq) Musculoskeletal: Yes: WNL Extremities: Yes: WNL Neurological: Yes: Alert, Oriented Psychiatric: Yes: Alert, Oriented Labs: CBC, BMP 12/06/18 07:30 12/06/18 07:30 Assessment/Plan Problem List - Problems (1) Diverticulitis Code(s): K57.92 - DVTRCLI OF INTEST, PART UNSP, W/O PERF OR ABSCESS W/O BLEED (2) Chest pain Code(s): R07.9 - CHEST PAIN, UNSPECIFIED Qualifiers: Chest pain type: unspecified Qualified Code(s): R07.9 - Chest pain, unspecified (3) Dementia Code(s): F03.90 - UNSPECIFIED DEMENTIA WITHOUT BEHAVIORAL DISTURBANCE Qualifiers: Dementia type: unspecified type (4) Hyperlipidemia associated with type 2 diabetes mellitus Code(s): E11.69 - TYPE 2 DIABETES MELLITUS WITH OTHER SPECIFIED COMPLICATION; E78.5 - HYPERLIPIDEMIA, UNSPECIFIED (5) Hypertension Code(s): I10 - ESSENTIAL (PRIMARY) HYPERTENSION Qualifiers: Hypertension type: essential hypertension Qualified Code(s): I10 - Essential (primary) hypertension (6) Type 2 diabetes mellitus Code(s): E11.9 - TYPE 2 DIABETES MELLITUS WITHOUT COMPLICATIONS Qualifiers: Diabetes mellitus longterm insulin use: without terminal manager use Diabetes mellitus complication status: without complication Qualified Code(s): E11.9 - Type 2 diabetes mellitus without complications plan continue abx pain improving will change to oral tomorrow rest as per the team
--- NOTE | 2018-12-06 13:37 | PN ---
Progress Note (short form) - Note Progress Note: Chief Complaint: Events noted, notes reviewed, abdominal discomfort improved, complaining of chest wall tenderness, denies any dyspnea History of Present Illness: Seen and examined. Events noted, notes reviewed, abdominal discomfort improved, complaining of chest wall tenderness, denies any dyspnea 08/03/2018 Echo: Normal LV and RV size and fxn, abnl LV compliance, mod MR, TR, mild CT 10/04/2018: Lexiscan Myoview: No ischemia, LVEF 57% CT scan of the chest dated 01/2018 revealed coronary artery calcification - Current Medication List Current Medications Acetaminophen (Tylenol -) 650 mg PO Q6H PRN PRN Reason: PAIN LEVEL 4 - 6 Aspirin (Asa -) 81 mg PO DAILY [facility] Last Admin: 12/06/18 10:08 Dose: 81 mg Heparin Sodium (Porcine) (Heparin -) 5,000 unit SQ BID [facility] Last Admin: 12/06/18 10:08 Dose: 5,000 unit Piperacillin Sod/Tazobactam (Sod 3.375 gm/ Dextrose) 50 mls @ 100 mls/hr IVPB Q8H-IV [facility]; Protocol Last Admin: 12/06/18 10:08 Dose: 100 mls/hr Insulin Aspart (Novolog Vial Sliding Scale -) 1 vial SQ ACHS [facility]; Protocol Last Admin: 12/06/18 11:32 Dose: Not Given Memantine (Namenda -) 10 mg PO BID [facility] Last Admin: 12/06/18 10:08 Dose: 10 mg Metoprolol Succinate (Toprol Xl -) 25 mg PO DAILY [facility] Last Admin: 12/06/18 10:07 Dose: 25 mg Morphine Sulfate (Morphine Sulfate) 2 mg IVPUSH Q4H PRN PRN Reason: PAIN LEVEL 6-10 Last Admin: 12/02/18 21:44 Dose: 2 mg Pantoprazole Sodium (Protonix -) 20 mg PO DAILY [facility] Last Admin: 12/06/18 10:08 Dose: 20 mg Rosuvastatin Calcium (Crestor -) 10 mg PO HS [facility] Last Admin: 12/05/18 22:10 Dose: 10 mg Thiamine HCl (Vitamin B1 -) 100 mg PO DAILY [facility] Last Admin: 12/06/18 10:07 Dose: 100 mg - Objective Vital Signs: Last Vital Signs Temp Pulse Resp BP Pulse Ox 98.3 F 60 15 136/70 98 12/06/18 08:04 12/06/18 08:04 12/06/18 08:04 12/06/18 08:04 12/06/18 09:00 Intake & Output 12/03/18 12/04/18 12/05/18 12/06/18 23:59 23:59 23:59 23:59 Intake Total 1900 1125 725 350 Balance 1900 1125 725 350 Neck: Supple Negative JVD No Bruit Cardiovascular: S1 S2 Regular Rate Rhythm Respiratory: Diminished Breath Sounds at the Bases Bilaterally Gastrointestinal: Soft Benign Normal Bowel Sounds Ext: Negative Edema Labs: CBC, BMP 12/06/18 07:30 12/06/18 07:30 Assessment/Plan ASSESSMENT: 1. Atypical chest pain syndrome 2. CAD with evidence of coronary artery calcification with negative MPI for ischemia angina pectoris 3. Diastolic LV dysfunction with clinical class 0 NYHA classification LV failure 4. HTN/HCVD 5. DM 6. Hyperlipidemia 7. Organic brain syndrome/dementia 8. COPD 9. CKD 10. Acute sigmoid diverticulitis, resolving 11. Prolonged QT, resolving PLAN: 1. Antibiotics as per the primary team 2. Continue Toprol XL 3. Continue Crestor 4. Continue ASA 5. As outlined recommend the addition of ACEI or ARBS, hemodynamics permitting provided renal function at baseline 6. Counselled smoking cessation and abstinence Iona Khan MD
[2018-12-06] MEDS ORDERED: INSULIN (NOVOLOG) ASPART 100 UNITS/ML 10ML VIAL ONE (17:25)
--- NOTE | 2018-12-06 21:35 | PN ---
Physical Exam: SUBJECTIVE: Patient seen and examined at the bedside. no further pain or abdominal tenderness. OBJECTIVE: advanced diet to low fiber Vital Signs Period Temp Pulse Resp BP Sys/Solis Pulse Ox Last 24 Hr 98.3 F-99.3 F 48-90 14-15 108-137/50-75 98-98 GENERAL: The patient is awake, alert, episodes of confusion HEAD: Normal with no signs of trauma. EYES: PERRL, extraocular movements intact, sclera anicteric, conjunctiva clear. No ptosis. ENT: Ears normal, nares patent, oropharynx clear without exudates, moist mucous membranes. NECK: Trachea midline, full range of motion, supple. LUNGS: Breath sounds equal, clear to auscultation bilaterally, no wheezing HEART: NSR ABDOMEN: soft, ruq non tender, + bowel sounds EXTREMITIES: no edema. NEUROLOGICAL: Normal speech, gait steady PSYCH: Normal mood, normal affect. SKIN: Warm, dry, normal turgor, no rashes or lesions noted Laboratory Results - last 24 hr 12/05/18 12/06/18 12/06/18 22:09 05:41 07:30 WBC 5.9 RBC 3.77 Hgb 11.8 Hct 33.5 MCV 88.8 MCH 31.1 MCHC 35.1 RDW 14.1 Plt Count 249 MPV 7.7 Absolute Neuts (auto) 3.2 Neutrophils % 53.4 Lymphocytes % 37.6 D Monocytes % 5.9 Eosinophils % 2.5 Basophils % 0.6 Nucleated RBC % 0 Sodium Potassium Chloride Carbon Dioxide Anion Gap BUN Creatinine Creat Clearance w eGFR POC Glucometer 123 134 Random Glucose Calcium Total Bilirubin AST ALT Alkaline Phosphatase Total Protein Albumin 12/06/18 12/06/18 12/06/18 07:30 11:25 16:01 WBC RBC Hgb Hct MCV MCH MCHC RDW Plt Count MPV Absolute Neuts (auto) Neutrophils % Lymphocytes % Monocytes % Eosinophils % Basophils % Nucleated RBC % Sodium 141 Potassium 3.9 Chloride 111 H Carbon Dioxide 24 Anion Gap 6 L BUN 6 L Creatinine 1.0 Creat Clearance w eGFR 53.91 POC Glucometer 148 156 Random Glucose 133 H Calcium 8.9 Total Bilirubin 0.4 AST 20 ALT 18 Alkaline Phosphatase 55 Total Protein 6.5 Albumin 3.1 L Active Medications Generic Name Dose Route Start Last Admin Trade Name Freq PRN Reason Stop Dose Admin Acetaminophen 650 mg 12/01/18 17:23 Tylenol - PO Q6H PRN PAIN LEVEL 4 - 6 Aspirin 81 mg 11/29/18 10:00 12/06/18 10:08 Asa - PO 81 mg DAILY [facility] Administration Heparin Sodium (Porcine) 5,000 unit 11/29/18 10:00 12/06/18 10:08 Heparin - SQ 5,000 unit BID [facility]ICA Administration Piperacillin Sod/Tazobactam 50 mls @ 100 mls/hr 12/02/18 14:00 12/06/18 17:16 Sod 3.375 gm/ Dextrose IVPB 100 mls/hr Q8H-IV [facility]ICA Administration Protocol Insulin Aspart 1 vial 11/29/18 07:00 12/06/18 17:26 Novolog Vial Sliding Scale - SQ 2 units ACHS [facility] Administration Protocol Memantine 10 mg 11/29/18 10:00 12/06/18 10:08 Namenda - PO 10 mg BID [facility] Administration Metoprolol Succinate 25 mg 12/03/18 10:00 12/06/18 10:07 Toprol Xl - PO 25 mg DAILY [facility] Administration Morphine Sulfate 2 mg 11/28/18 23:18 12/02/18 21:44 Morphine Sulfate IVPUSH 2 mg Q4H PRN Administration PAIN LEVEL 6-10 Pantoprazole Sodium 20 mg 11/29/18 10:00 12/06/18 10:08 Protonix - PO 20 mg DAILY [facility] Administration Rosuvastatin Calcium 10 mg 11/29/18 22:00 12/05/18 22:10 Crestor - PO 10 mg HS [facility] Administration Thiamine HCl 100 mg 11/29/18 10:00 12/06/18 10:07 Vitamin B1 - PO 100 mg DAILY [facility] Administration ASSESSMENT/PLAN: Patient is a 78 year old female with a significant past medical history of NIDDM , HLD, COPD, diverticulosis who presented to the ED with abdominal thorpe and was found to have acute diverticulitis. Imaging: Abdomen/Pelvis ct: findings consistent with acute diverticulitis of the sigmoid colon without abscess formation. abd ct 12/05: no acute pathology GI: Abdominal pain. resolved. Diverticulitis, uncomplicated Abdomen soft, non tender, non distended. + bowel sounds. no nausea or vomiting. tolerating low fiber diet On IV Zosyn surgery following Card: Chest pain. resolved. troponin negative. echo reviewed levaquin discontinued 2/2 to prolonged qt. zofran stopped Prolonged QT, resolved. serial ekg reviewed monitor and avoid medications that further prolong qt cardiology consulted and following Endocrine Diabetes on Novolg ac/hs. blood sugars controlled Neuro: Dementia On namenda Card: HLD. on crestor fen tolerating diet monitor electrolytes prophy SCDs heparin Visit type - Emergency Visit Emergency Visit: Yes ED Registration Date: 11/28/18 Care time: The patient presented to the Emergency Department on the above date and was hospitalized for further evaluation of their emergent condition. - New Patient This patient is new to me today: No - Critical Care Critical Care patient: No - Discharge Referral Referred to [facility] No
[2018-12-06] MEDS: ROSUVASTATIN CA 10 MG TABLET (FP) PO SCH (21:52)
[2018-12-07] MEDS ORDERED: PIPERACILLIN/TAZOBACTAM 3.375 GM VIAL IVPB ONE ×2 (01:58→10:28)
[2018-12-07] MEDS ORDERED: DEXTROSE 5%-WATER - 50 ML IVPB ONE ×2 (01:58→10:28)
[2018-12-07] MEDS: PIPERACILLIN/TAZOB 3.375 GM 3.375 GM in DEXTROSE 5%-WATER - 50 ML IVPB SCH ×2 (02:04→10:32)
[2018-12-07] MEDS: INSULIN SLIDING SCALE (NOVOLOG) 1 VIAL SQ SCH ×2 (06:13→11:20)
[2018-12-07 09:20] LABS: BASO % 0.7 % (0-2.0); EOS % 2.9 % (0-4.5); HEMATOCRIT 33.6 % (32.4-45.2); HEMOGLOBIN 11.7 GM/dL (10.7-15.3); LYMPH % 35.3 % (8-40); MCH 31.4 pg (25.7-33.7); MCHC 34.9 g/dl (32.0-36.0); MEAN CELL VOLUME 89.8 fl (80-96); MEAN PLT VOLUME 7.6 fl (7.5-11.1); MONO % 7.5 % (3.8-10.2); NEUT % 53.6 % (42.8-82.8); PLATELET COUNT 253 K/MM3 (134-434); RBC 3.74 M/mm3 (3.60-5.2); RDW 14.3 % (11.6-15.6); WHITE BLOOD COUNT 5.9 K/mm3 (4.0-10.0)
[2018-12-07 09:43] LABS: ALBUMIN 3.2 g/dl (3.4-5.0); ALK PHOS 54 U/L (45-117); ANION GAP 6 MMOL/L (8-16); BILIRUBIN,TOTAL 0.4 mg/dL (0.2-1); BLOOD UREA NITROGEN 8 mg/dL (7-18); CALCIUM 8.5 mg/dL (8.5-10.1); CHLORIDE 110 mmol/L (98-107); CO2 26 mmol/L (21-32); CREATININE 1.2 mg/dL (0.55-1.3); GLUCOSE,RANDOM 135 mg/dL (74-106); POTASSIUM 4.1 mmol/L (3.5-5.1); SGOT/AST 21 U/L (15-37); SGPT/ALT 19 U/L (13-61); SODIUM 143 mmol/L (136-145); TOT PROT 6.7 g/dl (6.4-8.2)
--- NOTE | 2018-12-07 10:06 | DS ---
Physical Exam: SUBJECTIVE: Patient seen and examined at the bedside. no further abdominal pain. no tenderness of palpation of her abdomen. no nausea or vomiting. OBJECTIVE: augmentin for 5 more days Vital Signs Period Temp Pulse Resp BP Sys/Solis Pulse Ox Last 24 Hr 97.9 F-99.3 F 48-90 14-18 108-122/44-68 98-98 PHYSICAL EXAM GENERAL: The patient is awake, alert, and fully oriented, in no acute distress. HEAD: Normal with no signs of trauma. EYES: PERRL, extraocular movements intact, sclera anicteric, conjunctiva clear. ENT: Ears normal, nares patent, oropharynx clear without exudates, moist mucous membranes. NECK: Trachea midline, full range of motion, supple. LUNGS: Breath sounds equal, clear to auscultation bilaterally, no wheezes, no crackles, no accessory muscle use. HEART: Regular rate and rhythm, S1, S2 without murmur, rub or gallop. ABDOMEN: Soft, nontender, nondistended, normoactive bowel sounds, no guarding, no rebound, no hepatosplenomegaly, no masses. EXTREMITIES: 2+ pulses, warm, well-perfused, no edema. NEUROLOGICAL: Cranial nerves II through XII grossly intact. Normal speech, gait not observed. PSYCH: Normal mood, normal affect. SKIN: Warm, dry, normal turgor, no rashes or lesions noted. LABS Laboratory Results - last 24 hr 12/06/18 12/06/18 12/06/18 11:25 16:01 21:50 WBC RBC Hgb Hct MCV MCH MCHC RDW Plt Count MPV Absolute Neuts (auto) Neutrophils % Lymphocytes % Monocytes % Eosinophils % Basophils % Nucleated RBC % Sodium Potassium Chloride Carbon Dioxide Anion Gap BUN Creatinine Creat Clearance w eGFR POC Glucometer 148 156 149 Random Glucose Calcium Total Bilirubin AST ALT Alkaline Phosphatase Total Protein Albumin 12/07/18 12/07/18 12/07/18 05:33 08:10 08:10 WBC 5.9 RBC 3.74 Hgb 11.7 Hct 33.6 MCV 89.8 MCH 31.4 MCHC 34.9 RDW 14.3 Plt Count 253 MPV 7.6 Absolute Neuts (auto) 3.1 Neutrophils % 53.6 Lymphocytes % 35.3 Monocytes % 7.5 Eosinophils % 2.9 Basophils % 0.7 Nucleated RBC % 0 Sodium 143 Potassium 4.1 Chloride 110 H Carbon Dioxide 26 Anion Gap 6 L BUN 8 Creatinine 1.2 Creat Clearance w eGFR 43.68 POC Glucometer 122 Random Glucose 135 H Calcium 8.5 Total Bilirubin 0.4 AST 21 ALT 19 Alkaline Phosphatase 54 Total Protein 6.7 Albumin 3.2 L HOSPITAL COURSE: Date of Admission:11/28/18 Date of Discharge: 12/07/18 Patient is a 78 year old female with a significant past medical history of NIDDM , HLD, COPD, diverticulosis who presented to the ED with abdominal thorpe and was found to have acute diverticulitis on imaging. During her hospital stay, she was initially treated with Levaquin IV and Flagyl IV. The Levaquin was discontinued on after patient developed prolonged QT on EKG and she was switched to Ceftriaxone and then Zosyn. For the prolonged QT, we stopped all medications that can prolong QT and consulted cardiology. Her troponins were negative. Cardiology consulted who followed patient during her hospitalization and recommended that patient be started on Toprol 25mg XL. Serial EKGs showed resolution of the QT prolongation. Hospital course by problem list. Imaging: Abdomen/Pelvis ct: findings consistent with acute diverticulitis of the sigmoid colon without abscess formation. abd ct 12/05: no acute pathology Abd ct: no acute findings. GI: Abdominal pain. resolved. Diverticulitis, uncomplicated Abdomen soft, non tender on deep palpation of all quadrants. non distended. + bowel sounds. no nausea or vomiting. tolerated low fiber diet. Will send home of five more days of Augmentin. GI follow up as an outpatient. Card: Chest pain. resolved. troponin negative. echo reviewed levaquin discontinued 2/2 to prolonged qt. and zofran stopped Prolonged QT, resolved. serial ekg reviewed, show resolution of qtc prolongation Endocrine Diabetes. restart home medications and outpatient follow up. Neuro: Dementia. continue namenda discharge home with GI follow up. full code. Minutes to complete discharge: 60 Discharge Summary Reason For Visit: DIVERTICULITIS Current Active Problems Diverticulitis (Acute) Condition: Stable - Instructions Diet, Activity, Other Instructions: Mrs Parker: You were admitted on 11/28/2018 for abdominal pain and were found to have diverticulitis (inflammation of your colon). You were treated with antibiotics and will be discharged home with five (5) more days of antibiotics. Please follow up with the GI specialist as well as Dr. Santa (general surgery). New medications: Augmentin 500mg/125mg - take at 8am and 8pm every day starting tonight (2018 day#1 through 12/11/2018 day #5). Please start the probiotic that was called into your pharmacy while on the antibiotics. Hypertension: You were evaluated by roof bolter helper during your stay and started on Toprol XL 25mg once per day. I have called this medication into your pharmacy. Please take it as directed and follow up with Dr. Lyman by calling for an appointment. Diet: low fiber diet consists of: white bread without nuts and seeds white rice, plain white pasta, crackes, hot cereals cold cereals with less than 1 gram of fiber per serving bananas cantalopes watermelons nectarines tender cuts of arturo ground meat with less fat tofu fish eggs Follow ups: Follow up with roof bolter helper and GI specialist (their contact information is on the discharge packet) Thank you for allowing us to care for you. Humaira Higgins [place] CHIEF ENVIRONMENTAL COMMITMENT OFFICER [facility] [phone] Referrals: Gordy Santa MD [Staff Physician] - (please call for an appointment) Iona Khan MD [Staff Physician] - 3 Weeks Awais Robertson DO [Staff Physician] - (please call for an appointment) Disposition: HOME - Home Medications Comprehensive Discharge Medication List: Ambulatory Orders Aspirin [ASA -] 81 mg PO DAILY 09/13/16 Henry/D3/Mag11/Zinc/Data Processing Consultant/[place]/Bor [Caltrate 600+D Plus Tablet] 1 each PO BID Memantine HCl [Namenda -] 10 mg PO BID 09/13/16 Rosuvastatin [Crestor -] 10 mg PO DAILY 09/13/16 Metformin HCl [Glucophage] 1,000 mg PO DAILY 02/20/18 Ibandronate Sodium [Boniva] 3 mg IV MO 04/13/18 Thiamine Mononitrate [Vitamin B-1] 100 mg PO DAILY 04/13/18 Pantoprazole Sodium [Protonix -] 20 mg PO DAILY #30 tablet.ec 08/04/18 Multivit-Min/FA/Lycopen/Lutein [Centrum Silver Tablet] 1 each PO DAILY 10/02/18 Ondansetron [Zofran Odt -] 4 mg SL BID PRN 10/13/18 metFORMIN HCL [Metformin HCl] 500 mg PO HS 10/13/18 Amoxicillin/Potassium Clav [Augmentin 500-125 Tablet] 1 each PO BID #10 tablet 12/07/18 Lactobacillus Acidophilus [Bacid -] 1 each PO DAILY #30 capsule 12/07/18 Metoprolol Succinate [Toprol XL -] 25 mg PO DAILY #60 tab.sr.24h 12/07/18 This patient is new to me today: No Emergency Visit: Yes ED Registration Date: 11/28/18 Care time: The patient presented to the Emergency Department on the above date and was hospitalized for further evaluation of their emergent condition. Critical Care patient: No - Discharge Referral Referred to [facility] No
[2018-12-07 10:24] VITALS: BP 110/45; PULSE 46; TEMP 98
[2018-12-07] MEDS: HEPARIN NA (PORCINE) 5,000 UNITS/ML 1ML VIAL SQ SCH (10:33)
[2018-12-07] MEDS: THIAMINE HCL 100 MG TABLET (FP) PO SCH (10:33)
[2018-12-07] MEDS: PANTOPRAZOLE 20 MG TABLET (FP) PO SCH (10:33)
[2018-12-07] MEDS: ASPIRIN 81 MG CHEWABLE TABLETS PO SCH (10:33)
[2018-12-07] MEDS: MEMANTINE HCL 10 MG TABLET (FP) PO SCH (10:33)
[2018-12-07] MEDS: metoPROLOL SUCCINATE 25 MG TAB.SR.24H (FP) PO SCH (10:34)
[2018-12-07] MEDS ORDERED: INSULIN (NOVOLOG) ASPART 100 UNITS/ML 10ML VIAL ONE (11:16)
--- NOTE | 2018-12-07 12:08 | PN ---
Progress Note, Physician History of Present Illness: Patient d/tanesha prior to exam. - Current Medication List Current Medications: Active Medications Acetaminophen (Tylenol -) 650 mg PO Q6H PRN PRN Reason: PAIN LEVEL 4 - 6 Aspirin (Asa -) 81 mg PO DAILY [facility] Last Admin: 12/07/18 10:33 Dose: 81 mg Heparin Sodium (Porcine) (Heparin -) 5,000 unit SQ BID [facility] Last Admin: 12/07/18 10:33 Dose: 5,000 unit Piperacillin Sod/Tazobactam (Sod 3.375 gm/ Dextrose) 50 mls @ 100 mls/hr IVPB Q8H-IV [facility]; Protocol Last Admin: 12/07/18 10:32 Dose: 100 mls/hr Insulin Aspart (Novolog Vial Sliding Scale -) 1 vial SQ ACHS [facility]; Protocol Last Admin: 12/07/18 11:20 Dose: 2 units Memantine (Namenda -) 10 mg PO BID [facility] Last Admin: 12/07/18 10:33 Dose: 10 mg Metoprolol Succinate (Toprol Xl -) 25 mg PO DAILY [facility] Last Admin: 12/07/18 10:34 Dose: 25 mg Morphine Sulfate (Morphine Sulfate) 2 mg IVPUSH Q4H PRN PRN Reason: PAIN LEVEL 6-10 Last Admin: 12/02/18 21:44 Dose: 2 mg Pantoprazole Sodium (Protonix -) 20 mg PO DAILY [facility] Last Admin: 12/07/18 10:33 Dose: 20 mg Rosuvastatin Calcium (Crestor -) 10 mg PO HS [facility] Last Admin: 12/06/18 21:52 Dose: 10 mg Thiamine HCl (Vitamin B1 -) 100 mg PO DAILY [facility] Last Admin: 12/07/18 10:33 Dose: 100 mg - Objective Vital Signs: Vital Signs Temperature 98 F 12/07/18 10:00 Pulse Rate 46 L 12/07/18 10:00 Respiratory Rate 18 12/07/18 10:00 Blood Pressure 110/45 L 12/07/18 10:00 O2 Sat by Pulse Oximetry (%) 98 12/06/18 21:00 Labs: CBC, BMP 12/07/18 08:10 12/07/18 08:10 Problem List - Problems (1) Diverticulitis Code(s): K57.92 - DVTRCLI OF INTEST, PART UNSP, W/O PERF OR ABSCESS W/O BLEED (2) Chest pain Code(s): R07.9 - CHEST PAIN, UNSPECIFIED Qualifiers: Chest pain type: unspecified Qualified Code(s): R07.9 - Chest pain, unspecified (3) Dementia Code(s): F03.90 - UNSPECIFIED DEMENTIA WITHOUT BEHAVIORAL DISTURBANCE Qualifiers: Dementia type: unspecified type (4) Hyperlipidemia associated with type 2 diabetes mellitus Code(s): E11.69 - TYPE 2 DIABETES MELLITUS WITH OTHER SPECIFIED COMPLICATION; E78.5 - HYPERLIPIDEMIA, UNSPECIFIED (5) Hypertension Code(s): I10 - ESSENTIAL (PRIMARY) HYPERTENSION Qualifiers: Hypertension type: essential hypertension Qualified Code(s): I10 - Essential (primary) hypertension (6) Type 2 diabetes mellitus Code(s): E11.9 - TYPE 2 DIABETES MELLITUS WITHOUT COMPLICATIONS Qualifiers: Diabetes mellitus alf insulin use: without bulk station agent use Diabetes mellitus complication status: without complication Qualified Code(s): E11.9 - Type 2 diabetes mellitus without complications Assessment/Plan 08/03/2018 Echo: Normal LV and RV size and fxn, abnl LV compliance, mod MR, TR, mild NE 10/04/2018: [facility] Myoview: No ischemia, LVEF 57% CT scan of the chest dated 01/2018 revealed coronary artery calcification 1. Atypical chest pain syndrome 2. CAD with evidence of coronary artery calcification with negative MPI for ischemia 3. Diastolic LV dysfunction with clinical class 0 NYHA classification LV failure 4. HTN/HCVD 5. Type 2 DM not at goal control 6. Hyperlipidemia 7. Organic brain syndrome/dementia 8. COPD 9. CKD 10. Acute sigmoid diverticulitis with lower abdominal pain x 2 days and leucocytosis resolving 11. Prolonged QT resolving PLAN: 1. Complete abx course 2. Continue ASA 81 qd, Crestor 10qd, Toprol XL 25 qd as hemodynamics tolerate 3. Recommended the addition of ACEI or ARBS as hemodynamics tolerate now that renal fxn stable 4. Patient d/tanesha home
--- NOTE | 2018-12-07 12:24 | PN ---
Progress Note, Physician History of Present Illness: patient pain much better no new issues still with some discomfort - Current Medication List Current Medications: Active Medications Acetaminophen (Tylenol -) 650 mg PO Q6H PRN PRN Reason: PAIN LEVEL 4 - 6 Aspirin (Asa -) 81 mg PO DAILY [facility] Last Admin: 12/07/18 10:33 Dose: 81 mg Heparin Sodium (Porcine) (Heparin -) 5,000 unit SQ BID [facility] Last Admin: 12/07/18 10:33 Dose: 5,000 unit Piperacillin Sod/Tazobactam (Sod 3.375 gm/ Dextrose) 50 mls @ 100 mls/hr IVPB Q8H-IV [facility]; Protocol Last Admin: 12/07/18 10:32 Dose: 100 mls/hr Insulin Aspart (Novolog Vial Sliding Scale -) 1 vial SQ ACHS [facility]; Protocol Last Admin: 12/07/18 11:20 Dose: 2 units Memantine (Namenda -) 10 mg PO BID [facility] Last Admin: 12/07/18 10:33 Dose: 10 mg Metoprolol Succinate (Toprol Xl -) 25 mg PO DAILY [facility] Last Admin: 12/07/18 10:34 Dose: 25 mg Morphine Sulfate (Morphine Sulfate) 2 mg IVPUSH Q4H PRN PRN Reason: PAIN LEVEL 6-10 Last Admin: 12/02/18 21:44 Dose: 2 mg Pantoprazole Sodium (Protonix -) 20 mg PO DAILY [facility] Last Admin: 12/07/18 10:33 Dose: 20 mg Rosuvastatin Calcium (Crestor -) 10 mg PO HS [facility] Last Admin: 12/06/18 21:52 Dose: 10 mg Thiamine HCl (Vitamin B1 -) 100 mg PO DAILY [facility] Last Admin: 12/07/18 10:33 Dose: 100 mg - Objective Vital Signs: Vital Signs Temperature 98 F 12/07/18 10:00 Pulse Rate 46 L 12/07/18 10:00 Respiratory Rate 18 12/07/18 10:00 Blood Pressure 110/45 L 12/07/18 10:00 O2 Sat by Pulse Oximetry (%) 98 12/06/18 21:00 Constitutional: Yes: No Distress, Calm Cardiovascular: Yes: Regular Rate and Rhythm Respiratory: Yes: Regular, CTA Bilaterally Gastrointestinal: Yes: Normal Bowel Sounds, Soft, Tenderness (minimal) Musculoskeletal: Yes: WNL Extremities: Yes: WNL Neurological: Yes: Alert, Oriented Psychiatric: Yes: Alert, Oriented Labs: CBC, BMP 12/07/18 08:10 12/07/18 08:10 Assessment/Plan Problem List - Problems (1) Diverticulitis Code(s): K57.92 - DVTRCLI OF INTEST, PART UNSP, W/O PERF OR ABSCESS W/O BLEED (2) Chest pain Code(s): R07.9 - CHEST PAIN, UNSPECIFIED Qualifiers: Chest pain type: unspecified Qualified Code(s): R07.9 - Chest pain, unspecified (3) Dementia Code(s): F03.90 - UNSPECIFIED DEMENTIA WITHOUT BEHAVIORAL DISTURBANCE Qualifiers: Dementia type: unspecified type (4) Hyperlipidemia associated with type 2 diabetes mellitus Code(s): E11.69 - TYPE 2 DIABETES MELLITUS WITH OTHER SPECIFIED COMPLICATION; E78.5 - HYPERLIPIDEMIA, UNSPECIFIED (5) Hypertension Code(s): I10 - ESSENTIAL (PRIMARY) HYPERTENSION Qualifiers: Hypertension type: essential hypertension Qualified Code(s): I10 - Essential (primary) hypertension (6) Type 2 diabetes mellitus Code(s): E11.9 - TYPE 2 DIABETES MELLITUS WITHOUT COMPLICATIONS Qualifiers: Diabetes mellitus residential insulin use: without terminal manager use Diabetes mellitus complication status: without complication Qualified Code(s): E11.9 - Type 2 diabetes mellitus without complications plan oral abx for couple of days rest as per the team
== END 2018-12-07 13:04 | disposition home or self-care (01) | DRG 392 ==
LOC: SUPCPDRO 17:13 → JER 17:13 → JERBED 22:09 → J6S 11-29 04:31
PROVIDERS: ADMIT Internal Medicine; ATTEND Nurse Practitioner Family
DX: K57.32 Diverticulitis of large intestine without perforation or abscess without bleeding (principal); I13.0 Hypertensive heart and chronic kidney disease with heart failure and stage 1 through stage 4 chronic kidney disease, or unspecified chronic kidney disease; I50.30 Unspecified diastolic (congestive) heart failure; J44.9 Chronic obstructive pulmonary disease, unspecified; F03.90 Unspecified dementia, unspecified severity, without behavioral disturbance, psychotic disturbance, mood disturbance, and anxiety; I25.10 Atherosclerotic heart disease of native coronary artery without angina pectoris; E78.5 Hyperlipidemia, unspecified; F32.9 Major depressive disorder, single episode, unspecified; R07.89 Other chest pain; E11.22 Type 2 diabetes mellitus with diabetic chronic kidney disease; F17.210 Nicotine dependence, cigarettes, uncomplicated; N18.9 Chronic kidney disease, unspecified
CPT/HCPCS: 36415; 74150-TC; 74177-TC; 80048; 80053; 81003; 81015; 82550; 82553; 82962; 83036; 83690; 83735; 84484; 85025; 85027; 86140; 87040; 87086; 93005; 93010; 93306-TC; 99284-25; J0131; J1644; J7030

== ENCOUNTER 2018-12-26 23:18 | Inpatient (IN) | payer OTHER ==
--- NOTE | 2018-12-27 | PDOC ---
History of Present Illness - General Chief Complaint: Pain, Acute Stated Complaint: STOMACH PAIN Time Seen by Provider: 12/26/18 23:59 - History of Present Illness Initial Comments: 78 year old female with PMH NIDDM, HLD, COPD, diverticulosis (complicated with diverticulitis most recently one month prior) presenting with lower abdominal pain for the past 7 hours with nausea for the past three days. States that this feels like her diverticulitis. Describes the pain as intermittent sharp, sometimes worse with movement. Admits to being bloated. She is unsure the location as she feels it moves. Denies fevers, chills, vomiting, diarrhea, constipation, or other symptoms. Of note, she had QT prolongation when she was given Levaquin in the hospital last month and was changed to Zosyn and ceftriaxone as an inpatient. 12/27/18 00:45 Past History - Past Medical History Allergies/Adverse Reactions: Allergies Allergy/AdvReac Type Severity Reaction Status Date / Time No Known Allergies Allergy Verified 12/26/18 23:28 Home Medications: Ambulatory Orders Aspirin [ASA -] 81 mg PO DAILY 09/13/16 Henry/D3/Mag11/Zinc/[employer] Maker/Cortez/Bor [Caltrate 600+D Plus Tablet] 1 each PO BID Memantine HCl [Namenda -] 10 mg PO BID 09/13/16 Rosuvastatin [Crestor -] 10 mg PO DAILY 09/13/16 Metformin HCl [Glucophage] 1,000 mg PO DAILY 02/20/18 Ibandronate Sodium [Boniva] 3 mg IV MO 04/13/18 Thiamine Mononitrate [Vitamin B-1] 100 mg PO DAILY 04/13/18 Pantoprazole Sodium [Protonix -] 20 mg PO DAILY #30 tablet.ec 08/04/18 Multivit-Min/FA/Lycopen/Lutein [Centrum Silver Tablet] 1 each PO DAILY 10/02/18 Ondansetron [Zofran Odt -] 4 mg SL BID PRN 10/13/18 metFORMIN HCL [Metformin HCl] 500 mg PO HS 10/13/18 Amoxicillin/Potassium Clav [Augmentin 500-125 Tablet] 1 each PO BID #10 tablet 12/07/18 Lactobacillus Acidophilus [Bacid -] 1 each PO DAILY #30 capsule 12/07/18 Metoprolol Succinate [Toprol XL -] 25 mg PO DAILY #60 tab.sr.24h 12/07/18 COPD: Yes DVT: No Diabetes: Yes GI Disorders: Yes (diverticulitis, HIATAL HERNIA) HTN: Yes Hypercholesterolemia: Yes - Surgical History Orthopedic Surgery: Yes (rt elbow repair 27 years ago) - Immunization History Immunization Up to Date: Yes - Suicide/Smoking/Psychosocial Hx Smoking History: Current every day smoker Have you smoked in the past 12 months: Yes Number of Cigarettes Smoked Daily: 20 Information on smoking cessation initiated: No 'Breaking Loose' booklet given: 11/29/18 Hx Alcohol Use: No Drug/Substance Use Hx: No Substance Use Type: None, Alcohol Hx Substance Use Treatment: No Review of Systems - Review of Systems Constitutional: Yes: Loss of Appetite. No: Chills, Diaphoresis, Fever HEENTM: No: Eye Pain, Blurred Vision Respiratory: No: Cough, Orthopnea, Shortness of Breath Cardiac (ROS): No: Chest Pain, Edema, Irregular Heart Rate ABD/GI: No: Diarrhea, Nausea, Vomiting : No: Dysuria, Discharge Musculoskeletal: No: Gout, Joint Pain Integumentary: No: Bruising, Lesions Neurological: No: Headache, Numbness, Paresthesia Psychiatric: No: Anxiety, Depression Hematologic/Lymphatic: No: Anemia, Blood Clots, Easy Bleeding *Physical Exam - Vital Signs Last Vital Signs Temp Pulse Resp BP Pulse Ox 98.3 F 60 16 99/55 L 96 12/26/18 23:24 12/26/18 23:24 12/26/18 23:24 12/26/18 23:24 12/26/18 23:24 - Physical Exam General Appearance: Yes: Nourished, Appropriately Dressed. No: Apparent Distress HEENT: positive: EOMI, SERGIO, Normal ENT Inspection, Normal Voice Neck: positive: Trachea midline, Normal Thyroid, Supple. negative: Tender, Rigid Respiratory/Chest: positive: Lungs Clear, Normal Breath Sounds. negative: Chest Tender, Respiratory Distress, Accessory Muscle Use Cardiovascular: positive: Regular Rhythm, Regular Rate Gastrointestinal/Abdominal: positive: Normal Bowel Sounds, Tender (rlq tenderness), Soft, Protuberent, Distended, Tenderness. negative: Flat, Guarding , Rebound, Mass Lymphatic: negative: Adenopathy, Tenderness Musculoskeletal: positive: Normal Inspection. negative: Decreased Range of Motion Extremity: positive: Normal Capillary Refill, Normal Inspection, Normal Range of Motion. negative: Tender Integumentary: positive: Normal Color, Dry, Warm Neurologic: positive: Fully Oriented, Alert, Normal Mood/Affect, Normal Response , Motor Strength 01/17 ED Treatment Course - LABORATORY CBC & Chemistry Diagram: 12/27/18 01:05 12/27/18 03:50 Medical Decision Making - Medical Decision Making 78 year old female with PMH of diverticulitis presenting with lower abdominal pain that she feels is consistent with another episode of diverticulitis. abdominal CT did not note diverticulitis or other abnormality. However, labs demonstrated pancreatitis with lipase of 3400. NS 2 L,1G Ofirmev, and patient made NPO. Admitted to medicine service. 12/27/18 06:07 *DC/Admit/Observation/Transfer Diagnosis at time of Disposition: Pancreatitis Qualifiers: Chronicity: acute Pancreatitis type: unspecified pancreatitis type Acute pancreatitis complication: unspecified Qualified Code(s): K85.90 - Acute pancreatitis without necrosis or infection, unspecified - Discharge Dispostion Condition at time of disposition: Stable Decision to Admit order: Yes - Referrals - Patient Instructions - Post Discharge Activity
--- NOTE | 2018-12-27 00:02 | PDOC ---
Attending Attestation - Resident Resident Name: Saturnino Campos - Medical Decision Making 12/27/18 01:15 Pt presents to the ED complaining of diffuse abdominal pain that has been worsening for three days. Diffusely tender on my exam. Multiple recent admissions for diverticulitis. Tolerating PO with decreased appetite, reports normal bowel movement. Differential includes diverticulitis, abscess, less likely appendicitis, less likely obstruction or mesenteric ischemia. Will check labs and Ct abdomen pelvis and reassess. <Nat Forrest - Last Filed: 12/27/18 01:14> - HPI HPI: This patient is a 78 year old female with PMHx of NIDDM, HLD, COPD, diverticulosis (complicated with diverticulitis most recently and d/c 12/07/18) presenting with lower abdominal pain for the past couple of hours with nausea for the past three days. States that this feels like her diverticulitis. Describes the pain as intermittent, sharp, diffuse,sometimes worse with movement. Admits to being bloated. Denies fevers, chills, vomiting, diarrhea, constipation, or other symptoms. Surgical Hx: endoscopy& colonoscopy (February 2018) - Physicial Exam PE: GENERAL: Awake, alert, and fully oriented x3, in no acute distress HEAD: No signs of trauma EYES: PERRLA, EOMI, sclera anicteric, conjunctiva clear LUNGS: Breath sounds equal, clear to auscultation bilaterally. No wheezes, and no crackles HEART: Regular rate and rhythm, normal S1 and S2, no murmurs, rubs or gallops ABDOMEN: Soft, nondistended, diffusely tender. No guarding, no rebound. No masses EXTREMITIES: Normal range of motion, no edema. No clubbing or cyanosis. No cords, erythema, or tenderness NEUROLOGICAL: Cranial nerves II through XII grossly intact. Normal speech, normal gait SKIN: Warm, Dry, normal turgor, no rashes or lesions noted. <Radha Manzanares - Last Filed: 12/27/18 02:06> Attestations - Attestations 12/27/18 02:06 Documentation prepared by Radha Manzanares, acting as medical support specialist for Nat Forrest MD. <Radha Manzanares - Last Filed: 12/27/18 02:06>
[2018-12-27] MEDS ORDERED: SODIUM CHLORIDE 0.9% 500 ML INFUS.BAG IV ONE ×2 (00:49→05:11)
[2018-12-27] MEDS ORDERED: ACETAMINOPHEN 1000 MG/100 ML VIAL (NON FORMULARY) IVPB ONE (00:49)
[2018-12-27] MEDS ORDERED: FAMOTIDINE 20 MG/50 ML IVPB 20 MG/50 ML MG IVPB ONE ×2 (01:04→01:35)
[2018-12-27] MEDS ORDERED: ACETAMINOPHEN INJECTION 100 ML IVPB ONE (01:10)
[2018-12-27 01:38] LABS: BASO % 0.7 % (0-2.0); EOS % 2.8 % (0-4.5); HEMOGLOBIN 11.4 GM/dL (10.7-15.3); LYMPH % 34.8 % (8-40); MCH 30.4 pg (25.7-33.7); MCHC 33.6 g/dl (32.0-36.0); MEAN CELL VOLUME 90.5 fl (80-96); MEAN PLT VOLUME 9.3 fl (7.5-11.1); MONO % 6.9 % (3.8-10.2); NEUT % 54.8 % (42.8-82.8); PLATELET COUNT 277 K/MM3 (134-434); RBC 3.76 M/mm3 (3.60-5.2); RDW 14.7 % (11.6-15.6); WHITE BLOOD COUNT 7.8 K/mm3 (4.0-10.0)
[2018-12-27 02:02] LABS: INR 0.95 (0.83-1.09); PROTHROMBIN TIME (PATIENT) 11.2 SEC (9.7-13.0)
[2018-12-27 02:43] LABS: EPI CELLS 1.7 /HPF (0-5/HPF); PH,URINE 5.5 (5.0-8.0); URINE APPEARANCE CLEAR; URINE BACTERIA 3.2 /hpf (NEGATIVE); URINE BILIRUBIN NEGATIVE (NEGATIVE); URINE CASTS 3 /hpf (0-8); URINE COLOR YELLOW; URINE GLUCOSE (UA) NEGATIVE (NEGATIVE); URINE KETONE NEGATIVE (NEGATIVE); URINE LEUK ESTERASE 1+ (NEGATIVE); URINE NITRITE NEGATIVE (NEGATIVE); URINE PROTEIN NEGATIVE (NEGATIVE); URINE RBC 0 /hpf (0-4); URINE UROBILINOGEN 0.2 mg/dL (0.2-1.0); URINE WBC 13 /hpf (0-5)
[2018-12-27 04:43] LABS: ALK PHOS 55 U/L (45-117); AMYLASE 184 U/L (25-115); ANION GAP 8 MMOL/L (8-16); BILIRUBIN,TOTAL 0.2 mg/dL (0.2-1); BLOOD UREA NITROGEN 16 mg/dL (7-18); CALCIUM 7.8 mg/dL (8.5-10.1); CHLORIDE 110 mmol/L (98-107); CO2 24 mmol/L (21-32); GLUCOSE,RANDOM 95 mg/dL (74-106); LIPASE 3415 U/L (73-393); POTASSIUM 3.8 mmol/L (3.5-5.1); SGOT/AST 15 U/L (15-37); SGPT/ALT 12 U/L (13-61); SODIUM 142 mmol/L (136-145); TOT PROT 6.3 g/dl (6.4-8.2)
--- NOTE | 2018-12-27 06:23 | HP ---
CHIEF COMPLAINT: Nausea x3 days, Abdominal pain x1 day PCP: HISTORY OF PRESENT ILLNESS: Pt is a 78 yo F with a signif PMHx of NIDDM, HLD, COPD (no home O2), diverticulosis, dementia, recently discharged 12/07 for diverticulitis now presenting with nausea x 3 days and abdominal pain x 1 day. Pain started on the LUQ and radiates to epigatric region. Per daughter by bedside, no vomiting despite nausea, there is reduced appetite, no prior fevers, no dysuria, no chest pain, no SOB. Pt was recently started on metoprolol. Per adopted daughter , the mother had colonoscopy and EGD recently, and had recently lesley treated fro diverticculitis with similar symptoms. Daughter says mother is a current everyday smoker with family hx of colon cancer and positive CEA. ER course was notable for: (1)Lipase 3415, Amylase-184 (2)CTap-improving diverticulitis (3) UA-LE1+, WBC-17 Recent Travel: PAST MEDICAL HISTORY: PAST SURGICAL HISTORY: Social History: Smoking: Alcohol: Drugs: Family History: Allergies No Known Allergies Allergy (Verified 12/26/18 23:28) HOME MEDICATIONS: Home Medications Medication Instructions Recorded Aspirin [ASA -] 81 mg PO DAILY 09/13/16 Henry/D3/Mag11/Zinc/Pick Pulling Machine Tender/[place]/Bor 1 each PO BID 09/13/16 [Caltrate 600+D Plus Tablet] Memantine HCl [Namenda -] 10 mg PO BID 09/13/16 Rosuvastatin [Crestor -] 10 mg PO DAILY 09/13/16 Metformin HCl [Glucophage] 1,000 mg PO DAILY 02/20/18 Ibandronate Sodium [Boniva] 3 mg IV MO 04/13/18 Thiamine Mononitrate [Vitamin B-1] 100 mg PO DAILY 04/13/18 Pantoprazole Sodium [Protonix -] 20 mg PO DAILY #30 tablet.ec 08/04/18 Multivit-Min/FA/Lycopen/Lutein 1 each PO DAILY 10/02/18 [Centrum Silver Tablet] Ondansetron [Zofran Odt -] 4 mg SL BID PRN 10/13/18 metFORMIN HCL [Metformin HCl] 500 mg PO HS 10/13/18 Amoxicillin/Potassium Clav 1 each PO BID #10 tablet 12/07/18 [Augmentin 500-125 Tablet] Lactobacillus Acidophilus [Bacid -] 1 each PO DAILY #30 capsule 12/07/18 Metoprolol Succinate [Toprol XL -] 25 mg PO DAILY #60 tab.sr.24h 12/07/18 REVIEW OF SYSTEMS CONSTITUTIONAL: loss of appetite+Absent: fever, chills, diaphoresis, generalized weakness, malaise, weight change HEENT: Absent: rhinorrhea, nasal congestion, throat pain, throat swelling, difficulty swallowing, mouth swelling, ear pain, eye pain, visual changes CARDIOVASCULAR: Absent: chest pain, syncope, palpitations, irregular heart rate, lightheadedness , peripheral edema RESPIRATORY: Absent: cough, shortness of breath, dyspnea with exertion, orthopnea, wheezing, stridor, hemoptysis GASTROINTESTINAL: abdominal pain+, abdominal distension+, nausea+ Absent: , vomiting, diarrhea, constipation, melena, hematochezia GENITOURINARY: Absent: dysuria, frequency, urgency, hesitancy, hematuria, flank pain, genital pain MUSCULOSKELETAL: Absent: myalgia, arthralgia, joint swelling, back pain, neck pain SKIN: Absent: rash, itching, pallor HEMATOLOGIC/IMMUNOLOGIC: Absent: easy bleeding, easy bruising, lymphadenopathy, frequent infections ENDOCRINE: Absent: unexplained weight gain, unexplained weight loss, heat intolerance, cold intolerance NEUROLOGIC: Absent: headache, focal weakness or paresthesias, dizziness, unsteady gait, seizure, mental status changes, bladder or bowel incontinence PSYCHIATRIC: Absent: anxiety, depression, suicidal or homicidal ideation, hallucinations. PHYSICAL EXAMINATION Vital Signs - 24 hr 12/26/18 23:24 Temperature 98.3 F Pulse Rate 60 Respiratory 16 Rate Blood Pressure 99/55 L O2 Sat by Pulse 96 Oximetry (%) GENERAL: Drowsy but arousable HEAD: Normal with no signs of trauma. EARS, NOSE, THROAT: Dry mucous membranes. NECK: supple LUNGS: Breath sounds equal, clear to auscultation bilaterally. HEART: Regular rate and rhythm, normal S1 and S2 ABDOMEN: Soft, obese abdomen, bowel sounds+, no tenderness elicited (received pain meds) MUSCULOSKELETAL: Moves all limbs LOWER EXTREMITIES: 2+ pulses, warm, well-perfused. No calf tenderness. No peripheral edema. NEUROLOGICAL: Somnolent but arousable CBC, BMP 12/27/18 01:05 12/27/18 03:50 Laboratory Results - last 24 hr 12/27/18 12/27/18 12/27/18 00:49 01:05 01:05 WBC 7.8 RBC 3.76 Hgb 11.4 Hct 34.0 MCV 90.5 MCH 30.4 MCHC 33.6 RDW 14.7 Plt Count 277 MPV 9.3 D Absolute Neuts (auto) 4.3 Neutrophils % 54.8 Lymphocytes % 34.8 Monocytes % 6.9 Eosinophils % 2.8 Basophils % 0.7 Nucleated RBC % 0 PT with INR 11.20 INR 0.95 Sodium Potassium Chloride Carbon Dioxide Anion Gap BUN Creatinine Creat Clearance w eGFR Random Glucose Lactic Acid 1.0 Calcium Total Bilirubin AST ALT Alkaline Phosphatase Troponin I Total Protein Albumin Total Amylase Lipase Urine Color Urine Appearance Urine pH Ur Specific [place] Urine Protein Urine Glucose (UA) Urine Ketones Urine Blood Urine Nitrite Urine Bilirubin Urine Urobilinogen Ur Leukocyte Esterase Urine WBC (Auto) Urine RBC (Auto) Urine Casts (Auto) U Epithel Cells (Auto) Urine Bacteria (Auto) 12/27/18 12/27/18 12/27/18 01:05 02:30 02:33 WBC RBC Hgb Hct MCV MCH MCHC RDW Plt Count MPV Absolute Neuts (auto) Neutrophils % Lymphocytes % Monocytes % Eosinophils % Basophils % Nucleated RBC % PT with INR INR Sodium Cancelled Cancelled Potassium Cancelled Cancelled Chloride Cancelled Cancelled Carbon Dioxide Cancelled Cancelled Anion Gap Cancelled Cancelled BUN Cancelled Cancelled Creatinine Cancelled Cancelled Creat Clearance w eGFR Cancelled Cancelled Random Glucose Cancelled Cancelled Lactic Acid Calcium Cancelled Cancelled Total Bilirubin Cancelled Cancelled AST Cancelled Cancelled ALT Cancelled Cancelled Alkaline Phosphatase Cancelled Cancelled Troponin I Cancelled Cancelled Total Protein Cancelled Cancelled Albumin Cancelled Cancelled Total Amylase Cancelled Cancelled Lipase Cancelled Cancelled Urine Color Yellow Urine Appearance Clear Urine pH 5.5 Ur Specific [place] 1.014 Urine Protein Negative Urine Glucose (UA) Negative Urine Ketones Negative Urine Blood Negative Urine Nitrite Negative Urine Bilirubin Negative Urine Urobilinogen 0.2 Ur Leukocyte Esterase 1+ H Urine WBC (Auto) 13 Urine RBC (Auto) 0 Urine Casts (Auto) 3 U Epithel Cells (Auto) 1.7 Urine Bacteria (Auto) 3.2 12/27/18 03:50 WBC RBC Hgb Hct MCV MCH MCHC RDW Plt Count MPV Absolute Neuts (auto) Neutrophils % Lymphocytes % Monocytes % Eosinophils % Basophils % Nucleated RBC % PT with INR INR Sodium 142 Potassium 3.8 Chloride 110 H Carbon Dioxide 24 Anion Gap 8 BUN 16 Creatinine 1.0 Creat Clearance w eGFR 53.91 Random Glucose 95 Lactic Acid Calcium 7.8 L Total Bilirubin 0.2 AST 15 ALT 12 L Alkaline Phosphatase 55 Troponin I < 0.02 Total Protein 6.3 L Albumin 3.0 L Total Amylase 184 H Lipase 3415 H Urine Color Urine Appearance Urine pH Ur Specific [place] Urine Protein Urine Glucose (UA) Urine Ketones Urine Blood Urine Nitrite Urine Bilirubin Urine Urobilinogen Ur Leukocyte Esterase Urine WBC (Auto) Urine RBC (Auto) Urine Casts (Auto) U Epithel Cells (Auto) Urine Bacteria (Auto) Ambulatory Orders Aspirin [ASA -] 81 mg PO DAILY 09/13/16 Henry/D3/Mag11/Zinc/Pick Pulling Machine Tender/[place]/Bor [Caltrate 600+D Plus Tablet] 1 each PO BID Memantine HCl [Namenda -] 10 mg PO BID 09/13/16 Rosuvastatin [Crestor -] 10 mg PO DAILY 09/13/16 Metformin HCl [Glucophage] 1,000 mg PO DAILY 02/20/18 Ibandronate Sodium [Boniva] 3 mg IV MO 04/13/18 Thiamine Mononitrate [Vitamin B-1] 100 mg PO DAILY 04/13/18 Pantoprazole Sodium [Protonix -] 20 mg PO DAILY #30 tablet.ec 08/04/18 Multivit-Min/FA/Lycopen/Lutein [Centrum Silver Tablet] 1 each PO DAILY 10/02/18 Ondansetron [Zofran Odt -] 4 mg SL BID PRN 10/13/18 metFORMIN HCL [Metformin HCl] 500 mg PO HS 10/13/18 Amoxicillin/Potassium Clav [Augmentin 500-125 Tablet] 1 each PO BID #10 tablet 12/07/18 Lactobacillus Acidophilus [Bacid -] 1 each PO DAILY #30 capsule 12/07/18 Metoprolol Succinate [Toprol XL -] 25 mg PO DAILY #60 tab.sr.24h 12/07/18 Current Medications ECHO-2018: HFpEF; Pt with EF60-65%, E/A reversal and TDI mildly impaired relaxation with elevated filling pressure. RVS function nl. Nl RA size. Mild Mitral valve thickening ASSESSMENT/PLAN: Pt is a 78 yo F with a signif PMHx of NIDDM, HLD, COPD (no home O2), diverticulosis, dementia, recently discharged 12/07 for diverticulitis now presenting with nausea x 3 days and abdominal pain x 1 day with lipase 3415, CTap shows improving diverticulitis, normal pancreas. #Acute pancreatitis Unknown cause- no obvious stones on CTap Pt does not drink alcohol, but current smoker Nl LFTs Clinical picture +lipase/amylase Abd US stat NS given in ED LR@100- (HFpEF) Pain mx iv tylenol Avoid sedatives like benzos- pt has dementia at baseline NPO #diverticulosis Recent diverticulitis mx with 5 day PO augmentin from 12/07 Per imaging-improving #Positive UA LE1+ WBC-17 Unclear if symptomatic, daughter said she denied burning or lower abdominal pain Will hold off AB for now in setting of pancreatitis Pending ucx #NIDDM On metformin at home- hold ISS Q6H BGM Q6H #HLD Cont crestor 10 #COPD (no home O2) Not in exacerbation #dementia Avoid sedation Pain mx with tylenol #FEN LR@100 Monitor lytes, replete as needed NPO #PPx Lovenox 30g sq #Dispo Medsurg Visit type - Emergency Visit Emergency Visit: Yes ED Registration Date: 12/27/18 Care time: The patient presented to the Emergency Department on the above date and was hospitalized for further evaluation of their emergent condition. - New Patient This patient is new to me today: Yes Date on this admission: 12/27/18 - Critical Care Critical Care patient: No
--- NOTE | 2018-12-27 06:25 | PN ---
Teaching Attending Note Name of Resident: Zohra Dasilva ATTENDING PHYSICIAN STATEMENT I saw and evaluated the patient. I reviewed the resident's note and discussed the case with the resident. I agree with the resident's findings and plan as documented. SUBJECTIVE: OBJECTIVE: ASSESSMENT AND PLAN: this is a 78 y/o female presented with decrease appetite, associated with nausea for the past few days according to the daughter she stated that this is not her baseline patient was found to have elevated lipase and amylase patient is being admitted for pancreatitis plan: keep patient NPO until the patient asks for food pain management avoid any sedative - benzodiazapine or diphenhydramine consult GI US of the billiary tract based on the history of medication induced pancreastitis is unlikely consider malignancy if there is no other causes due to the extensive history of smoking.
[2018-12-27] MEDS ORDERED: ACETAMINOPHEN 1000 MG/100 ML VIAL (NON FORMULARY) IVPB PRN (07:01)
[2018-12-27] MEDS ORDERED: LACTATED RINGERS SOLUTION 1000 ML INFUS.BAG IV ONE (07:07)
[2018-12-27] MEDS: LACTATED RINGERS SOLUTION 1,000 ML/1,000 ML INFUS.BAG IV SCH ×2 (08:00→21:01)
[2018-12-27 09:13] LABS: BASO % 0.5 % (0-2.0); EOS % 3.7 % (0-4.5); HEMATOCRIT 32.8 % (32.4-45.2); LYMPH % 35.7 % (8-40); MCH 30.5 pg (25.7-33.7); MCHC 33.7 g/dl (32.0-36.0); MEAN CELL VOLUME 90.6 fl (80-96); MEAN PLT VOLUME 8.3 fl (7.5-11.1); MONO % 7.6 % (3.8-10.2); NEUT % 52.5 % (42.8-82.8); PLATELET COUNT 243 K/MM3 (134-434); RBC 3.62 M/mm3 (3.60-5.2); RDW 14.4 % (11.6-15.6); WHITE BLOOD COUNT 5.4 K/mm3 (4.0-10.0)
[2018-12-27 09:28] LABS: ALBUMIN 3.1 g/dl (3.4-5.0); ALK PHOS 54 U/L (45-117); ANION GAP 6 MMOL/L (8-16); BILIRUBIN,TOTAL 0.3 mg/dL (0.2-1); BLOOD UREA NITROGEN 14 mg/dL (7-18); CALCIUM 7.7 mg/dL (8.5-10.1); CHLORIDE 112 mmol/L (98-107); CO2 26 mmol/L (21-32); CREATININE 0.9 mg/dL (0.55-1.3); GLUCOSE,RANDOM 110 mg/dL (74-106); MAGNESIUM 1.8 mg/dL (1.8-2.4); PHOSPHOROUS 3.3 mg/dL (2.5-4.9); SGOT/AST 19 U/L (15-37); SGPT/ALT 14 U/L (13-61); SODIUM 144 mmol/L (136-145); TOT PROT 6.3 g/dl (6.4-8.2)
[2018-12-27] MEDS: INSULIN SLIDING SCALE (NOVOLOG) 1 VIAL SQ SCH ×4 (09:29→21:06)
[2018-12-27 10:18] LABS: INR 1.02 (0.83-1.09)
[2018-12-27] MEDS: ENOXAPARIN NA (PORCINE) 40 MG/0.4 ML DISP.SYRIN SQ SCH (10:45)
[2018-12-27 12:20] VITALS: BMI 30.2
[2018-12-27] MEDS ORDERED: ONDANSETRON 4 MG/2 ML VIAL IVPUSH PRN (13:06)
--- NOTE | 2018-12-27 14:55 | PN ---
Progress Note (short form) - Note Progress Note: SUBJECTIVE: Difficult to obtain history as patient has dementia. Refers 1 day history of generalized abdominal pain and nausea - no vomiting/diarrhea/melena. No fever/chills. OBJECTIVE: Afebrile, Hemodynamically Stable. Appears comfortable. Last Vital Signs Temp Pulse Resp BP Pulse Ox 98.3 F 62 20 105/52 L 96 12/27/18 12:10 12/27/18 12:10 12/27/18 12:10 12/27/18 12:10 12/27/18 12:40 HEENT - Atraumatic, Normocephalic. Neuro - AAO x 2. Tone/Power normal all 4 extremities. SERGIO. Heart - S1, S2, soft SM Lungs - clear to auscultation Abdomen - mild generalized tenderness, difficult to localize. Extremities - no edema, no calf tenderness Laboratory Results - last 24 hr 12/27/18 12/27/18 12/27/18 00:49 01:05 01:05 WBC 7.8 RBC 3.76 Hgb 11.4 Hct 34.0 MCV 90.5 MCH 30.4 MCHC 33.6 RDW 14.7 Plt Count 277 MPV 9.3 D Absolute Neuts (auto) 4.3 Neutrophils % 54.8 Lymphocytes % 34.8 Monocytes % 6.9 Eosinophils % 2.8 Basophils % 0.7 Nucleated RBC % 0 PT with INR 11.20 INR 0.95 PTT (Actin FS) Sodium Potassium Chloride Carbon Dioxide Anion Gap BUN Creatinine Creat Clearance w eGFR POC Glucometer Random Glucose Lactic Acid 1.0 Calcium Phosphorus Magnesium Total Bilirubin AST ALT Alkaline Phosphatase Troponin I Total Protein Albumin Total Amylase Lipase Urine Color Urine Appearance Urine pH Ur Specific [place] Urine Protein Urine Glucose (UA) Urine Ketones Urine Blood Urine Nitrite Urine Bilirubin Urine Urobilinogen Ur Leukocyte Esterase Urine WBC (Auto) Urine RBC (Auto) Urine Casts (Auto) U Epithel Cells (Auto) Urine Bacteria (Auto) 12/27/18 12/27/18 12/27/18 01:05 02:30 02:33 WBC RBC Hgb Hct MCV MCH MCHC RDW Plt Count MPV Absolute Neuts (auto) Neutrophils % Lymphocytes % Monocytes % Eosinophils % Basophils % Nucleated RBC % PT with INR INR PTT (Actin FS) Sodium Cancelled Cancelled Potassium Cancelled Cancelled Chloride Cancelled Cancelled Carbon Dioxide Cancelled Cancelled Anion Gap Cancelled Cancelled BUN Cancelled Cancelled Creatinine Cancelled Cancelled Creat Clearance w eGFR Cancelled Cancelled POC Glucometer Random Glucose Cancelled Cancelled Lactic Acid Calcium Cancelled Cancelled Phosphorus Magnesium Total Bilirubin Cancelled Cancelled AST Cancelled Cancelled ALT Cancelled Cancelled Alkaline Phosphatase Cancelled Cancelled Troponin I Cancelled Cancelled Total Protein Cancelled Cancelled Albumin Cancelled Cancelled Total Amylase Cancelled Cancelled Lipase Cancelled Cancelled Urine Color Yellow Urine Appearance Clear Urine pH 5.5 Ur Specific [place] 1.014 Urine Protein Negative Urine Glucose (UA) Negative Urine Ketones Negative Urine Blood Negative Urine Nitrite Negative Urine Bilirubin Negative Urine Urobilinogen 0.2 Ur Leukocyte Esterase 1+ H Urine WBC (Auto) 13 Urine RBC (Auto) 0 Urine Casts (Auto) 3 U Epithel Cells (Auto) 1.7 Urine Bacteria (Auto) 3.2 12/27/18 12/27/18 12/27/18 03:50 07:50 07:50 WBC 5.4 RBC 3.62 Hgb 11.0 Hct 32.8 MCV 90.6 MCH 30.5 MCHC 33.7 RDW 14.4 Plt Count 243 MPV 8.3 D Absolute Neuts (auto) 2.8 Neutrophils % 52.5 Lymphocytes % 35.7 Monocytes % 7.6 Eosinophils % 3.7 Basophils % 0.5 Nucleated RBC % 0 PT with INR 12.00 INR 1.02 PTT (Actin FS) 30.0 Sodium 142 Potassium 3.8 Chloride 110 H Carbon Dioxide 24 Anion Gap 8 BUN 16 Creatinine 1.0 Creat Clearance w eGFR 53.91 POC Glucometer Random Glucose 95 Lactic Acid Calcium 7.8 L Phosphorus Magnesium Total Bilirubin 0.2 AST 15 ALT 12 L Alkaline Phosphatase 55 Troponin I < 0.02 Total Protein 6.3 L Albumin 3.0 L Total Amylase 184 H Lipase 3415 H Urine Color Urine Appearance Urine pH Ur Specific [place] Urine Protein Urine Glucose (UA) Urine Ketones Urine Blood Urine Nitrite Urine Bilirubin Urine Urobilinogen Ur Leukocyte Esterase Urine WBC (Auto) Urine RBC (Auto) Urine Casts (Auto) U Epithel Cells (Auto) Urine Bacteria (Auto) 12/27/18 12/27/18 12/27/18 07:50 07:52 11:28 WBC RBC Hgb Hct MCV MCH MCHC RDW Plt Count MPV Absolute Neuts (auto) Neutrophils % Lymphocytes % Monocytes % Eosinophils % Basophils % Nucleated RBC % PT with INR INR PTT (Actin FS) Sodium 144 Potassium 4.0 Chloride 112 H Carbon Dioxide 26 Anion Gap 6 L BUN 14 Creatinine 0.9 Creat Clearance w eGFR 60.88 POC Glucometer 115 117 Random Glucose 110 H Lactic Acid Calcium 7.7 L Phosphorus 3.3 Magnesium 1.8 Total Bilirubin 0.3 AST 19 ALT 14 Alkaline Phosphatase 54 Troponin I Total Protein 6.3 L Albumin 3.1 L Total Amylase Lipase Urine Color Urine Appearance Urine pH Ur Specific [place] Urine Protein Urine Glucose (UA) Urine Ketones Urine Blood Urine Nitrite Urine Bilirubin Urine Urobilinogen Ur Leukocyte Esterase Urine WBC (Auto) Urine RBC (Auto) Urine Casts (Auto) U Epithel Cells (Auto) Urine Bacteria (Auto) Current Medications Generic Name Dose Route Start Last Admin Trade Name Freq PRN Reason Stop Dose Admin Acetaminophen 1,000 mg 12/27/18 07:01 Ofirmev Injection - IVPB Q6H PRN PAIN Enoxaparin Sodium 40 mg 12/27/18 10:00 12/27/18 10:45 Lovenox - SQ 40 mg DAILY MÓNICA Administration Lactated Ringer's 1,000 ml in 1,000 mls @ 100 mls/hr 12/27/18 07:15 12/27/18 08:00 Lactated Ringers Solution IV 100 mls/hr ASDIR MÓNICA Administration Insulin Aspart 1 vial 12/27/18 07:00 12/27/18 12:03 Novolog Vial Sliding Scale - SQ Not Given Q6H MÓNICA Protocol Ondansetron HCl 4 mg 12/27/18 13:06 12/27/18 13:41 Zofran Injection IVPUSH 4 mg Q8H PRN Administration NAUSEA Home Medications Medication Instructions Recorded Aspirin [ASA -] 81 mg PO DAILY 09/13/16 Henry/D3/Mag11/Zinc/Family Dinner Service Specialist/[place]/Bor 1 each PO BID 09/13/16 [Caltrate 600+D Plus Tablet] Memantine HCl [Namenda -] 10 mg PO BID 09/13/16 Rosuvastatin [Crestor -] 10 mg PO DAILY 09/13/16 Metformin HCl [Glucophage] 1,000 mg PO DAILY 02/20/18 Ibandronate Sodium [Boniva] 3 mg IV MO 04/13/18 Thiamine Mononitrate [Vitamin B-1] 100 mg PO DAILY 04/13/18 Pantoprazole Sodium [Protonix -] 20 mg PO DAILY #30 tablet.ec 08/04/18 Multivit-Min/FA/Lycopen/Lutein 1 each PO DAILY 10/02/18 [Centrum Silver Tablet] Ondansetron [Zofran Odt -] 4 mg SL BID PRN 10/13/18 metFORMIN HCL [Metformin HCl] 500 mg PO HS 10/13/18 Amoxicillin/Potassium Clav 1 each PO BID #10 tablet 12/07/18 [Augmentin 500-125 Tablet] Lactobacillus Acidophilus [Bacid -] 1 each PO DAILY #30 capsule 12/07/18 Metoprolol Succinate [Toprol XL -] 25 mg PO DAILY #60 tab.sr.24h 12/07/18 ASSESSMENT/PLAN: 78 year old Female with history of Dementia, DM 2, HLD, COPD, Hx recent diverticulitis s/p Abx therapy (discharged 12/07), presents with abdominal pain and nausea for 1-2 days. 1. Non-specific Abdominal Pain, possible Acute Pancreatitis Lipase elevated at 3415, LFTs normal. CT A/P - read as improving diverticulitis (awaiting official report), Pancreas normal. Abdominal US - no cholecystitis, prominent main pancreatic duct at 2.7mm NPO, IV Fluids Gi eval requested. 2. Positive UA, Possible UTI Leukocytosis, UCx pending. Asymptomatic. Holding Abx pending Cx results. 3.DM 2 - Metformin held. Novolog sliding scale. 4. HLD - on Statin 5. COPD - Stable. Continue Albuterol prn. 6. Dementia - on Memantine 7. HTN - Continue Metoprolol DVT px - Lovenox SQ Visit type - Emergency Visit Emergency Visit: Yes ED Registration Date: 12/27/18 Care time: The patient presented to the Emergency Department on the above date and was hospitalized for further evaluation of their emergent condition. - New Patient This patient is new to me today: Yes Date on this admission: 12/27/18 - Critical Care Critical Care patient: No - Discharge Referral Referred to [facility] Med P.C.: No
--- NOTE | 2018-12-27 15:27 | CON.GI ---
Consult Consult Specialty:: GI Referred by:: Dr Anil Bruno Reason for Consultation:: abd pain - History of Present Illness Chief Complaint: lower abd pain History of Present Illness: 78 y.o. female with mild dementia, reports having had lower abdominal discomfort , some nausea, no vomiting or diarrhea. Says she had cookies earlier today given by her daughter; with her dementia, it is unclear whether this actually happened. Labs notable for normal CBC, unremarkable CMP, elevated lipase of 3415. CT scan not yet read by radiology but on my review I do not see any significant diverticulitis. There is mild dilation of the proximal portion of the pancreatic duct but this has been present before and is unchanged. I do not see any pancreatitis. Again, the official report from a radiologist is not yet available. 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 ) ...: No Endocrine: Yes: Diabetes Mellitus - Past Surgical History Past Surgical History: Yes: Appendectomy (At time of DONNA), Hysterectomy (DONNA/BSO ) - Alcohol/Substance Use Hx Alcohol Use: No - Smoking History Smoking history: Current every day smoker Have you smoked in the past 12 months: Yes Aproximately how many cigarettes per day: 20 - Social History Usual Living Arrangement: Alone () ADL: Independent History of Recent Travel: No Home Medications - Allergies Allergies/Adverse Reactions: Allergies Allergy/AdvReac Type Severity Reaction Status Date / Time No Known Allergies Allergy Verified 12/26/18 23:28 - Home Medications Home Medications: Ambulatory Orders Aspirin [ASA -] 81 mg PO DAILY 09/13/16 Henry/D3/Mag11/Zinc/Drying Rack Changer/[place]/Bor [Caltrate 600+D Plus Tablet] 1 each PO BID Memantine HCl [Namenda -] 10 mg PO BID 09/13/16 Rosuvastatin [Crestor -] 10 mg PO DAILY 09/13/16 Metformin HCl [Glucophage] 1,000 mg PO DAILY 02/20/18 Ibandronate Sodium [Boniva] 3 mg IV MO 04/13/18 Thiamine Mononitrate [Vitamin B-1] 100 mg PO DAILY 04/13/18 Pantoprazole Sodium [Protonix -] 20 mg PO DAILY #30 tablet.ec 08/04/18 Multivit-Min/FA/Lycopen/Lutein [Centrum Silver Tablet] 1 each PO DAILY 10/02/18 Ondansetron [Zofran Odt -] 4 mg SL BID PRN 10/13/18 metFORMIN HCL [Metformin HCl] 500 mg PO HS 10/13/18 Amoxicillin/Potassium Clav [Augmentin 500-125 Tablet] 1 each PO BID #10 tablet 12/07/18 Lactobacillus Acidophilus [Bacid -] 1 each PO DAILY #30 capsule 12/07/18 Metoprolol Succinate [Toprol XL -] 25 mg PO DAILY #60 tab.sr.24h 12/07/18 Family Disease History - Family Disease History Family Disease History: Other: Father (: 70's: unclear cause), Mother ( : 80's: CVA), Brother (2, 1 : possible prostate cancer), Sister (2, alive), Daughter (1 adopted daughter:L healthy) Physical Exam-GI Vital Signs: Vital Signs Temperature 98.4 F 12/27/18 14:05 Pulse Rate 68 12/27/18 14:05 Respiratory Rate 22 H 12/27/18 14:05 Blood Pressure 160/88 12/27/18 14:05 O2 Sat by Pulse Oximetry (%) 96 12/27/18 12:40 Constitutional: Yes: Well Nourished Gastrointestinal Inspection: Yes: WNL ...Auscultate: Yes: Normoactive Bowel Sounds ...Palpate: Yes: Other (No tenderness at all on exam, even to deep palpation. No rebound tenderness.) Labs: CBC, BMP 12/27/18 07:50 12/27/18 07:50 INR, PTT INR 1.02 (0.83-1.09) 12/27/18 07:50 Imaging - Results Cat Scan: Image Reviewed Problem List - Problems (1) Abdominal pain Code(s): R10.9 - UNSPECIFIED ABDOMINAL PAIN Assessment/Plan She does not appear to be in any appreciable discomfort at present, and the only abnormality is the slightly elevated amylase and the elevated lipase. This level of elevation is not very specific for pancreatic disease and I do not see pancreatitis on the CT scan (although, again I must emphasize that I am waiting for a radiologist's interpretation.) I would try feeding the patient -- if she has pancreatitis, feeding is considered a good thing to do now and may help prevent pancreatic necrosis. Will repeat amylase/lipase/CBC in a.m. and observe for any discomfort after eating.
[2018-12-27] MEDS: PANTOPRAZOLE SODIUM 40 MG VIAL IVPUSH SCH (16:58)
[2018-12-27] MEDS: metoPROLOL SUCCINATE 25 MG TAB.SR.24H (FP) PO SCH (16:58)
[2018-12-27] MEDS: MEMANTINE HCL 10 MG TABLET (FP) PO SCH (21:08)
[2018-12-28 06:57] LABS: BASO % 0.4 % (0-2.0); EOS % 2.7 % (0-4.5); HEMATOCRIT 32.4 % (32.4-45.2); HEMOGLOBIN 10.9 GM/dL (10.7-15.3); LYMPH % 36.6 % (8-40); MCH 30.3 pg (25.7-33.7); MCHC 33.7 g/dl (32.0-36.0); MEAN CELL VOLUME 89.8 fl (80-96); MEAN PLT VOLUME 8.2 fl (7.5-11.1); MONO % 6.5 % (3.8-10.2); NEUT % 53.8 % (42.8-82.8); PLATELET COUNT 233 K/MM3 (134-434); RBC 3.61 M/mm3 (3.60-5.2); RDW 14.5 % (11.6-15.6); WHITE BLOOD COUNT 6.3 K/mm3 (4.0-10.0)
[2018-12-28] MEDS: INSULIN SLIDING SCALE (NOVOLOG) 1 VIAL SQ SCH ×2 (07:08→12:52)
--- NOTE | 2018-12-28 08:36 | PN ---
Physical Exam: SUBJECTIVE: Patient seen and examined at bedside this morning. She endorses no acute complaints. She states she would like to eat. Denies subjective fevers, chills, shortness of breath, chest pain, palpitations, abdominal pain, nausea, vomiting. Nursing staff state the patient has not had bowel movement overnight, however patient states she has regular bowel movements every day. OBJECTIVE: Vital Signs Period Temp Pulse Resp BP Sys/Solis Pulse Ox Last 24 Hr 98.1 F-99.0 F 47-68 18-22 105-160/52-88 96-97 GENERAL: The patient is awake, alert, and oriented to person and place, in no acute distress. HEAD: Normocephalic, atraumatic. EYES: PERRL, extraocular movements intact, sclera anicteric, conjunctiva clear. ENT: Oropharynx clear, without erythema or exudates. Moist mucous membranes. NECK: Trachea midline, full range of motion. Supple without lymphadenopathy. LUNGS: Breath sounds equal, clear to auscultation bilaterally, no wheezes, no crackles. No accessory muscle use. HEART: Regular rate and rhythm, S1, S2 without murmur, rub or gallop. ABDOMEN: Soft, nondistended, tender to deep palpation along left lower quadrant. No rebound tenderness, no guarding. Normoactive bowel sounds x4 quadrants. no hepatosplenomegaly, palpated or percussed. EXTREMITIES: 2+ radial, dorsalis pedis pulses bilaterally. Warm, well-perfused. No lower extremity edema bilaterally. NEUROLOGICAL: Cranial nerves II through XII grossly intact. Normal speech. No gross focal deficits. PSYCH: Normal mood, normal affect upon my encounter. SKIN: Warm, dry. Laboratory Results - last 24 hr 12/27/18 12/27/18 12/27/18 07:50 07:50 07:50 WBC 5.4 RBC 3.62 Hgb 11.0 Hct 32.8 MCV 90.6 MCH 30.5 MCHC 33.7 RDW 14.4 Plt Count 243 MPV 8.3 D Absolute Neuts (auto) 2.8 Neutrophils % 52.5 Lymphocytes % 35.7 Monocytes % 7.6 Eosinophils % 3.7 Basophils % 0.5 Nucleated RBC % 0 PT with INR 12.00 INR 1.02 PTT (Actin FS) 30.0 Sodium 144 Potassium 4.0 Chloride 112 H Carbon Dioxide 26 Anion Gap 6 L BUN 14 Creatinine 0.9 Creat Clearance w eGFR 60.88 POC Glucometer Random Glucose 110 H Calcium 7.7 L Phosphorus 3.3 Magnesium 1.8 Total Bilirubin 0.3 AST 19 ALT 14 Alkaline Phosphatase 54 Total Protein 6.3 L Albumin 3.1 L 12/27/18 12/27/18 12/27/18 11:28 17:42 21:05 WBC RBC Hgb Hct MCV MCH MCHC RDW Plt Count MPV Absolute Neuts (auto) Neutrophils % Lymphocytes % Monocytes % Eosinophils % Basophils % Nucleated RBC % PT with INR INR PTT (Actin FS) Sodium Potassium Chloride Carbon Dioxide Anion Gap BUN Creatinine Creat Clearance w eGFR POC Glucometer 117 99 104 Random Glucose Calcium Phosphorus Magnesium Total Bilirubin AST ALT Alkaline Phosphatase Total Protein Albumin 12/28/18 12/28/18 06:00 07:06 WBC 6.3 RBC 3.61 Hgb 10.9 Hct 32.4 MCV 89.8 MCH 30.3 MCHC 33.7 RDW 14.5 Plt Count 233 MPV 8.2 Absolute Neuts (auto) 3.4 Neutrophils % 53.8 Lymphocytes % 36.6 Monocytes % 6.5 Eosinophils % 2.7 Basophils % 0.4 Nucleated RBC % 0 PT with INR INR PTT (Actin FS) Sodium Potassium Chloride Carbon Dioxide Anion Gap BUN Creatinine Creat Clearance w eGFR POC Glucometer 107 Random Glucose Calcium Phosphorus Magnesium Total Bilirubin AST ALT Alkaline Phosphatase Total Protein Albumin Active Medications Generic Name Dose Route Start Last Admin Trade Name Freq PRN Reason Stop Dose Admin Acetaminophen 1,000 mg 12/27/18 07:01 Ofirmev Injection - IVPB Q6H PRN PAIN Enoxaparin Sodium 40 mg 12/27/18 10:00 12/27/18 10:45 Lovenox - SQ 40 mg DAILY MÓNICA Administration Lactated Ringer's 1,000 ml in 1,000 mls @ 100 mls/hr 12/27/18 07:15 12/27/18 21:01 Lactated Ringers Solution IV 100 mls/hr ASDIR MÓNICA Administration Insulin Aspart 1 vial 12/27/18 22:00 12/28/18 07:08 Novolog Vial Sliding Scale - SQ Not Given ACHS [facility] Protocol Memantine 10 mg 12/27/18 22:00 12/27/18 21:08 Namenda - PO 10 mg BID MÓNICA Administration Metoprolol Succinate 25 mg 12/27/18 15:45 12/27/18 16:58 Toprol Xl - PO 25 mg DAILY MÓNICA Administration Ondansetron HCl 4 mg 12/27/18 13:06 12/27/18 13:41 Zofran Injection IVPUSH 4 mg Q8H PRN Administration NAUSEA Pantoprazole Sodium 40 mg 12/27/18 15:15 12/27/18 16:58 Protonix Iv IVPUSH 40 mg DAILY MÓNICA Administration ASSESSMENT/PLAN: Patient is a 78 year old female with history of non-insulin dependent diabetes mellitus, hyperlipidemia, COPD (not on home oxygen), diverticulosis, dementia, presented with complaint of abdominal pain. Lower quadrant abdominal pain -Lipase improved to 304 (3415 upon admission), Amylase improved to 76 (184 upon presentation). -CT abdomen, pelvis shows improvement of sigmoid diverticulosis. No report of pancreatitis noted. -Gastroenterology consult (Dr. Mcintosh) appreciated. Abdominal pain unlikely to be secondary to pancreatitis. -Will trial diabetic, sodium modified diet for breakfast. Patient is tolerating diet without abdominal pain, nausea, vomiting. -Protonix 40mg IV daily -Zofran 4mg IV Q8H PRN for nausea Non-insulin dependent diabetes mellitus -Holding home Metformin -Insulin sliding scale ACHS -Fingerstick blood glucose monitoring ACHS Hypertension -Metoprolol 25mg PO daily Hyperlipidemia -Holding home Atorvastatin History of dementia -Memantine 10mg PO BID -Will avoid sedatives FEN -IV lactated ringer's at 100mL/hour -Follow CMP -Trial of diabetic, sodium modified diet Prophylaxis -Lovenox 40mg subq daily Disposition -Continue care in medical- surgical floor
[2018-12-28 08:43] LABS: ALBUMIN 3.1 g/dl (3.4-5.0); ALK PHOS 53 U/L (45-117); AMYLASE 76 U/L (25-115); ANION GAP 8 MMOL/L (8-16); BILIRUBIN,TOTAL 0.4 mg/dL (0.2-1); BLOOD UREA NITROGEN 10 mg/dL (7-18); CALCIUM 8.1 mg/dL (8.5-10.1); CHLORIDE 112 mmol/L (98-107); CO2 24 mmol/L (21-32); CREATININE 0.9 mg/dL (0.55-1.3); GLUCOSE,RANDOM 104 mg/dL (74-106); LIPASE 304 U/L (73-393); POTASSIUM 4.1 mmol/L (3.5-5.1); SGOT/AST 16 U/L (15-37); SGPT/ALT 13 U/L (13-61); SODIUM 144 mmol/L (136-145); TOT PROT 6.3 g/dl (6.4-8.2)
--- NOTE | 2018-12-28 10:32 | EKG ---
Test Reason : Blood Pressure : / mmHG Vent. Rate : 062 BPM Atrial Rate : 062 BPM P-R Int : 118 ms QRS Dur : 088 ms QT Int : 472 ms P-R-T Axes : 050 036 049 degrees QTc Int : 479 ms SINUS RHYTHM WITH PREMATURE ATRIAL COMPLEXES OTHERWISE NORMAL ECG WHEN COMPARED WITH ECG OF 05-DEC-2018 10:07, NONSPECIFIC T WAVE ABNORMALITY NO LONGER EVIDENT IN LATERAL LEADS Confirmed by JINA CARMEN, MANUEL ([id number]) on 12/28/2018 10:32:07 AM Referred By: Confirmed By:MANUEL MURO MD
[2018-12-28] MEDS: PANTOPRAZOLE SODIUM 40 MG VIAL IVPUSH SCH ×2 (11:36→11:39)
[2018-12-28] MEDS: LACTATED RINGERS SOLUTION 1,000 ML/1,000 ML INFUS.BAG IV SCH (11:36)
[2018-12-28] MEDS: ENOXAPARIN NA (PORCINE) 40 MG/0.4 ML DISP.SYRIN SQ SCH (11:36)
[2018-12-28] MEDS: metoPROLOL SUCCINATE 25 MG TAB.SR.24H (FP) PO SCH (11:37)
[2018-12-28] MEDS: MEMANTINE HCL 10 MG TABLET (FP) PO SCH (11:38)
--- NOTE | 2018-12-28 13:29 | PN ---
Teaching Attending Note Name of Resident: Yanick Webb ATTENDING PHYSICIAN STATEMENT I saw and evaluated the patient. I reviewed the resident's note and discussed the case with the resident. I agree with the resident's findings and plan as documented. SUBJECTIVE: Difficult to obtain history as patient has dementia. Referred 1 day history of generalized abdominal pain and nausea - no vomiting/diarrhea/melena. No fever/chills. Currently tolerating oral intake with no abdominal pain/nausea/ vomiting. OBJECTIVE: Afebrile, Hemodynamically Stable. Appears comfortable. Last Vital Signs Temp Pulse Resp BP Pulse Ox 98.5 F 84 20 130/62 96 12/28/18 11:29 12/28/18 11:29 12/28/18 11:29 12/28/18 11:29 12/27/18 21:00 Neuro - AAO x 2. Tone/Power normal all 4 extremities. SERGIO. Heart - S1, S2, soft SM Lungs - clear to auscultation Abdomen - mild generalized tenderness, difficult to localize. No guarding/ rebound. Bowel Sounds normal. Extremities - no edema, no calf tenderness Laboratory Results - last 24 hr 12/27/18 12/27/18 12/28/18 17:42 21:05 06:00 WBC 6.3 RBC 3.61 Hgb 10.9 Hct 32.4 MCV 89.8 MCH 30.3 MCHC 33.7 RDW 14.5 Plt Count 233 MPV 8.2 Absolute Neuts (auto) 3.4 Neutrophils % 53.8 Lymphocytes % 36.6 Monocytes % 6.5 Eosinophils % 2.7 Basophils % 0.4 Nucleated RBC % 0 Sodium Potassium Chloride Carbon Dioxide Anion Gap BUN Creatinine Creat Clearance w eGFR POC Glucometer 99 104 Random Glucose Calcium Total Bilirubin AST ALT Alkaline Phosphatase Total Protein Albumin Total Amylase Lipase 12/28/18 12/28/18 12/28/18 06:00 07:06 12:16 WBC RBC Hgb Hct MCV MCH MCHC RDW Plt Count MPV Absolute Neuts (auto) Neutrophils % Lymphocytes % Monocytes % Eosinophils % Basophils % Nucleated RBC % Sodium 144 Potassium 4.1 Chloride 112 H Carbon Dioxide 24 Anion Gap 8 BUN 10 Creatinine 0.9 Creat Clearance w eGFR 60.88 POC Glucometer 107 147 Random Glucose 104 Calcium 8.1 L Total Bilirubin 0.4 AST 16 ALT 13 Alkaline Phosphatase 53 Total Protein 6.3 L Albumin 3.1 L Total Amylase 76 Lipase 304 Current Medications Generic Name Dose Route Start Last Admin Trade Name Timothy PRN Reason Stop Dose Admin Acetaminophen 1,000 mg 12/27/18 07:01 Ofirmev Injection - IVPB Q6H PRN PAIN Enoxaparin Sodium 40 mg 12/27/18 10:00 12/28/18 11:36 Lovenox - SQ 40 mg DAILY MÓNICA Administration Lactated Ringer's 1,000 ml in 1,000 mls @ 100 mls/hr 12/27/18 07:15 12/28/18 11:36 Lactated Ringers Solution IV Not Given ASDIR [facility] Insulin Aspart 1 vial 12/27/18 22:00 12/28/18 12:52 Novolog Vial Sliding Scale - SQ Not Given [facility] Protocol Memantine 10 mg 12/27/18 22:00 12/28/18 11:38 Namenda - PO 10 mg BID MÓNICA Administration Metoprolol Succinate 25 mg 12/27/18 15:45 12/28/18 11:37 Toprol Xl - PO 25 mg DAILY [facility] Administration Ondansetron HCl 4 mg 12/27/18 13:06 12/27/18 13:41 Zofran Injection IVPUSH 4 mg Q8H PRN Administration NAUSEA Pantoprazole Sodium 40 mg 12/27/18 15:15 12/28/18 11:39 Protonix Iv IVPUSH Not Given DAILY [facility] ASSESSMENT/PLAN: 78 year old Female with history of Dementia, DM 2, HLD, COPD, Hx recent diverticulitis s/p Abx therapy (discharged 12/07), presents with abdominal pain and nausea for 1-2 days. 1. Non-specific Abdominal Pain, possible Acute Pancreatitis Lipase level down from 3415 [address] normal. [address] A/P - read as improving diverticulitis, no evidence of pancreatitis. Abdominal US - no cholecystitis, prominent main pancreatic duct at 2.7mm Evaluated by GI - recommend feeding. If tolerates, can be discharged with GI follow up. 2. Positive UA, Urine Cx negative Asymptomatic. No Abx started. 3.DM 2 - Metformin held. Novolog sliding scale. 4. HLD - on Statin 5. COPD - Stable. Continue Albuterol prn. 6. Dementia - on Memantine 7. HTN - Continue Metoprolol DVT px - Lovenox SQ GI Px- PPI. If no abdominal symptoms after eating lunch, can be discharged with GI follow up on discharge.
--- NOTE | 2018-12-28 14:49 | DS ---
Physical Exam: SUBJECTIVE: Patient seen and examined at bedside this morning. She admits significant improvement of her abdominal pain, and endorses no acute complaints. She states she would like to eat. Denies subjective fevers, chills, shortness of breath, chest pain, palpitations, nausea, vomiting, diarrhea. OBJECTIVE: Vital Signs Period Temp Pulse Resp BP Sys/Solis Pulse Ox Last 24 Hr 98.1 F-99.0 F 47-84 20-20 128-137/52-62 96 PHYSICAL EXAM GENERAL: The patient is awake, alert, and oriented to person and place, in no acute distress. HEAD: Normocephalic, atraumatic. EYES: PERRL, extraocular movements intact, sclera anicteric, conjunctiva clear. ENT: Oropharynx clear, without erythema or exudates. Moist mucous membranes. NECK: Trachea midline, full range of motion. Supple without lymphadenopathy. LUNGS: Breath sounds equal, clear to auscultation bilaterally, no wheezes, no crackles. No accessory muscle use. HEART: Regular rate and rhythm, S1, S2 without murmur, rub or gallop. ABDOMEN: Soft, nondistended, minimally tender to deep palpation along left lower quadrant. No rebound tenderness, no guarding. Normoactive bowel sounds x4 quadrants. No hepatosplenomegaly, palpated or percussed. EXTREMITIES: 2+ radial, dorsalis pedis pulses bilaterally. Warm, well-perfused. No lower extremity edema bilaterally. NEUROLOGICAL: Cranial nerves II through XII grossly intact. Normal speech. No gross focal deficits. PSYCH: Normal mood, normal affect upon my encounter. SKIN: Warm, dry. LABS Laboratory Results - last 24 hr 12/27/18 12/27/18 12/28/18 17:42 21:05 06:00 WBC 6.3 RBC 3.61 Hgb 10.9 Hct 32.4 MCV 89.8 MCH 30.3 MCHC 33.7 RDW 14.5 Plt Count 233 MPV 8.2 Absolute Neuts (auto) 3.4 Neutrophils % 53.8 Lymphocytes % 36.6 Monocytes % 6.5 Eosinophils % 2.7 Basophils % 0.4 Nucleated RBC % 0 Sodium Potassium Chloride Carbon Dioxide Anion Gap BUN Creatinine Creat Clearance w eGFR POC Glucometer 99 104 Random Glucose Calcium Total Bilirubin AST ALT Alkaline Phosphatase Total Protein Albumin Total Amylase Lipase 12/28/18 12/28/1812/28/19 06:00 07:06 12:16 WBC RBC Hgb Hct MCV MCH MCHC RDW Plt Count MPV Absolute Neuts (auto) Neutrophils % Lymphocytes % Monocytes % Eosinophils % Basophils % Nucleated RBC % Sodium 144 Potassium 4.1 Chloride 112 H Carbon Dioxide 24 Anion Gap 8 BUN 10 Creatinine 0.9 Creat Clearance w eGFR 60.88 POC Glucometer 107 147 Random Glucose 104 Calcium 8.1 L Total Bilirubin 0.4 AST 16 ALT 13 Alkaline Phosphatase 53 Total Protein 6.3 L Albumin 3.1 L Total Amylase 76 Lipase 304 HOSPITAL COURSE: Date of Admission:12/27/18 Date of Discharge: 12/28/18 Patient is a 78 year old female with history of non-insulin dependent diabetes mellitus, hyperlipidemia, COPD (not on home oxygen), diverticulosis, dementia, presented with complaint of abdominal pain. LAbs significant for Lipase 3415 upon admission, [address] abdomen, pelvis showed improvement of sigmoid diverticulosis. No report of pancreatitis noted. Gastroenterology consult discussed elevation of amylase and lipase not specific for pancreatitis , and recommended trial of diet, which patient tolerated without abdominal pain , nausea, or vomiting. Lipase improved to 304, Amylase improved to 76. Non- insulin dependent diabetes mellitus managed with Insulin sliding scale. Hypertension managed with Metoprolol. Dementia managed with Memantine. Patient discharged home to follow up with primary care physician (referral provided to JEAN CLAUDE Laws), and gastroenterology. Minutes to complete discharge: 35 Discharge Summary Reason For Visit: PANCREATITIS Current Active Problems Abdominal pain (Acute) Elevated lipase (Acute) Pancreatitis (Acute) Condition: Improved - Instructions Diet, Activity, Other Instructions: You were admitted to the hospital with abdominal pain. You were evaluated by the tilt wall supervisor, and A CT scan of your abdomen and pelvis showed improvement of your diverticulitis, without any acute new changes. You are being discharged home. Continue taking your home medications as directed. Follow up with your primary care physician within two- three days of discharge. A referral for Kishor Laws [facility] clinic has been provided. Follow up with tilt wall supervisor (Dr. Robertson) within one week of discharge. A referral has been provided. Return to the nearest Emergency Department if you experience any worsening symptoms, subjective fevers, chills, falls, loss of consciousness, shortness of breath, chest pain, palpitations, abdominal pain, nausea, vomiting, blood within the urine, bleeding within bowel movements, or black, tarry bowel movements. Referrals: [facility] [place] [Provider Group] - 12/29/18 (Dr. Webb Friday) Awais Robertson DO [Staff Physician] - 1 Week Disposition: HOME - Home Medications Comprehensive Discharge Medication List: Ambulatory Orders Aspirin [ASA -] 81 mg PO DAILY 12/27/18 Ibandronate Sodium [Boniva] 150 mg PO MONTHLY 12/27/18 Memantine HCl [Namenda -] 10 mg PO BID 12/27/18 Metformin HCl [Glucophage] 1,000 mg PO DAILY 12/27/18 Metoprolol Succinate [Toprol Xl] 25 mg PO BID 12/27/18 Multivit-Min/FA/Lycopen/Lutein [Centrum Silver Tablet] 1 tab PO DAILY 12/27/18 Rosuvastatin Calcium [Crestor] 10 mg PO DAILY 12/27/18 metFORMIN HCL [Metformin HCl] 500 mg PO ACDIN 12/27/18 This patient is new to me today: No Emergency Visit: Yes ED Registration Date: 12/27/18 Care time: The patient presented to the Emergency Department on the above date and was hospitalized for further evaluation of their emergent condition. Critical Care patient: No - Discharge Referral Referred to [facility] Yes Physician Referral: Ned Robertson DO (GI)
[2018-12-28 14:56] VITALS: BP 138/57; PULSE 50; TEMP 98.2
--- NOTE | 2018-12-28 16:05 | PN ---
Progress Note (short form) - Note Progress Note: Patient seen and examined Tolerating PO diet Abdomen benign Unclear why lipase was elevated but no sx of pancreatitis and CT negative -- does not meet criteria for acute pancreatitis No contraindication to discharge
== END 2018-12-28 15:03 | disposition home or self-care (01) | DRG 439 ==
LOC: JER 23:18 → JERBED 12-27 05:10 → J5S 12-27 11:48
PROVIDERS: ADMIT Internal Medicine
DX: K85.90 Acute pancreatitis without necrosis or infection, unspecified (principal); K57.92 Diverticulitis of intestine, part unspecified, without perforation or abscess without bleeding; E11.9 Type 2 diabetes mellitus without complications; E78.5 Hyperlipidemia, unspecified; F03.90 Unspecified dementia, unspecified severity, without behavioral disturbance, psychotic disturbance, mood disturbance, and anxiety; I10 Essential (primary) hypertension; J44.9 Chronic obstructive pulmonary disease, unspecified; D72.829 Elevated white blood cell count, unspecified
CPT/HCPCS: 36415; 74177-TC; 76705-TC; 80053; 81003; 82150; 82962; 83605; 83690; 83735; 84100; 84484; 85025; 85610; 85730; 87040; 87086; 93005; 93010; 99285-25; J0131

== ENCOUNTER 2018-12-29 12:00 | Inpatient (IN) | payer OTHER ==
[2018-12-29 12:15] VITALS: BMI 26.5
--- NOTE | 2018-12-29 12:27 | PDOC ---
History of Present Illness - General Chief Complaint: Chest Pain Stated Complaint: CHEST PAIN Time Seen by Provider: 12/29/18 12:27 - History of Present Illness Initial Comments: 12/29/18 14:17 The patient is a 78 year old female with a history of HLD, DM, COPD, Diverticulitis who presents for evaluation of abdominal pain. The patient is accompanied by family who assist in providing the history. They note that the patient was recently discharged from the hospital 1 day ago after being admitted for pancreatitis and diverticulitis. The patient noted worsening poorly described abdominal pain earlier this morning with blood per rectum with wiping prompting her presentation to the ED for further evaluation. The patient notes some associated nausea and minimal sharp chest pain that has since improved, but otherwise denies fevers, chills, SOB, vomiting, or changes with urination. Past History - Past Medical History Allergies/Adverse Reactions: Allergies Allergy/AdvReac Type Severity Reaction Status Date / Time No Known Allergies Allergy Verified 12/29/18 12:10 Home Medications: Ambulatory Orders Aspirin [ASA -] 81 mg PO DAILY 12/27/18 Ibandronate Sodium [Boniva] 150 mg PO MONTHLY 12/27/18 Memantine HCl [Namenda -] 10 mg PO BID 12/27/18 Metformin HCl [Glucophage] 1,000 mg PO DAILY 12/27/18 Metoprolol Succinate [Toprol Xl] 25 mg PO BID 12/27/18 Multivit-Min/FA/Lycopen/Lutein [Centrum Silver Tablet] 1 tab PO DAILY 12/27/18 Rosuvastatin Calcium [Crestor] 10 mg PO DAILY 12/27/18 metFORMIN HCL [Metformin HCl] 500 mg PO ACDIN 12/27/18 Cancer: No COPD: Yes ("mild") DVT: No Dementia: Yes (Early onset) Diabetes: Yes GI Disorders: Yes (diverticulitis, HIATAL HERNIA) HTN: No Hypercholesterolemia: Yes - Surgical History Orthopedic Surgery: Yes (rt elbow repair 27 years ago) - Immunization History Immunization Up to Date: Yes - Suicide/Smoking/Psychosocial Hx Smoking History: Never smoked Have you smoked in the past 12 months: Yes Number of Cigarettes Smoked Daily: 20 'Breaking Loose' booklet given: 11/29/18 Hx Alcohol Use: No Drug/Substance Use Hx: No Substance Use Type: None, Alcohol Hx Substance Use Treatment: No Review of Systems - Review of Systems Comments:: 12/29/18 14:19 Constitutional: No fevers, chills, fatigue, malaise HEENT: No Rhinorrhea, nasal congestion, visual changes Cardiovascular: Chest pain. No syncope, palpitations, lightheadedness Respiratory: No Cough, SOB, Hemoptysis, Gastrointestinal: Abdominal pain, nausea. BRBPR No Vomiting, Constipation, Diarrhea, Genitourinary: No Dysuria, Frequency, Urgency, Hesitancy, Hematuria, Flank pain Musculoskeletal: No Myalgia, arthralgia Skin: No rashes, itching, bruising, pallor Neurologic: No Headache, Dizziness, Numbness, Weakness, or Tingling Psychiatric: No Hallucinations. No SI or HI *Physical Exam - Vital Signs Last Vital Signs Temp Pulse Resp BP Pulse Ox 97.7 F 52 L 18 152/57 L 100 12/29/18 12:12 12/29/18 12:12 12/29/18 12:12 12/29/18 12:12 12/29/18 12:12 - Physical Exam Comments: 12/29/18 14:20 General Appearance: Nourished. No Apparent Distress HEENT: No Pharyngeal Erythema, Tonsillar Exudate, Tonsillar Erythema Neck: No Cervical Lymphadenopathy Respiratory/Chest: Lungs Clear, Normal Breath Sounds. No Crackles, Rales, Rhonchi, Wheezing Cardiovascular: Regular Rhythm, Regular Rate. No Murmur, Gallops, Rubs Gastrointestinal/Abdominal: Normal Bowel Sounds, Soft. Diffuse discomfort with palpation on exam. No Guarding, Rebound, Rectal Exam: Normal external exam without hemorrhoids or fissures. Normal Rectal Tone. Brown stool. Musculoskeletal: No CVA Tenderness Extremity: Normal Capillary Refill Integumentary: Normal Color, Dry, Warm Neurologic: Fully Oriented, Alert, Normal Mood/Affect, Normal Response, ED Treatment Course - LABORATORY CBC & Chemistry Diagram: 12/29/18 12:55 12/29/18 12:55 Medical Decision Making - Medical Decision Making 12/29/18 14:21 The patient is a 78 year old female with a history of HLD, DM, COPD, Diverticulitis who presents for evaluation of abdominal pain. Differential includes but is not limited to: Diverticulitis, Pancreatitis, Gastritis, ACS, Infectious, Metabolic Derangement. Given the patient's history and physical exam, we will obtain a cbc, cmp, troponin, stool for occult blood, chest plain film, lipase, ekg to evaluate further. Stool for occult blood was positive and we will obtain a CT abdomen/pelvis with contrast to evaluate further. We will continue to monitor and reassess while here in the ED. 12/29/18 18:20 CBC is unremarkable. CMP, troponin are unremarkable. Lipase is unremarkable. Chest plain film is unremarkable as read by our radiologist. CT abdomen/pelvis demonstrates acute diverticulitis as read by our radiologist. We will treat with cipro and flagyl. Given the patient's history, we believe the patient require observation admission for further management and monitoring. We discussed the case with the admitting team who accepted the patient for admission. *DC/Admit/Observation/Transfer Diagnosis at time of Disposition: Diverticulitis - Discharge Dispostion Condition at time of disposition: Stable Decision to Admit order: Yes - Referrals - Patient Instructions - Post Discharge Activity
[2018-12-29 13:34] LABS: BASO % 0.6 % (0-2.0); EOS % 1.7 % (0-4.5); HEMOGLOBIN 11.4 GM/dL (10.7-15.3); LYMPH % 25.5 % (8-40); MCH 30.1 pg (25.7-33.7); MCHC 33.4 g/dl (32.0-36.0); MEAN CELL VOLUME 89.9 fl (80-96); MEAN PLT VOLUME 8.1 fl (7.5-11.1); MONO % 6.6 % (3.8-10.2); NEUT % 65.6 % (42.8-82.8); PLATELET COUNT 256 K/MM3 (134-434); RBC 3.79 M/mm3 (3.60-5.2); RDW 14.6 % (11.6-15.6); WHITE BLOOD COUNT 7.6 K/mm3 (4.0-10.0)
[2018-12-29 13:39] LABS: URINE APPEARANCE CLEAR; URINE BILIRUBIN NEGATIVE (NEGATIVE); URINE COLOR YELLOW; URINE GLUCOSE (UA) NEGATIVE (NEGATIVE); URINE KETONE NEGATIVE (NEGATIVE); URINE LEUK ESTERASE NEGATIVE (NEGATIVE); URINE NITRITE NEGATIVE (NEGATIVE); URINE PROTEIN NEGATIVE (NEGATIVE); URINE UROBILINOGEN 0.2 mg/dL (0.2-1.0)
[2018-12-29 14:06] LABS: ALBUMIN 3.2 g/dl (3.4-5.0); ALK PHOS 54 U/L (45-117); ANION GAP 4 MMOL/L (8-16); BILIRUBIN,TOTAL 0.3 mg/dL (0.2-1); BLOOD UREA NITROGEN 9 mg/dL (7-18); CALCIUM 8.8 mg/dL (8.5-10.1); CHLORIDE 108 mmol/L (98-107); CO2 26 mmol/L (21-32); CREATININE 0.9 mg/dL (0.55-1.3); GLUCOSE,RANDOM 104 mg/dL (74-106); LIPASE 303 U/L (73-393); SGOT/AST 17 U/L (15-37); SGPT/ALT 16 U/L (13-61); SODIUM 138 mmol/L (136-145); TOT PROT 6.9 g/dl (6.4-8.2)
[2018-12-29] MEDS ORDERED: CIPROFLOXACIN 400 MG/D5W 400 MG/200 ML IVPB IVPB ONE (15:52)
[2018-12-29] MEDS ORDERED: metroNIDAZOLE 500 MG PREMIXED 1,000 MG/200 ML MG IVPB ONE (17:01)
--- NOTE | 2018-12-29 17:04 | PN ---
Teaching Attending Note Name of Resident: Kala Cohen ATTENDING PHYSICIAN STATEMENT I saw and evaluated the patient. I reviewed the resident's note and discussed the case with the resident. I agree with the resident's findings and plan as documented. SUBJECTIVE: Patient is a 78yof with PMHx of Dementia, T2DM, HLD, COPD, Diverticulitis was discharged home yesterday from the hospital presented with having mild diffuse abdominal pain. Denies having any fever or chills, no shortness of breath, no nausea or vomiting, no headache. OBJECTIVE: Vital Signs Temperature 98.3 F 12/29/18 16:00 Pulse Rate 44 L 12/29/18 16:00 Respiratory Rate 18 12/29/18 16:00 Blood Pressure 110/80 12/29/18 16:00 O2 Sat by Pulse Oximetry (%) 97 12/29/18 16:00 GENERAL: The patient is awake, alert, and fully oriented, in no acute distress. HEAD: Normal with no signs of trauma. EYES: PERRL, extraocular movements intact, sclera anicteric, conjunctiva clear. ENT: Ears normal, oropharynx clear without exudates, moist mucous membranes. NECK: Trachea midline, full range of motion, supple. LUNGS: Breath sounds equal, clear to auscultation bilaterally, no wheezes, no crackles, no accessory muscle use. HEART: Regular rate and rhythm, S1, S2 without murmur, rub or gallop. ABDOMEN: Soft, mild diffuse tenderness , no reboud or guarding. positive for bowel sounds, no guarding, no rebound, no hepatosplenomegaly, no masses. EXTREMITIES: 2+ pulses, warm, well-perfused, no edema. NEUROLOGICAL: Cranial nerves II through XII grossly intact. Normal speech, gait not observed. PSYCH: Normal mood, normal affect. SKIN: Warm, dry, normal turgor, no rashes or lesions noted CBCD WBC 7.6 K/mm3 (4.0-10.0) 12/29/18 12:55 RBC 3.79 M/mm3 (3.60-5.2) 12/29/18 12:55 Hgb 11.4 GM/dL (10.7-15.3) 12/29/18 12:55 Hct 34.0 % (32.4-45.2) 12/29/18 12:55 MCV 89.9 fl (80-96) 12/29/18 12:55 MCHC 33.4 g/dl (32.0-36.0) 12/29/18 12:55 RDW 14.6 % (11.6-15.6) 12/29/18 12:55 Plt Count 256 K/MM3 (134-434) 12/29/18 12:55 MPV 8.1 fl (7.5-11.1) 12/29/18 12:55 CMP Sodium 138 mmol/L (136-145) 12/29/18 12:55 Potassium 4.0 mmol/L (3.5-5.1) 12/29/18 12:55 Chloride 108 mmol/L (98-107) H 12/29/18 12:55 Carbon Dioxide 26 mmol/L (21-32) 12/29/18 12:55 Anion Gap 4 MMOL/L (8-16) L 12/29/18 12:55 BUN 9 mg/dL (7-18) 12/29/18 12:55 Creatinine 0.9 mg/dL (0.55-1.3) 12/29/18 12:55 Creat Clearance w eGFR 60.88 (>60) 12/29/18 12:55 Random Glucose 104 mg/dL (74-106) 12/29/18 12:55 Calcium 8.8 mg/dL (8.5-10.1) 12/29/18 12:55 Total Bilirubin 0.3 mg/dL (0.2-1) 12/29/18 12:55 AST 17 U/L (15-37) 12/29/18 12:55 ALT 16 U/L (13-61) 12/29/18 12:55 Alkaline Phosphatase 54 U/L (45-117) 12/29/18 12:55 Total Protein 6.9 g/dl (6.4-8.2) 12/29/18 12:55 Albumin 3.2 g/dl (3.4-5.0) L 12/29/18 12:55 CARDIAC ENZYMES Creatine Kinase 183 U/L (26-192) 12/29/18 12:55 Troponin I < 0.02 ng/ml (0.00-0.05) 12/29/18 12:55 Home Medications Medication Instructions Recorded Aspirin [ASA -] 81 mg PO DAILY 12/27/18 Ibandronate Sodium [Boniva] 150 mg PO MONTHLY 12/27/18 Memantine HCl [Namenda -] 10 mg PO BID 12/27/18 Metformin HCl [Glucophage] 1,000 mg PO DAILY 12/27/18 Metoprolol Succinate [Toprol Xl] 25 mg PO BID 12/27/18 Multivit-Min/FA/Lycopen/Lutein 1 tab PO DAILY 12/27/18 [Centrum Silver Tablet] Rosuvastatin Calcium [Crestor] 10 mg PO DAILY 12/27/18 metFORMIN HCL [Metformin HCl] 500 mg PO ACDIN 12/27/18 ASSESSMENT AND PLAN: Patient is a 78 year old Female with history of Dementia, DM 2, HLD, COPD, Hx recent diverticulitis s/p Abx therapy (discharged 12/07), presents with mild diffuse abdominal pain x [address] of abdomen was done in ED. reported acute mild diverticulitis of distal descending /proximal sigmoid colon. patient was given IV cipro with flagyl in ED. # Acute mild diverticulitis will continue with IV rocephin and flagyl for now, upon discharge follow the GI and PCp , IVF LR gentle hydration, GI consult. # T2DM: Novolog sliding scale. luiza hold metformin # HLD - on Statin # COPD - Stable. Continue Albuterol prn. # Dementia - on Memantine # HTN - Continue Metoprolol DVT px: Lovenox 40mg sq
--- NOTE | 2018-12-29 17:22 | HP ---
CHIEF COMPLAINT: "my stomach hurts" PCP: HISTORY OF PRESENT ILLNESS: This is a 78 yo F with PMH of diverticulitis, HLD, DM, COPD, who presents due to abdominal pain. Patient has dementia and most of the history if obtained from emr and daughter. She was hospitalized for mild diverticulitis 11/28, completed full 10 day abx course but then was readmitted fro possible pancreatitis and mild diverticulitis 12/27. she was evaluated by GI, who did not think there was pancreatitis on imaging despite elevated lipase. over hospital course lipase dropped and she was dcd yesterday. according to daughter she had mild abd pain on dc, tolerated meals at home but complained of worsening LLQ pain this morning, same pain location as prevous diverticulitis admission. patinet also complains of sided chest pain that is chronic according to daughter , caused by muscle strain and previously worked up as noncardiac. deneis sob, palpitations, n/v/d/c, melena, hematochezia, dysuria ER course was notable for: (1)ct abd/pelvis (2)cxr (3)cipro/flagyl Recent Travel: denies PAST MEDICAL HISTORY: as above PAST SURGICAL HISTORY: as above Social History: Smokin ppd Alcohol: denies Drugs: denies Family History: noncontributory Allergies No Known Allergies Allergy (Verified 12/29/18 12:10) HOME MEDICATIONS: Home Medications Medication Instructions Recorded Aspirin [ASA -] 81 mg PO DAILY 12/27/18 Ibandronate Sodium [Boniva] 150 mg PO MONTHLY 12/27/18 Memantine HCl [Namenda -] 10 mg PO BID 12/27/18 Metformin HCl [Glucophage] 1,000 mg PO DAILY 12/27/18 Metoprolol Succinate [Toprol Xl] 25 mg PO BID 12/27/18 Multivit-Min/FA/Lycopen/Lutein 1 tab PO DAILY 12/27/18 [Centrum Silver Tablet] Rosuvastatin Calcium [Crestor] 10 mg PO DAILY 12/27/18 metFORMIN HCL [Metformin HCl] 500 mg PO ACDIN 12/27/18 REVIEW OF SYSTEMS CONSTITUTIONAL: Absent: fever, chills HEENT: Absent: rhinorrhea, nasal congestion, throat pain CARDIOVASCULAR: Absent: syncope, palpitations RESPIRATORY: Absent: shortness of breath, orthopnea GASTROINTESTINAL: Absent: abdominal distension, nausea, vomiting, diarrhea, constipation, melena, hematochezia GENITOURINARY: Absent: dysuria MUSCULOSKELETAL: Absent: myalgia, arthralgia SKIN: Absent: rash, itching, pallor HEMATOLOGIC/IMMUNOLOGIC: Absent: easy bleeding, easy bruising ENDOCRINE: Absent: unexplained weight gain, unexplained weight loss NEUROLOGIC: Absent: headache, focal weakness or paresthesias PSYCHIATRIC: Absent: anxiety, depression PHYSICAL EXAMINATION Vital Signs - 24 hr 12/29/18 12/29/18 12:12 16:00 Temperature 97.7 F 98.3 F Pulse Rate 52 L Pulse Rate [ 44 L Right Radial] Respiratory 18 18 Rate Blood Pressure 152/57 L Blood Pressure 110/80 [Left Arm] O2 Sat by Pulse 100 97 Oximetry (%) GENERAL: Awake, alert, in no acute distress. HEAD: Normal with no signs of trauma. EYES: extraocular movements intact, sclera anicteric, conjunctiva clear. EARS, NOSE, THROAT: Moist mucous membranes. NECK: supple LUNGS: Breath sounds equal, clear to auscultation bilaterally. HEART: Regular rate and rhythm, normal S1 and S2 ABDOMEN: tender llq + voluntary guarding, no rebound, normoactive bowel sounds, no mass MUSCULOSKELETAL: No CVA tenderness. reproducible L sided chest wall pain UPPER EXTREMITIES: 2+ pulses, warm, well-perfused. No cyanosis. No clubbing. No peripheral edema. LOWER EXTREMITIES: No peripheral edema. NEUROLOGICAL: Cranial nerves II-XII grossly intact. Normal speech. PSYCHIATRIC: does nto answer all questions SKIN: Warm, dry Laboratory Results - last 24 hr 12/29/18 12/29/18 12/29/18 12:55 12:55 13:29 WBC 7.6 RBC 3.79 Hgb 11.4 Hct 34.0 MCV 89.9 MCH 30.1 MCHC 33.4 RDW 14.6 Plt Count 256 MPV 8.1 Absolute Neuts (auto) 5.0 Neutrophils % 65.6 D Lymphocytes % 25.5 D Monocytes % 6.6 Eosinophils % 1.7 Basophils % 0.6 Nucleated RBC % 0 Sodium 138 Potassium 4.0 Chloride 108 H Carbon Dioxide 26 Anion Gap 4 L BUN 9 Creatinine 0.9 Creat Clearance w eGFR 60.88 Random Glucose 104 Calcium 8.8 Total Bilirubin 0.3 AST 17 ALT 16 Alkaline Phosphatase 54 Creatine Kinase 183 Creatine Kinase Index 0.8 CK-MB (CK-2) 1.5 Troponin I < 0.02 Total Protein 6.9 Albumin 3.2 L Lipase 303 Urine Color Yellow Urine Appearance Clear Urine pH 7.0 D Ur Specific [place] 1.001 L Urine Protein Negative Urine Glucose (UA) Negative Urine Ketones Negative Urine Blood Negative Urine Nitrite Negative Urine Bilirubin Negative Urine Urobilinogen 0.2 Ur Leukocyte Esterase Negative Stool Occult Blood 12/29/18 13:30 WBC RBC Hgb Hct MCV MCH MCHC RDW Plt Count MPV Absolute Neuts (auto) Neutrophils % Lymphocytes % Monocytes % Eosinophils % Basophils % Nucleated RBC % Sodium Potassium Chloride Carbon Dioxide Anion Gap BUN Creatinine Creat Clearance w eGFR Random Glucose Calcium Total Bilirubin AST ALT Alkaline Phosphatase Creatine Kinase Creatine Kinase Index CK-MB (CK-2) Troponin I Total Protein Albumin Lipase Urine Color Urine Appearance Urine pH Ur Specific [place] Urine Protein Urine Glucose (UA) Urine Ketones Urine Blood Urine Nitrite Urine Bilirubin Urine Urobilinogen Ur Leukocyte Esterase Stool Occult Blood Positive ASSESSMENT/PLAN: This is a 78 yo F with PMH of diverticulitis, HLD, DM, COPD, who presents due to abdominal pain. diverticulitis atypical chest pain HLD DM COPD -mild flare up fo diverticulitis; ct appreciated, possible mild diverticulitis of sigmois and descending colon. -rocephin flagyl -ivf hydration -cp reproducible, muscluloskeletal, ekg reviewed unremarkable -resume toprol, crestor, asa -iss, bgm achs Problem List - Problem (1) Diverticulitis Code(s): K57.92 - DVTRCLI OF INTEST, PART UNSP, W/O PERF OR ABSCESS W/O BLEED (2) Abdominal pain Code(s): R10.9 - UNSPECIFIED ABDOMINAL PAIN (3) Dementia Code(s): F03.90 - UNSPECIFIED DEMENTIA WITHOUT BEHAVIORAL DISTURBANCE Qualifiers: Dementia type: unspecified type (4) Hyperlipidemia associated with type 2 diabetes mellitus Code(s): E11.69 - TYPE 2 DIABETES MELLITUS WITH OTHER SPECIFIED COMPLICATION; E78.5 - HYPERLIPIDEMIA, UNSPECIFIED (5) Hypertension Code(s): I10 - ESSENTIAL (PRIMARY) HYPERTENSION Qualifiers: Hypertension type: essential hypertension Qualified Code(s): I10 - Essential (primary) hypertension (6) Type 2 diabetes mellitus Code(s): E11.9 - TYPE 2 DIABETES MELLITUS WITHOUT COMPLICATIONS Qualifiers: Diabetes mellitus terminal clerk insulin use: without terminal clerk use Diabetes mellitus complication status: without complication Qualified Code(s): E11.9 - Type 2 diabetes mellitus without complications (7) Atypical chest pain Code(s): R07.89 - OTHER CHEST PAIN Visit type - Emergency Visit Emergency Visit: Yes ED Registration Date: 12/29/18 Care time: The patient presented to the Emergency Department on the above date and was hospitalized for further evaluation of their emergent condition. - New Patient This patient is new to me today: Yes Date on this admission: 12/29/18 - Critical Care Critical Care patient: No
[2018-12-29] MEDS ORDERED: SODIUM CHLORIDE 1,000 ML IV SCH (17:45)
--- NOTE | 2018-12-29 18:09 | PDOC ---
Documentation entered by Rubia Wilkins SCRIBE, acting as scribe for Mallory Judge MD. Attending Attestation - Resident Resident Name: Meek Blount - ED Attending Attestation I have performed the following: I have examined & evaluated the patient, The case was reviewed & discussed with the resident, I agree w/resident's findings & plan, Exceptions are as noted - HPI HPI: 12/29/18 12:56 The patient is a 78 year old female, with a significant past medical history of NIDDM, HLD, COPD, diverticulosis (complicated with diverticulitis), and new onset dementia, who presents to the emergency department with chest pain and abdominal pain roday s/p recent hospital stay for diverticulitis and elevated lipase with discharge yesterday. She states she was feeling better upon discharge yesterday, however, woke up with increased abdominal pain, abdominal distension and intermittent chest pain. The patients family reports some blood noted on the napkin with wiping after bowel movement. The patient denies shortness of breath, headache and dizziness. The patient denies fever, chills, nausea, vomit, diarrhea and constipation. The patient denies dysuria, frequency, urgency and hematuria. Allergies: NKDA - Physicial Exam PE: 12/29/18 12:56 GENERAL: Awake, alert, and fully oriented, in no acute distress HEAD: No signs of trauma EYES: PERRLA, EOMI, sclera anicteric, conjunctiva clear ENT: Auricles normal inspection, hearing grossly normal, nares patent, oropharynx clear without exudates. Moist mucosa NECK: Normal ROM, supple, no lymphadenopathy, JVD, or masses LUNGS: Breath sounds equal, clear to auscultation bilaterally. No wheezes, and no crackles HEART: Regular rate and rhythm, normal S1 and S2, no murmurs, rubs or gallops ABDOMEN: (+) diffuse abdominal discomfort on palpation. Soft, normoactive bowel sounds. No guarding, no rebound. No masses EXTREMITIES: Normal range of motion, no edema. No clubbing or cyanosis. No cords, erythema, or tenderness NEUROLOGICAL: Cranial nerves II through XII grossly intact. Normal speech, SKIN: Warm, Dry, normal turgor, no rashes or lesions noted. - Medical Decision Making 12/29/18 18:08 78 yo h/o diverticular disease, pancreatitis, cad here with chest pain and abd pain. pt ate yogurt today no n/v no f/c no urinary complaints differential acs, diverticulitis uti, pyelo colitis. plan ct a/p labs ekg cxr. pt with diverticulitis, given cipro flagyl. lipase normal. called d/w dr justin will see in hospiatl. hold asa due to bright red blood per pt history. Mallory Judge MD: This documentation has been prepared by the Franky tejada Amanda, SCRIBE, under my direction and personally reviewed by me in its entirety. I confirm that the documentation accurately reflects all work, treatment, procedures, and medical decision making performed by me.
[2018-12-29] MEDS: MEMANTINE HCL 10 MG TABLET (FP) PO SCH (21:28)
[2018-12-29] MEDS: metoPROLOL SUCCINATE 25 MG TAB.SR.24H (FP) PO SCH (21:28)
[2018-12-29] MEDS: INSULIN SLIDING SCALE (NOVOLOG) 1 VIAL SQ SCH (21:30)
[2018-12-29 21:37] LABS: EPI CELLS 0.6 /HPF (0-5/HPF); URINE APPEARANCE CLEAR; URINE BILIRUBIN NEGATIVE (NEGATIVE); URINE CASTS 0 /lpf (0-8); URINE COLOR YELLOW; URINE GLUCOSE (UA) NEGATIVE (NEGATIVE); URINE KETONE NEGATIVE (NEGATIVE); URINE LEUK ESTERASE TRACE (NEGATIVE); URINE NITRITE NEGATIVE (NEGATIVE); URINE PROTEIN NEGATIVE (NEGATIVE); URINE RBC 0 /hpf (0-4); URINE UROBILINOGEN 0.2 mg/dL (0.2-1.0); URINE WBC 1 /hpf (0-5)
[2018-12-30] MEDS: INSULIN SLIDING SCALE (NOVOLOG) 1 VIAL SQ SCH ×5 (06:02→23:12)
--- NOTE | 2018-12-30 07:00 | PN ---
Physical Exam: SUBJECTIVE: Patient seen and examined at bedside this morning. Patent states that she had nausea, and one episode of non bloody, non-bilious vomiting yesterday evening. She is not able to remember what she ate yesterday. Patient admits that her nausea has improved, and currently denies abdominal pain. Last bowel movements yesterday was solid without melena, or hematochezia. Patient denies subjective fevers, chills, shortness of breath, chest pain, palpitations , abdominal pain, nausea, vomiting, diarrhea. OBJECTIVE: Vital Signs Period Temp Pulse Resp BP Sys/Solis Pulse Ox Last 24 Hr 97.3 F-98.6 F 44-69 18-20 110-162/46-80 97-100 GENERAL: The patient is awake, alert, and oriented to person and place, in no acute distress. HEAD: Normocephalic, atraumatic. EYES: PERRL, extraocular movements intact, sclera anicteric, conjunctiva clear. ENT: Oropharynx clear, without erythema or exudates. Moist mucous membranes. NECK: Trachea midline, full range of motion. Supple without lymphadenopathy. LUNGS: Breath sounds equal, clear to auscultation bilaterally. No wheezes, no crackles. No accessory muscle use. HEART: Regular rate and rhythm, S1, S2 without murmur, rub or gallop. ABDOMEN: Soft, nondistended, mild tenderness of left and right lower quadrants upon deep palpation. No rebound tenderness, no guarding. Normoactive bowel sounds x4 quadrants. No hepatosplenomegaly palpated or percussed. EXTREMITIES: 2+ radial, dorsalis pedis pulses bilaterally. Warm, well-perfused. No lower extremity edema bilaterally. NEUROLOGICAL: Cranial nerves II through XII grossly intact. Normal speech. Strength 5/5 bilateral upper and lower extremities. PSYCH: Normal mood, normal affect upon my encounter. SKIN: Warm, dry. No rashes, or lesions noted. Laboratory Results - last 24 hr 12/29/18 12/29/18 12/29/18 12:55 12:55 13:29 WBC 7.6 RBC 3.79 Hgb 11.4 Hct 34.0 MCV 89.9 MCH 30.1 MCHC 33.4 RDW 14.6 Plt Count 256 MPV 8.1 Absolute Neuts (auto) 5.0 Neutrophils % 65.6 D Lymphocytes % 25.5 D Monocytes % 6.6 Eosinophils % 1.7 Basophils % 0.6 Nucleated RBC % 0 Sodium 138 Potassium 4.0 Chloride 108 H Carbon Dioxide 26 Anion Gap 4 L BUN 9 Creatinine 0.9 Creat Clearance w eGFR 60.88 POC Glucometer Random Glucose 104 Calcium 8.8 Total Bilirubin 0.3 AST 17 ALT 16 Alkaline Phosphatase 54 Creatine Kinase 183 Creatine Kinase Index 0.8 CK-MB (CK-2) 1.5 Troponin I < 0.02 Total Protein 6.9 Albumin 3.2 L Lipase 303 Urine Color Yellow Urine Appearance Clear Urine pH 7.0 D Ur Specific Radisson 1.001 L Urine Protein Negative Urine Glucose (UA) Negative Urine Ketones Negative Urine Blood Negative Urine Nitrite Negative Urine Bilirubin Negative Urine Urobilinogen 0.2 Ur Leukocyte Esterase Negative Urine WBC (Auto) Urine RBC (Auto) Urine Casts (Auto) U Epithel Cells (Auto) Urine Bacteria (Auto) Stool Occult Blood 12/29/18 12/29/18 12/29/18 13:30 17:00 21:30 WBC RBC Hgb Hct MCV MCH MCHC RDW Plt Count MPV Absolute Neuts (auto) Neutrophils % Lymphocytes % Monocytes % Eosinophils % Basophils % Nucleated RBC % Sodium Potassium Chloride Carbon Dioxide Anion Gap BUN Creatinine Creat Clearance w eGFR POC Glucometer 155 Random Glucose Calcium Total Bilirubin AST ALT Alkaline Phosphatase Creatine Kinase Creatine Kinase Index CK-MB (CK-2) Troponin I Total Protein Albumin Lipase Urine Color Yellow Urine Appearance Clear Urine pH 6.0 Ur Specific Radisson 1.006 L Urine Protein Negative Urine Glucose (UA) Negative Urine Ketones Negative Urine Blood Negative Urine Nitrite Negative Urine Bilirubin Negative Urine Urobilinogen 0.2 Ur Leukocyte Esterase Trace Urine WBC (Auto) 1 Urine RBC (Auto) 0 Urine Casts (Auto) 0 U Epithel Cells (Auto) 0.6 Urine Bacteria (Auto) 2.0 Stool Occult Blood Positive 12/30/18 05:38 WBC RBC Hgb Hct MCV MCH MCHC RDW Plt Count MPV Absolute Neuts (auto) Neutrophils % Lymphocytes % Monocytes % Eosinophils % Basophils % Nucleated RBC % Sodium Potassium Chloride Carbon Dioxide Anion Gap BUN Creatinine Creat Clearance w eGFR POC Glucometer 124 Random Glucose Calcium Total Bilirubin AST ALT Alkaline Phosphatase Creatine Kinase Creatine Kinase Index CK-MB (CK-2) Troponin I Total Protein Albumin Lipase Urine Color Urine Appearance Urine pH Ur Specific Radisson Urine Protein Urine Glucose (UA) Urine Ketones Urine Blood Urine Nitrite Urine Bilirubin Urine Urobilinogen Ur Leukocyte Esterase Urine WBC (Auto) Urine RBC (Auto) Urine Casts (Auto) U Epithel Cells (Auto) Urine Bacteria (Auto) Stool Occult Blood Active Medications Generic Name Dose Route Start Last Admin Trade Name Timothy PRN Reason Stop Dose Admin Aspirin 81 mg 12/30/18 10:00 Asa - PO DAILY MÓNICA Enoxaparin Sodium 40 mg 12/30/18 10:00 Lovenox - SQ DAILY MÓNICA Ceftriaxone Sodium 1 gm/ 50 mls @ 100 mls/hr 12/30/18 10:00 Dextrose IVPB DAILY MÓNICA Protocol Sodium Chloride 1,000 mls @ 75 mls/hr 12/29/18 17:45 12/29/18 18:25 Normal Saline - IV 75 mls/hr ASDIR MÓNICA Administration Metronidazole 500 mg in 100 mls @ 100 mls/hr 12/30/18 02:00 12/30/18 02:35 Flagyl 500mg Premixed Ivpb - IVPB 100 mls/hr Q8H-IV MÓNICA Administration Insulin Aspart 1 vial 12/29/18 22:00 12/30/18 06:02 Novolog Vial Sliding Scale - SQ Not Given ACHS [facility] Protocol Memantine 10 mg 12/29/18 22:00 12/29/18 21:28 Namenda - PO 10 mg BID MÓNICA Administration Metoprolol Succinate 25 mg 12/29/18 22:00 12/29/18 21:28 Toprol Xl - PO 25 mg BID MÓNICA Administration Rosuvastatin Calcium 10 mg 12/30/18 22:00 Crestor - PO HS [facility] ASSESSMENT/PLAN: Patient is a 78 year old female with history of non-insulin dependent diabetes mellitus, hyperlipidemia, COPD (not on home oxygen), diverticulosis, dementia, presented with complaint of abdominal pain. Abdominal pain, mild acute diverticulitis -Abdominal pain with nausea has been intermittently ongoing over past month. Patient was treated for diverticulitis with 10 days of Augmentin on prior hospitalization in November 2018. Last hospitalization significant for elevation of Lipase 3415 and Amylase 184 upon presentation which resolved spontaneously without intervention. Currently patient endorses resolution of nausea, and abdominal pain. Afebrile, without WBC count. -CT abdomen pelvis shows extensive diverticulosis of descending and sigmoid colon, with adjacent mesenteric fat stranding suggestive of acute diverticulitis. -IV Ceftriaxone 1 gram IV daily -IV Metronidazole 500mg IV Q8 hours -IV Lactated Ringer's at 75mL/ hour -NPO -GI consult (Dr. Stewart) appreciated. Will keep patient NPO while she has abdominal pain upon palpation, and consider starting clear liquids once pain resolves. Non-insulin dependent diabetes mellitus -Insulin sliding scale Q6 hours -Fingerstick blood glucose monitoring Q6 hours -Holding home Metformin Hypertension -Holding home Metoprolol due to borderline hypotension, and bradycardia to 30- 40 BPM. -Monitor vital signs closely. Hyperlipidema -Rosuvastatin 10mg PO HS COPD -Currently not in exacerbation. Saturating well on room air. -Maintain oxygen saturation greater than 90% Dementia -Continue Memantine 10mg PO BID FEN -Fluids: IV Lactated Ringer's at 75mL/ hour -Electrolytes: Within normal limits. Follow BMP, replete as necessary. -Nutrition: NPO Prophylaxis -Lovenox 40mg subq daily Disposition -Continue care in medical -surgical floor. Visit type - Emergency Visit Emergency Visit: Yes ED Registration Date: 12/30/18 Care time: The patient presented to the Emergency Department on the above date and was hospitalized for further evaluation of their emergent condition. - New Patient This patient is new to me today: Yes Date on this admission: 12/30/18 - Critical Care Critical Care patient: No - Discharge Referral Referred to [facility] No
[2018-12-30 07:37] LABS: BASO % 0.3 % (0-2.0); EOS % 2.4 % (0-4.5); HEMATOCRIT 34.3 % (32.4-45.2); HEMOGLOBIN 11.6 GM/dL (10.7-15.3); LYMPH % 30.2 % (8-40); MCH 30.6 pg (25.7-33.7); MCHC 33.9 g/dl (32.0-36.0); MEAN CELL VOLUME 90.2 fl (80-96); MEAN PLT VOLUME 8.1 fl (7.5-11.1); MONO % 6.8 % (3.8-10.2); NEUT % 60.3 % (42.8-82.8); PLATELET COUNT 275 K/MM3 (134-434); RDW 14.6 % (11.6-15.6); WHITE BLOOD COUNT 6.7 K/mm3 (4.0-10.0)
[2018-12-30 08:05] LABS: ALBUMIN 3.1 g/dl (3.4-5.0); ALK PHOS 52 U/L (45-117); ANION GAP 4 MMOL/L (8-16); BILIRUBIN,TOTAL 0.5 mg/dL (0.2-1); BLOOD UREA NITROGEN 7 mg/dL (7-18); CALCIUM 8.8 mg/dL (8.5-10.1); CHLORIDE 112 mmol/L (98-107); CO2 25 mmol/L (21-32); CREATININE 0.9 mg/dL (0.55-1.3); GLUCOSE,RANDOM 122 mg/dL (74-106); SGOT/AST 13 U/L (15-37); SGPT/ALT 16 U/L (13-61); SODIUM 141 mmol/L (136-145); TOT PROT 6.4 g/dl (6.4-8.2)
[2018-12-30] MEDS ORDERED: cefTRIAXone SODIUM 1 GM VIAL ONE (08:14)
[2018-12-30] MEDS ORDERED: DEXTROSE 5%-WATER - 50 ML IVPB ONE (08:15)
[2018-12-30] MEDS ORDERED: LACTATED RINGERS SOLUTION 1,000 ML/1,000 ML INFUS.BAG IV SCH (09:00)
[2018-12-30] MEDS: ASPIRIN 81 MG CHEWABLE TABLETS PO SCH (09:07)
[2018-12-30] MEDS: MEMANTINE HCL 10 MG TABLET (FP) PO SCH ×2 (09:07→21:18)
[2018-12-30] MEDS: ENOXAPARIN NA (PORCINE) 40 MG/0.4 ML DISP.SYRIN SQ SCH (09:08)
[2018-12-30] MEDS: CEFTRIAXONE 1 GM in DEXTROSE 5%-WATER - 50 ML IVPB SCH (09:08)
--- NOTE | 2018-12-30 11:18 | PN ---
Teaching Attending Note Name of Resident: Yanick Webb ATTENDING PHYSICIAN STATEMENT I saw and evaluated the patient. I reviewed the resident's note and discussed the case with the resident. I agree with the resident's findings and plan as documented. SUBJECTIVE:has some RLQ pain but overall improved. denies Cp, SOB, fever, chills , N/V/C/D OBJECTIVE: Last Vital Signs Temp Pulse Resp BP Pulse Ox 97.6 F 44 L 20 134/75 100 12/30/18 10:00 12/30/18 10:00 12/30/18 10:00 12/30/18 10:12/30/18 09:00 General NAD CV S1 S2 RRR Lungs CTA B/L no wheezing/rales/rhonchi Abdomen +RLQ tenderness no rebound or guarding. soft ASSESSMENT AND PLAN: 78yo F wtih PMH dementia, COPD, DM, and recurrent diverticulitis presents with diffuse abdominal pain after recent hospitalization and discharge on 12/28/18 which self resolved 1. ACute diverticulitis- afebrile with no leukocytosis but pt remains tender. will cont NPO, IVF, Ceftriaxone/flagyl. consider advancing diet once pain improves. spoke with GI and agree patient will need close outpatient monitoring and repeat colonoscopy in near future for further management 2. Dementia- at baseline 3. COPD- not on steroids. cont inhalers 4. DM- hold oral agents. iss and bgm 5. DVT ppx- lovenox 6. anticipate discharge in next 24-48H
--- NOTE | 2018-12-30 16:22 | CON.GI ---
Consult Consult Specialty:: Gastroenterology Referred by:: Dr. Odell Reason for Consultation:: Diverticulitis - History of Present Illness History of Present Illness: 78yo female h/o DM, hyperlipidemia, diverticulosis and recent hospitalization for diverticulitis (11/2018) presenting with worsening LLQ/suprapubic pain with CT imaging suggestive of diverticulitis. Pt recently hospitalized on 12/08-12/07/18 for uncomplicated sigmoid diverticulitis managed conservatively with antibiotics (completed 10 day course ) resolution in abdominal pain. Pt had subsequent hospitalization 12/27/18 again for abdominal pain with concern for pancreatitis with elevated lipase however thought less consistent with pancreatitis at that time. Pt now presenting with recurrent LLQ/suprapubic pain, similar to prior episode, worsening over the past 4-5 days. She reports some nausea and chills, denies vomiting. Occasional constipation with straining though reports moving bowels daily however notes intermittent bright blood mixed with stools, and pinkish blood when wiping intermittently, last episode yesterday in ED. CT imaging revealing left sided diverticulosis with fat stranding suggestive of diverticulitis (mild) though limited without contrast. Pt started on rocephin and flagyl yesterday, feeling better today with improvement in abdominal pain. History also obtained in part from pts daughter. Of note, pt had prior EGD and colonoscopy with Dr. Frederick Whaley on 04/13/18. EGD revealed gastritis (biopsies negative for h. pylori). Colonoscopy revealing 4mm cecal tubular adenoma and mild sigmoid diverticulosis. Positive family h/o colon ca (pts father and brother). - History Source History Provided By: Patient - Past Medical History CROTCH BREAKER: Yes: Alzheimer's Cardio/Vascular: Yes: HTN, Hyperlipdemia Gastrointestinal: Yes: Diverticulosis, Gastritis, Other (Tubular adenoma of the cecum 05/02. ) ...: No Endocrine: Yes: Diabetes Mellitus - Past Surgical History Past Surgical History: Yes: Appendectomy (At time of DONNA), Hysterectomy (DONNA/BSO ) - Alcohol/Substance Use Hx Alcohol Use: No - Smoking History Smoking history: Never smoked Have you smoked in the past 12 months: Yes Aproximately how many cigarettes per day: 20 - Social History Usual Living Arrangement: Alone () ADL: Independent History of Recent Travel: No Home Medications - Allergies Allergies/Adverse Reactions: Allergies Allergy/AdvReac Type Severity Reaction Status Date / Time No Known Allergies Allergy Verified 12/29/18 12:10 - Home Medications Home Medications: Ambulatory Orders Aspirin [ASA -] 81 mg PO DAILY 12/27/18 Ibandronate Sodium [Boniva] 150 mg PO MONTHLY 12/27/18 Memantine HCl [Namenda -] 10 mg PO BID 12/27/18 Metformin HCl [Glucophage] 1,000 mg PO DAILY 12/27/18 Metoprolol Succinate [Toprol Xl] 25 mg PO BID 12/27/18 Multivit-Min/FA/Lycopen/Lutein [Centrum Silver Tablet] 1 tab PO DAILY 12/27/18 Rosuvastatin Calcium [Crestor] 10 mg PO DAILY 12/27/18 metFORMIN HCL [Metformin HCl] 500 mg PO ACDIN 12/27/18 Family Disease History - Family Disease History Family Disease History: Other: Father (: 70's: unclear cause), Mother ( : 80's: CVA), Brother (2, 1 : possible prostate cancer), Sister (2, alive), Daughter (1 adopted daughter:L healthy) Review of Systems - Review of Systems Constitutional: reports: No Symptoms HENT: reports: No Symptoms Neck: reports: No Symptoms Cardiovascular: reports: No Symptoms Respiratory: reports: No Symptoms Gastrointestinal: reports: Abdominal Pain Physical Exam-GI Vital Signs: Vital Signs Temperature 98.8 F 12/30/18 13:10 Pulse Rate 44 L 12/30/18 13:10 Respiratory Rate 20 12/30/18 13:10 Blood Pressure 136/85 12/30/18 13:10 O2 Sat by Pulse Oximetry (%) 100 12/30/18 09:00 Constitutional: Yes: Well Nourished, No Distress, Calm Cardiovascular: Yes: WNL, Regular Rate and Rhythm Respiratory: Yes: WNL, Regular, CTA Bilaterally Gastrointestinal Inspection: Yes: WNL ...Auscultate: Yes: Normoactive Bowel Sounds ...Palpate: Yes: Other (Abd soft, mildly tender in LLQ on palpation, nondistended) ...Rectal Exam: Yes: Other (Possible external hemorrhoid, brown stool, no blood) Labs: CBC, BMP 12/30/18 06:45 12/30/18 06:45 Imaging - Results Cat Scan: Report Reviewed, Image Reviewed Problem List - Problems (1) Diverticulitis Assessment/Plan: 78yo female h/o DM, hyperlipidemia, diverticulosis with recent hospitalization for diverticulitis presenting with recurrent LLQ/suprapubic pain and intermittent rectal bleeding with CT evidence of left sided diverticulitis (mild ) though limited without contrast. Recurrent episode vs partially resolved uncomplicated diverticulitis. Colonoscopy in 03/2018 revealing 4mm cecal tubular adenoma and mild sigmoid diverticulosis. Clinically improved today. Afebrile, no leucocytosis. Hb stable. Family history of colon ca noted. -Continue supportive measures, IVF hydration -NPO for now -Continue to monitor Hb and for evidence of bleeding, though likely hemorrhoidal in setting of constipation/straining -Hold ASA if no contraindication. Would also clarify indications as risks/ benefits need to be weighed particularly considering potential associated risk of diverticulitis. -Continue IV antibiotics (to complete 14 day course), some clinical improvement already noted -Surgery consult -If continued improvement, start clear liquid diet in am -If pt does not show continued clinical improvement over 24 hours, would recommend repeat CT with contrast -Colonoscopy results from 03/2018 noted however would recommend close interval follow up and consideration for repeat colonoscopy in 6-8 weeks for further evaluation. Will continue to follow Discussed with medicine team Code(s): K57.92 - DVTRCLI OF INTEST, PART UNSP, W/O PERF OR ABSCESS W/O BLEED
[2018-12-30] MEDS ORDERED: DEXTROSE 5%-NORMAL SALINE 1,000 ML IV SCH (18:00)
[2018-12-30] MEDS: ROSUVASTATIN CA 10 MG TABLET (FP) PO SCH (21:18)
[2018-12-30] MEDS ORDERED: MELATONIN 5 MG TABLETS PO ONE (22:38)
[2018-12-31] MEDS: INSULIN SLIDING SCALE (NOVOLOG) 1 VIAL SQ SCH ×4 (06:32→23:09)
[2018-12-31 07:31] LABS: HEMOGLOBIN 11.8 GM/dL (10.7-15.3); MCH 30.5 pg (25.7-33.7); MCHC 33.6 g/dl (32.0-36.0); MEAN CELL VOLUME 90.6 fl (80-96); MEAN PLT VOLUME 7.9 fl (7.5-11.1); PLATELET COUNT 270 K/MM3 (134-434); RBC 3.86 M/mm3 (3.60-5.2); RDW 14.6 % (11.6-15.6); WHITE BLOOD COUNT 6.4 K/mm3 (4.0-10.0)
[2018-12-31 08:08] LABS: ALK PHOS 53 U/L (45-117); ANION GAP 6 MMOL/L (8-16); BILIRUBIN,TOTAL 0.5 mg/dL (0.2-1); BLOOD UREA NITROGEN 6 mg/dL (7-18); CALCIUM 9.1 mg/dL (8.5-10.1); CHLORIDE 112 mmol/L (98-107); CO2 25 mmol/L (21-32); CREATININE 0.9 mg/dL (0.55-1.3); GLUCOSE,RANDOM 117 mg/dL (74-106); POTASSIUM 3.6 mmol/L (3.5-5.1); SGOT/AST 13 U/L (15-37); SGPT/ALT 13 U/L (13-61); SODIUM 142 mmol/L (136-145); TOT PROT 6.4 g/dl (6.4-8.2)
--- NOTE | 2018-12-31 08:10 | PN ---
Physical Exam: SUBJECTIVE: Patient seen and examined at bedside this morning. She was noted to be altered from baseline, confused and wandering the hallways. She was given Melatonin, which was palliative. Patient continues to endorse minimal abdominal pain, that she endorses is improving. She denies nausea, vomiting overnight. Patient denies bowel movement overnight. OBJECTIVE: Vital Signs Period Temp Pulse Resp BP Sys/Solis Pulse Ox Last 24 Hr 97.6 F-99.0 F 40-54 20-20 122-150/52-85 99-100 GENERAL: The patient is awake, alert, and oriented to person and place, in no acute distress. HEAD: Normocephalic, atraumatic. EYES: PERRL, extraocular movements intact, sclera anicteric, conjunctiva clear. ENT: Oropharynx clear, without erythema or exudates. Moist mucous membranes. NECK: Trachea midline, full range of motion. Supple without lymphadenopathy. LUNGS: Breath sounds equal, clear to auscultation bilaterally. No wheezes, no crackles. No accessory muscle use. HEART: Regular rate and rhythm, S1, S2 without murmur, rub or gallop. ABDOMEN: Soft, nondistended, mild tenderness of left and right lower quadrants upon deep palpation. No rebound tenderness, no guarding. Normoactive bowel sounds x4 quadrants. No hepatosplenomegaly palpated or percussed. EXTREMITIES: 2+ radial, dorsalis pedis pulses bilaterally. Warm, well-perfused. No lower extremity edema bilaterally. NEUROLOGICAL: Cranial nerves II through XII grossly intact. Normal speech. Strength 5/5 bilateral upper and lower extremities. PSYCH: Normal mood, normal affect upon my encounter. SKIN: Warm, dry. No rashes, or lesions noted. Laboratory Results - last 24 hr 12/30/18 12/30/18 12/30/18 06:45 08:40 12:05 WBC 6.7 RBC 3.80 Hgb 11.6 Hct 34.3 MCV 90.2 MCH 30.6 MCHC 33.9 RDW 14.6 Plt Count 275 MPV 8.1 Absolute Neuts (auto) 4.0 Neutrophils % 60.3 Lymphocytes % 30.2 Monocytes % 6.8 Eosinophils % 2.4 Basophils % 0.3 Nucleated RBC % 0 Sodium Potassium Chloride Carbon Dioxide Anion Gap BUN Creatinine Creat Clearance w eGFR POC Glucometer 134 113 Random Glucose Calcium Total Bilirubin AST ALT Alkaline Phosphatase Total Protein Albumin 12/30/18 12/30/18 12/31/18 17:03 21:05 06:30 WBC 6.4 RBC 3.86 Hgb 11.8 Hct 35.0 MCV 90.6 MCH 30.5 MCHC 33.6 RDW 14.6 Plt Count 270 MPV 7.9 Absolute Neuts (auto) Neutrophils % Lymphocytes % Monocytes % Eosinophils % Basophils % Nucleated RBC % Sodium Potassium Chloride Carbon Dioxide Anion Gap BUN Creatinine Creat Clearance w eGFR POC Glucometer 81 103 Random Glucose Calcium Total Bilirubin AST ALT Alkaline Phosphatase Total Protein Albumin 12/31/18 12/31/18 06:30 06:31 WBC RBC Hgb Hct MCV MCH MCHC RDW Plt Count MPV Absolute Neuts (auto) Neutrophils % Lymphocytes % Monocytes % Eosinophils % Basophils % Nucleated RBC % Sodium 142 Potassium 3.6 Chloride 112 H Carbon Dioxide 25 Anion Gap 6 L BUN 6 L Creatinine 0.9 Creat Clearance w eGFR 60.88 POC Glucometer 116 Random Glucose 117 H Calcium 9.1 Total Bilirubin 0.5 AST 13 L ALT 13 Alkaline Phosphatase 53 Total Protein 6.4 Albumin 3.0 L Active Medications Generic Name Dose Route Start Last Admin Trade Name Freq PRN Reason Stop Dose Admin Aspirin 81 mg 12/30/18 10:00 12/30/18 09:07 Asa - PO 81 mg DAILY MÓNICA Administration Enoxaparin Sodium 40 mg 12/30/18 10:00 12/30/18 09:08 Lovenox - SQ 40 mg DAILY MÓNICA Administration Ceftriaxone Sodium 1 gm/ 50 mls @ 100 mls/hr 12/30/18 10:00 12/30/18 09:08 Dextrose IVPB 100 mls/hr DAILY MÓNICA Administration Protocol Metronidazole 500 mg in 100 mls @ 100 mls/hr 12/30/18 02:00 12/31/18 01:41 Flagyl 500mg Premixed Ivpb - IVPB 100 mls/hr Q8H-IV MÓNICA Administration Dextrose/Sodium Chloride 1,000 mls @ 75 mls/hr 12/30/18 18:00 12/30/18 18:09 D5-Ns - IV 75 mls/hr ASDIR MÓNICA Administration Insulin Aspart 1 vial 12/30/18 08:30 12/31/18 06:32 Novolog Vial Sliding Scale - SQ Not Given Q6HPO MÓNICA Protocol Memantine 10 mg 12/29/18 22:00 12/30/18 21:18 Namenda - PO 10 mg BID MÓNICA Administration Metoprolol Succinate 25 mg 12/29/18 22:00 12/29/18 21:28 Toprol Xl - PO 25 mg BID MÓNICA Administration Rosuvastatin Calcium 10 mg 12/30/18 22:00 12/30/18 21:18 Crestor - PO 10 mg HS MÓNICA Administration ASSESSMENT/PLAN: Patient is a 78 year old female with history of non-insulin dependent diabetes mellitus, hyperlipidemia, COPD (not on home oxygen), diverticulosis, dementia, presented with complaint of abdominal pain. Abdominal pain, mild acute diverticulitis -Abdominal pain upon deep palpation of left lower quadrant, and right lower quadrant. -CT abdomen pelvis shows extensive diverticulosis of descending and sigmoid colon, with adjacent mesenteric fat stranding suggestive of acute diverticulitis. -Prior colonoscopy on 03/2018 significant for sigmoid diverticulitis, with 4mm sessile polyp. Endoscopy revealed gastritis, with negative biopsy result for H. pylori. -IV Ceftriaxone 1 gram IV daily (day #2 of 14) -IV Metronidazole 500mg IV Q8 hours (day #2 of 14) -IV D5% Lactated Ringer's at 75mL/ hour. Will discontinue once patient tolerating oral intake. -Will trial clear liquids diet for lunch today, and monitor closely for change in abdominal pain. -Follow general surgery consult (Dr. Santa) appreciated. -GI consult (Dr. Robertson) appreciated. Concern for chronic, smoldering diverticulitis. -Follow CRP -Patient will require close outpatient follow up with colonoscopy within 6-8 weeks after discharge. Non-insulin dependent diabetes mellitus -Insulin sliding scale Q6 hours -Fingerstick blood glucose monitoring Q6 hours -Holding home Metformin Hypertension -Holding home Metoprolol due to borderline hypotension, and bradycardia to 30- 40 BPM. -Monitor vital signs closely. Bradycardia -EKG shows sinus bradycardia at 50BPM with premature atrial complexes. -Heart rate labile during admission. Patient denies subjective dizziness, lightheadedness, weakness, palpitations, chest pain. Hyperlipidema -Rosuvastatin 10mg PO HS Coronary artery disease -Will hold Aspirin during hospitalization. 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 COPD -Currently not in exacerbation. Saturating well on room air. -Maintain oxygen saturation greater than 90% Dementia -Continue Memantine 10mg PO BID -Melatonin 10mg PO HS FEN -Fluids: IV D5% Lactated Ringer's at 75mL/ hour -Electrolytes: Within normal limits. Follow BMP, replete as necessary. -Nutrition: Clear liquid diet Prophylaxis -Lovenox 40mg subq daily Disposition -Continue care in medical -surgical floor. Visit type - Emergency Visit Emergency Visit: Yes ED Registration Date: 12/30/18 Care time: The patient presented to the Emergency Department on the above date and was hospitalized for further evaluation of their emergent condition. - New Patient This patient is new to me today: No - Critical Care Critical Care patient: No - Discharge Referral Referred to [facility] Med P.C.: No
[2018-12-31] MEDS ORDERED: cefTRIAXone SODIUM 1 GM VIAL ONE (09:08)
[2018-12-31] MEDS ORDERED: DEXTROSE 5%-WATER - 50 ML IVPB ONE (09:08)
[2018-12-31] MEDS: CEFTRIAXONE 1 GM in DEXTROSE 5%-WATER - 50 ML IVPB SCH (09:33)
[2018-12-31] MEDS: MEMANTINE HCL 10 MG TABLET (FP) PO SCH ×2 (09:33→22:16)
[2018-12-31] MEDS: ENOXAPARIN NA (PORCINE) 40 MG/0.4 ML DISP.SYRIN SQ SCH (09:33)
[2018-12-31] MEDS: ASPIRIN 81 MG CHEWABLE TABLETS PO SCH (09:33)
[2018-12-31] MEDS: DEXTROSE 5%-LACTATED RINGERS 1,000 ML IV SCH (10:49)
--- NOTE | 2018-12-31 11:08 | PN.GI ---
GI Progress Note Subjective: No acute events Pain somewhat improved - Objective Vital Signs: Vital Signs Temperature Pulse Rate 38 12/31/18 1030 Respiratory Rate Blood Pressure O2 Sat by Pulse Oximetry (%) Constitutional: Calm Eyes: Yes: Sclera Icterus Cardiovascular: Yes: Bradycardia. No: Murmur Respiratory: Yes: CTA Bilaterally Gastrointestinal Inspection: No: Distention ...Auscultate: Yes: Normoactive Bowel Sounds ...Palpate: Yes: Soft, Tenderness (TTP upon deep inspiration LLQ). No: Guarding , Tenderness, Rebound ...Percussion: No: Tympanitic Edema: No (No LE edema) Neurological: Yes: Alert Labs: CBC, BMP 12/31/18 06:30 12/31/18 06:30 Problem List - Problems (1) Diverticulitis Assessment/Plan: Uncomplicated recurrent diverticulitis ? if developing chronic or "smoldering" diverticulitis Advise: Continue IV Abx If abdominal pain improved, advance to clears this afternoon Evaluation of bradycardia per primary team. Pulse 38 on my exam. Code(s): K57.92 - DVTRCLI OF INTEST, PART UNSP, W/O PERF OR ABSCESS W/O BLEED
--- NOTE | 2018-12-31 11:43 | PN ---
Teaching Attending Note Name of Resident: Yanick Webb ATTENDING PHYSICIAN STATEMENT I saw and evaluated the patient. I reviewed the resident's note and discussed the case with the resident. I agree with the resident's findings and plan as documented. SUBJECTIVE:continues to have pain. denies CP, SOB, fever, chills, N/V/C/D OBJECTIVE: Last Vital Signs Temp Pulse Resp BP Pulse Ox 98 F 48 L 20 150/63 99 12/31/18 09:00 12/31/18 09:00 12/31/18 09:00 12/31/18 09:00 12/30/18 21:00 General NAD CV S1 S2 stefan Abdomen soft NT/ND ASSESSMENT AND PLAN: 78yo F wtih PMH dementia, COPD, DM, and recurrent diverticulitis presents with diffuse abdominal pain after recent hospitalization and discharge on 12/28/18 which self resolved 1. ACute diverticulitis- states she has pain and winces on palpation however when distracted appears comfortable on physical exam. will advance to [facility] monitor rodolfo meracdo. cont Ceftriaxone/flagyl day 2. surgery eval. GI on board 2. Asymptomatic bradycardia- obtain EKG. will see if responds to activity. hold betablocker. 3. Dementia- at baseline 4. COPD- not on steroids. cont inhalers 5. DM- hold oral agents. iss and bgm 6. DVT ppx- lovenox 7. anticipate discharge in next 24-48H
--- NOTE | 2018-12-31 11:49 | CONSULT ---
- Consultation REQUESTING PROVIDER: Cass CARMEN CONSULT REQUEST: We have been asked to surgically evaluate this patient for ( specify). PCP:Negar Odell HISTORY OF PRESENT ILLNESS: 78 y/o female w/known diverticulosis and localized diverticulitis in the recent past presented w/revurrent LLQ abdominal pain after recent inpatient admission here; I last saw her 12/06/18; since admission she is feeling better; she has minimal to no c/o abdominal pain today. PMHx: NIDDM/HLD?HTN PSHx: hysterectomy; ortho elbow surgery Home Medications Medication Instructions Recorded Aspirin [ASA -] 81 mg PO DAILY 12/27/18 Ibandronate Sodium [Boniva] 150 mg PO MONTHLY 12/27/18 Memantine HCl [Namenda -] 10 mg PO BID 12/27/18 Metformin HCl [Glucophage] 1,000 mg PO DAILY 12/27/18 Metoprolol Succinate [Toprol Xl] 25 mg PO BID 12/27/18 Multivit-Min/FA/Lycopen/Lutein 1 tab PO DAILY 12/27/18 [Centrum Silver Tablet] Rosuvastatin Calcium [Crestor] 10 mg PO DAILY 12/27/18 metFORMIN HCL [Metformin HCl] 500 mg PO ACDIN 12/27/18 Allergies Allergy/AdvReac Type Severity Reaction Status Date / Time No Known Allergies Allergy Verified 12/29/18 12:10 PHYSICAL EXAM: GENERAL: Awake, alert, and fully oriented, in no acute distress. HEAD: Normal with no signs of trauma. EYES: sclera anicteric, conjunctiva clear. NECK: Normal ROM, supple without lymphadenopathy, JVD, or masses. ABDOMEN: Soft, minimal if any LLQ tenderness, not distended, normoactive bowel sounds, no guarding, no rebound, no masses. No organomegaly. MUSCULOSKELETAL: Normal ROM at all joints. No bony deformities or tenderness. No CVA tenderness. UPPER EXTREMITIES: 2+ pulses, warm, well-perfused. No cyanosis. Cap refill <2 seconds. No peripheral edema. LOWER EXTREMITIES: 2+ pulses, warm, well-perfused. No calf tenderness. No peripheral edema. NEUROLOGICAL: Normal speech, gait not observed. PSYCH: Cooperative. Good eye contact. Appropriate mood and affect. SKIN: Warm, dry, normal turgor, no rashes or lesions noted. Vital Signs Temperature 98 F 12/31/18 09:00 Pulse Rate 48 L 12/31/18 09:00 Respiratory Rate 20 12/31/18 09:00 Blood Pressure 150/63 12/31/18 09:00 O2 Sat by Pulse Oximetry (%) 99 12/30/18 21:00 Lab Results WBC 6.4 K/mm3 (4.0-10.0) 12/31/18 06:30 RBC 3.86 M/mm3 (3.60-5.2) 12/31/18 06:30 Hgb 11.8 GM/dL (10.7-15.3) 12/31/18 06:30 Hct 35.0 % (32.4-45.2) 12/31/18 06:30 MCV 90.6 fl (80-96) 12/31/18 06:30 MCHC 33.6 g/dl (32.0-36.0) 12/31/18 06:30 RDW 14.6 % (11.6-15.6) 12/31/18 06:30 Plt Count 270 K/MM3 (134-434) 12/31/18 06:30 Sodium 142 mmol/L (136-145) 12/31/18 06:30 Potassium 3.6 mmol/L (3.5-5.1) 12/31/18 06:30 Chloride 112 mmol/L (98-107) H 12/31/18 06:30 Carbon Dioxide 25 mmol/L (21-32) 12/31/18 06:30 Anion Gap 6 MMOL/L (8-16) L 12/31/18 06:30 BUN 6 mg/dL (7-18) L 12/31/18 06:30 Creatinine 0.9 mg/dL (0.55-1.3) 12/31/18 06:30 Random Glucose 117 mg/dL (74-106) H 12/31/18 06:30 Calcium 9.1 mg/dL (8.5-10.1) 12/31/18 06:30 Imaging reviewed IMP: diverticulitis w/o abscess/perforation/fever and/or elevated WBC count. PLAN: Advance diet as tolerated; may come to sigmoid colon resection if recurs again and/or does not completely resolve. Gordy Santa MD FACS
--- NOTE | 2018-12-31 12:10 | EKG ---
Test Reason : Blood Pressure : / mmHG Vent. Rate : 050 BPM Atrial Rate : 050 BPM P-R Int : 122 ms QRS Dur : 094 ms QT Int : 526 ms P-R-T Axes : 052 040 070 degrees QTc Int : 479 ms SINUS BRADYCARDIA WITH PREMATURE ATRIAL COMPLEXES WITH ABERRANT CONDUCTION OTHERWISE NORMAL ECG WHEN COMPARED WITH ECG OF 27-DEC-2018 01:04, NO SIGNIFICANT CHANGE WAS FOUND Confirmed by JINA CARMEN, MANUEL ([id number]) on 12/31/2018 12:10:25 PM Referred By: ANN SALINAS Confirmed By:MANUEL MURO MD
[2018-12-31] MEDS ORDERED: MELATONIN 5 MG TABLETS PO PRN ×2 (14:18→14:19)
[2018-12-31] MEDS: ROSUVASTATIN CA 10 MG TABLET (FP) PO SCH (22:16)
[2019-01-01] MEDS: INSULIN SLIDING SCALE (NOVOLOG) 1 VIAL SQ SCH ×3 (06:52→17:44)
[2019-01-01] MEDS: DEXTROSE 5%-LACTATED RINGERS 1,000 ML IV SCH (06:52)
--- NOTE | 2019-01-01 07:53 | PN ---
Physical Exam: SUBJECTIVE: Patient seen and examined at bedside this morning. She is tolerating clear liquid diet without abdominal pain, nausea, vomiting. Patient has not had bowel movement overnight. She denies subjective fevers, chills, shortness of breath, chest pain, palpitations, abdominal pain, nausea, vomiting , diarrhea. OBJECTIVE: Vital Signs Period Temp Pulse Resp BP Sys/Solis Pulse Ox Last 24 Hr 98 F-98.9 F 43-57 18-20 130-154/54-70 95-96 GENERAL: The patient is awake, alert, and oriented to person and place, in no acute distress. HEAD: Normocephalic, atraumatic. EYES: PERRL, extraocular movements intact, sclera anicteric, conjunctiva clear. ENT: Oropharynx clear, without erythema or exudates. Moist mucous membranes. NECK: Trachea midline, full range of motion. Supple without lymphadenopathy. LUNGS: Breath sounds equal, clear to auscultation bilaterally. No wheezes, no crackles. No accessory muscle use. HEART: Regular rate and rhythm, S1, S2 without murmur, rub or gallop. ABDOMEN: Soft, nondistended, nontender to light and deep palpation. No rebound tenderness, no guarding. Normoactive bowel sounds x4 quadrants. No hepatosplenomegaly palpated or percussed. EXTREMITIES: 2+ radial, dorsalis pedis pulses bilaterally. Warm, well-perfused. No lower extremity edema bilaterally. NEUROLOGICAL: Cranial nerves II through XII grossly intact. Normal speech. Strength 5/5 bilateral upper and lower extremities. PSYCH: Normal mood, normal affect upon my encounter. SKIN: Warm, dry. No rashes, or lesions noted. Laboratory Results - last 24 hr 12/31/18 12/31/18 12/31/18 06:30 06:30 11:05 WBC 6.4 RBC 3.86 Hgb 11.8 Hct 35.0 MCV 90.6 MCH 30.5 MCHC 33.6 RDW 14.6 Plt Count 270 MPV 7.9 Sodium 142 Potassium 3.6 Chloride 112 H Carbon Dioxide 25 Anion Gap 6 L BUN 6 L Creatinine 0.9 Creat Clearance w eGFR 60.88 POC Glucometer 117 Random Glucose 117 H Calcium 9.1 Total Bilirubin 0.5 AST 13 L ALT 13 Alkaline Phosphatase 53 C-Reactive Protein < 0.3 Total Protein 6.4 Albumin 3.0 L 12/31/18 12/31/18 01/01/19 16:48 22:15 06:51 WBC RBC Hgb Hct MCV MCH MCHC RDW Plt Count MPV Sodium Potassium Chloride Carbon Dioxide Anion Gap BUN Creatinine Creat Clearance w eGFR POC Glucometer 88 102 104 Random Glucose Calcium Total Bilirubin AST ALT Alkaline Phosphatase C-Reactive Protein Total Protein Albumin Active Medications Generic Name Dose Route Start Last Admin Trade Name Freq PRN Reason Stop Dose Admin Aspirin 81 mg 12/30/18 10:00 12/31/18 09:33 Asa - PO 81 mg DAILY MÓNICA Administration Enoxaparin Sodium 40 mg 12/30/18 10:00 12/31/18 09:33 Lovenox - SQ 40 mg DAILY MÓNICA Administration Ceftriaxone Sodium 1 gm/ 50 mls @ 100 mls/hr 12/30/18 10:00 12/31/18 09:33 Dextrose IVPB 100 mls/hr DAILY MÓNICA Administration Protocol Metronidazole 500 mg in 100 mls @ 100 mls/hr 12/30/18 02:00 01/01/19 01:14 Flagyl 500mg Premixed Ivpb - IVPB 100 mls/hr Q8H-IV MÓNICA Administration Insulin Aspart 1 vial 12/30/18 08:30 01/01/19 06:52 Novolog Vial Sliding Scale - SQ Not Given Q6HPO MÓNICA Protocol Melatonin 10 mg 12/31/18 14:19 12/31/18 22:16 Melatonin PO 10 mg HS PRN Administration INSOMNIA Memantine 10 mg 12/29/18 22:00 12/31/18 22:16 Namenda - PO 10 mg BID MÓNICA Administration Metoprolol Succinate 25 mg 12/29/18 22:00 12/29/18 21:28 Toprol Xl - PO 25 mg BID MÓNICA Administration Rosuvastatin Calcium 10 mg 12/30/18 22:00 12/31/18 22:16 Crestor - PO 10 mg HS MÓNICA Administration IMAGING -CT abdomen pelvis upon admission showed extensive diverticulosis of descending and sigmoid colon, with adjacent mesenteric fat stranding suggestive of acute diverticulitis. -Prior colonoscopy on 03/2018 significant for sigmoid diverticulitis, with 4mm sessile polyp. Endoscopy revealed gastritis, with negative biopsy result for H. pylori. ASSESSMENT/PLAN: Patient is a 78 year old female with history of non-insulin dependent diabetes mellitus, hyperlipidemia, COPD (not on home oxygen), diverticulosis, dementia, presented with complaint of abdominal pain. Abdominal pain, mild acute diverticulitis -Abdominal pain resolving. Patient is tolerating clear liquid diet. Will advance to full liquid diet today. Patient will be advised to follow low residue diet upon discharge. -IV Ceftriaxone 1 gram IV daily (day #3 of 14) -IV Metronidazole 500mg IV Q8 hours (day #3 of 14) -Will switch to Augmentin 875mg Q8 hours PO tomorrow. Will discharge with total of 10 days antibiotic course. -General surgery consult (Dr. Santa) appreciated. -GI consult (Dr. Robertson) appreciated. -CRP less than 0.3. Will trend. -Patient will require close outpatient follow up with colonoscopy within 6-8 weeks after discharge. Non-insulin dependent diabetes mellitus -Insulin sliding scale ACHS -Fingerstick blood glucose monitoring ACHS -Holding home Metformin Hypertension -Holding home Metoprolol due to borderline hypotension, and bradycardia to 30- 40 BPM. -Monitor vital signs closely. Bradycardia -EKG shows sinus bradycardia at 50BPM with premature atrial complexes. -Heart rate labile during admission. Patient denies subjective dizziness, lightheadedness, weakness, palpitations, chest pain. -Heart rate increases to low 70s with walking exercise. Monitor vital signs closely Hyperlipidema -Rosuvastatin 10mg PO HS Coronary artery disease -Will hold Aspirin during hospitalization. 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 COPD -Currently not in exacerbation. Saturating well on room air. -Maintain oxygen saturation greater than 90% Dementia -Continue Memantine 10mg PO BID -Melatonin 10mg PO HS FEN -Fluids: No IV fluids indicated. -Electrolytes: Within normal limits. Follow BMP, replete as necessary. -Nutrition: Clear liquid diet. Prophylaxis -Lovenox 40mg subq daily Disposition -Continue care in medical -surgical floor. Visit type - Emergency Visit Emergency Visit: Yes ED Registration Date: 12/30/18 Care time: The patient presented to the Emergency Department on the above date and was hospitalized for further evaluation of their emergent condition. - New Patient This patient is new to me today: No - Critical Care Critical Care patient: No - Discharge Referral Referred to [facility] Med P.C.: No
[2019-01-01 08:11] LABS: HEMATOCRIT 34.2 % (32.4-45.2); HEMOGLOBIN 11.4 GM/dL (10.7-15.3); MCH 29.8 pg (25.7-33.7); MCHC 33.3 g/dl (32.0-36.0); MEAN CELL VOLUME 89.5 fl (80-96); PLATELET COUNT 270 K/MM3 (134-434); RBC 3.82 M/mm3 (3.60-5.2); RDW 14.6 % (11.6-15.6); WHITE BLOOD COUNT 7.6 K/mm3 (4.0-10.0)
[2019-01-01 08:44] LABS: ALBUMIN 3.1 g/dl (3.4-5.0); ALK PHOS 49 U/L (45-117); ANION GAP 8 MMOL/L (8-16); BILIRUBIN,TOTAL 0.4 mg/dL (0.2-1); BLOOD UREA NITROGEN 3 mg/dL (7-18); CALCIUM 8.8 mg/dL (8.5-10.1); CHLORIDE 112 mmol/L (98-107); CO2 26 mmol/L (21-32); CREATININE 0.9 mg/dL (0.55-1.3); GLUCOSE,RANDOM 99 mg/dL (74-106); POTASSIUM 3.6 mmol/L (3.5-5.1); SGOT/AST 14 U/L (15-37); SGPT/ALT 13 U/L (13-61); SODIUM 146 mmol/L (136-145); TOT PROT 6.1 g/dl (6.4-8.2)
[2019-01-01] MEDS ORDERED: cefTRIAXone SODIUM 1 GM VIAL ONE (09:37)
[2019-01-01] MEDS ORDERED: DEXTROSE 5%-WATER - 50 ML IVPB ONE (09:37)
[2019-01-01] MEDS: ENOXAPARIN NA (PORCINE) 40 MG/0.4 ML DISP.SYRIN SQ SCH (10:00)
[2019-01-01] MEDS: CEFTRIAXONE 1 GM in DEXTROSE 5%-WATER - 50 ML IVPB SCH (10:01)
[2019-01-01] MEDS: MEMANTINE HCL 10 MG TABLET (FP) PO SCH ×2 (10:02→21:12)
[2019-01-01] MEDS: metoPROLOL SUCCINATE 25 MG TAB.SR.24H (FP) PO SCH ×2 (10:04→21:12)
--- NOTE | 2019-01-01 10:15 | PN ---
Teaching Attending Note Name of Resident: Yanick Webb ATTENDING PHYSICIAN STATEMENT I saw and evaluated the patient. I reviewed the resident's note and discussed the case with the resident. I agree with the resident's findings and plan as documented. SUBJECTIVE:pain has resolved. tolerated full liquid diet. Denies CP, SOB, fever , chills, N/V/C/D OBJECTIVE: Last Vital Signs Temp Pulse Resp BP Pulse Ox 97.5 F L 47 L 18 152/80 95 01/01/19 09:59 01/01/19 09:59 01/01/19 09:59 01/01/19 09:59 12/31/18 21:00 General NAD CV S1 S2 stefan Abdomen soft NT/ND ASSESSMENT AND PLAN: 78yo F wtih PMH dementia, COPD, DM, and recurrent diverticulitis presents with diffuse abdominal pain after recent hospitalization and discharge on 12/28/18 which self resolved 1. ACute diverticulitis- clinically improved. tolerated full liquid diet for breakfast. will advance to low residue diet for lunch. if tolerating can switch abx to po to complete 14 days. will need close GI follow up for colonoscopy in 6 weeks. 2. Asymptomatic bradycardia-EKD showing sinus stefan at 50. HR improves with exercise 50 to 70's. would hold betablocker on discharge. 3. Dementia- at baseline 4. COPD- not on steroids. cont inhalers 5. DM- hold oral agents. iss and bgm 6. DVT ppx- lovenox 7. if tolerates lunch can d/c home. holding asa on discharge as unclear indication of why it was started.
--- NOTE | 2019-01-01 12:09 | PN.GI ---
GI Progress Note Subjective: No acute events Abdominal pain improved Still bradycardic - Objective Vital Signs: Vital Signs Temperature 01/01/19 09:59 Pulse Rate 42 L 01/01/19 09:59 Respiratory Rate 01/01/19 09:59 Blood Pressure 01/01/19 09:59 O2 Sat by Pulse Oximetry (%) 12/31/18 21:00 Constitutional: Calm Eyes: No: Sclera Icterus Cardiovascular: Yes: Bradycardia. No: Murmur Respiratory: Yes: CTA Bilaterally Gastrointestinal Inspection: No: Distention ...Auscultate: Yes: Normoactive Bowel Sounds ...Palpate: No: Tenderness Edema: No (No LE edema) Neurological: Yes: Alert Labs: CBC, BMP 01/01/19 06:30 01/01/19 06:30 Problem List - Problems (1) Diverticulitis Assessment/Plan: Clinically much improved Advancing to clears then fulls and as tolerated to low fiber If continued improvement, change to PO abx, augmentin, and complete rx for total of 10 days (including days on IV abx in hosp) Evaluation of bardycardia per promary team Code(s): K57.92 - DVTRCLI OF INTEST, PART UNSP, W/O PERF OR ABSCESS W/O BLEED
[2019-01-01] MEDS: ROSUVASTATIN CA 10 MG TABLET (FP) PO SCH (21:11)
[2019-01-02] MEDS: INSULIN SLIDING SCALE (NOVOLOG) 1 VIAL SQ SCH ×2 (00:58→06:02)
[2019-01-02 07:00] LABS: HEMATOCRIT 36.8 % (32.4-45.2); HEMOGLOBIN 12.2 GM/dL (10.7-15.3); MCHC 33.1 g/dl (32.0-36.0); MEAN CELL VOLUME 90.7 fl (80-96); MEAN PLT VOLUME 7.9 fl (7.5-11.1); PLATELET COUNT 295 K/MM3 (134-434); RBC 4.06 M/mm3 (3.60-5.2); RDW 14.2 % (11.6-15.6); WHITE BLOOD COUNT 7.1 K/mm3 (4.0-10.0)
[2019-01-02 07:44] LABS: ANION GAP 6 MMOL/L (8-16); BLOOD UREA NITROGEN 4 mg/dL (7-18); CALCIUM 9.5 mg/dL (8.5-10.1); CHLORIDE 110 mmol/L (98-107); CO2 28 mmol/L (21-32); GLUCOSE,RANDOM 111 mg/dL (74-106); SODIUM 144 mmol/L (136-145)
[2019-01-02] MEDS ORDERED: AMOX TR/POT CLAV 875MG/125MG TABLETS (FP) PO SCH (08:00)
--- NOTE | 2019-01-02 08:48 | DS ---
Physical Exam: SUBJECTIVE: Patient seen and examined. pain is resolved. tolerating diet. denies CP, SOB, fever, chills, N/V/C/D OBJECTIVE: Vital Signs Period Temp Pulse Resp BP Sys/Solis Pulse Ox Last 24 Hr 97.5 F-98.8 F 47-82 18-18 122-159/62-98 96-100 PHYSICAL EXAM GENERAL: The patient is awake, alert,oriented x2, in no acute distress. HEAD: Normal with no signs of trauma. EYES: PERRL, extraocular movements intact, sclera anicteric, conjunctiva clear. ENT: Ears normal, nares patent, oropharynx clear without exudates, moist mucous membranes. NECK: Trachea midline, full range of motion, supple. LUNGS: Breath sounds equal, clear to auscultation bilaterally, no wheezes, no crackles, no accessory muscle use. HEART: Regular rate and rhythm, S1, S2 without murmur, rub or gallop. ABDOMEN: Soft, nontender, nondistended, normoactive bowel sounds, no guarding, no rebound, no hepatosplenomegaly, no masses. EXTREMITIES: 2+ pulses, warm, well-perfused, no edema. NEUROLOGICAL: Cranial nerves II through XII grossly intact. Normal speech, gait not observed. PSYCH: Normal mood, normal affect. SKIN: Warm, dry, normal turgor, no rashes or lesions noted. LABS Laboratory Results - last 24 hr 01/01/19 01/01/19 01/01/19 11:52 17:26 21:04 WBC RBC Hgb Hct MCV MCH MCHC RDW Plt Count MPV Sodium Potassium Chloride Carbon Dioxide Anion Gap BUN Creatinine Creat Clearance w eGFR POC Glucometer 112 102 92 Random Glucose Calcium C-Reactive Protein 01/02/19 01/02/19 01/02/19 05:56 06:00 06:00 WBC 7.1 RBC 4.06 Hgb 12.2 Hct 36.8 MCV 90.7 MCH 30.0 MCHC 33.1 RDW 14.2 Plt Count 295 MPV 7.9 Sodium 144 Potassium 4.0 Chloride 110 H Carbon Dioxide 28 Anion Gap 6 L BUN 4 L Creatinine 1.0 Creat Clearance w eGFR 53.91 POC Glucometer 123 Random Glucose 111 H Calcium 9.5 C-Reactive Protein < 0.3 HOSPITAL COURSE: Date of Admission:12/30/18 Date of Discharge: 01/02/19 Admitting Diagnosis Acute diverticulitis Pre hospital course This is a 78 yo F with PMH of diverticulitis, HLD, DM, COPD, who presents due to abdominal pain. Patient has dementia and most of the history if obtained from emr and daughter. She was hospitalized for mild diverticulitis 11/28, completed full 10 day abx course but then was readmitted fro possible pancreatitis and mild diverticulitis 12/27. she was evaluated by GI, who did not think there was pancreatitis on imaging despite elevated lipase. over hospital course lipase dropped and she was dcd yesterday. according to daughter she had mild abd pain on dc, tolerated meals at home but complained of worsening LLQ pain this morning, same pain location as prevous diverticulitis admission. patinet also complains of sided chest pain that is chronic according to daughter , caused by muscle strain and previously worked up as noncardiac. Subsequent hospital course admitted to medicine. NPO, IVF, IV abx. slowly improved and diet slowly advanced. seen by GI and Surgery. was d/c on augemntin to complete 10 day course of abx. stressed importance of GI follow up as will need colonoscopy. course complicated by asymptomatic bradycardia. HR responded to light activity. metoprolol d/c and switched to norvasc for BP control. asa also d/c this hospital stay. d/c instructions discussed with daughter present at bedside Minutes to complete discharge: 40 Discharge Summary Reason For Visit: DIVERTICULITIS Current Active Problems Bradycardia (Acute) Diverticulitis (Acute) Condition: Stable - Instructions Diet, Activity, Other Instructions: You were admitted to the hospital with abdominal pain. A CT scan of your abdomen and pelvis showed mild, acute diverticulitis. You were evaluated by the trawl net maker, and general surgeon. You were treated with antibiotics, and bowel rest. You are tolerating re-introduction of diet well, and are being discharged home. Continue taking your home medications as directed. You will continue taking antibiotic Augmentin 875mg daily for the next 6 days We are holding your Metoprolol as your heart rate was noted to be low. Discuss reinstating this medication with your primary care physician, and senior lead project manager. Instead, you will take begin taking low dose Norvasc 5mg daily for blood pressure. We are also holding your Aspirin. Discuss reinstating this medication with your primary care physician, and senior lead project manager. Follow a low residue diet as tolerated. Please see attached information provided , regarding diet modifications. Follow up with your primary care physician within two- three days of discharge. A referral for [facility] clinic has been provided. Follow up with trawl net maker (Dr. Robertson) within one week of discharge. A referral has been provided. You will need a follow-up colonoscopy performed within the next 6-8 weeks, and will discuss further at your appointment. Return to the nearest Emergency Department if you experience any worsening symptoms, subjective fevers, chills, falls, loss of consciousness, shortness of breath, chest pain, palpitations, abdominal pain, nausea, vomiting, blood within the urine, bleeding within bowel movements, or black, tarry bowel movements. Referrals: [facility] [place] [Provider Group] Awais Robertson DO [Staff Physician] - Disposition: HOME - Home Medications Comprehensive Discharge Medication List: Ambulatory Orders Ibandronate Sodium [Boniva] 150 mg PO MONTHLY 12/27/18 Memantine HCl [Namenda -] 10 mg PO BID 12/27/18 Metformin HCl [Glucophage] 1,000 mg PO DAILY 12/27/18 Multivit-Min/FA/Lycopen/Lutein [Centrum Silver Tablet] 1 tab PO DAILY 12/27/18 Rosuvastatin Calcium [Crestor] 10 mg PO DAILY 12/27/18 metFORMIN HCL [Metformin HCl] 500 mg PO ACDIN 12/27/18 Amlodipine Besylate [Norvasc -] 5 mg PO DAILY #14 tab 01/01/19 Amoxicillin/Potassium Clav [Augmentin 875-125 Tablet] 1 each PO DAILY 7 Days #7 tablet 01/01/19 This patient is new to me today: No Emergency Visit: Yes ED Registration Date: 12/30/18 Care time: The patient presented to the Emergency Department on the above date and was hospitalized for further evaluation of their emergent condition. Critical Care patient: No - Discharge Referral Referred to [facility] Med P.C.: Yes Physician Referral: Ned Robertson DO (GI)
[2019-01-02] MEDS: ENOXAPARIN NA (PORCINE) 40 MG/0.4 ML DISP.SYRIN SQ SCH (09:07)
[2019-01-02] MEDS: MEMANTINE HCL 10 MG TABLET (FP) PO SCH (09:07)
[2019-01-02] MEDS: ASPIRIN 81 MG CHEWABLE TABLETS PO SCH ×2 (09:07→09:11)
[2019-01-02] MEDS: metoPROLOL SUCCINATE 25 MG TAB.SR.24H (FP) PO SCH (09:08)
[2019-01-02] MEDS ORDERED: amLODIPine BESYLATE 5 MG TABLET (FP) PO ONE (09:13)
[2019-01-02 11:11] VITALS: BP 161/70; PULSE 52; TEMP 97.8
== END 2019-01-02 11:14 | disposition home or self-care (01) | DRG 392 ==
LOC: JER 12:00 → JERBED 16:20 → J7W 18:54 → OBSVTOIN 12-30 15:15 → J7W 12-30 23:32
PROVIDERS: ADMIT Internal Medicine; ATTEND Internal Medicine
DX: K57.32 Diverticulitis of large intestine without perforation or abscess without bleeding (principal); I10 Essential (primary) hypertension; E78.5 Hyperlipidemia, unspecified; R07.89 Other chest pain; E11.9 Type 2 diabetes mellitus without complications; F03.90 Unspecified dementia, unspecified severity, without behavioral disturbance, psychotic disturbance, mood disturbance, and anxiety; K57.90 Diverticulosis of intestine, part unspecified, without perforation or abscess without bleeding; J44.9 Chronic obstructive pulmonary disease, unspecified; R00.1 Bradycardia, unspecified; I25.10 Atherosclerotic heart disease of native coronary artery without angina pectoris
CPT/HCPCS: 36415; 71045-TC-FY; 74176-TC; 80048; 80053; 81003; 82272; 82550; 82553; 82962; 83690; 84484; 85025; 85027; 86140; 87086; 93005; 93010; 99285-25; G0378; J7030

== ENCOUNTER 2019-03-11 09:18 | Day surgery (SDC) | payer OTHER ==
[2019-03-11 10:07] VITALS: BMI 30.4
[2019-03-11 11:49] VITALS: BP 130/59; PULSE 61; TEMP 98.3
== END 2019-03-11 11:48 | disposition home or self-care (01) ==
LOC: JASU-ENDO 09:18
PROVIDERS: ATTEND Internal Medicine Gastroenterology
PROC: 0DJD8ZZ Inspection of Lower Intestinal Tract, Via Natural or Artificial Opening Endoscopic (ICD-10-PCS; principal; 2019-03-11 09:30)
DX: K57.30 Diverticulosis of large intestine without perforation or abscess without bleeding (principal)

== ENCOUNTER 2019-04-12 23:49 | Observation (INO) | payer OTHER ==
[2019-04-12 23:57] VITALS: BMI 30.1
--- NOTE | 2019-04-13 01:08 | PDOC ---
History of Present Illness - General History Source: Patient, Family (daughter) Exam Limitations: Dementia - History of Present Illness Initial Comments: 04/13/19 01:03 79yo F with PMH of diverticulitis, Dementia, HLD, DM, COPD BIBA for confusion and possible overdose. Per daughter, pt has been more confused since Friday last week and having bad dreams. She went to urgent care to check for uti but results were inconclusive. She was prescribed Keflex but has not been taking it as directed due to stomach pains. Daughter states that around 11pm last night, pt was standing in doorway waiting for daughter. When daughter checked pill organizer, 3 days worth of metformin, Namenda and Crestor were gone. Daughter thinks pt may have taken it all. Pt endorses abdominal pain. Denies chest pain, sob, fevers, chills, cough, diarrhea, bloody stools. She lives with daughter. PMD: Hilda Art/Puja? GI: [facility]no PMH: see hpi Meds: see med rec allergies: nkda <Symone Garnica - Last Filed: 04/13/19 06:12> <Larry Spencer - Last Filed: 04/13/19 10:49> - General Chief Complaint: Overdose Stated Complaint: OVER DOSE MEDS Time Seen by Provider: 04/13/19 00:33 Past History - Past Medical History Anemia: No Asthma: No Cancer: No Cardiac Disorders: No CVA: No COPD: Yes ("mild") CHF: No DVT: No Dementia: Yes (Early onset) Diabetes: Yes GI Disorders: Yes (diverticulitis, HIATAL HERNIA) Disorders: No HTN: Yes Hypercholesterolemia: Yes Liver Disease: No Seizures: No Thyroid Disease: No - Surgical History Abdominal Surgery: No Appendectomy: No Cardiac Surgery: No Cholecystectomy: No Lung Surgery: No Orthopedic Surgery: Yes (rt elbow repair 27 years ago) - Immunization History Immunization Up to Date: Yes - Suicide/Smoking/Psychosocial Hx Smoking History: Never smoked Have you smoked in the past 12 months: Yes Number of Cigarettes Smoked Daily: 20 'Breaking Loose' booklet given: 03/11/19 Hx Alcohol Use: No Drug/Substance Use Hx: No Substance Use Type: None Hx Substance Use Treatment: No <Symone Garnica - Last Filed: 04/13/19 06:12> <Larry Spencer - Last Filed: 04/13/19 10:49> - Past Medical History Allergies/Adverse Reactions: Allergies Allergy/AdvReac Type Severity Reaction Status Date / Time No Known Allergies Allergy Verified 04/12/19 23:57 Home Medications: Ambulatory Orders Ibandronate Sodium [Boniva] 150 mg PO MONTHLY 12/27/18 Memantine HCl [Namenda -] 10 mg PO BID 12/27/18 Metformin HCl [Glucophage] 1,000 mg PO DAILY 12/27/18 Multivit-Min/FA/Lycopen/Lutein [Centrum Silver Tablet] 1 tab PO DAILY 12/27/18 Rosuvastatin Calcium [Crestor] 10 mg PO HS 12/27/18 metFORMIN HCL [Metformin HCl] 500 mg PO ACDIN 12/27/18 Cyanocobalamin (Vitamin B-12) [Vitamin B-12] 1,000 mcg PO DAILY 03/11/19 Polyethylene Glycol 3350 [Miralax (For Bowel Prep) -] 17 gm PO DAILY #1 bottle 03/11/19 Melatonin 5 mg PO DAILY 04/13/19 Review of Systems - Review of Systems Constitutional: No: Chills, Fever HEENTM: No: Symptoms Reported Respiratory: No: Cough, Shortness of Breath Cardiac (ROS): No: Chest Pain, Lightheadedness, Palpitations, Syncope ABD/GI: Yes: Abdominal cramping. No: Nausea, Rectal Bleeding, Vomiting, Tarry Stools Musculoskeletal: No: Back Pain, Joint Pain Integumentary: No: Symptoms Reported Neurological: Yes: See HPI. No: Headache, Numbness, Tingling, Tremors, Weakness , Ataxia, Dizziness <Symone Garnica - Last Filed: 04/13/19 06:12> *Physical Exam - Vital Signs Last Vital Signs Temp Pulse Resp BP Pulse Ox 98.9 F 63 18 113/58 L 98 04/12/19 23:52 04/12/19 23:52 04/12/19 23:52 04/12/19 23:52 04/12/19 23:52 - Physical Exam General Appearance: Yes: Nourished, Appropriately Dressed. No: Apparent Distress HEENT: positive: EOMI, SERGIO, Normal ENT Inspection Neck: positive: Trachea midline, Supple Respiratory/Chest: positive: Lungs Clear, Normal Breath Sounds. negative: Crackles, Rales, Wheezing Cardiovascular: positive: Regular Rhythm, Regular Rate, S1, S2. negative: Edema , JVD, Murmur Vascular Pulses: Dorsalis-Pedis (R): 2+, Doralis-Pedis (L): 2+ Gastrointestinal/Abdominal: positive: Normal Bowel Sounds, Soft. negative: Tender, Rebound, Tenderness, Hernia, Mass Musculoskeletal: negative: CVA Tenderness Extremity: positive: Normal Capillary Refill, Pelvis Stable. negative: Swelling , Calf Tenderness Integumentary: positive: Normal Color, Dry, Warm. negative: Rash Neurologic: positive: acid concentrator II-XII NML intact, Alert, Normal Mood/Affect, Normal Response, Motor Strength 5/5. negative: Fully Oriented (at baseline) <Symone Garnica - Last Filed: 04/13/19 06:12> - Vital Signs Last Vital Signs Temp Pulse Resp BP Pulse Ox 97.9 F 52 L 18 136/46 L 96 04/13/19 00:15 04/13/19 06:16 04/13/19 06:16 04/13/19 06:16 04/13/19 06:16 <Larry Spencer - Last Filed: 04/13/19 10:49> ED Treatment Course - LABORATORY CBC & Chemistry Diagram: 04/13/19 01:42 04/13/19 01:42 - RADIOLOGY Radiology Studies Ordered: Category Date Time Status HEAD CT WITHOUT CONTRAST [CT] Stat CT Scan 04/13/19 00:36 Ordered CHEST X-RAY PORTABLE* [RAD] Stat Radiology 04/13/19 00:37 Ordered <Symone Garnica - Last Filed: 04/13/19 06:12> - LABORATORY CBC & Chemistry Diagram: 04/13/19 01:42 04/13/19 01:42 - ADDITIONAL ORDERS Additional order review: Laboratory Results 04/13/19 04/13/19 04/13/19 04:23 02:06 01:42 Sodium 137 Potassium 4.3 Chloride 104 Carbon Dioxide 26 Anion Gap 8 BUN 15.6 Creatinine 1.2 Est GFR (CKD-EPI)AfAm 50.48 Est GFR (CKD-EPI)NonAf 43.56 POC Glucometer 68 Random Glucose 97 Calcium 8.8 Magnesium 2.3 Total Bilirubin 0.4 AST 20 ALT 19 Alkaline Phosphatase 67 Troponin I < 0.02 Total Protein 7.7 Albumin 3.6 Lipase 747 H Urine Color Yellow Urine Appearance Clear Urine pH 5.0 Ur Specific [place] 1.012 Urine Protein Negative Urine Glucose (UA) Negative Urine Ketones Negative Urine Blood Trace Urine Nitrite Negative Urine Bilirubin Negative Urine Urobilinogen 0.2 Ur Leukocyte Esterase Trace Urine WBC (Auto) 3 Urine RBC (Auto) 0 Urine Casts (Auto) 2 U Epithel Cells (Auto) 1.3 Urine Bacteria (Auto) 0.3 Salicylates 2.1 L Acetaminophen < 2.0 L 04/13/19 04/13/19 04:23 01:42 RBC 4.12 MCV 89.8 MCHC 33.6 RDW 14.1 MPV 8.0 Neutrophils % 57.8 Lymphocytes % 32.1 Monocytes % 7.1 Eosinophils % 2.5 Basophils % 0.5 POC Glucometer 68 - Medications Given in the ED: ED Medications Discontinued Medications Generic Name Dose Route Start Last Admin Trade Name Wilbertq PRN Reason Stop Dose Admin Acetaminophen 1,000 mg 04/13/19 02:07 04/13/19 02:54 Ofirmev Injection - IVPB 04/13/19 02:08 1,000 mg ONCE ONE Administration Dextrose 4 gm 04/13/19 04:26 04/13/19 04:30 Glucose Tablet - PO 04/13/19 04:27 4 gm ONCE ONE Administration Sodium Chloride 1,000 mls @ 1,000 mls/hr 04/13/19 03:57 04/13/19 04:31 Normal Saline - IV 04/13/19 04:56 Not Given ASDIR STA Sodium Chloride 1,000 ml 04/13/19 03:51 04/13/19 04:00 Normal Saline - IV 04/13/19 03:52 1,000 ml ONCE ONE Administration <Larry Spencer - Last Filed: 04/13/19 10:49> Medical Decision Making - Medical Decision Making 04/13/19 01:07 79yo F with PMH of diverticulitis, Dementia, HLD, DM, COPD BIBA for confusion and possible overdose. Per daughter, pt has been more confused since Friday last week and having bad dreams. She went to urgent care to check for uti but results were inconclusive. She was prescribed Keflex but has not been taking it as directed due to stomach pains. Daughter states that around 11pm last night, pt was standing in doorway waiting for daughter. When daughter checked pill organizer, 3 days worth of metformin, Namenda and Crestor were gone. Daughter thinks pt may have taken it all. Pt endorses abdominal pain. Denies chest pain, sob, fevers, chills, cough, diarrhea, bloody stools. She lives with daughter. Vitals: wnl, slight hypotension PE: AOx2 (baseline per daughter), normal exam ddx includes but not limited to uti, electrolyte/metabolic abnormality, malignancy, mass, hypoglycemia, medication interaction/overdose -ekg, cxr, ct head -cbc, cmp, asa, apap, trop -ua ucx Pt takes 10mg namenda bid, 500mg metformin bid, and crestor 10mg qhs. Called poison control: monitor bgm with metformin however 5g is tolerated. Namenda: se includes agitation, bradycardia, dizziness, lethargy, watch for 12h if ER. pt is not taking ER. 400mg tolerated. Crestor: 200mg tolerated. BGM at home 175. Pt has had bradycardia for the past few months. ekg; sinus bradycardia at 53. no des or depressions. pr 130, qtc 454. ua negative for infection. cbc wnl. chem: elevated lipase cxr: does not show acute lung pathology CT head: Age appropriate involutional changes No evidence of hemorrhage, acute territorial infarction, mass effect, midline shift, hydrocephalus, or extra-axial collections. Punctate physiologic bilateral basal ganglia calcifications. Vascular calcifications of the carotid siphons No hyperdense arterial or venous sign to Status post bilateral cataract surgery Hyperostosis frontalis The calvarium is intact. lipase elevated in 700s. Will order CTAP (elevated lipase, pt complaining of abdominal pain) 04/13/19 04:29 BGM 67. will give glucose tablet. Glucose tablet not available. Will give juice Pt admitted to inpatient team for overdose and to monitor glucose. rpt bgm ordered. 04/13/19 06:12 CTAP: Mild nonspecific wall thickening of the ascending colon most likely due to mild infectious or inflammatory colitis. Mild cardiomegaly with calcified coronary artery arteriosclerosis. Calcification of the aortic valve. Moderate calcified arteriosclerosis of the abdominal pelvic vasculature. Dependent density in the gallbladder most likely due to sludge or cholelithiasis with moderate gallbladder distention. Mildly dilated pancreatic duct in the pancreatic head. If clinically indicated follow-up outpatient MRI pancreas with contrast may be needed. Small hiatal hernia. Diverticulosis without diverticulitis no white count, nontender abdomen. Does not need abx at this time. Pt resting comfortably in ED bed <Sa Danikaira - Last Filed: 04/13/19 06:12> *DC/Admit/Observation/Transfer <Symone Garnica - Last Filed: 04/13/19 06:12> - Discharge Dispostion Decision to Admit order: Yes <Larry Spencer - Last Filed: 04/13/19 10:49> Diagnosis at time of Disposition: Elevated lipase Overdose Qualifiers: Encounter type: initial encounter Injury intent: accidental or unintentional Qualified Code(s): T50.901A - Poisoning by unspecified drugs, medicaments and biological substances, accidental (unintentional), initial encounter Altered mental status Qualifiers: Altered mental status type: unspecified Qualified Code(s): R41.82 - Altered mental status, unspecified - Discharge Dispostion Condition at time of disposition: Stable
--- NOTE | 2019-04-13 01:45 | PDOC ---
Documentation entered by Hayes Gomez SCRIBE, acting as scribe for Poonam Mak MD. Poonam Mak MD: This documentation has been prepared by the maree, Hayes Gomez SCRIBE, under my direction and personally reviewed by me in its entirety. I confirm that the documentation accurately reflects all work, treatment, procedures, and medical decision making performed by me. Attending Attestation - Resident Resident Name: Symone Garnica - ED Attending Attestation I have performed the following: I have examined & evaluated the patient, The case was reviewed & discussed with the resident, I agree w/resident's findings & plan - HPI HPI: 04/13/19 01:24 Patient is a 79 year old female with a significant past medical history of diverticulitis, Dementia, HLD, DM, and COPD who presents to the ED via EMS with possible overdose x3 hours ago. As per patient's daughter at bedside the patient was standing up in a doorway, and the daughter found that 3 days worth of medication was gone (Metformin, Nameda, Crestor). The patient at this time reports abdominal pain. Denies Chest pain, sob, fever, and diarrhea. Allergies: NKA PCP: Dr. Stevens - Physicial Exam PE: 04/13/19 01:33 GENERAL: Awake, alert, and fully oriented, in no acute distress HEAD: No signs of trauma EYES: PERRLA, EOMI, sclera anicteric, conjunctiva clear ENT: Auricles normal inspection, hearing grossly normal, nares patent, oropharynx clear without exudates. Moist mucosa NECK: Normal ROM, supple, no lymphadenopathy, JVD, or masses LUNGS: Breath sounds equal, clear to auscultation bilaterally. No wheezes, and no crackles HEART: Regular rate and rhythm, normal S1 and S2, no murmurs, rubs or gallops ABDOMEN: Soft, nontender, normoactive bowel sounds. No guarding, no rebound. No masses EXTREMITIES: Normal range of motion, no edema. No clubbing or cyanosis. No cords, erythema, or tenderness NEUROLOGICAL: Cranial nerves II through XII grossly intact. Normal speech, normal gait SKIN: Warm, Dry, normal turgor, no rashes or lesions noted. - Medical Decision Making 07/30/19 01:38 this 79 yo female presents alert and in no acute distress after overdosing on her crestor,namenda and metformin today . Her daughter noticed that the pt had taken 3 days worth of these meds POISON CONTROL contacted and the only concern would be to monitor her glucose to watch for hypoglycemia -the daughter states that her mother becomes more confused when she has a uti and the pt was recently diag w uti but non complaint with her antibiotics her ekg is sinus bradycardia @ [address] scan head ,trop,tox screen UA,UC,cbc,comp,ekg
[2019-04-13] MEDS ORDERED: ACETAMINOPHEN 1000 MG/100 ML VIAL (NON FORMULARY) IVPB ONE (02:07)
[2019-04-13 02:23] LABS: MCH 30.2 pg (25.7-33.7); MEAN CELL VOLUME 89.8 fl (80-96); WHITE BLOOD COUNT 8.1 K/mm3 (4.0-10.0)
[2019-04-13 02:25] LABS: EPI CELLS 1.3 /HPF (0-5/HPF); HYALINE CASTS 2 /lpf (0-8); URINE APPEARANCE CLEAR; URINE BACTERIA 0.3 /hpf (NEGATIVE); URINE BILIRUBIN NEGATIVE (NEGATIVE); URINE COLOR YELLOW; URINE GLUCOSE (UA) NEGATIVE (NEGATIVE); URINE KETONE NEGATIVE (NEGATIVE); URINE LEUK ESTERASE TRACE (NEGATIVE); URINE NITRITE NEGATIVE (NEGATIVE); URINE PROTEIN NEGATIVE (NEGATIVE); URINE RBC 0 /hpf (0-4); URINE UROBILINOGEN 0.2 mg/dL (0.2-1.0); URINE WBC 3 /hpf (0-5)
[2019-04-13 02:27] LABS: BASO % 0.5 % (0-2.0); EOS % 2.5 % (0-4.5); HEMOGLOBIN 12.4 GM/dL (10.7-15.3); LYMPH % 32.1 % (8-40); MCHC 33.6 g/dl (32.0-36.0); MONO % 7.1 % (3.8-10.2); NEUT % 57.8 % (42.8-82.8); PLATELET COUNT 266 K/MM3 (134-434); RBC 4.12 M/mm3 (3.60-5.2); RDW 14.1 % (11.6-15.6)
[2019-04-13] MEDS ORDERED: ACETAMINOPHEN INJECTION 100 ML IVPB ONE (02:46)
[2019-04-13 02:56] LABS: ALBUMIN 3.6 g/dl (3.4-5.0); ANION GAP 8 MMOL/L (8-16); BLOOD UREA NITROGEN 15.6 mg/dL (7-18); CALCIUM 8.8 mg/dL (8.5-10.1); CHLORIDE 104 mmol/L (98-107); CO2 26 mmol/L (21-32); GLUCOSE,RANDOM 97 mg/dL (74-106); LIPASE 747 U/L (73-393); POTASSIUM 4.3 mmol/L (3.5-5.1); SODIUM 137 mmol/L (136-145)
[2019-04-13 03:02] LABS: ALK PHOS 67 U/L (45-117); BILIRUBIN,TOTAL 0.4 mg/dL (0.2-1); CREATININE 1.2 mg/dL (0.55-1.3); MAGNESIUM 2.3 mg/dL (1.8-2.4); SGOT/AST 20 U/L (15-37); SGPT/ALT 19 U/L (13-61); TOT PROT 7.7 g/dl (6.4-8.2)
[2019-04-13] MEDS ORDERED: SODIUM CHLORIDE 0.9% 1000 ML INFUS.BAG IV ONE (03:51)
[2019-04-13] MEDS ORDERED: SODIUM CHLORIDE 1,000 ML IV STA (03:57)
[2019-04-13] MEDS ORDERED: DEXTROSE 4 GM TAB.CHEW PO ONE (04:26)
[2019-04-13] MEDS ORDERED: ACETAMINOPHEN 325 MG TABLET (FP) PO PRN (05:26)
[2019-04-13] MEDS ORDERED: SODIUM CHLORIDE 1,000 ML IV SCH (05:30)
--- NOTE | 2019-04-13 05:39 | HP ---
<Yoni Napier - Last Filed: 04/13/19 11:03> Agree with above aside from as supplemetned in my note HR is NOT irregular; had occasional PAC, etc. as is same in past with telemetry reviews; she has known sinus stefan for months as has been documented. No s/s afib. Please see my note for further discussion ATTENDING PHYSICIAN STATEMENT I saw and evaluated the patient. I reviewed the resident's note and discussed the case with the resident. I agree with the resident's findings and plan as documented. SUBJECTIVE: OBJECTIVE: ASSESSMENT AND PLAN: <Sandy Al - Last Filed: 04/13/19 19:10> Medical Consult note: CHIEF COMPLAINT: medication overdose PCP: Hilda HISTORY OF PRESENT ILLNESS: Patient is a 79 y/o female with a history of COPD, DM, dementia, and diverticulosis who presents after taking too many days of her medications. Per the daughter the patient takes Namenda BID, metformin BID, and crestor at night. When the daughter looked at the patients pill box three nights (pm doses ) had been taken. Patient has recently been acting more erratic starting this week. The ED called poison control and stated if patient took three days of doses, she did not take lethal doses. Patient has also been complaining of weird dreams lately. Daughter brought patient to urgent care where she had a inconclusive UA last Friday. This month patient had a felx/sig colonoscopy because of hx of diverticulitis and chronic complaints of abdominal pain. Per daughter it was a poor study despite prep. She was given Keflex but patient did not complete due to abdominal pain. Patient denies nausea, vomiting, shortness of breath, or dizziness. ER course was notable for: (1) CT abd/pelvis (2)NS (3) Recent Travel: PAST MEDICAL HISTORY: COPD, DM, dementia, and diverticulosis PAST SURGICAL HISTORY: hysterectomy Social History: Smokin pack a day Alcohol: Drugs: Family History: Allergies No Known Allergies Allergy (Verified 04/12/19 23:57) HOME MEDICATIONS: Home Medications Medication Instructions Recorded Ibandronate Sodium [Boniva] 150 mg PO MONTHLY 12/27/18 Memantine HCl [Namenda -] 10 mg PO BID 12/27/18 Metformin HCl [Glucophage] 1,000 mg PO DAILY 12/27/18 Multivit-Min/FA/Lycopen/Lutein 1 tab PO DAILY 12/27/18 [Centrum Silver Tablet] Rosuvastatin Calcium [Crestor] 10 mg PO HS 12/27/18 metFORMIN HCL [Metformin HCl] 500 mg PO ACDIN 12/27/18 Cyanocobalamin (Vitamin B-12) 1,000 mcg PO DAILY 03/11/19 [Vitamin B-12] Polyethylene Glycol 3350 [Miralax 17 gm PO DAILY #1 bottle 03/11/19 (For Bowel Prep) -] Melatonin 5 mg PO DAILY 04/13/19 REVIEW OF SYSTEMS CONSTITUTIONAL: Absent: fever, chills, diaphoresis, generalized weakness, malaise, loss of appetite, weight change HEENT: Absent: rhinorrhea, nasal congestion, throat pain, throat swelling, difficulty swallowing, mouth swelling, ear pain, eye pain, visual changes CARDIOVASCULAR: Absent: chest pain, syncope, palpitations, irregular heart rate, lightheadedness , peripheral edema RESPIRATORY: Absent: cough, shortness of breath, dyspnea with exertion, orthopnea, wheezing, stridor, hemoptysis GASTROINTESTINAL: Absent: abdominal pain, abdominal distension, nausea, vomiting, diarrhea, constipation, melena, hematochezia GENITOURINARY: Absent: dysuria, frequency, urgency, hesitancy, hematuria, flank pain, genital pain MUSCULOSKELETAL: Absent: myalgia, arthralgia, joint swelling, back pain, neck pain SKIN: Absent: rash, itching, pallor HEMATOLOGIC/IMMUNOLOGIC: Absent: easy bleeding, easy bruising, lymphadenopathy, frequent infections ENDOCRINE: Absent: unexplained weight gain, unexplained weight loss, heat intolerance, cold intolerance NEUROLOGIC: Absent: headache, focal weakness or paresthesias, dizziness, unsteady gait, seizure, mental status changes, bladder or bowel incontinence PSYCHIATRIC: Absent: anxiety, depression, suicidal or homicidal ideation, hallucinations. PHYSICAL EXAMINATION Vital Signs - 24 hr 04/12/19 04/13/19 23:52 00:15 Temperature 98.9 F 97.9 F Pulse Rate 63 Pulse Rate [ 56 L Right Radial] Respiratory 18 18 Rate Blood Pressure 113/58 L Blood Pressure 115/52 L [Left Arm] O2 Sat by Pulse 98 99 Oximetry (%) GENERAL: Awake, alert, and in no acute distress. HEAD: Normal with no signs of trauma. EYES: extraocular movements intact EARS, NOSE, THROAT: Moist mucous membranes. LUNGS: Breath sounds equal, clear to auscultation bilaterally. . HEART: bradycardic, irregularly irregular, no murmurs appreciated ABDOMEN: Soft, nontender, not distended, normoactive bowel sounds, no guarding, no rebound, no masses. MUSCULOSKELETAL: Normal range of motion at all joints. No bony deformities or tenderness. No CVA tenderness. LOWER EXTREMITIES: 2+ pulses, warm, well-perfused. No calf tenderness. No peripheral edema. SKIN: Warm, dry, normal turgor, no rashes or lesions noted, normal capillary refill. CBC, BMP 04/13/19 01:42 04/13/19 01:42 ASSESSMENT/PLAN: Patient is a 79 y/o female with a history of COPD, DM, dementia, and diverticulosis who is admitted for medication overdose. #medication overdose - Namenda, Metformin, and Crestor - Poison control aware and nothing different to do - will monitor patient's glucose closely - give juice as needed for low sugars - patient near baseline mentation per daughter #dementia - change of baseline, likely 2/2 to - Patient has appointment with Neuro in may - will offer neuro visit in house #elevated lipase - past admissions with elevated lipase (3000), evaluated by GI in the past and patient unlikely to have pancreatitis - past US: main pancreatic duct appears slightly prominent 2.7 - f/u imaging of ABD/CT from overnight - tenderness resolved from earlier #irregular heart beat - 1st EKG in normal sinus rhythm, abnormal heart rate heard on exam - repeat EKG showed PAC, low suspicion for afib - per daughter she was also asked at Urgent care if patient has afib, no know history of Afib - CHADSVASC: 4 #DM - monitor off medication currently - BGM Q4H #DVT ppx - heparin tid sq FEN - NS @50, past Echo WNL - NPO overnight Dispo: monitor in ED during the day, if glucose remains stable patient can likely go home in the morning Visit type - Emergency Visit Emergency Visit: Yes ED Registration Date: 04/13/19 Care time: The patient presented to the Emergency Department on the above date and was hospitalized for further evaluation of their emergent condition. - New Patient This patient is new to me today: Yes Date on this admission: 04/13/19 - Critical Care Critical Care patient: No ATTENDING PHYSICIAN STATEMENT I saw and evaluated the patient. I reviewed the resident's note and discussed the case with the resident. I agree with the resident's findings and plan as documented. SUBJECTIVE: OBJECTIVE: ASSESSMENT AND PLAN:
[2019-04-13] MEDS ORDERED: HEPARIN NA (PORCINE) 5,000 UNITS/ML 1ML VIAL SQ SCH ×2 (06:30→10:00)
[2019-04-13] MEDS ORDERED: HEPARIN NA (PORCINE) 5,000 UNITS/ML 1ML VIAL ONE (06:57)
--- NOTE | 2019-04-13 07:22 | PN ---
Teaching Attending Note Name of Resident: Sandy Al ATTENDING PHYSICIAN STATEMENT I saw and evaluated the patient. I reviewed the resident's note and discussed the case with the resident. I agree with the resident's findings and plan as documented. Seen and examined; please refer to resident note for further information. Presented with OD of namenda and metformin initially but dose was still not within any dangerous range (accidently took 2-3 days of crestor, namenda, and metformin--this wouldnt represent a lethal dose, she didn't take it intentionally, suspected per ER note due to daughter finding missing). When speaking to daughter it appears that the patient has been having some worsening symptoms of dementia over the last several months and has been recently experiencing some sundowning after starting melatonin several days ago. She has been sleeping during the day, waking up at odd times, and thinking it is a new day. This is how the daughter postulates she took extra meds. Poison control called by ER; please refer to their documentation for recs. No true hypoglycemia by our lab scale observed and she took metformin at a non-toxic dose. Recent colonoscopy report reviewed. For her worsening dementia and insomnia, etc. that lead to the melatonin use resulting in some sundowning (not altered, just sleeping at odd times and having nightmares and anxiety resulting from bad dreams-daughter describes instance where she fell asleep watching a marketing copywriter show and heard gunshots in her dream and woke with alot of anxiety, for example) she is planned to see a new neurologist today as an outpatient (Dr. Hauser who doesn't come here I am told). She is . No focal neuro signs, not altered, and at baseline with the gradual decline that worsens with insomnia. Exam is benign but she is found on CT to have potential R-sided findings. Non- acute abdomen with no abdominal complaints and she came in for a completely different reason. For the lipase, it is slightly less than 2x uln and without symptoms or imaging findings. This does not qualify as pancreatitis but should be followed up as OP. Consider non-pancreatic causes of elevated lipase (esophagitis, etc.) Initially told PCP is Dr. Stevens and he admits her which is strange as we admit every time she is here. Confirmed that we would be responsible for patient. Glucose stable. No abdominal pain. Spoke to daytime DRIER FEEDER with [facility] who will place DC order. No pancreatitis or liver/GB abnormalities on CT final report; DRIER FEEDER reviewed with GI. OK for DC as no abdominal pain or synmptoms with no fever or abnormalities The lipase will need followed up in 3-5 days with PCP and GI followup will be given as well She will be encouraged to keep today's appt with neurology for management of her dementia (does not wish to use our neurology team) She should consider CBC, BMP at followup. Consider followup lipase. No documented pancreatitis on scan. No LFT derrangement. We will discharge patient A/P: Problems include: # Dementia with sundowning precipitated by insomnia and excess melatonin use, not altered, now at baseline # Extra dose of medication (non-toxic); ER discussed with poison control. # Elevated lipase, repeated, chronic. # PACs, chronically low HR with chronotropic response (refer to old admissions kindly for prior discussion) # DM Refer to home health aid Refer to PCP and GI Stop Melatonin Consider repeat labs at PCP office Consider repeat imaging if abdominal pain
--- NOTE | 2019-04-13 09:28 | EKG ---
Test Reason : Blood Pressure : / mmHG Vent. Rate : 053 BPM Atrial Rate : 053 BPM P-R Int : 130 ms QRS Dur : 088 ms QT Int : 484 ms P-R-T Axes : 066 069 051 degrees QTc Int : 454 ms SINUS BRADYCARDIA OTHERWISE NORMAL ECG Confirmed by Reynold Arias MD ([id number]) on 04/13/2019 9:28:01 AM Referred By: Chris SANTOS Confirmed By:Reynold Arias MD
[2019-04-13 10:51] LABS: BASO % 0.8 % (0-2.0); EOS % 2.6 % (0-4.5); HEMATOCRIT 36.1 % (32.4-45.2); HEMOGLOBIN 12.3 GM/dL (10.7-15.3); LYMPH % 36.9 % (8-40); MCH 30.3 pg (25.7-33.7); MEAN CELL VOLUME 89.3 fl (80-96); MEAN PLT VOLUME 7.5 fl (7.5-11.1); MONO % 6.4 % (3.8-10.2); NEUT % 53.3 % (42.8-82.8); PLATELET COUNT 275 K/MM3 (134-434); RBC 4.05 M/mm3 (3.60-5.2); RDW 13.7 % (11.6-15.6); WHITE BLOOD COUNT 5.4 K/mm3 (4.0-10.0)
[2019-04-13 11:34] LABS: ALBUMIN 3.4 g/dl (3.4-5.0); BILIRUBIN,TOTAL 0.7 mg/dL (0.2-1); BLOOD UREA NITROGEN 11.5 mg/dL (7-18); CALCIUM 8.8 mg/dL (8.5-10.1); CREATININE 1.1 mg/dL (0.55-1.3); POTASSIUM 4.4 mmol/L (3.5-5.1); TOT PROT 7.4 g/dl (6.4-8.2)
--- NOTE | 2019-04-13 12:31 | DS ---
Physical Exam: SUBJECTIVE: Patient seen and examined OBJECTIVE: Vital Signs Period Temp Pulse Resp BP Sys/Solis Pulse Ox Last 24 Hr 97.9 F-98.9 F 52-63 18-18 113-136/46-58 96-99 PHYSICAL EXAM GENERAL: Awake, alert, and in no acute distress. HEAD: Normal with no signs of trauma. EYES: extraocular movements intact EARS, NOSE, THROAT: Moist mucous membranes. LUNGS: Breath sounds equal, clear to auscultation bilaterally. . HEART: bradycardic, irregularly irregular, no murmurs appreciated ABDOMEN: Soft, nontender, not distended, normoactive bowel sounds, no guarding, no rebound, no masses. MUSCULOSKELETAL: Normal range of motion at all joints. No bony deformities or tenderness. No CVA tenderness. LOWER EXTREMITIES: 2+ pulses, warm, well-perfused. No calf tenderness. No peripheral edema. SKIN: Warm, dry, normal turgor, no rashes or lesions noted, normal capillary refill. LABS Laboratory Results - last 24 hr 04/13/19 04/13/19 04/13/19 01:42 01:42 02:06 WBC 8.1 RBC 4.12 Hgb 12.4 Hct 37.0 MCV 89.8 MCH 30.2 MCHC 33.6 RDW 14.1 Plt Count 266 MPV 8.0 Absolute Neuts (auto) 4.7 Neutrophils % 57.8 Lymphocytes % 32.1 Monocytes % 7.1 Eosinophils % 2.5 Basophils % 0.5 Nucleated RBC % 0 Sodium 137 Potassium 4.3 Chloride 104 Carbon Dioxide 26 Anion Gap 8 BUN 15.6 Creatinine 1.2 Est GFR (CKD-EPI)AfAm 50.48 Est GFR (CKD-EPI)NonAf 43.56 POC Glucometer Random Glucose 97 Calcium 8.8 Magnesium 2.3 Total Bilirubin 0.4 AST 20 ALT 19 Alkaline Phosphatase 67 Troponin I < 0.02 Total Protein 7.7 Albumin 3.6 Lipase 747 H Urine Color Yellow Urine Appearance Clear Urine pH 5.0 Ur Specific Vicco 1.012 Urine Protein Negative Urine Glucose (UA) Negative Urine Ketones Negative Urine Blood Trace Urine Nitrite Negative Urine Bilirubin Negative Urine Urobilinogen 0.2 Ur Leukocyte Esterase Trace Urine WBC (Auto) 3 Urine RBC (Auto) 0 Urine Casts (Auto) 2 U Epithel Cells (Auto) 1.3 Urine Bacteria (Auto) 0.3 Salicylates 2.1 L Acetaminophen < 2.0 L 04/13/19 04/13/19 04/13/19 04:23 07:07 10:33 WBC 5.4 RBC 4.05 Hgb 12.3 Hct 36.1 MCV 89.3 MCH 30.3 MCHC 34.0 RDW 13.7 Plt Count 275 MPV 7.5 Absolute Neuts (auto) 2.9 Neutrophils % 53.3 Lymphocytes % 36.9 Monocytes % 6.4 Eosinophils % 2.6 Basophils % 0.8 Nucleated RBC % 0 Sodium Potassium Chloride Carbon Dioxide Anion Gap BUN Creatinine Est GFR (CKD-EPI)AfAm Est GFR (CKD-EPI)NonAf POC Glucometer 68 133 Random Glucose Calcium Magnesium Total Bilirubin AST ALT Alkaline Phosphatase Troponin I Total Protein Albumin Lipase Urine Color Urine Appearance Urine pH Ur Specific Vicco Urine Protein Urine Glucose (UA) Urine Ketones Urine Blood Urine Nitrite Urine Bilirubin Urine Urobilinogen Ur Leukocyte Esterase Urine WBC (Auto) Urine RBC (Auto) Urine Casts (Auto) U Epithel Cells (Auto) Urine Bacteria (Auto) Salicylates Acetaminophen 04/13/19 10:33 WBC RBC Hgb Hct MCV MCH MCHC RDW Plt Count MPV Absolute Neuts (auto) Neutrophils % Lymphocytes % Monocytes % Eosinophils % Basophils % Nucleated RBC % Sodium 141 Potassium 4.4 Chloride 106 Carbon Dioxide 27 Anion Gap 7 L BUN 11.5 Creatinine 1.1 Est GFR (CKD-EPI)AfAm 56.08 Est GFR (CKD-EPI)NonAf 48.39 POC Glucometer Random Glucose 137 H Calcium 8.8 Magnesium Total Bilirubin 0.7 AST 20 ALT 20 Alkaline Phosphatase 64 Troponin I Total Protein 7.4 Albumin 3.4 Lipase Urine Color Urine Appearance Urine pH Ur Specific Vicco Urine Protein Urine Glucose (UA) Urine Ketones Urine Blood Urine Nitrite Urine Bilirubin Urine Urobilinogen Ur Leukocyte Esterase Urine WBC (Auto) Urine RBC (Auto) Urine Casts (Auto) U Epithel Cells (Auto) Urine Bacteria (Auto) Salicylates Acetaminophen HOSPITAL COURSE: Date of Admission:04/13/19 Date of Discharge: 04/13/19 HISTORY OF PRESENT ILLNESS: Patient is a 79 y/o female with a history of COPD, DM, dementia, and diverticulosis who presents after taking too many days of her medications. Per the daughter the patient takes Namenda BID, metformin BID, and crestor at night. When the daughter looked at the patients pill box three nights (pm doses ) had been taken. Patient has recently been acting more erratic starting this week. The ED called poison control and stated if patient took three days of doses, she did not take lethal doses. Patient has also been complaining of weird dreams lately. Daughter brought patient to urgent care where she had a inconclusive UA last Friday. This month patient had a felx/sig colonoscopy because of hx of diverticulitis and chronic complaints of abdominal pain. Per daughter it was a poor study despite prep. She was given Keflex but patient did not complete due to abdominal pain. Patient denies nausea, vomiting, shortness of breath, or dizziness. ER course was notable for: (1) CT abd/pelvis (2)NS (3) Hospital course Remained in ED since presentation to [facility] and discharged to home from ED #medication overdose - Namenda, Metformin, and Crestor - Poison control aware and nothing different to do -- give juice as needed for low sugars - patient near baseline mentation per daughter and has f/u appoinment with new neurologist #dementia - change of baseline, likely / to - Patient has appointment with Neuro in may and advised to call and have appointment moved up #elevated lipase - past admissions with elevated lipase (3000), evaluated by GI in the past and patient unlikely to have pancreatitis - past US: main pancreatic duct appears slightly prominent 2.7 -spoke with Dr Luciano from GI and no futher managment of diverticulitis that was seen on CT abdomen. Call follow as outpatient #irregular heart beat - 1st EKG in normal sinus rhythm, abnormal heart rate heard on exam - repeat EKG showed PAC, low suspicion for afib - CHADSVASC: 4 #DM - monitor off medication currently - BGM stable. No need for dextrose . resolved with juice Dispo: patient to return home with daughter Minutes to complete discharge: 60 Discharge Summary Reason For Visit: DRUG OVERDOSE,INCREASED SERUM LIPASE LEVEL Current Active Problems Altered mental status (Acute) Elevated lipase (Acute) Overdose (Acute) - Instructions Diet, Activity, Other Instructions: Resume home diet. Can make an appointment with Dr Stevens as outpatient for follow up for diverticulitis. Patient has appointment with new neurologist for mangagement of dementia. Would advise to attemotment to have appointment moved up from scheduled Sept 3 appointment. Spoke with poision control and no intervention needed for accidental ingestion if extra doses or metformin or namenda. Referrals: Fabiano Stevens MD [Staff Physician] - - Home Medications Comprehensive Discharge Medication List: Ambulatory Orders Ibandronate Sodium [Boniva] 150 mg PO MONTHLY 12/27/18 Memantine HCl [Namenda -] 10 mg PO BID 12/27/18 Metformin HCl [Glucophage] 1,000 mg PO DAILY 12/27/18 Multivit-Min/FA/Lycopen/Lutein [Centrum Silver Tablet] 1 tab PO DAILY 12/27/18 Rosuvastatin Calcium [Crestor] 10 mg PO HS 12/27/18 metFORMIN HCL [Metformin HCl] 500 mg PO ACDIN 12/27/18 Cyanocobalamin (Vitamin B-12) [Vitamin B-12] 1,000 mcg PO DAILY 03/11/19 Polyethylene Glycol 3350 [Miralax 255 gm Btl -] 17 gm PO DAILY #1 bottle Acetaminophen [Tylenol .Regular Strength -] 650 mg PO Q4H PRN tablet 04/13/19 Melatonin 5 mg PO DAILY 04/13/19 Problem List - Problems (1) Altered mental status Code(s): R41.82 - ALTERED MENTAL STATUS, UNSPECIFIED Qualifiers: Altered mental status type: unspecified Qualified Code(s): R41.82 - Altered mental status, unspecified (2) Overdose Code(s): T50.901A - POISONING BY UNSP DRUG/MEDS/BIOL SUBST, ACCIDENTAL, INIT Qualifiers: Encounter type: initial encounter Injury intent: accidental or unintentional Qualified Code(s): T50.901A - Poisoning by unspecified drugs, medicaments and biological substances, accidental (unintentional), initial encounter (3) Diverticulitis Code(s): K57.92 - DVTRCLI OF INTEST, PART UNSP, W/O PERF OR ABSCESS W/O BLEED (4) Dementia Code(s): F03.90 - UNSPECIFIED DEMENTIA WITHOUT BEHAVIORAL DISTURBANCE Qualifiers: Dementia type: unspecified type (5) Hypertension Code(s): I10 - ESSENTIAL (PRIMARY) HYPERTENSION Qualifiers: Hypertension type: essential hypertension Qualified Code(s): I10 - Essential (primary) hypertension (6) Type 2 diabetes mellitus Code(s): E11.9 - TYPE 2 DIABETES MELLITUS WITHOUT COMPLICATIONS Qualifiers: Diabetes mellitus intermediate accountant insulin use: without intermediate accountant use Diabetes mellitus complication status: without complication Qualified Code(s): E11.9 - Type 2 diabetes mellitus without complications This patient is new to me today: Yes Date on this admission: 04/13/19 Emergency Visit: Yes ED Registration Date: 04/13/19 Care time: The patient presented to the Emergency Department on the above date and was hospitalized for further evaluation of their emergent condition. Critical Care patient: No - Discharge Referral Referred to [facility] No
[2019-04-13 12:40] VITALS: BP 142/63; PULSE 51; TEMP 97.6
--- NOTE | 2019-04-14 14:33 | EKG ---
Test Reason : Blood Pressure : / mmHG Vent. Rate : 064 BPM Atrial Rate : 064 BPM P-R Int : 114 ms QRS Dur : 092 ms QT Int : 484 ms P-R-T Axes : 044 047 052 degrees QTc Int : 499 ms POOR DATA QUALITY, INTERPRETATION MAY BE ADVERSELY AFFECTED SINUS RHYTHM WITH PREMATURE ATRIAL COMPLEXES OTHERWISE NORMAL ECG WHEN COMPARED WITH ECG OF 13-APR-2019 01:18, PREMATURE ATRIAL COMPLEXES ARE NOW PRESENT Confirmed by GERMANIA CARMEN, KVNG ([id number]) on 04/14/2019 2:33:07 PM Referred By: Confirmed By:KVNG SOLO MD
== END 2019-04-13 12:59 | disposition home or self-care (01) | DRG 918 ==
LOC: JER 23:49 → INTOOBSV 04-13 04:53 → JERBED 04-13 04:53 → UNDOADMOB 04-13 04:53 → JERBED 04-13 10:49 → UNDODISOB 04-13 12:59
PROVIDERS: ADMIT Internal Medicine; ATTEND Internal Medicine
PROC: 3E033NZ Introduction of Analgesics, Hypnotics, Sedatives into Peripheral Vein, Percutaneous Approach (ICD-10-PCS; principal; 2019-04-13)
PROC: 3E0337Z Introduction of Electrolytic and Water Balance Substance into Peripheral Vein, Percutaneous Approach (ICD-10-PCS; 2019-04-13)
PROC: 3E013GC Introduction of Other Therapeutic Substance into Subcutaneous Tissue, Percutaneous Approach (ICD-10-PCS; 2019-04-13)
DX: T50.901A Poisoning by unspecified drugs, medicaments and biological substances, accidental (unintentional), initial encounter (principal); I10 Essential (primary) hypertension; E78.5 Hyperlipidemia, unspecified; E11.9 Type 2 diabetes mellitus without complications; F03.90 Unspecified dementia, unspecified severity, without behavioral disturbance, psychotic disturbance, mood disturbance, and anxiety; J44.9 Chronic obstructive pulmonary disease, unspecified; R74.9 Abnormal serum enzyme level, unspecified; K44.9 Diaphragmatic hernia without obstruction or gangrene; Z79.84 Long term (current) use of oral hypoglycemic drugs; Y92.9 Unspecified place or not applicable
CPT/HCPCS: 36415; 70450-TC; 71045-TC-FY; 74176-TC; 80053; 80307; 81003; 82962; 83690; 83735; 84484; 85025; 87086; 93005; 93010; 96361; 96374; 99285-25; G0378; J0131; J1644; J7030